=== PATIENT | male | born 1935 | race Caucasian/White ===

== ENCOUNTER 2016-11-05 13:50 | Day surgery (SDC) | payer MEDICARE, BC ==
[2016-11-01 18:23] VITALS: BMI 36.1
[~2016-11-05 13:50] MED LIST: ceFAZolin 1,000 MG in SODIUM CHLORIDE 0.9% IRRIGATIO 250 ML IRRIGATION ONE; ceFAZolin 2 GM in SODIUM CHLORIDE 0.9% 100 ML IVPB ONE
[2016-11-05 15:00] LABS: Glucose,Whole Blood 143 mg/dL (75-99)
[2016-11-05 15:12] LABS: Basophils % (A) 0 %; CH 28.6; CHCM 31.8; Eosinophils # (A) 0.1 k/uL (0-0.7); Eosinophils % (A) 2 %; HCT 38.2 % (39.0-53.0); HDW 2.37; HGB 12.2 gm/dL (13.0-17.5); Luc # (Auto) 0.12; Luc % (Auto) 2; Lymphocytes # (A) 1.4 k/uL (1.0-4.8); Lymphocytes % (A) 24 %; MCH 28.7 pg (25.0-35.0); MCHC 31.9 g/dL (31.0-37.0); MCV 90.2 fL (80.0-100.0); Mean Platelet Volume 6.5; Monocytes # (A) 0.4 k/uL (0-1.0); Monocytes % (A) 6 %; Neutrophils # (A) 3.7 k/uL (1.3-7.7); Neutrophils % (A) 66 %; RBC 4.23 m/uL (4.30-5.90); RDW 13.1 % (11.5-15.5); WBC 5.6 k/uL (3.8-10.6); WBC (Perox) 5.71
[2016-11-05 15:19] LABS: Anion Gap 12 mmol/L; Blood Urea Nitrogen 24 mg/dL (9-20); Calcium 9.8 mg/dL (8.4-10.2); Carbon Dioxide 25 mmol/L (22-30); Chloride 107 mmol/L (98-107); Glucose 141 mg/dL (74-99); Non-African American GFR(MDRD) >60 (>60 ml/min/1.73 sqM); Potassium 4.5 mmol/L (3.5-5.1); Sodium 144 mmol/L (137-145)
[2016-11-05 15:29] LABS: INR 1.4 (<1.1); Prothrombin Time 13.3 sec (9.0-12.0)
[2016-11-05] MEDS ORDERED: MIDAZOLAM 2 MG/2 ML VIAL ONE (16:14)
[2016-11-05] MEDS ORDERED: fentaNYL (PF) 50 MCG/ML 2 ML AMP ONE (16:14)
[2016-11-05] MEDS: fentaNYL (PF) 50 MCG/ML 2 ML AMP IV ONE ×2 (16:30→18:11)
[2016-11-05] MEDS ORDERED: IV FLUID CONTINUATION 1,000 ML IV ONE (16:39)
[2016-11-05] MEDS ORDERED: IODIXANOL 320 MG/ML 100 ML IV ONE (16:45)
[2016-11-05] MEDS: LIDOCAINE 1% INJ 10MG/ML (20 ML MDV) SQ ONE ×2 (16:47→16:57)
[2016-11-05] MEDS ORDERED: MIDAZOLAM 2 MG/2 ML VIAL IVP ONE (17:02)
[2016-11-05] MEDS ORDERED: ACETAMINOPHEN IV (For NPO) 1,000 MG in EMPTY BAG 1 BAG IVPB ONE (18:13)
[2016-11-05] MEDS ORDERED: ACETAMINOPHEN TAB 325 MG TAB PO PRN (18:13)
[2016-11-05] MEDS: SODIUM CHLORIDE 0.9% 1,000 ML IV SCH (18:43)
--- NOTE | 2016-11-05 18:57 | PCN ---
DATE OF PROCEDURE: Mr. Elizabeth is a patient of Dr. Luther Aldana and Dr. Ibrahim who has severe bradycardia, has symptomatic bradycardia with underlying AV node disease as well as a history of tachy-laura recovery syndrome and atrial fibrillation. He has pauses up to 3 to 5 seconds secondary to AV node disease He has diabetes and hypertension and dyslipidemia, coronary artery disease, status post stenting in the past as well as coronary artery bypass grafting. He was brought in for dual-chamber pacemaker implantation. The patient was brought to the EP lab in a fasting state. Written informed consent was obtained prior to the procedure. The left shoulder area was prepped and draped as per protocol. 1% lidocaine was used for local anesthesia. A 4 cm incision was made parallel to the deltopectoral groove, about 1.5 cm medial to it. The incision was carried down to the level of pectoralis muscle. A subfascial pocket was made. Hemostasis was assured. The left axillary vein was accessed at 2 separate points under fluoroscopy and via appropriate-sized introducer sheaths, 2 leads were positioned in the right heart. The atrial lead was NJVCevity MRI lead 45 cm in length and model #7740, serial #[id number]. This was screwed in the right atrial appendage. P waves were 1.9 V, pacing threshold 0.7 V at 0.4 ms, pacing impedance of 550 ohms, 1.3 mA. Table test was negative. The RV lead positioned high RV septum, model #7742, serial #[id number], 9 cm in length. Table test was negative. R waves 7.9 mV, pacing threshold 0.4 ms, pacing impedance of 877 ohms, current of 1.5 mA. Both leads were secured to the underlying pectoralis fascia using 2 nonabsorbable sutures. The pocket was irrigated with antibiotic solution. The leads were connected to the generator ([email or web address] Accolade MRI, model #L311, serial #[id number]). The leads and the generator were then placed in the subfascial pocket and the wound was closed in 3 layers and dressed per protocol. The device was secured to the underlying pectoralis muscle. RESULT: Successful dual-chamber pacemaker implantation for tachy-laura syndrome with severe AV node disease with pauses up to 3 to 5 seconds, history of paroxysmal atrial fibrillation and diabetes, hypertension, hyperlipidemia, coronary artery disease, coronary artery bypass grafting. PLAN: IV antibiotics and increased atenolol to 50 mg p.o. daily.
[2016-11-05] MEDS ORDERED: NITROGLYCERIN SL TABS 0.4 MG TAB SUBLINGUAL PRN (18:58)
--- NOTE | 2016-11-05 19:01 | LTR ---
November 05, 2016 RE: Jay Elizabeth Dear Gerald: I had the pleasure of seeing Mr. Jay Elizabeth in electrophysiology followup. Jay underwent a dual-chamber pacemaker implantation successfully for tachy-laura syndrome with significant AV node disease and pause of 3 to 5 seconds. The pacemaker procedure went well without any complications. However, during the procedure we noted that he also has runs of nonsustained ventricular tachycardia originating from the left ventricle. Therefore, his device has been programmed to detect tachy arrhythmias above 140 beats a minute. I will also increase the dose of atenolol to 50 mg p.o. daily because he has known atrial fibrillation. The rest of his medications remain unchanged. If you have any questions, please do not hesitate to give me a call. Sincerely, CATHY CUMMINS MD
--- NOTE | 2016-11-05 19:06 | DS ---
DATE OF ADMISSION: 11/05/2016 DATE OF DISCHARGE: Jay Elizabeth underwent dual-chamber pacemaker implantation for tachy-laura syndrome with severe AV node disease and pauses up to 3 to 5 seconds. He received IV antibiotics ( ). He may be discharged home office completion of IV antibiotics, chest x-ray and pacemaker interrogation. His other medical problems include paroxysmal atrial fibrillation nonsustained ventricular tachycardia, coronary artery disease, status post coronary artery bypass grafting, diabetes, hypertension, dyslipidemia.
[2016-11-05] MEDS: HYDROcodone/APAP 5-325MG 1 EACH TAB PO PRN (20:31)
[2016-11-05] MEDS: ATENOLOL 50 MG TAB PO SCH (20:32)
[2016-11-05] MEDS: ISOSORBIDE MONONITRATE ER 60 MG TAB.ER.24H PO SCH (20:32)
[2016-11-05] MEDS: metFORMIN 500 MG TAB PO SCH (20:32)
[2016-11-05] MEDS: glipiZIDE 5 MG TAB PO SCH (20:32)
[2016-11-05] MEDS ORDERED: ATORVASTATIN 40 MG TAB PO SCH (21:00)
[2016-11-05] MEDS ORDERED: INSULIN DETEMIR 100 UNIT/ML 10 ML VIAL SQ SCH (21:00)
[2016-11-05] MEDS ORDERED: WARFARIN 5 MG TAB PO SCH (21:00)
[2016-11-05] MEDS ORDERED: FAMOTIDINE 20 MG TAB PO SCH (21:00)
[2016-11-05 21:14] LABS: Glucose,Whole Blood 198 mg/dL (75-99)
[2016-11-05] MEDS: ceFAZolin 2 GM in SODIUM CHLORIDE 0.9% 100 ML IVPB SCH (21:37)
[2016-11-06] MEDS: ceFAZolin 2 GM in SODIUM CHLORIDE 0.9% 100 ML IVPB SCH ×3 (03:25→14:31)
[2016-11-06] MEDS: HYDROcodone/APAP 5-325MG 1 EACH TAB PO PRN ×2 (03:38→08:23)
[2016-11-06] MEDS ORDERED: LEVOTHYROXINE 88 MCG TAB PO SCH (06:30)
[2016-11-06 07:00] LABS: Glucose,Whole Blood 90 mg/dL (75-99)
[2016-11-06] MEDS ORDERED: CAPTOPRIL 25 MG TAB PO SCH (07:30)
[2016-11-06] MEDS ORDERED: ONDANSETRON 4 MG/2 ML VIAL IVP PRN (07:45)
[2016-11-06 07:48] VITALS: PULSE 60; RESP 18
[2016-11-06] MEDS: metFORMIN 500 MG TAB PO SCH (08:00)
[2016-11-06] MEDS: glipiZIDE 5 MG TAB PO SCH (08:00)
[2016-11-06] MEDS: ATENOLOL 50 MG TAB PO SCH (08:01)
[2016-11-06] MEDS: ISOSORBIDE MONONITRATE ER 60 MG TAB.ER.24H PO SCH (08:02)
[2016-11-06] MEDS ORDERED: ASPIRIN 81 MG CHEW PO SCH (09:00)
[2016-11-06] MEDS ORDERED: FINASTERIDE 5 MG TAB PO SCH (09:00)
[2016-11-06] MEDS ORDERED: DOXAZOSIN 2 MG TAB PO SCH (09:00)
[2016-11-06] MEDS ORDERED: ATENOLOL 25 MG TAB PO SCH (09:00)
[2016-11-06] MEDS ORDERED: amLODIPine 10 MG TAB PO SCH (09:00)
[2016-11-06] MEDS ORDERED: CLOPIDOGREL 75 MG TAB PO SCH (09:00)
--- NOTE | 2016-11-06 09:43 | XR ---
EXAMINATION TYPE: XR chest 2V DATE OF EXAM: 11/06/2016 6:48 AM COMPARISON: 06/10/2012 HISTORY: Lead placement check FINDINGS: The lungs are clear and there is no pneumothorax, pleural effusion, or focal pneumonia. There is a d ouble lead pacemaker with no evidence of pneumothorax. Postsurgical changes are seen. Proximal lead o verlies the right atrium and the distal lead overlies the region of the right ventricle. Degenerative change of the spine noted. IMPRESSION: 1. No postprocedural complication.
--- NOTE | 2016-11-06 10:35 | CONS ---
DATE OF CONSULTATION: 11/05/2016 CONSULTATION REGARDING: Medical evaluation and management of diabetes mellitus. HISTORY OF PRESENT ILLNESS: 81-year-old gentleman, who was admitted to the hospital and underwent a pacemaker placement. The patient was noted to have bradycardia and high grade blockage. In the outpatient period the patient had intermittent atrial fibrillation as well. The patient has an underlying history of coronary artery disease. PAST MEDICAL HISTORY: Significant for coronary artery disease with previous CABG. The patient has subsequently had other interventional procedures. The patient still has occasional angina, for example today with the exposure of cold weather he says he did have an episode of angina. The patient has a history of paroxysmal atrial fibrillation and also suggestion of sick sinus syndrome for which he has had a pacemaker placed today. The patient has a history of diabetes mellitus with fair control, obesity, hypertension, degenerative arthritis. PAST SURGICAL HISTORY: Significant for CABG. PERSONAL HISTORY: Nonsmoker. Alcohol none. ALLERGIES: None. MEDICATIONS: 1. Coumadin 5 mg daily. 2. Zantac 150 mg daily. 3. Capoten 25 mg b.i.d. 4. Plavix 75 mg daily. 5. Levemir 20 units subcu at bedtime. 6. Metformin 1000 mg b.i.d. 7. Glipizide 5 mg b.i.d. 8. Norvasc 10 mg daily. 9. Levothyroxine 88 mcg daily. 10. Imdur 60 mg b.i.d. 11. Fenestrate 5 mg daily. 12. Cardura 2 mg daily. 13. Vitamin D3. 14. Lipitor 40 mg daily. 15. Atenolol 50 mg daily. 16. Aspirin 81 mg daily. SOCIAL HISTORY: Patient is and lives with her spouse. FAMILY MEDICAL HISTORY: Father of coronary artery disease, mother of dementia. The patient has a sister with history of bronchial asthma. A brother with history of diabetes mellitus type 1 and coronary artery disease. Brother with history of coronary artery disease. The patient has a daughter who had cervical cancer recently and treated. REVIEW OF SYSTEMS: NEURO: Denies any headaches, dizziness. No double vision or blurred vision. PSYCH: No anxiety or depression. CARDIAC: No chest pain, palpitations. Does have an episode of angina. No shortness of breath. RESPIRATORY: No shortness of breath. Has chronic cough. No hemoptysis. GI: No nausea, vomiting, abdominal pain, diarrhea. : No symptoms of dysuria, hematuria. Does have some frequency and hesitancy. EXTREMITIES: No pain. Does have musculoskeletal pain in the knee joints. CONSTITUTIONAL: No fever or chills. PHYSICAL EXAMINATION: Pleasant gentleman in no distress. Vital signs reveal patient is afebrile, pulse 74, blood pressure 140/61, pulse ox 91% on room air. HEENT: Normocephalic. NECK: No JVD. CHEST: Clear to auscultation. CARDIAC: Normal S1, S2 with no gallops. HEENT: Normocephalic. NECK: Supple. No JVD. CHEST: Clear to auscultation and percussion. CARDIAC: Normal S1, S2, no gallops. Systolic murmur 2/6 left sternal border. ABDOMEN: Soft. Bowel sounds present. EXTREMITIES: Trace edema. Decreased pedal pulses. NEUROLOGIC: Awake, alert, oriented, well-coordinated movements right upper extremity and both lower extremities. Left upper extremities in a sling. LABORATORY ASSESSMENT: Hemoglobin of 12.2, white count 5.6, INR 1.4. Normal electrolytes, BUN 24, creatinine 1.11, glucose was 141. ASSESSMENT: 1. Diabetes mellitus, on medical therapy at present, adequately controlled. 2. Coronary artery disease, stable. 3. Status post pacemaker. 4. Obesity. PLAN: The patient is stable. Continue present medical regimen. The patient's medications are as ordered. Condition discussed with the patient. Prognosis guarded.
[2016-11-06 11:41] VITALS: BP 138/63; TEMP 97.4
--- NOTE | 2016-11-06 11:41 | DS ---
DATE OF ADMISSION: 11/05/2016 DATE OF DISCHARGE: Mr. Elizabeth is doing well. His pacemaker site has healed well. There is minimal oozing of the dressing. No hematoma. Heart sounds are normal. Breath sounds are normal. Lungs are clear on auscultation. Vitals are stable. He is afebrile. His blood pressure is 122/61 mmHg. Chest x-ray is within normal limits. Pacemaker interrogation within normal limits. He will be discharged home after completion of IV antibiotics. IMPRESSION: 1. Severe bradycardia associated with severe has severe atrioventricular node disease, pauses of 3 to 5 seconds, symptomatic. 2. Coronary artery disease, status post coronary artery bypass grafting. 3. Nonsustained ventricular tachycardia from the left ventricle. Based on the telemetry, pacemaker programmed accordingly to heart rates above 146 beats a minute. PLAN: Discharge home today and follow up with Dr. Luther Aldana. The dose of atenolol has been increased to 50 mg p.o. daily.
[2016-11-06] MEDS: SODIUM CHLORIDE 0.9% 1,000 ML IV SCH (11:52)
[2016-11-06 12:04] LABS: Glucose,Whole Blood 169 mg/dL (75-99)
--- NOTE | 2016-11-06 23:00 | PN ---
CHIEF COMPLAINT: Re-evaluation. HISTORY OF PRESENT ILLNESS: This is a 81-year-old who was admitted to the hospital and has undergone a pacemaker placement. The patient had sick sinus syndrome along with paroxysmal atrial fibrillation. He has underlying history of coronary artery disease. The patient also has a history of diabetes mellitus. He is actually feeling fairly well. REVIEW OF SYSTEMS: NEURO: Denies any headaches, dizziness. PSYCH: No anxiety. CARDIAC: No chest pain, angina, palpitation. RESPIRATORY: No shortness of breath, cough. GI: No nausea, vomiting, abdominal pain. : No symptoms of dysuria, hematuria. EXTREMITIES: No pain. CONSTITUTIONAL: No fever or chills. PHYSICAL EXAMINATION: Pleasant gentleman in no distress. VITAL SIGNS: Temperature 98.5, pulse 60, respirations 18, blood pressure 128/61, pulse ox 93% on room air. HEENT: Normocephalic. NECK: No JVD. CHEST: Clear to auscultation ( ) percussion noted bilaterally. CARDIAC: Normal S1, S2 with no gallops. Systolic murmur 2/6, left sternal border. ABDOMEN: Soft. EXTREMITIES: No edema. Neurologically awake, alert, oriented. Moves right upper extremity and lower extremities fairly well. LABORATORY ASSESSMENT: CBC which revealed a hemoglobin of 12.2 yesterday. No labs from today. Accu-Cheks in adequate range. ASSESSMENT: 1. Diabetes mellitus, adequately controlled. 2. Coronary artery disease, stable. 3. Status post pacemaker placement. PLAN: The patient is stable. Continue present medical regimen. Patient's condition discussed with the patient. Prognosis guarded. Patient after completion of his IV antibiotics will be discharged home today.
== END 2016-11-06 16:25 | disposition home or self-care (01) ==
LOC: CATHEP 13:50 → 3OBS 18:00 → CATHEP 11-06 16:25
PROVIDERS: ATTEND Internal Medicine Clinical Cardiac Electrophysiology
DX: I49.5 Sick sinus syndrome (principal); I44.1 Atrioventricular block, second degree; I47.2 Ventricular tachycardia; I48.0 Paroxysmal atrial fibrillation; I25.119 Atherosclerotic heart disease of native coronary artery with unspecified angina pectoris; Z95.1 Presence of aortocoronary bypass graft; E78.2 Mixed hyperlipidemia; I10 Essential (primary) hypertension; E11.9 Type 2 diabetes mellitus without complications; E66.9 Obesity, unspecified; Z82.49 Family history of ischemic heart disease and other diseases of the circulatory system; I25.2 Old myocardial infarction; Z79.01 Long term (current) use of anticoagulants; Z79.84 Long term (current) use of oral hypoglycemic drugs; Z79.02 Long term (current) use of antithrombotics/antiplatelets; Z79.82 Long term (current) use of aspirin; Z79.4 Long term (current) use of insulin; Z79.899 Other long term (current) drug therapy; Z87.891 Personal history of nicotine dependence
CPT/HCPCS: 33208; 80048; 85025; 85610; 71020; C1892; C1769 ×2; C1898; C1785; S0138; J2250; Q9967; J0690 ×3; J2001; J3010

== ENCOUNTER → 2016-12-12 | Outpatient (CLI) | payer MEDICARE, BC ==
[2016-12-12 15:51] LABS: Anion Gap 11 mmol/L; Blood Urea Nitrogen 26 mg/dL (9-20); Carbon Dioxide 26 mmol/L (22-30); Chloride 104 mmol/L (98-107); Non-African American GFR(MDRD) >60 (>60 ml/min/1.73 sqM); Sodium 141 mmol/L (137-145)
[2016-12-12 15:54] LABS: CH 28.4; CHCM 30.8; HCT 38.9 % (39.0-53.0); HDW 2.32; Hypochromasia Slight; MCH 28.5 pg (25.0-35.0); MCHC 30.8 g/dL (31.0-37.0); MCV 92.6 fL (80.0-100.0); Mean Platelet Volume 6.9; RDW 13.1 % (11.5-15.5); WBC 6.1 k/uL (3.8-10.6)
== END | disposition home or self-care (01) ==
LOC: LABPAT 15:06
PROVIDERS: ATTEND Internal Medicine Cardiovascular Disease
DX: Z01.812 Encounter for preprocedural laboratory examination (principal); I25.10 Atherosclerotic heart disease of native coronary artery without angina pectoris
CPT/HCPCS: 80051; 82565; 84520; 85027

== ENCOUNTER 2016-12-17 10:48 | Day surgery (SDC) | payer MEDICARE, BC ==
[2016-12-16 08:26] VITALS: BMI 35.9
[~2016-12-17 10:48] MED LIST changes: +ALPRAZolam 0.25 MG TAB PO PRN; +ALPRAZolam 0.5 MG TAB PO PRN; +ASPIRIN 325 MG TAB PO STA; +ATORVASTATIN 80 MG TAB PO STA; +NITROGLYCERIN SL TABS 0.4 MG TAB SUBLINGUAL PRN; +SODIUM CHLORIDE 0.9% 1,000 ML in EMPTY BAG 1 BAG IV ONE; -ceFAZolin 1,000 MG in SODIUM CHLORIDE 0.9% IRRIGATIO 250 ML IRRIGATION ONE; -ceFAZolin 2 GM in SODIUM CHLORIDE 0.9% 100 ML IVPB ONE
[2016-12-17] MEDS ORDERED: ASPIRIN 81 MG CHEW ONE (11:03)
[2016-12-17] MEDS ORDERED: SODIUM CHLORIDE 0.9% 1,000 ML IV ONE (11:17)
[2016-12-17 11:27] LABS: Glucose,Whole Blood 183 mg/dL (75-99)
[2016-12-17 12:06] LABS: INR 1.1 (<1.1); Prothrombin Time 10.9 sec (9.0-12.0)
[2016-12-17] MEDS ORDERED: MIDAZOLAM 2 MG/2 ML VIAL IV ONE (12:59)
[2016-12-17] MEDS: fentaNYL (PF) 50 MCG/ML 2 ML AMP IV ONE ×2 (12:59→13:33)
[2016-12-17] MEDS ORDERED: LIDOCAINE 2% INJ 20 MG/ML SQ ONE (13:05)
[2016-12-17] MEDS ORDERED: BIVALIRUDIN 250 MG in SODIUM CHLORIDE 0.9% 50 ML IV ONE (13:38)
[2016-12-17] MEDS ORDERED: BIVALIRUDIN BOLUS 250 MG/50 ML IV ONE (13:38)
[2016-12-17] MEDS ORDERED: IOHEXOL 350 MG/ML 100 ML BOTTLE INTRATHECA ONE (14:05)
[2016-12-17] MEDS ORDERED: RX INFO: IV CONTRAST WAS GIVEN 1 EACH MISC MISCELLANE PRN (14:17)
[2016-12-17] MEDS ORDERED: NITROGLYCERIN SL TABS 0.4 MG TAB SUBLINGUAL PRN ×2 (14:17→14:18)
[2016-12-17] MEDS ORDERED: ATROPINE SULFATE 0.1 MG/ML 10ML SYRINGE IV PRN (14:17)
[2016-12-17] MEDS ORDERED: MAG HYDROX/AL HYDROX/SIMETH 30 ML CUP PO PRN (14:17)
[2016-12-17] MEDS ORDERED: ZOLPIDEM 5 MG TAB PO PRN (14:17)
[2016-12-17] MEDS ORDERED: SODIUM CHLORIDE 0.9% 1,000 ML IV SCH (14:30)
[2016-12-17 17:03] LABS: Glucose,Whole Blood 224 mg/dL (75-99)
[2016-12-17] MEDS: CAPTOPRIL 25 MG TAB PO SCH (17:31)
[2016-12-17 18:22] VITALS: RESP 18
[2016-12-17] MEDS: ISOSORBIDE MONONITRATE ER 60 MG TAB.ER.24H PO SCH (20:13)
[2016-12-17 20:49] LABS: Glucose,Whole Blood 229 mg/dL (75-99)
[2016-12-17] MEDS ORDERED: ATORVASTATIN 40 MG TAB PO SCH (21:00)
[2016-12-17] MEDS ORDERED: INSULIN DETEMIR 100 UNIT/ML 10 ML VIAL SQ SCH (21:00)
[2016-12-17] MEDS ORDERED: FAMOTIDINE 20 MG TAB PO SCH (21:00)
[2016-12-17] MEDS ORDERED: CHOLECALCIFEROL 1,000 UNIT TAB PO SCH (21:00)
[2016-12-18 00:08] LABS: Glucose,Whole Blood 205 mg/dL (75-99)
[2016-12-18] MEDS: INSULIN LISPRO (humaLOG) 300 UNIT/3 ML VIAL SQ SCH ×3 (00:08→12:16)
--- NOTE | 2016-12-18 05:07 | CC ---
DATE OF SERVICE: Mr. Elizabeth is a 81-year-old gentleman with a history of previous bypass surgery. Patient recently underwent stent to the left main and the first obtuse marginal branch. The patient was having a significant increase in the frequent angina with mild activities. In view of that, the patient was recommended to have a cardiac catheterization to rule out any significant stenosis at the prior history of stent placement. PROCEDURE: The right groin was prepped and draped in the usual manner and the skin was infiltrated with 2% Xylocaine. The right femoral artery was entered using Seldinger technique. A #6 Irish sheath was placed in. Selective coronary angiography was then performed. Left main coronary artery has an ostial stenosis in its midportion. The circumflex coronary artery itself is patent and good caliber blood vessel. The first obtuse marginal branch, which was stented, looks normal. There is mild ostial stenosis. LAD is totally occluded. The FALLON graft to the LAD was patent by the cardiac catheterization done about 3 months ago and the right coronary artery is small and dominant. RECOMMENDATIONS: The films were reviewed with Dr. Gilman. In view of the patient's significant angina in spite of the medical treatment, we will attempt the re-stenting of the left main coronary artery.
--- NOTE | 2016-12-18 05:20 | PTCA ---
DATE OF SERVICE: Mr. Elizabeth is a 81-year-old male with known history of coronary artery disease, status post stenting of the left main in August who presented with symptoms of chest discomfort, underwent cardiac catheterization by Dr. Luther Aldana, was found to have severely calcified left main with restenosis in the stent up to 60% to 70%. In view of that, recommendation was made regarding angioplasty and stenting. The procedure as well as the risks and complications were discussed with the patient who is in full understanding and agreement. PROCEDURE: A 6-Tamazight FR4 guiding catheter was introduced into the system. After cannulating the left main, a 0.014 balanced medium weight J wire advanced across the lesion, positioned distally. Subsequently attempts to advance at 3.0 x 12 mm Trek balloon were unsuccessful, that balloon was removed and another 0.014 balanced medium weight J wire was advanced next to this first wire in a owen fashion. Attempts to advance the balloon were unsuccessful. The balloon was removed and a 2.0 x 8 mm Trek balloon was advanced and one inflation at 14 atmospheres was done. Subsequently, the balloon was removed and a 3.0 x 12 mm Trek balloon was advanced and one inflation at 12 atmospheres was done. Following that, the balloon was removed and 3.5 x 8 mm Xience Alpine stent was dispensed, deployed and post dilated at 16 atmospheres. After the last inflation, after appropriate wait, the balloon and the guidewire were withdrawn back in the guiding catheter. Images were obtained and repeated. Those images reveal stable successful stenting. At that point, the guiding catheter, the balloon and the guidewire were removed. The sheath was removed. Hemostasis was obtained with deployment of an Angio-Seal. There was no immediate complication. The patient was returned to his room in stable condition. Of note, the patient received Angiomax per protocol and he was continued on Plavix. RESULT: Successful stenting of the left main with the reduction of stenosis from 70% to 0%. RECOMMENDATION: Patient will be continued aspirin, Plavix, beta mago and statin. The importance of dual antiplatelet treatment were discussed with the patient and his family and they are in full understanding and agreement.
--- NOTE | 2016-12-18 05:23 | LTR ---
December 17, 2016 PAM NEAL MD RE: Glenn Jay Dear Dr. Neal: I had the opportunity to perform coronary angioplasty and stenting on Mr. Elizabeth at [facility] on the 17 of December and a full copy of the procedure note will be forwarded to you. In brief, he underwent successful stenting of his left main using a drug-eluting stent. I am hopeful that this procedure will stabilize his status. I thank you again for allowing me the opportunity to participate in his care. Please feel free to call for any questions. Sincerely yours, QUINTIN HOWELL MD
[2016-12-18 05:43] LABS: Glucose,Whole Blood 131 mg/dL (75-99)
[2016-12-18 06:07] LABS: Anion Gap 7 mmol/L; Blood Urea Nitrogen 19 mg/dL (9-20); Calcium 9.2 mg/dL (8.4-10.2); Carbon Dioxide 27 mmol/L (22-30); Chloride 110 mmol/L (98-107); Glucose 130 mg/dL (74-99); Non-African American GFR(MDRD) >60 (>60 ml/min/1.73 sqM); Potassium 4.4 mmol/L (3.5-5.1); Sodium 144 mmol/L (137-145)
[2016-12-18] MEDS ORDERED: LEVOTHYROXINE 88 MCG TAB PO SCH (06:30)
[2016-12-18] MEDS: CAPTOPRIL 25 MG TAB PO SCH (06:48)
[2016-12-18] MEDS ORDERED: INSULIN LISPRO (humaLOG) 300 UNIT/3 ML VIAL SQ SCH (07:30)
[2016-12-18] MEDS: ISOSORBIDE MONONITRATE ER 60 MG TAB.ER.24H PO SCH (08:07)
[2016-12-18] MEDS ORDERED: ATENOLOL 50 MG TAB PO SCH (09:00)
[2016-12-18] MEDS ORDERED: MULTIVITAMINS, THERA 1 EACH TAB PO SCH (09:00)
[2016-12-18] MEDS ORDERED: amLODIPine 10 MG TAB PO SCH (09:00)
[2016-12-18] MEDS ORDERED: CLOPIDOGREL 75 MG TAB PO SCH (09:00)
[2016-12-18] MEDS ORDERED: ASPIRIN 81 MG CHEW PO SCH (09:00)
[2016-12-18] MEDS ORDERED: FINASTERIDE 5 MG TAB PO SCH (09:00)
[2016-12-18] MEDS: DOXAZOSIN 2 MG TAB PO SCH ×2 (09:43→09:44)
[2016-12-18 11:06] LABS: Hemoglobin A1C 7.1 % (4.2-6.1)
[2016-12-18 11:32] LABS: Glucose,Whole Blood 215 mg/dL (75-99)
[2016-12-18 12:47] VITALS: BP 133/56; PULSE 59; TEMP 96.9
--- NOTE | 2016-12-18 15:04 | P.PN ---
Subjective Principal diagnosis: Status post left main stenting Discharge note This is a 81-year-old gentleman with history of prior bypass surgery who recently underwent stent to the left main and first obtuse marginal branch. Patient was having increase the symptoms of angina and for this reason was brought to the cardiac catheterization lab yesterday by Dr. VC Aldana will patient was found to have an ostial stenosis in the left main. This was stented yesterday by Dr. Gilman. EKG performed this morning showed normal sinus rhythm with no changes from post-PCI. Hemodynamically stable. He's been up ambulating without any difficulty. Objective - Vital Signs Vital signs: Vital Signs Temp 96.9 F L 12/18/16 11:15 Pulse 59 L 12/18/16 11:15 Resp 18 12/18/16 11:15 BP 133/56 12/18/16 11:15 Pulse Ox 96 12/18/16 11:15 Intake & Output 12/17/16 12/18/16 12/18/16 18:59 06:59 18:59 Intake Total 1184.7 1000 536 Output Total 1060 300 Balance 124.7 700 536 Weight 113.398 kg 112 kg Intake: IV 984.7 1000 Sodium Chloride 0.9% 1, 700 1000 000 ml @ 100 mls/hr IV . Q10H ROBERT Rx#:[id number] Oral 200 536 Output: Urine 1060 300 Other: Voiding Method Toilet Urinal # Voids 1 - Exam PHYSICAL EXAMINATION: HEENT: Head is atraumatic, normocephalic. Pupils equal, round. Neck is supple. There is no elevated jugular venous pressure. HEART EXAMINATION: Heart S1, S2 normal. No murmur or gallop heard. CHEST EXAMINATION: Lungs are clear to auscultation and precussion. No chest wall tenderness is noted on palpation or with deep breathing. ABDOMEN: Soft, nontender. Bowel sounds are heard. No organomegaly noted. Right groin soft, no evidence of any hematoma. EXTREMITIES: 2+ peripheral pulses with no evidence of peripheral edema and no calf tenderness noted. NEUROLOGIC patient is awake, alert and oriented -3. . - Labs CBC & Chem 7: 12/18/16 05:37 Labs: Abnormal Lab Results - Last 24 Hours (Table) 12/17/16 12/17/16 12/18/16 Range/Units 16:55 20:47 00:04 Chloride (98-107) mmol/L Glucose (74-99) mg/dL POC Glucose (mg/dL) 224 H 229 H 205 H (75-99) mg/dL Hemoglobin A1c (4.2-6.1) % 12/18/16 12/18/16 12/18/16 Range/Units 05:37 05:37 05:42 Chloride 110 H (98-107) mmol/L Glucose 130 H (74-99) mg/dL POC Glucose (mg/dL) 131 H (75-99) mg/dL Hemoglobin A1c 7.1 H (4.2-6.1) % 12/18/16 Range/Units 11:27 Chloride (98-107) mmol/L Glucose (74-99) mg/dL POC Glucose (mg/dL) 215 H (75-99) mg/dL Hemoglobin A1c (4.2-6.1) % Assessment and Plan Plan: Assessment and plan #1 status post left main stenting #2 known history of coronary artery disease with prior bypass surgery #3 diabetes #4 hypertension Number 5 hyperlipidemia Plan Patient may be able to be discharged home today. We will make him a follow-up appointment to see Dr. VC Aldana in the office post discharge. He will be discharged home on aspirin 81 mg daily, atenolol 50 mg daily, Lipitor 80 mg daily, Capoten 25 mg one tablet by mouth twice a day, Plavix 75 mg daily, Cardura 2 mg daily, pro-scar 5 mg daily, insulin as at home, Imdur 60 mg twice a day, Synthroid as at home, Norvasc 10 mg daily, sublingual nitroglycerin as needed for chest pain. Patient will also be resumed on Coumadin 5 mg daily. We will check PT/INR on Friday. DNP note has been reviewed, I agree with a documented findings and plan of care. Patient was seen and examined.
[2016-12-18 15:44] LABS: Glucose,Whole Blood 186 mg/dL (75-99)
== END 2016-12-18 16:33 | disposition home or self-care (01) ==
LOC: CATHCVL 10:48 → 6SEL 14:09 → CATHCVL 12-18 16:33
PROVIDERS: ATTEND Internal Medicine Cardiovascular Disease
DX: T82.855A Stenosis of coronary artery stent, initial encounter (principal); I25.119 Atherosclerotic heart disease of native coronary artery with unspecified angina pectoris; I48.91 Unspecified atrial fibrillation; I10 Essential (primary) hypertension; Z95.1 Presence of aortocoronary bypass graft; Z95.0 Presence of cardiac pacemaker; E78.2 Mixed hyperlipidemia; E11.9 Type 2 diabetes mellitus without complications; I25.2 Old myocardial infarction; Z79.01 Long term (current) use of anticoagulants; Z79.84 Long term (current) use of oral hypoglycemic drugs; Z79.02 Long term (current) use of antithrombotics/antiplatelets; Z79.82 Long term (current) use of aspirin; Z79.4 Long term (current) use of insulin; Z79.899 Other long term (current) drug therapy; Z82.49 Family history of ischemic heart disease and other diseases of the circulatory system; Z87.891 Personal history of nicotine dependence
CPT/HCPCS: 93454; 85347; 80048; 83036; 85610; C9600; C1769 ×2; C1760; C1887; C1725 ×2; C1894; C1874; J2001; S0138; J2250; Q9967; J3010; J0583

== ENCOUNTER 2016-12-24 04:28 | Inpatient (IN) | payer MEDICARE, BC ==
[2016-12-24] MEDS ORDERED: ASPIRIN 81 MG CHEW PO STA (04:46)
[2016-12-24] MEDS ORDERED: NITROGLYCERIN OINT 1 INCH/GM PACKET TOPICAL STA (04:46)
--- NOTE | 2016-12-24 04:49 | ED ---
General Adult HPI - General Chief complaint: Chest Pain Stated complaint: Chest Pain Time Seen by Provider: 12/24/16 04:30 Source: patient, family, EMS, RN notes reviewed Mode of arrival: EMS Limitations: no limitations - History of Present Illness Initial comments: Patient is a pleasant 81-year-old male presenting to the emergency department complaining of chest discomfort. Onset of symptoms was around 2 or 3 in the morning. Symptoms have been steady. Patient took some nitroglycerin without improvement of symptoms. Discomfort is now improved following morphine by EMS. Discomfort is only mild at this time, not completely resolved. No associated nausea or diaphoresis. Patient had mild dyspnea. Patient does have a history of similar symptoms previously associated with cardiac disease. No leg pain or swelling. No cough or fever. - Related Data Home Medications Medication Instructions Recorded Confirmed Captopril [Capoten] 25 mg PO AC-BID 07/10/16 12/17/16 Cholecalciferol [Vitamin D3] 1,000 unit PO HS 07/10/16 12/17/16 Doxazosin [Cardura] 2 mg PO QAM 07/10/16 12/17/16 Finasteride 5 mg PO QAM 07/10/16 12/17/16 Insulin Detemir [Levemir] 20 unit SQ HS 07/10/16 12/17/16 Levothyroxine Sodium [Synthroid] 88 mcg PO QAM 07/10/16 12/17/16 Multivitamins, Thera [Multivitamin] 1 tab PO DAILY 07/10/16 12/17/16 Ranitidine HCl [Zantac] 150 mg PO HS 07/10/16 12/17/16 amLODIPine [Norvasc] 10 mg PO QAM 07/10/16 12/17/16 glipiZIDE [Glipizide] 5 mg PO BID 07/10/16 12/17/16 Isosorbide Mononitrate ER [Imdur] 60 mg PO BID 07/11/16 12/17/16 Warfarin [Coumadin] 5 mg PO HS 11/01/16 12/17/16 Previous Rx's Medication Instructions Recorded Clopidogrel [Plavix] 75 mg PO DAILY #90 tab 07/25/16 Atenolol [Tenormin] 50 mg PO DAILY #0 11/05/16 Aspirin 81 mg PO DAILY #30 chew 12/18/16 Atorvastatin [Lipitor] 40 mg PO HS #30 tab 12/18/16 Nitroglycerin Sl Tabs [Nitrostat] 0.4 mg SUBLINGUAL Q5M PRN #25 tab 12/18/16 metFORMIN HCL [metFORMIN HCL ER] 1,000 mg PO BID #0 12/18/16 Allergies Allergy/AdvReac Type Severity Reaction Status Date / Time No Known Allergies Allergy Verified 11/01/16 17:55 Review of Systems ROS Statement: Those systems with pertinent positive or pertinent negative responses have been documented in the HPI. ROS Other: All systems not noted in ROS Statement are negative. Constitutional: Denies: fever Eyes: Denies: eye pain ENT: Denies: ear pain Respiratory: Reports: dyspnea. Denies: cough Cardiovascular: Reports: chest pain Endocrine: Denies: fatigue Gastrointestinal: Denies: abdominal pain Genitourinary: Denies: dysuria Musculoskeletal: Denies: back pain Skin: Denies: rash Neurological: Denies: weakness Past Medical History Past Medical History: Eye Disorder, Hypertension, Myocardial Infarction (PR) Additional Past Medical History / Comment(s): HX Irregular b/p; PR X2. Uses CPAP. LT Eye RETINA PROB, poor vision. SL RASH ON ANKLES. BRADYCARDIA. SEE H &P. Last Myocardial Infarction Date:: 2005 History of Any Multi-Drug Resistant Organisms: None Reported Past Surgical History: Coronary Bypass/CABG, Heart Catheterization With Stent Additional Past Surgical History / Comment(s): cabg-1 vessel. OLD HX Heart Stents x3 or 4. Sinus surgery r/t growth sinus cavity. PT STATED HAD A PNE VACINE LESS THAN 5 YEARS AGO BUT NOT SURE OF DATE. 07/24/16 PTCA W/ STENTS(1 TO LT MAIN AND 2 TO THE OM). Past Anesthesia/Blood Transfusion Reactions: No Reported Reaction Date of Last Stent Placement:: 07/24/16 Past Psychological History: No Psychological Hx Reported Smoking Status: Former smoker Past Alcohol Use History: Rare Additional Past Alcohol Use History / Comment(s): Quit Smoking 1974, 21 yrs-2 ppd. Past Drug Use History: None Reported - Past Family History Mother Family Medical History: Asthma Father Family Medical History: Myocardial Infarction (PR) Additional Family Medical History / Comment(s): with PR at age 62 Brother(s) Family Medical History: Deep Vein Thrombosis (DVT), Myocardial Infarction (PR) Additional Family Medical History / Comment(s): at age 42 w/ [place] General Exam Limitations: no limitations General appearance: alert, in no apparent distress Head exam: Present: atraumatic Eye exam: Present: normal appearance, PERRL ENT exam: Present: normal oropharynx Neck exam: Present: normal inspection Respiratory exam: Present: normal lung sounds bilaterally. Absent: chest wall tenderness Cardiovascular Exam: Present: regular rate, normal rhythm Expanded Peripheral pulses: 2+: Radial (R), Radial (L), Dorsalis Pedis (R), Dorsalis Pedis (L) GI/Abdominal exam: Present: soft. Absent: tenderness Extremities exam: Present: normal inspection. Absent: pedal edema, calf tenderness Neurological exam: Present: alert Psychiatric exam: Present: normal affect, normal mood Skin exam: Absent: rash Course Vital Signs 12/24/16 12/24/16 04:34 05:55 Temperature 97.0 F L Pulse Rate 70 82 Respiratory 16 18 Rate Blood Pressure 139/65 117/56 O2 Sat by Pulse 94 L 95 Oximetry EKG Findings - EKG Comments: EKG Findings:: Ventricular paced rhythm at 71. QRS 162. QT 468. QTC 508. Normal axis. Wide QRS complex. Nonspecific ST-T. Medical Decision Making - Medical Decision Making Patient reexamined and further improved. Patient and family updated on results and plan. Case was discussed in detail with Dr. Ibrahim, who will admit his patient with cardiology consult. - Lab Data Result diagrams: 12/24/16 04:57 12/24/16 04:57 Lab Results 12/24/16 12/24/16 12/24/16 Range/Units 04:57 04:57 04:57 WBC 6.6 (3.8-10.6) k/uL RBC 4.26 L (4.30-5.90) m/uL Hgb 12.2 L (13.0-17.5) gm/dL Hct 38.9 L (39.0-53.0) % MCV 91.3 (80.0-100.0) fL MCH 28.6 (25.0-35.0) pg MCHC 31.3 (31.0-37.0) g/dL RDW 13.4 (11.5-15.5) % Plt Count 177 (150-450) k/uL Neutrophils % 69 % Lymphocytes % 20 % Monocytes % 5 % Eosinophils % 3 % Basophils % 1 % Neutrophils # 4.5 (1.3-7.7) k/uL Lymphocytes # 1.3 (1.0-4.8) k/uL Monocytes # 0.3 (0-1.0) k/uL Eosinophils # 0.2 (0-0.7) k/uL Basophils # 0.1 (0-0.2) k/uL PT (9.0-12.0) sec INR (<1.1) APTT (22.0-30.0) sec Sodium 143 (137-145) mmol/L Potassium 4.8 (3.5-5.1) mmol/L Chloride 107 (98-107) mmol/L Carbon Dioxide 23 (22-30) mmol/L Anion Gap 13 mmol/L BUN 23 H (9-20) mg/dL Creatinine 1.00 (0.66-1.25) mg/dL Est GFR (MDRD) Af Amer >60 (>60 ml/min/1.73 sqM) Est GFR (MDRD) Non-Af >60 (>60 ml/min/1.73 sqM) Glucose 135 H (74-99) mg/dL Calcium 9.4 (8.4-10.2) mg/dL Magnesium 1.3 L (1.6-2.3) mg/dL Total Bilirubin 0.5 (0.2-1.3) mg/dL AST 30 (17-59) U/L ALT 39 (21-72) U/L Alkaline Phosphatase 64 (38-126) U/L Total Creatine Kinase 136 (55-170) U/L CK-MB (CK-2) 2.2 (0.0-2.4) ng/mL CK-MB (CK-2) Rel Index 1.6 Troponin I 0.026 (0.000-0.034) ng/mL Total Protein 6.6 (6.3-8.2) g/dL Albumin 3.8 (3.5-5.0) g/dL 12/24/16 Range/Units 04:57 WBC (3.8-10.6) k/uL RBC (4.30-5.90) m/uL Hgb (13.0-17.5) gm/dL Hct (39.0-53.0) % MCV (80.0-100.0) fL MCH (25.0-35.0) pg MCHC (31.0-37.0) g/dL RDW (11.5-15.5) % Plt Count (150-450) k/uL Neutrophils % % Lymphocytes % % Monocytes % % Eosinophils % % Basophils % % Neutrophils # (1.3-7.7) k/uL Lymphocytes # (1.0-4.8) k/uL Monocytes # (0-1.0) k/uL Eosinophils # (0-0.7) k/uL Basophils # (0-0.2) k/uL PT 15.4 H (9.0-12.0) sec INR 1.6 (<1.1) APTT 24.6 (22.0-30.0) sec Sodium (137-145) mmol/L Potassium (3.5-5.1) mmol/L Chloride (98-107) mmol/L Carbon Dioxide (22-30) mmol/L Anion Gap mmol/L BUN (9-20) mg/dL Creatinine (0.66-1.25) mg/dL Est GFR (MDRD) Af Amer (>60 ml/min/1.73 sqM) Est GFR (MDRD) Non-Af (>60 ml/min/1.73 sqM) Glucose (74-99) mg/dL Calcium (8.4-10.2) mg/dL Magnesium (1.6-2.3) mg/dL Total Bilirubin (0.2-1.3) mg/dL AST (17-59) U/L ALT (21-72) U/L Alkaline Phosphatase (38-126) U/L Total Creatine Kinase (55-170) U/L CK-MB (CK-2) (0.0-2.4) ng/mL CK-MB (CK-2) Rel Index Troponin I (0.000-0.034) ng/mL Total Protein (6.3-8.2) g/dL Albumin (3.5-5.0) g/dL - Radiology Data Radiology results: image reviewed (Chest x-ray shows no acute process) Disposition Clinical Impression: Chest pain Disposition: ADMITTED IP TO THIS HOSP
[2016-12-24 05:14] LABS: Basophils # (A) 0.1 k/uL (0-0.2); Basophils % (A) 1 %; CH 29.1; Eosinophils # (A) 0.2 k/uL (0-0.7); Eosinophils % (A) 3 %; HCT 38.9 % (39.0-53.0); HDW 2.45; HGB 12.2 gm/dL (13.0-17.5); Luc # (Auto) 0.19; Luc % (Auto) 3; Lymphocytes # (A) 1.3 k/uL (1.0-4.8); Lymphocytes % (A) 20 %; MCH 28.6 pg (25.0-35.0); MCHC 31.3 g/dL (31.0-37.0); MCV 91.3 fL (80.0-100.0); Mean Platelet Volume 7.5; Monocytes # (A) 0.3 k/uL (0-1.0); Monocytes % (A) 5 %; Neutrophils # (A) 4.5 k/uL (1.3-7.7); Neutrophils % (A) 69 %; RBC 4.26 m/uL (4.30-5.90); RDW 13.4 % (11.5-15.5); WBC 6.6 k/uL (3.8-10.6); WBC (Perox) 6.81
[2016-12-24 05:23] LABS: ALT 39 U/L (21-72); AST 30 U/L (17-59); Alkaline Phosphatase 64 U/L (38-126); Anion Gap 13 mmol/L; Blood Urea Nitrogen 23 mg/dL (9-20); Calcium 9.4 mg/dL (8.4-10.2); Carbon Dioxide 23 mmol/L (22-30); Chloride 107 mmol/L (98-107); Glucose 135 mg/dL (74-99); Magnesium 1.3 mg/dL (1.6-2.3); Non-African American GFR(MDRD) >60 (>60 ml/min/1.73 sqM); Potassium 4.8 mmol/L (3.5-5.1); Sodium 143 mmol/L (137-145); Total Bilirubin 0.5 mg/dL (0.2-1.3); Total Protein 6.6 g/dL (6.3-8.2)
[2016-12-24 05:34] LABS: INR 1.6 (<1.1); Partial Thromboplastin Time 24.6 sec (22.0-30.0); Prothrombin Time 15.4 sec (9.0-12.0)
[2016-12-24] MEDS ORDERED: MAGNESIUM SULFATE-D5W PMX 1 GM in DEXTROSE/WATER 1 100ML.BAG IVPB ONE (05:40)
--- NOTE | 2016-12-24 05:50 | XR ---
EXAM: XR Chest, 1 View. CLINICAL HISTORY: Reason: chest pain TECHNIQUE: Frontal view of the chest. COMPARISON: Chest radiographs 11/06/2016 FINDINGS: Lungs: Lungs are clear without focal infiltrates or consolidations. Pleural space: No evidence of pleural effusion. No pneumothorax. Heart: Heart size and mediastinal structures are within normal limits. Mediastinum: Unremarkable. Bones/joints: Previous median sternotomy. Dual lead cardiac pacer is present. IMPRESSION: No evidence of acute cardiopulmonary disease.
[2016-12-24 05:53] LABS: Creatine Kinase MB 2.2 ng/mL (0.0-2.4); Troponin I 0.026 ng/mL (0.000-0.034)
[2016-12-24 07:04] LABS: Glucose,Whole Blood 145 mg/dL (75-99)
[2016-12-24] MEDS ORDERED: NITROGLYCERIN SL TABS 0.4 MG TAB SUBLINGUAL PRN ×2 (07:31→09:36)
[2016-12-24] MEDS ORDERED: ISOSORBIDE MONONITRATE ER 60 MG TAB.ER.24H PO SCH (09:00)
[2016-12-24] MEDS ORDERED: ATENOLOL 50 MG TAB PO SCH (09:00)
[2016-12-24] MEDS ORDERED: HEPARIN SODIUM,PORCINE 5,000 UNIT/ML 1 ML VIAL IV ONE (09:24)
--- NOTE | 2016-12-24 09:31 | P.CRDCN ---
History of Present Illness Consult date: 12/24/16 Requesting physician: Gerald Ibrahim Consult reason: chest pain (Chest pain) Chief complaint: Chest pain History of present illness: This is a pleasant 81-year-old gentleman with known history of coronary artery disease, patient had coronary artery bypass grafting surgery in 2013 subsequent to that patient has had stent placements. Most recently, on the seventh of this month, because of frequent anginal symptoms with minimal exertion he was brought to the hospital by Dr. VC Aldana he underwent cardiac catheterization, with stent placement of the left main. He was just discharged from the hospital on the eighth of this month. Patient also has history of chronic persistent atrial fibrillation, hypertension, hyperlipidemia, diabetes, family history of premature coronary artery disease, prior pacemaker implantation. He takes Coumadin for anticoagulation. Patient presents to the hospital with symptoms of chest pressure and heaviness, he states that he took 3 sublingual nitro at home without relief of symptoms. According to the patient , he had just walked from the bathroom back to his bed which is a very short distance when symptoms started. He also states that since his discharge home he has been requiring at least one sublingual nitro and day because of exertional angina. EKG on arrival here showed a ventricular paced rhythm with underlying atrial fibrillation. Chest x-ray does not reveal evidence of acute cardiopulmonary disease. INR 1.6, Hemoglobin 12.2, white blood cell count 6.6, potassium 4.8, BUN 23, creatinine 1.0. Initial troponin 0.026. Magnesium level I.3. The patient was not initiated on IV heparin in the emergency room. At the time of my examination this morning he is currently chest pain-free. Blood pressure 152/68 with a heart rate in the 60s. Past Medical History Past Medical History: Atrial Fibrillation, Coronary Artery Disease (CAD), Chest Pain / Angina, Eye Disorder, Hyperlipidemia, Hypertension, Myocardial Infarction ([place]), Osteoarthritis (OA), Sleep Apnea/CPAP/BIPAP Additional Past Medical History / Comment(s): MIs, CPAP use, IDDM type II, bradycardia with pacer, tinnitis bilaterally, slight rash bilateral ankles. Last Myocardial Infarction Date:: 07/02/16 History of Any Multi-Drug Resistant Organisms: None Reported Past Surgical History: Coronary Bypass/CABG, Heart Catheterization With Stent, Orthopedic Surgery, Pacemaker Additional Past Surgical History / Comment(s): 1990 cabg-1 vessel, PTCA, PCI with stents (4 total), sinus surgery r/t growth sinus cavity, colonoscopy, L knee arthroscopy, bilateral cataract removals. Past Anesthesia/Blood Transfusion Reactions: No Reported Reaction Date of Last Stent Placement:: 12/17/16 Type of Cardiac Device: Permanent Pacemaker Device Placement Date:: 11/05/16 Past Psychological History: No Psychological Hx Reported Additional Psychological History / Comment(s): Pt resides with his spouse. He is independent. Smoking Status: Former smoker Past Alcohol Use History: Rare Additional Past Alcohol Use History / Comment(s): Quit Smoking 1972, 21 yrs-2 ppd. Past Drug Use History: None Reported - Past Family History Mother Family Medical History: Asthma Father Family Medical History: Myocardial Infarction ([place]) Additional Family Medical History / Comment(s): with [place] at age 62 Brother(s) Family Medical History: Deep Vein Thrombosis (DVT), Myocardial Infarction ([place]) Additional Family Medical History / Comment(s): at age 42 w/ [place] Medications and Allergies Home Medications Medication Instructions Recorded Confirmed Type Captopril [Capoten] 25 mg PO AC-BID 07/10/16 12/17/16 History Cholecalciferol [Vitamin D3] 1,000 unit PO HS 07/10/16 12/17/16 History Doxazosin [Cardura] 2 mg PO QAM 07/10/16 12/17/16 History Finasteride 5 mg PO QAM 07/10/16 12/17/16 History Insulin Detemir [Levemir] 20 unit SQ HS 07/10/16 12/17/16 History Levothyroxine Sodium [Synthroid] 88 mcg PO QAM 07/10/16 12/17/16 History Multivitamins, Thera [Multivitamin] 1 tab PO DAILY 07/10/16 12/17/16 History Ranitidine HCl [Zantac] 150 mg PO HS 07/10/16 12/17/16 History amLODIPine [Norvasc] 10 mg PO QAM 07/10/16 12/17/16 History glipiZIDE [Glipizide] 5 mg PO BID 07/10/16 12/17/16 History Isosorbide Mononitrate ER [Imdur] 60 mg PO BID 07/11/16 12/17/16 History Warfarin [Coumadin] 5 mg PO HS 11/01/16 12/17/16 History Allergies Allergy/AdvReac Type Severity Reaction Status Date / Time No Known Allergies Allergy Verified 11/01/16 17:55 Physical Exam Vitals: Vital Signs Temp Pulse Pulse Resp BP BP Pulse Ox 12/24/16 06:50 97.6 F 60 18 153/69 97 12/24/16 06:28 65 16 133/68 96 Intake and Output 12/23/16 12/24/16 12/24/16 22:59 06:59 14:59 Other: Weight 111.9 kg PHYSICAL EXAMINATION: HEENT: Head is atraumatic, normocephalic. Pupils equal, round. Neck is supple. There is no elevated jugular venous pressure. HEART EXAMINATION: Heart S1, S2 normal. No murmur or gallop heard. CHEST EXAMINATION: Lungs are clear to auscultation and precussion. No chest wall tenderness is noted on palpation or with deep breathing. ABDOMEN: Soft, nontender. Bowel sounds are heard. No organomegaly noted. EXTREMITIES: 2+ peripheral pulses with no evidence of peripheral edema and no calf tenderness noted. NEUROLOGIC patient is awake, alert and oriented -3. . Results 12/24/16 04:57 12/24/16 04:57 Current Medications Generic Name Dose Route Start Last Admin Trade Name Freq PRN Reason Stop Dose Admin Amlodipine Besylate 10 mg 12/24/16 09:00 Norvasc PO QAM [facility] Aspirin 81 mg 12/24/16 09:00 Aspirin PO DAILY [facility] Atenolol 50 mg 12/24/16 09:00 Tenormin PO DAILY [facility] Atorvastatin Calcium 40 mg 12/24/16 21:00 Lipitor PO HS [facility] Captopril 25 mg 12/24/16 07:30 Capoten PO AC-BID [facility] Cholecalciferol 1,000 unit 12/24/16 21:00 Vitamin D3 PO HS [facility] Clopidogrel Bisulfate 75 mg 12/24/16 09:00 Plavix PO DAILY [facility] Doxazosin Mesylate 2 mg 12/24/16 09:00 Cardura PO QAM [facility] Famotidine 20 mg 12/24/16 21:00 Pepcid PO HS [facility] Finasteride 5 mg 12/24/16 09:00 Proscar PO QAM [facility] Glipizide 5 mg 12/24/16 09:00 Glucotrol PO BID [facility] Insulin Detemir 20 unit 12/24/16 21:00 Levemir SQ HS [facility] Isosorbide Mononitrate 60 mg 12/24/16 09:00 Imdur PO BID [facility] Levothyroxine Sodium 88 mcg 12/24/16 09:00 Synthroid PO QAM [facility] Metformin HCl 1,000 mg 12/24/16 09:00 Glucophage PO BID [facility] Multivitamins 1 each 12/24/16 12:00 Theragran PO DAILY@1200 [facility] Nitroglycerin 1 inch 12/24/16 12:00 Nitro-Bid Oint TOPICAL Q6HR [facility] Nitroglycerin 0.4 mg 12/24/16 07:31 Nitrostat SUBLINGUAL Q5M PRN Chest Pain Warfarin Sodium 5 mg 12/24/16 21:00 Coumadin PO HS [facility] Intake and Output 12/23/16 12/24/16 12/24/16 22:59 06:59 14:59 Other: Weight 111.9 kg EKG Interpretations (text) EKG shows a ventricular paced rhythm with underlying atrial fibrillation. Assessment and Plan Plan: Assessment and plan #1 chest discomfort, suggestive of unstable angina. Initial troponin 0.026, EKG shows ventricular paced rhythm with underlying atrial fibrillation #2 known history of coronary artery disease with prior bypass surgery and stent placements, most recently patient underwent a left main stenting one week ago #2 chronic persistent atrial fibrillation #3 hypertension #4 diabetes #5 hyperlipidemia #6 prior pacemaker implantation #7 hypomagnesemia Plan We will hold patient's Coumadin, give the patient 4000 units of IV heparin now. Replace magnesium. Patient has been advised that he may need to undergo repeat cardiac catheterization to assess the patency of the left main. Further recommendations to follow. DNP note has been reviewed, I agree with a documented findings and plan of care. Patient was seen and examined.
[2016-12-24] MEDS ORDERED: ALPRAZolam 0.25 MG TAB PO PRN (09:36)
[2016-12-24] MEDS ORDERED: ASPIRIN 325 MG TAB PO STA (09:36)
[2016-12-24] MEDS ORDERED: SODIUM CHLORIDE 0.9% 1,000 ML in EMPTY BAG 1 BAG IV ONE (09:36)
[2016-12-24] MEDS ORDERED: ATORVASTATIN 80 MG TAB PO STA (09:36)
[2016-12-24] MEDS ORDERED: ALPRAZolam 0.5 MG TAB PO PRN (09:36)
[2016-12-24] MEDS: LEVOTHYROXINE 88 MCG TAB PO SCH (10:22)
[2016-12-24] MEDS: CAPTOPRIL 25 MG TAB PO SCH ×2 (10:23→17:49)
[2016-12-24 10:24] LABS: Basophils % (A) 1 %; CH 29.3; CHCM 31.7; Eosinophils # (A) 0.2 k/uL (0-0.7); Eosinophils % (A) 3 %; HCT 36.6 % (39.0-53.0); HDW 2.44; HGB 11.2 gm/dL (13.0-17.5); Luc # (Auto) 0.18; Luc % (Auto) 3; Lymphocytes # (A) 1.2 k/uL (1.0-4.8); Lymphocytes % (A) 20 %; MCH 28.4 pg (25.0-35.0); MCHC 30.6 g/dL (31.0-37.0); MCV 92.7 fL (80.0-100.0); Mean Platelet Volume 8.3; Monocytes # (A) 0.4 k/uL (0-1.0); Monocytes % (A) 6 %; Neutrophils % (A) 68 %; RBC 3.95 m/uL (4.30-5.90); RDW 13.3 % (11.5-15.5); WBC 5.9 k/uL (3.8-10.6); WBC (Perox) 5.99
[2016-12-24] MEDS: amLODIPine 10 MG TAB PO SCH (10:24)
[2016-12-24] MEDS: FINASTERIDE 5 MG TAB PO SCH (10:24)
[2016-12-24] MEDS: DOXAZOSIN 2 MG TAB PO SCH (10:25)
[2016-12-24] MEDS: ASPIRIN 81 MG CHEW PO SCH (10:25)
[2016-12-24 10:29] LABS: INR 1.6 (<1.1); Partial Thromboplastin Time 27.2 sec (22.0-30.0); Prothrombin Time 15.7 sec (9.0-12.0)
[2016-12-24 11:14] LABS: Creatine Kinase MB 16.5 ng/mL (0.0-2.4); Troponin I 1.14 ng/mL (0.000-0.034)
[2016-12-24] MEDS ORDERED: NITROGLYCERIN OINT 1 INCH/GM PACKET TOPICAL SCH (12:00)
[2016-12-24 12:08] LABS: Glucose,Whole Blood 162 mg/dL (75-99)
[2016-12-24] MEDS ORDERED: LIDOCAINE 2% INJ 20 MG/ML (20 ML MDV) ONE (13:42)
[2016-12-24] MEDS ORDERED: MIDAZOLAM 2 MG/2 ML VIAL ONE (13:49)
[2016-12-24] MEDS ORDERED: SODIUM CHLORIDE 0.9% 1,000 ML IV ONE (13:55)
[2016-12-24] MEDS ORDERED: MIDAZOLAM 2 MG/2 ML VIAL IVP ONE (14:05)
[2016-12-24] MEDS ORDERED: LIDOCAINE 2% (PF) 20 MG/ML 10ML SQ ONE (14:10)
[2016-12-24] MEDS ORDERED: IOHEXOL 350 MG/ML 100 ML BOTTLE INJ ONE (14:28)
[2016-12-24] MEDS ORDERED: RX INFO: IV CONTRAST WAS GIVEN 1 EACH MISC MISCELLANE PRN (14:39)
[2016-12-24] MEDS: CLOPIDOGREL 75 MG TAB PO SCH (15:14)
[2016-12-24] MEDS: RANOLAZINE 500 MG TAB.ER.12H PO SCH ×2 (15:15→22:32)
[2016-12-24] MEDS: metFORMIN 500 MG TAB PO SCH ×2 (15:15→21:03)
[2016-12-24] MEDS: SODIUM CHLORIDE 0.9% 1,000 ML IV SCH (15:15)
[2016-12-24] MEDS: MULTIVITAMINS, THERA 1 EACH TAB PO SCH (15:15)
[2016-12-24] MEDS: glipiZIDE 5 MG TAB PO SCH ×2 (15:15→21:02)
[2016-12-24 16:31] LABS: Glucose,Whole Blood 177 mg/dL (75-99)
[2016-12-24 18:42] LABS: Creatine Kinase MB 13.7 ng/mL (0.0-2.4); Troponin I 4.35 ng/mL (0.000-0.034)
[2016-12-24] MEDS ORDERED: WARFARIN 5 MG TAB PO SCH (21:00)
[2016-12-24] MEDS ORDERED: ATORVASTATIN 40 MG TAB PO SCH (21:00)
[2016-12-24] MEDS: CHOLECALCIFEROL 1,000 UNIT TAB PO SCH (21:02)
[2016-12-24] MEDS: FAMOTIDINE 20 MG TAB PO SCH (21:02)
[2016-12-24] MEDS: ISOSORBIDE MONONITRATE ER 60 MG TAB.ER.24H PO SCH (21:03)
[2016-12-24 21:14] LABS: Glucose,Whole Blood 223 mg/dL (75-99)
--- NOTE | 2016-12-24 21:57 | HP ---
DATE OF ADMISSION: 12/24/2016 CHIEF COMPLAINT: Chest pain. HISTORY OF PRESENT ILLNESS: This 81-year-old gentleman presents to the emergency room with complaints of chest pain. The patient's pain is across the right upper chest predominantly. The discomfort reminds him of his anginal symptoms. The patient has had a history of coronary artery disease with a previous CABG . The patient, however, last week did undergo a cardiac catheterization for abnormal stress test and symptoms of angina. The patient had a left main stenting done. The patient following that had no major symptoms. He presents with these symptoms again. He has elevated troponin. Previous pacemaker and the EKG pattern cannot be interpreted. He does have a history of paroxysmal atrial fibrillation. Patient is on anticoagulation. He had low magnesium and treated. Troponin levels normal at 0.026. The patient at the time of evaluation is pain free. He was seen in the emergency room by me. The patient had received some pain medication. The patient's symptoms have occurred at rest. He took nitroglycerines without much help. He had taken, the patient was also given nitro paste and nitroglycerin in the emergency room. He denies any other associated symptoms of shortness of breath, cough, nausea, vomiting, diaphoresis, or dizziness. Past medical history is significant for coronary artery disease for which the patient has had CABG in the past. The patient also has had a stenting done last week as mentioned above. On ( ) patient drug eluting stent placed ( ) the patient had successful stenting of the left main with the reduction of stenosis from 70% to 0%. The patient's was on antiplatelets agents at home as well as an anticoagulant. No further paroxysmal atrial fibrillation. Past medical history also significant for hypertension for a long standing. History of diabetes mellitus, obesity, obstructive sleep apnea. Patient ( ) CABG ( ) successfully ( ). He did have myocardial infarction in 1990 following which he had a CABG in 1990. He also had a previous PTCA back in 2001; with history of diabetes mellitus for the past 27 years, hypertension 27 years. PAST SURGICAL HISTORY: Significant for tonsillectomy, left knee arthroscopy and sinus surgery, bilateral cataract surgery and CABG. PERSONAL HISTORY: Never a smoker. Alcohol none. VACCINATIONS: Up to date on tetanus; Pneumovax and Zostavax and flu injections. ALLERGIES: None known. Medications at present include: 1. Plavix 75 mg daily. 2. Aspirin 325 mg daily. 3. Xanax p.r.n. 4. Amlodipine 10 mg daily. 5. Multivitamin daily. 6. Levemir 20 units at bedtime. 7. Cardura 2 mg daily in the morning. 8. Vitamin D3. 9. Capoten 25 mg b.i.d. 10. Metformin 1000 mg b.i.d. 11. Imdur 60 mg b.i.d. 12. Atorvastatin 40 mg at bedtime. 13. Atenolol 25 mg b.i.d. 14. Coumadin 5 mg Friday, Friday, , Friday. 15. Zantac 150 mg at bedtime. 16. Synthroid 88 mcg daily. 17. Finasteride 5 mg daily. 18. Plavix 75 mg daily. 19. Coumadin 7.5 mg on Friday and Friday. 20. Glipizide 5 mg b.i.d. 21. Sublingual nitroglycerin p.r.n. SOCIAL HISTORY: Patient is and lives with her spouse. FAMILY MEDICAL HISTORY: Father at the age of 62, coronary artery disease. Mother at the age of 90 with dementia. The patient had a brother age 42 of coronary artery disease, brother, 67 with a history of diabetes mellitus, coronary artery disease, a brother 75 with history of coronary artery disease. The patient has a sister 75 with history of bronchial asthma. The patient has one son in good health and a daughter who has had a history of CA of the uterus. They both are adopted children. REVIEW OF SYSTEMS: NEURO: Denies any headaches, dizziness. No double vision, blurred vision. No symptoms of TIA, syncope, seizures. PSYCH: Some anxiety. No depression. CARDIAC: Denies chest pain, angina, palpitations at present, presenting symptoms and symptoms suggestive of possible angina. RESPIRATORY: No shortness of breath, cough, hemoptysis. GI: No nausea, vomiting, abdominal pain, diarrhea, constipation, hematochezia, melena. : No symptoms of dysuria, hematuria, urgency, frequency. EXTREMITIES: Denies pain or edema. CONSTITUTIONAL: No fever or chills. HEMATOLOGICAL: No anemia or bleeding disorder. ENDOCRINE: History of diabetes mellitus, adequately controlled, history of hypothyroidism on replacement therapy. History of hyperlipidemia on medical therapy. SKIN: No rashes. MUSCULOSKELETAL: Chronic arthritic symptoms. Tolerable. PHYSICAL EXAMINATION: Pleasant gentleman, at present in no distress. Vital signs revealed at the time of my evaluation: temperature 97.6, pulse 62, respirations 19, blood pressure 153/69, pulse ox 97% on 2 liters. HEENT: Normocephalic. NECK: Supple. Pupils reactive. Nostrils clear. Oral cavity is moist. Neck reveals no JVD, carotid bruits, or thyromegaly. Chest is clear to auscultation and percussion. CARDIAC: Normal S1, S2 with no gallops. Systolic murmur 2 out of 6 left sternal border. Regular rhythm, the patient has a pacemaker. Rhythm is irregular with occasional irregular beats. The patient has a pacemaker. ABDOMEN: Soft, no palpable masses. Bowel sounds normal. No organomegaly. No abdominal bruits. Extremities revealed no edema. Good pulses, both upper and lower extremities. Mildly diminished pedal pulses and femoral. No femoral bruits appreciated. NEUROLOGICALLY: Awake, alert, oriented with well-coordinated movements. Laboratory assessment: Was essentially normal white count. Hemoglobin mildly low at 12.2, platelets are normal. INR was 1.6. Electrolytes normal. BUN 23. Creatinine 1.0, glucose 135, magnesium low at 1.3. CPK is normal. Troponins are negative. EKG reveals a pacemaker rhythm regular. ASSESSMENT: 1. Chest pain with known history of coronary artery disease. 2. Recent stent placement. 3. Diabetes mellitus. 4. Hypertension. 5. Hyperlipidemia. 6. Obesity. 7. Hypothyroidism on replacement therapy. PLAN: The patient was admitted to the hospital, his pain is suspicious of coronary insufficiency. The patient will be re-evaluated by cardiology. Meanwhile, continue present medical regimen. Patient is on adequate anticoagulation at present. Serial cardiac enzymes will be monitored. Patient's condition discussed with the patient. Prognosis guarded.
[2016-12-24] MEDS: ATENOLOL 25 MG TAB PO SCH (22:32)
[2016-12-24] MEDS: INSULIN DETEMIR 100 UNIT/ML 10 ML VIAL SQ SCH (22:32)
[2016-12-25] MEDS: CAPTOPRIL 25 MG TAB PO SCH ×2 (06:07→18:16)
[2016-12-25] MEDS: SODIUM CHLORIDE 0.9% 1,000 ML IV SCH (06:09)
--- NOTE | 2016-12-25 06:12 | CC ---
DATE OF SERVICE: This patient is status post recent stent to the restenosis of the left main stent. Patient came back with a prolonged episode of angina. Patient had a mild elevation in the troponin suggestive of non-Q-wave myocardial infarction. In view of that, the patient was recommended to have a cardiac catheterization for definitive diagnosis. PROCEDURE: The right groin was prepped and draped in the usual manner and the skin was infiltrated with 2% Xylocaine. The right femoral artery was entered using Seldinger technique. A #6 Malagasy sheath was placed in. Selective coronary angiography of the left main coronary artery was performed. This patient had a recent catheterization, which showed the FALLON graft to the LAD was patent and right coronary artery was small and nondominant. Left Main Coronary Artery: The stent is patent without any evidence of restenosis. There is a good-sized obtuse marginal branch, which has ostial stenosis of 90%. Distal to that, the circumflex coronary artery is codominant in distribution and gives rise to good-sized PLV branch and it is normal. IMPRESSION AND RECOMMENDATIONS: Films were reviewed with Dr. Gilman. The stent to the first obtuse marginal branch is considered quite technically difficult and complicated. In view of that at present, we will try to maximize the medical therapy. The left main stent is patent.
[2016-12-25 06:13] LABS: Basophils % (A) 0 %; CH 28.7; CHCM 31.1; Eosinophils # (A) 0.2 k/uL (0-0.7); Eosinophils % (A) 3 %; HCT 37.4 % (39.0-53.0); HDW 2.35; HGB 11.5 gm/dL (13.0-17.5); Hypochromasia Slight; Luc # (Auto) 0.14; Luc % (Auto) 2; Lymphocytes # (A) 1.3 k/uL (1.0-4.8); Lymphocytes % (A) 21 %; MCH 28.7 pg (25.0-35.0); MCHC 30.9 g/dL (31.0-37.0); MCV 92.7 fL (80.0-100.0); Mean Platelet Volume 7.1; Monocytes # (A) 0.4 k/uL (0-1.0); Monocytes % (A) 6 %; Neutrophils # (A) 4.1 k/uL (1.3-7.7); Neutrophils % (A) 67 %; RBC 4.03 m/uL (4.30-5.90); RDW 13.2 % (11.5-15.5); WBC 6.1 k/uL (3.8-10.6); WBC (Perox) 6.39
[2016-12-25 06:34] LABS: Anion Gap 10 mmol/L; Blood Urea Nitrogen 21 mg/dL (9-20); Calcium 9.5 mg/dL (8.4-10.2); Carbon Dioxide 25 mmol/L (22-30); Chloride 110 mmol/L (98-107); Cholesterol 100 mg/dL (<200); Glucose 72 mg/dL (74-99); HDL Cholesterol 33 mg/dL (40-60); Non-African American GFR(MDRD) >60 (>60 ml/min/1.73 sqM); Sodium 145 mmol/L (137-145); Triglycerides 160 mg/dL (<150)
[2016-12-25 06:44] LABS: Glucose,Whole Blood 72 mg/dL (75-99)
[2016-12-25] MEDS ORDERED: ASPIRIN 325 MG TAB PO SCH (09:00)
[2016-12-25] MEDS: amLODIPine 10 MG TAB PO SCH (09:13)
[2016-12-25] MEDS: ASPIRIN 81 MG CHEW PO SCH (09:13)
[2016-12-25] MEDS: DOXAZOSIN 2 MG TAB PO SCH (09:14)
[2016-12-25] MEDS: ATENOLOL 25 MG TAB PO SCH (09:14)
[2016-12-25] MEDS: glipiZIDE 5 MG TAB PO SCH ×2 (09:14→21:46)
[2016-12-25] MEDS: CLOPIDOGREL 75 MG TAB PO SCH (09:14)
[2016-12-25] MEDS: FINASTERIDE 5 MG TAB PO SCH (09:14)
[2016-12-25] MEDS: LEVOTHYROXINE 88 MCG TAB PO SCH (09:15)
[2016-12-25] MEDS: ISOSORBIDE MONONITRATE ER 60 MG TAB.ER.24H PO SCH ×2 (09:15→21:45)
[2016-12-25] MEDS: metFORMIN 500 MG TAB PO SCH ×2 (09:15→21:46)
[2016-12-25] MEDS: RANOLAZINE 500 MG TAB.ER.12H PO SCH ×2 (09:16→21:46)
[2016-12-25] MEDS: MULTIVITAMINS, THERA 1 EACH TAB PO SCH (12:55)
--- NOTE | 2016-12-25 18:34 | PN ---
This patient was admitted with chest pain. Patient had a non-Q-wave myocardial infarction. Patient's troponin went up to 4.0, the patient is feeling well. He denies any chest pain. Denies any shortness of breath. The cardiac cath findings were reviewed with the patient. At present patient would like to try medical treatment and if he continues to have significant angina, we will obtain a second opinion regarding stent to the OM branch.
[2016-12-25 21:44] LABS: Glucose,Whole Blood 171 mg/dL (75-99)
[2016-12-25] MEDS: CHOLECALCIFEROL 1,000 UNIT TAB PO SCH (21:46)
[2016-12-25] MEDS: FAMOTIDINE 20 MG TAB PO SCH (21:46)
[2016-12-25] MEDS: INSULIN DETEMIR 100 UNIT/ML 10 ML VIAL SQ SCH (21:48)
--- NOTE | 2016-12-25 22:39 | PN ---
DATE OF SERVICE: 12/25/2016 CHIEF COMPLAINT: Re-evaluation. HISTORY OF PRESENT ILLNESS: This is a 81-year-old gentleman was admitted to the hospital with subendocardial myocardial infarction non-ST elevated. The patient has a moderate size ostial lesion of an OM branch. The patient also recently had left main stent placed. The patient's left main stem area is patent. The patient is feeling fairly well this morning. No further chest pain since admission. The patient has a history of diabetes. The patient has had no further chest pain. History of diabetes mellitus. REVIEW OF SYSTEMS: NEURO: Denies any headaches, dizziness. PSYCH: No anxiety. CARDIAC: No chest pain, angina, palpitation. RESPIRATORY: Denies shortness of breath, cough. GI: Denies any nausea, vomiting, abdominal pain, diarrhea. : No symptoms of dysuria, hematuria. EXTREMITIES: Denies pain or edema. CONSTITUTIONAL: Fevers, chills. PHYSICAL EXAMINATION: Pleasant gentleman, 81 -year-old age, in no distress. Vital signs reveal temperature earlier was 98.1, pulse 61, respirations 16, blood pressure 111/47, pulse ox 94% on room air. HEENT: Normocephalic. NECK: No JVD. Chest is clear to auscultation. CARDIAC: Normal S1, S2 with no gallops. Systolic murmur at the bases, left sternal border. Irregular rhythm. Patient does have a pacemaker. ABDOMEN: Soft, no palpable masses. Bowel sounds normal. No organomegaly. No abdominal bruits. The patient has protuberant, obese abdomen. Extremities reveal no edema. Good pulses upper extremities. Mild decreased pedal pulses. Neurologically awake, alert, oriented with well-coordinated movements. Laboratory assessment: CBC showed a hemoglobin of 11.5, platelets 190. Electrolytes are normal. BUN 21, creatinine 1.07, glucose 72. ASSESSMENT: 1. Non-ST elevated myocardial infarction. 2. Coronary artery disease. 3. Recent left main stent placement. 4. Diabetes mellitus. 5. Obesity. 6. Hypertension. PLAN: The patient is stable. Continue present medical regimen. The patient discussed and on discussion with the patient and the goal and the plan is to treat the patient with medical therapy. If patient's symptoms are not controlled with medical therapy, only then an intervention might be indicated. Patient's condition discussed with the patient. Prognosis guarded.
[2016-12-26 01:36] VITALS: RESP 16
[2016-12-26 04:35] VITALS: TEMP 97.3
[2016-12-26 05:34] LABS: Glucose,Whole Blood 62 mg/dL (75-99)
[2016-12-26 06:00] LABS: Glucose,Whole Blood 60 mg/dL (75-99)
[2016-12-26 06:27] LABS: Basophils % (A) 0 %; CH 28.7; CHCM 31.2; Eosinophils # (A) 0.1 k/uL (0-0.7); Eosinophils % (A) 3 %; HCT 35.8 % (39.0-53.0); HDW 2.38; HGB 11.2 gm/dL (13.0-17.5); Hypochromasia Slight; Luc # (Auto) 0.16; Luc % (Auto) 3; Lymphocytes # (A) 1.4 k/uL (1.0-4.8); Lymphocytes % (A) 28 %; MCH 28.9 pg (25.0-35.0); MCHC 31.2 g/dL (31.0-37.0); MCV 92.4 fL (80.0-100.0); Mean Platelet Volume 6.9; Monocytes # (A) 0.3 k/uL (0-1.0); Monocytes % (A) 6 %; Neutrophils % (A) 60 %; RBC 3.88 m/uL (4.30-5.90); RDW 13.1 % (11.5-15.5); WBC (Perox) 5.17
[2016-12-26 06:29] LABS: Glucose,Whole Blood 79 mg/dL (75-99)
[2016-12-26] MEDS: CAPTOPRIL 25 MG TAB PO SCH (06:57)
[2016-12-26] MEDS: ISOSORBIDE MONONITRATE ER 60 MG TAB.ER.24H PO SCH (08:43)
[2016-12-26] MEDS: FINASTERIDE 5 MG TAB PO SCH (08:44)
[2016-12-26] MEDS: RANOLAZINE 500 MG TAB.ER.12H PO SCH (08:44)
[2016-12-26] MEDS: glipiZIDE 5 MG TAB PO SCH (08:44)
[2016-12-26] MEDS: metFORMIN 500 MG TAB PO SCH (08:45)
[2016-12-26] MEDS: amLODIPine 10 MG TAB PO SCH (08:45)
[2016-12-26] MEDS: CLOPIDOGREL 75 MG TAB PO SCH (08:45)
[2016-12-26] MEDS: LEVOTHYROXINE 88 MCG TAB PO SCH (08:45)
[2016-12-26] MEDS: DOXAZOSIN 2 MG TAB PO SCH (08:45)
[2016-12-26] MEDS: MULTIVITAMINS, THERA 1 EACH TAB PO SCH (08:45)
[2016-12-26] MEDS: ASPIRIN 81 MG CHEW PO SCH (08:45)
[2016-12-26 08:47] VITALS: BP 142/64; PULSE 62
[2016-12-27] MEDS ORDERED: WARFARIN 5 MG TAB PO SCH (18:00)
--- NOTE | 2017-01-05 15:14 | P.DS ---
Providers Date of admission: 12/24/16 14:39 Attending physician: Gerald Ibrahim Primary care physician: Gerald Ibrahim Hospital Course: Hospital course: This 81-year-old gentleman was admitted to the hospital with symptoms of angina. Patient has a long-standing history of coronary artery disease. He recently had undergone stent placement on the left main. Following that patient had no symptoms. He presents with symptoms of angina at rest today. He has had some angina on effort previously. Patient took nitroglycerin without much help. In the ER EKG did not reveal any EKG changes the patient's troponin however mildly elevated and progressively Increased suggestive of subendocardial MS. the patient was taken in for a cardiac And noted to have recently placed stent to be patent and in good shape. The patient does have a moderate ostial lesion of an OM branch. It was felt that this was the culprit. However it is angled it is difficult to manipulate and open up. The patient was recommended medical therapy. He has been given option to seek second opinion at the [facility]. Patient following admission for catheterization had no further symptoms of angina despite significant ambulation on the floor. At the time of discharge his status is stable. Patient's been educated to try and lose some weight. Final diagnoses 1. Non-ST elevated myocardial infarction 2. Coronary atherosclerosis 3. Hypertension 4. Obesity 5 diabetes mellitus 6. Obstructive sleep apnea Plan - Discharge Summary New Discharge Prescriptions: Ranolazine [Ranexa] 500 mg PO Q12HR #60 tab.er.12h Discharge Medication List Captopril [Capoten] 25 mg PO AC-BID 07/10/16 [History] Cholecalciferol [Vitamin D3] 1,000 unit PO HS 07/10/16 [History] Doxazosin [Cardura] 2 mg PO QAM 07/10/16 [History] Finasteride 5 mg PO QAM 07/10/16 [History] Insulin Detemir [Levemir] 20 unit SQ HS 07/10/16 [History] Levothyroxine Sodium [Synthroid] 88 mcg PO QAM 07/10/16 [History] Multivitamins, Thera [Multivitamin (formulary)] 1 tab PO DAILY 07/10/16 [History ] Ranitidine HCl [Zantac] 150 mg PO HS 07/10/16 [History] amLODIPine [Norvasc] 10 mg PO QAM 07/10/16 [History] glipiZIDE [Glipizide] 5 mg PO BID 07/10/16 [History] Isosorbide Mononitrate ER [Imdur] 60 mg PO BID 07/11/16 [History] Clopidogrel [Plavix] 75 mg PO DAILY #90 tab 07/25/16 [Rx] Warfarin [Coumadin] 5 mg PO SUTUWETHSA 11/01/16 [History] Atorvastatin [Lipitor] 40 mg PO HS #30 tab 12/18/16 [Rx] Nitroglycerin Sl Tabs [Nitrostat] 0.4 mg SUBLINGUAL Q5M PRN #25 tab 12/18/16 [Rx ] metFORMIN HCL [metFORMIN HCL ER] 1,000 mg PO BID #0 12/18/16 [Rx] Atenolol [Tenormin] 25 mg PO BID 12/24/16 [History] Warfarin [Coumadin] 7.5 mg PO MOFR 12/24/16 [History] Aspirin 81 mg PO DAILY chew 12/26/16 [Rx] Isosorbide Mononitrate ER [Imdur] 120 mg PO BID tab.er.24h 12/26/16 [Rx] Nitroglycerin Sl Tabs [Nitrostat] 0.4 mg SUBLINGUAL Q5M PRN #0 tab 12/26/16 [Rx] Ranolazine [Ranexa] 500 mg PO Q12HR #60 tab.er.12h 12/26/16 [Rx] Follow up Appointment(s)/Referral(s): Gerald Ibrahim MD [Primary Care Provider] - 1-2 days (OFFICES ARE CLOSED AT THIS TIME. PLEASE CALL TO MAKE AN APPOINTMENT) Audrey Aldana MD [STAFF PHYSICIAN] - 01/02/17 3:15 pm Patient Instructions/Handouts: After Heart Catheterization - [employer] Discharge Disposition: HOME SELF-CARE
== END 2016-12-26 11:43 | disposition home or self-care (01) | DRG 281 ==
LOC: EC 04:28 → 3OBS 06:10 → OBSVTOIN 14:39 → 6SEL 15:10
PROVIDERS: ADMIT Internal Medicine; ATTEND Internal Medicine
PROC: B2111ZZ Fluoroscopy of Multiple Coronary Arteries using Low Osmolar Contrast (ICD-10-PCS; principal; 2016-12-24 13:41)
DX: I21.4 Non-ST elevation (NSTEMI) myocardial infarction (principal); I48.1 Persistent atrial fibrillation; E11.9 Type 2 diabetes mellitus without complications; I25.2 Old myocardial infarction; I25.119 Atherosclerotic heart disease of native coronary artery with unspecified angina pectoris; I10 Essential (primary) hypertension; E03.9 Hypothyroidism, unspecified; E78.5 Hyperlipidemia, unspecified; E83.42 Hypomagnesemia; M19.91 Primary osteoarthritis, unspecified site; G47.33 Obstructive sleep apnea (adult) (pediatric); E66.9 Obesity, unspecified; Z68.35 Body mass index [BMI] 35.0-35.9, adult; Z95.5 Presence of coronary angioplasty implant and graft; Z95.1 Presence of aortocoronary bypass graft; Z95.0 Presence of cardiac pacemaker; Z87.891 Personal history of nicotine dependence; Z79.02 Long term (current) use of antithrombotics/antiplatelets; Z79.84 Long term (current) use of oral hypoglycemic drugs; Z79.4 Long term (current) use of insulin; Z79.01 Long term (current) use of anticoagulants; Z79.899 Other long term (current) drug therapy; Z79.82 Long term (current) use of aspirin; Z82.49 Family history of ischemic heart disease and other diseases of the circulatory system
CPT/HCPCS: 36415; 71010; 80048; 80053; 80061; 82550; 82553; 83735; 84484; 85025; 85610; 85730; 93005; 93455; 94760; 96365; 99285

== ENCOUNTER → 2020-10-18 | Outpatient (CLI) | payer MEDICARE, BC ==
[2020-10-18 20:19] LABS: African American GFR (CKD) 45.5 (60.0-200.0); Anion Gap 8.9 mmol/L (4.00-12.00); BUN/Creat Ratio 18.13 Ratio (12.00-20.00); Calcium 9.2 mg/dL (8.7-10.3); Carbon Dioxide 26.1 mmol/L (21.6-31.8); Non-African American GFR(CKD) 39.3 (60.0-200.0); Potassium 5.2 mmol/L (3.5-5.5)
== END | disposition home or self-care (01) ==
LOC: LABWHC1 11:08
PROVIDERS: ATTEND Nurse Practitioner Adult Health
DX: E87.5 Hyperkalemia (principal)
CPT/HCPCS: 36415; 80048

== ENCOUNTER → 2021-12-17 | Outpatient (CLI) | payer MEDICARE, BC ==
--- NOTE | 2021-12-17 14:59 | CT ---
EXAMINATION TYPE: CT sinus wo con DATE OF EXAM: 12/17/2021 COMPARISON: CT brain 07/05/2011 HISTORY: Chronic Sinusitis CT DLP: 630.30 mGycm. Automated Exposure Control for Dose Reduction was Utilized. TECHNIQUE: CT scan of the sinuses is performed without contrast, axial images are obtained, coronal r eformatted images are also reviewed. FINDINGS: There is deformity of the right frontal bone compatible with previous trauma or prior surgi yesenia intervention abnormal soft tissue attenuation in this region. Finding is similar to prior CT scan of the brain. Orbits are symmetric. Nasal septal deviation noted. Hyperostosis of axilla noted. Correlate for previ ous sinus remains a mild to moderate mucosal thickening of the ethmoid air cells and bilateral maxill amina sinuses. Sphenoid sinus has a normal appearance. No air-fluid levels. Ostium of the maxillary sin uses appear patent. Extreme dental artifact limits portions of the [id number]. Parotid glands are grossly symmetric an d nasopharynx has a normal appearance. Intracranial degenerative changes are seen. IMPRESSION: 1. Mild to moderate to chronic sinusitis with the ostium of the maxillary sinuses patent bilaterally 2. Chronic appearing deformity (trauma) or postsurgical change frontal bone similar appearance to brit or CT scan
== END | disposition home or self-care (01) ==
LOC: RADCTMAIN 13:50
PROVIDERS: ATTEND Otolaryngology
DX: J32.0 Chronic maxillary sinusitis (principal); J34.2 Deviated nasal septum
CPT/HCPCS: 70486

== ENCOUNTER → 2021-12-24 | Outpatient (CLI) | payer MEDICARE, BC ==
[2021-12-24 22:17] LABS: African American GFR (CKD) 58.1 (60.0-200.0); Anion Gap 16.6 mmol/L (10.00-18.00); BUN/Creat Ratio 20.38 Ratio (12.00-20.00); Blood Urea Nitrogen 26.5 mg/dL (9.0-27.0); Calcium 9.3 mg/dL (8.7-10.3); Carbon Dioxide 18.4 mmol/L (20.0-27.5); Non-African American GFR(CKD) 50.1 (60.0-200.0); Potassium 5.1 mmol/L (3.5-5.5)
== END | disposition home or self-care (01) ==
LOC: LABWHC1 12:44
PROVIDERS: ATTEND Internal Medicine
DX: I10 Essential (primary) hypertension (principal)
CPT/HCPCS: 36415; 80048

== ENCOUNTER → 2022-05-28 | Outpatient (CLI) | payer MEDICARE, BC ==
--- NOTE | 2022-05-28 13:39 | XR ---
EXAMINATION TYPE: XR foot limited RT DATE OF EXAM: 05/28/2022 COMPARISON: NONE HISTORY: Pain TECHNIQUE: Two views are submitted. FINDINGS: The osseous structures are intact. There is no acute fracture or dislocation. Severe diffuse osteo penia with narrowing of the first MTP. Vascular calcifications are seen with tiny calcaneal spur. Sug gestion of soft tissue ulceration or luminal patient to the fifth metatarsal.. IMPRESSION: 1. No acute fracture or dislocation. If symptoms persist, follow-up exam in 7 to 10 days could be ob tained. 2. Severe osteopenia with soft tissue wound adjacent to the fifth metatarsal but no diagnostic eviden ce of osteomyelitis.
== END | disposition home or self-care (01) ==
LOC: RADXRMAIN 13:05
PROVIDERS: ATTEND Internal Medicine
DX: M85.871 Other specified disorders of bone density and structure, right ankle and foot (principal)

== ENCOUNTER → 2022-06-19 | Outpatient (CLI) | payer MEDICARE, BC ==
--- NOTE | 2022-06-25 13:01 | US ---
EXAMINATION TYPE: US arterial LE single level DATE OF EXAM: 06/19/2022 2:32 PM CLINICAL HISTORY: E08.621 DIABETES MELLITUS DUE TO UNDERLYING CONDIT. Nonhealing wound on right big t oe. History of hypertension. Doppler Waveforms: Right: Monophasic Left: Monophasic Pulse Volume Recording: Pressure Gradients: Ankle-Brachial Indices: Right: Unable to obtain due to nonoccluding artery Left: Unable to obtain due to nonoccluding artery Toe Brachial Indices: Right: 0.15 Left: 0.34 IMPRESSION: Abnormal study with loss of phasicity, marked diminished TBI values consistent with at l east moderate peripheral arterial disease. Further workup and follow-up advised.
== END | disposition home or self-care (01) ==
LOC: RADUSWWP 13:49
PROVIDERS: ATTEND Thoracic Surgery (Cardiothoracic Vascular Surgery)
DX: I73.9 Peripheral vascular disease, unspecified (principal); E08.621 Diabetes mellitus due to underlying condition with foot ulcer
CPT/HCPCS: 93922

== ENCOUNTER → 2022-07-10 | Outpatient (CLI) | payer MEDICARE, BC ==
--- NOTE | 2022-07-10 12:25 | XR ---
EXAMINATION TYPE: XR foot complete RT DATE OF EXAM: 07/10/2022 COMPARISON: 05/28/2022 HISTORY: Pain TECHNIQUE: Three views are submitted. FINDINGS: The osseous structures are intact. There is no acute fracture or dislocation. Diffuse osteopenia w ith narrowing of the first MTP. A plantar calcaneal spur noted. No destructive changes. Soft tissue c alcifications noted. Soft tissue edema noted with question of a soft tissue defect adjacent to the he ad of the fifth metatarsal. Correlate for soft tissue ulceration. IMPRESSION: 1. No acute fracture or dislocation. 2. Diffuse osteopenia with soft tissue edema. No destructive changes that are diagnostic of osteomyel itis. There is dubious small focal soft tissue defect and possible ulcer adjacent to the fifth digit.
== END | disposition home or self-care (01) ==
LOC: RADXRMAIN 12:06
PROVIDERS: ATTEND Nurse Practitioner Family
DX: L97.512 Non-pressure chronic ulcer of other part of right foot with fat layer exposed (principal); M85.871 Other specified disorders of bone density and structure, right ankle and foot

== ENCOUNTER 2022-08-07 18:32 | Inpatient (IN) | payer MEDICARE, BC ==
[2022-08-07] MEDS ORDERED: SODIUM CHLORIDE 0.9% 500 ML 500 ML IV STA (19:10)
--- NOTE | 2022-08-07 19:29 | ED ---
General Adult HPI - General Chief complaint: Extremity Injury, Lower Stated complaint: SHIRLEY, foot problem, abnormal labs Time Seen by Provider: 08/07/22 19:02 Source: patient, EMS Mode of arrival: EMS Limitations: no limitations - History of Present Illness Initial comments: Patient is an 86-year-old male presenting for evaluation of wet gangrene. Patient was sent in by Dr. Castillo. Patient's wound was evaluated today area of gangrene on the right fifth toe which has previously appeared dry is now appearing wet. Patient also appeared to have some difficulty breathing. Patient comes from intermediate, his at bedside states that he has not been able to sit up in his wheelchair for the last 2 days. states that he has a "rattle in his chest", which he seems to normally have. Patient is requiring oxygen via nasal cannula, currently on 4 L. Patient is complaining of pain due to many decubitus ulcers. He denies chest pain, nausea, vomiting, abdominal pain. History is supplemented by the patient's present at bedside - Related Data Home Medications Medication Instructions Recorded Confirmed Doxazosin [Cardura] 2 mg PO DAILY 07/10/16 08/07/22 Multivitamins, Thera [Multivitamin 1 tab PO DAILY 07/10/16 08/07/22 (formulary)] glipiZIDE [Glipizide] 5 mg PO DAILY@0600 07/10/16 08/07/22 Azelastine/Fluticasone 2 spray EA NOSTRIL BID 07/12/22 08/07/22 [Azelastin-Flutic 137-50Mcg Spr] Ferrous Sulfate [Feosol] 325 mg PO Q48H 07/12/22 08/07/22 Finasteride [Proscar] 5 mg PO DAILY 07/12/22 08/07/22 Levothyroxine Sodium [Synthroid] 112 mcg PO MOTH@2100 07/12/22 08/07/22 Ranolazine [Ranexa] 500 mg PO BID 07/12/22 08/07/22 Aspirin EC [Ecotrin Low Dose] 81 mg PO HS 07/14/22 08/07/22 Cholecalciferol [Vitamin D3 (25 50 mcg PO HS 07/14/22 08/07/22 Mcg = 1000 Iu)] amLODIPine [Norvasc] 5 mg PO HS 07/14/22 08/07/22 Cephalexin [Keflex] 500 mg PO TID@0900,1300,2100 08/07/22 08/07/22 Gabapentin 300 mg PO TID@0600,1300,2100 08/07/22 08/07/22 Glucerna Shake 1 can PO BID@0900,1700 08/07/22 08/07/22 Insulin Glargine-Yfgn [Semglee 20 units SQ HS 08/07/22 08/07/22 (Yfgn) Pen] Insulin Lispro [humaLOG Kwikpen] See Protocol SQ AC-TID 08/07/22 08/07/22 Isosorbide Mononitrate [Imdur] 120 mg PO BID 08/07/22 08/07/22 Levothyroxine Sodium [Synthroid] 125 mcg PO SUTUWEFRSA@2100 08/07/22 08/07/22 Warfarin [Coumadin] 3 mg PO DIRECTED 08/07/22 08/07/22 Previous Rx's Medication Instructions Recorded Atorvastatin [Lipitor] 40 mg PO HS #30 tab 12/18/16 Nitroglycerin Sl Tabs [Nitrostat] 0.4 mg SUBLINGUAL Q5M PRN #0 tab 12/26/16 atenoloL [Tenormin] 50 mg PO BID tab 07/17/22 captopriL [Capoten] 12.5 mg PO BID tab 07/17/22 Allergies Allergy/AdvReac Type Severity Reaction Status Date / Time No Known Allergies Allergy Verified 08/07/22 20:55 Review of Systems ROS Statement: Those systems with pertinent positive or pertinent negative responses have been documented in the HPI. ROS Other: All systems not noted in ROS Statement are negative. Past Medical History Past Medical History: Atrial Fibrillation, Coronary Artery Disease (CAD), Chest Pain / Angina, Diabetes Mellitus, Eye Disorder, Hyperlipidemia, Hypertension, Myocardial Infarction (UT), Osteoarthritis (OA), Sleep Apnea/CPAP/BIPAP Additional Past Medical History / Comment(s): MIs, CPAP use, IDDM type II, bradycardia with pacer, tinnitis bilaterally, non healing wound on rt foot side of little toe and in between the 2 toes. arthritis lower back. left eye blind Last Myocardial Infarction Date:: 07/02/16 History of Any Multi-Drug Resistant Organisms: None Reported Past Surgical History: Coronary Bypass/CABG, Heart Catheterization With Stent, Orthopedic Surgery, Pacemaker Additional Past Surgical History / Comment(s): 1990 cabg-1 vessel, PTCA, PCI with stents (4 total), sinus surgery r/t growth sinus cavity, colonoscopy, L knee arthroscopy, bilateral cataract removals. [employer] pacemaker Past Anesthesia/Blood Transfusion Reactions: No Reported Reaction Date of Last Stent Placement:: 12/17/16 Type of Cardiac Device: Permanent Pacemaker Device Placement Date:: 11/05/16 Past Psychological History: No Psychological Hx Reported Smoking Status: Former smoker Past Alcohol Use History: None Reported - Past Family History Mother Family Medical History: Asthma Father Family Medical History: Myocardial Infarction (UT) Additional Family Medical History / Comment(s): with UT at age 62 Brother(s) Family Medical History: Deep Vein Thrombosis (DVT), Myocardial Infarction (UT) Additional Family Medical History / Comment(s): at age 42 w/ UT General Exam Limitations: altered mental status General appearance: lethargic Head exam: Present: atraumatic, normocephalic, normal inspection Neck exam: Present: normal inspection Respiratory exam: Present: rales. Absent: respiratory distress, wheezes, rhonchi, stridor Cardiovascular Exam: Present: normal rhythm, normal heart sounds. Absent: bradycardia, systolic murmur, diastolic murmur, rubs, gallop, clicks Neurological exam: Absent: altered Course Vital Signs 08/07/22 08/07/22 08/07/22 18:55 19:00 22:05 Temperature 97.7 F Pulse Rate 58 L 62 Respiratory 16 24 Rate Blood Pressure 118/58 116/51 O2 Sat by Pulse 94 L 98 Oximetry 08/07/22 08/07/22 08/08/22 22:07 22:23 02:51 Temperature Pulse Rate 76 76 65 Respiratory 20 Rate Blood Pressure 102/57 O2 Sat by Pulse 95 Oximetry Medical Decision Making - Medical Decision Making Patient is an 86-year-old male sent here by his PCP for evaluation of wet gangrene. On examination patient has gangrenous wound to the right foot fifth toe. WBC 13.7 hemoglobin 9.6. Patient is receiving vancomycin and Zosyn. INR 4.8, patient is currently on warfarin, will withhold. Potassium 5.8, patient is given albuterol and insulin with glucose. A K I, creatinine 3.20 BUN 79. Troponin is 0.017, patient has history of elevated troponin. Chest x-ray shows mild atelectasis at the lung bases which is slightly worse on last exam no heart failure seen. Foot x-ray shows soft tissue swelling. Patient will be admitted in vascular surgery will be consulted for gangrene. I spoke with Chuyita Hector from [facility] who accepted admission of the patient. Patient and are agreeable with this plan. I discussed this case with my attending Dr. Noble. - Lab Data Result diagrams: 08/07/22 19:25 08/08/22 01:02 Lab Results 08/07/22 08/07/22 08/07/22 Range/Units 19:25 19:25 19:25 WBC 13.7 H (3.8-10.6) k/uL RBC 3.23 L (4.30-5.90) m/uL Hgb 9.6 L (13.0-17.5) gm/dL Hct 30.7 L (39.0-53.0) % MCV 94.8 (80.0-100.0) fL MCH 29.7 (25.0-35.0) pg MCHC 31.3 (31.0-37.0) g/dL RDW 13.4 (11.5-15.5) % Plt Count 265 (150-450) k/uL MPV 7.9 Neutrophils % 81 % Lymphocytes % 12 % Monocytes % 5 % Eosinophils % 1 % Basophils % 0 % Neutrophils # 11.0 H (1.3-7.7) k/uL Lymphocytes # 1.6 (1.0-4.8) k/uL Monocytes # 0.7 (0-1.0) k/uL Eosinophils # 0.2 (0-0.7) k/uL Basophils # 0.0 (0-0.2) k/uL Hypochromasia Moderate PT 47.5 H (9.0-12.0) sec INR 4.8 H (<1.2) APTT 51.4 H (22.0-30.0) sec Sodium 134 L (137-145) mmol/L Potassium 5.8 H (3.5-5.1) mmol/L Chloride 98 (98-107) mmol/L Carbon Dioxide 21 L (22-30) mmol/L Anion Gap 15 mmol/L BUN 79 H (9-20) mg/dL Creatinine 3.20 H (0.66-1.25) mg/dL Est GFR (CKD-EPI)AfAm 20 (>60 ml/min/1.73 sqM) Est GFR (CKD-EPI)NonAf 17 (>60 ml/min/1.73 sqM) Glucose 79 (74-99) mg/dL Plasma Lactic Acid Winston (0.7-2.0) mmol/L Calcium 8.8 (8.4-10.2) mg/dL Magnesium 2.3 (1.6-2.3) mg/dL Total Bilirubin 0.6 (0.2-1.3) mg/dL AST 30 (17-59) U/L ALT 29 (4-49) U/L Alkaline Phosphatase 96 (38-126) U/L Troponin I (0.000-0.034) ng/mL NT-Pro-B Natriuret Pep pg/mL Total Protein 6.5 (6.3-8.2) g/dL Albumin 3.3 L (3.5-5.0) g/dL 08/07/22 08/07/22 08/07/22 Range/Units 19:25 19:25 19:25 WBC (3.8-10.6) k/uL RBC (4.30-5.90) m/uL Hgb (13.0-17.5) gm/dL Hct (39.0-53.0) % MCV (80.0-100.0) fL MCH (25.0-35.0) pg MCHC (31.0-37.0) g/dL RDW (11.5-15.5) % Plt Count (150-450) k/uL MPV Neutrophils % % Lymphocytes % % Monocytes % % Eosinophils % % Basophils % % Neutrophils # (1.3-7.7) k/uL Lymphocytes # (1.0-4.8) k/uL Monocytes # (0-1.0) k/uL Eosinophils # (0-0.7) k/uL Basophils # (0-0.2) k/uL Hypochromasia PT (9.0-12.0) sec INR (<1.2) APTT (22.0-30.0) sec Sodium (137-145) mmol/L Potassium (3.5-5.1) mmol/L Chloride (98-107) mmol/L Carbon Dioxide (22-30) mmol/L Anion Gap mmol/L BUN (9-20) mg/dL Creatinine (0.66-1.25) mg/dL Est GFR (CKD-EPI)AfAm (>60 ml/min/1.73 sqM) Est GFR (CKD-EPI)NonAf (>60 ml/min/1.73 sqM) Glucose (74-99) mg/dL Plasma Lactic Acid Winston 0.9 (0.7-2.0) mmol/L Calcium (8.4-10.2) mg/dL Magnesium (1.6-2.3) mg/dL Total Bilirubin (0.2-1.3) mg/dL AST (17-59) U/L ALT (4-49) U/L Alkaline Phosphatase (38-126) U/L Troponin I 0.017 (0.000-0.034) ng/mL NT-Pro-B Natriuret Pep 3570 pg/mL Total Protein (6.3-8.2) g/dL Albumin (3.5-5.0) g/dL Disposition Clinical Impression: Wet gangrene, Hyperkalemia, SNEHA (acute kidney injury), Elevated INR Disposition: ADMITTED IP TO THIS [facility] Condition: Serious Time of Disposition: 22:07 Decision to Admit Reason: Admit from EC Decision Date: 08/07/22 Decision Time: 22:07
[2022-08-07 19:58] LABS: Basophils % (A) 0 %; Eosinophils # (A) 0.2 k/uL (0-0.7); Eosinophils % (A) 1 %; HCT 30.7 % (39.0-53.0); HGB 9.6 gm/dL (13.0-17.5); Hypochromasia Moderate; Lymphocytes # (A) 1.6 k/uL (1.0-4.8); Lymphocytes % (A) 12 %; MCH 29.7 pg (25.0-35.0); MCHC 31.3 g/dL (31.0-37.0); MCV 94.8 fL (80.0-100.0); Mean Platelet Volume 7.9; Monocytes # (A) 0.7 k/uL (0-1.0); Monocytes % (A) 5 %; Neutrophils % (A) 81 %; Platelet Count 265 k/uL (150-450); RBC 3.23 m/uL (4.30-5.90); RDW 13.4 % (11.5-15.5); WBC 13.7 k/uL (3.8-10.6)
[2022-08-07 20:06] LABS: INR 4.8 (<1.2); Partial Thromboplastin Time 51.4 sec (22.0-30.0); Prothrombin Time 47.5 sec (9.0-12.0)
[2022-08-07 20:11] LABS: Albumin 3.3 g/dL (3.5-5.0); Calcium 8.8 mg/dL (8.4-10.2); Magnesium 2.3 mg/dL (1.6-2.3); Potassium 5.8 mmol/L (3.5-5.1); Total Bilirubin 0.6 mg/dL (0.2-1.3); Total Protein 6.5 g/dL (6.3-8.2)
[2022-08-07] MEDS ORDERED: VANCOMYCIN IV PER PHARMACY 1 EACH MISC MISCELLANE PRN (20:43)
[2022-08-07] MEDS ORDERED: PIPERACILLIN-TAZOBACTAM 3.375 GM in SODIUM CHLORIDE 0.9% 100 ML IVPB STA (20:43)
[2022-08-07] MEDS ORDERED: VANCOMYCIN 1,750 MG in SODIUM CHLORIDE 0.9% 500 ML 500 ML IVPB STA (20:52)
[2022-08-07] MEDS ORDERED: DEXTROSE 50% SYRINGE 50 ML IVP ONE (20:52)
[2022-08-07] MEDS ORDERED: INSULIN REGULAR 100 UNIT/ML VIAL (IV) IV ONE (20:52)
[2022-08-07] MEDS ORDERED: ALBUTEROL NEB (CONC) 2.5 MG/0.5 ML INHALATION ONE (20:52)
--- NOTE | 2022-08-07 20:52 | XR ---
EXAMINATION TYPE: XR chest 2V DATE OF EXAM: 08/07/2022 COMPARISON: 07/14/2022 HISTORY: Chest pain TECHNIQUE: FINDINGS: There is some patchy atelectasis at the lung bases. There is left axillary pacemaker. There are chest leads. There are sternal wires. No pleural effusion. IMPRESSION: There is some mild atelectasis at the lung bases which is slightly worse than last exam. No heart failure seen.
--- NOTE | 2022-08-07 20:53 | XR ---
EXAMINATION TYPE: XR foot complete RT DATE OF EXAM: 08/07/2022 COMPARISON: NONE HISTORY: Foot pain TECHNIQUE: 3 view FINDINGS: There is vascular calcification. There is mild plantar calcaneal spurring. Metatarsals are intact. There is soft tissue swelling of the forefoot. No fracture seen. No focal bone destruction. IMPRESSION: Soft tissue swelling. Extensive vascular calcification.
[2022-08-07] MEDS ORDERED: NALOXONE 0.4 MG/ML 1 ML VIAL IV PRN (22:04)
[2022-08-08] MEDS: SODIUM CHLORIDE 0.9% 1,000 ML IV SCH ×3 (03:42→12:43)
[2022-08-08 06:54] LABS: Appearance,Urine Cloudy (Clear); Bacteria,Urine Rare /hpf; Bilirubin,Urine Negative (Negative); Blood,Urine Large (Negative); Color,Urine Light Red; Glucose,Urine (UA) Negative (Negative); Ketones,Urine Negative (Negative); Leukocyte Esterase,Urine Trace (Negative); Nitrite,Urine Negative (Negative); PH, Urine 5.5 (5.0-8.0); Protein,Urine 1+ (Negative); RBC,Urine >182 /hpf (0-5); Specific Gravity,Urine 1.022 (1.001-1.035); Squamous Epithelial Cell,Urine <1 /hpf (0-4); Urobilinogen,Urine <2.0 mg/dL (<2.0); WBC,Urine 15 /hpf (0-5)
[2022-08-08 07:14] LABS: Basophils % (A) 0 %; Eosinophils # (A) 0.1 k/uL (0-0.7); Eosinophils % (A) 1 %; HGB 10.1 gm/dL (13.0-17.5); Hypochromasia Marked; Lymphocytes % (A) 9 %; MCH 29.6 pg (25.0-35.0); MCHC 30.5 g/dL (31.0-37.0); MCV 97.1 fL (80.0-100.0); Monocytes # (A) 0.6 k/uL (0-1.0); Monocytes % (A) 6 %; Neutrophils # (A) 9.2 k/uL (1.3-7.7); Neutrophils % (A) 84 %; Platelet Count 254 k/uL (150-450); RDW 13.4 % (11.5-15.5); WBC 10.9 k/uL (3.8-10.6)
[2022-08-08 07:38] LABS: Albumin 2.8 g/dL (3.5-5.0); Calcium 8.1 mg/dL (8.4-10.2); Potassium 5.6 mmol/L (3.5-5.1); Total Bilirubin 0.5 mg/dL (0.2-1.3); Total Protein 5.6 g/dL (6.3-8.2)
[2022-08-08] MEDS ORDERED: NITROGLYCERIN SL TABS 0.4 MG TAB SUBLINGUAL PRN (11:31)
--- NOTE | 2022-08-08 11:42 | P.HPIM ---
History of Present Illness 86-year-old male came to hospital with complaints of unable tablet because of multiple bilateral foot wounds patient has a ganglion the right fifth toe which was a dry gangrene still appears to be dry gangrene but there may be an area of infection in between the fourth and fifth toes and patient has a mostly stage II ulcers in both the heels. Patient does take Keflex at home patient is found to be in acute renal failure with creatinine going up to 3.17, baseline is around 1. Patient doesn't have any fever. Patient does have elevated white blood cell count. Patient is bit hyponatremic with potassium of 1 prior 34 and the p otassium was 5.8 on admission presently 5.6 be enough around 79. REVIEW OF SYSTEMS: CONSTITUTIONAL: Does have fatigue and generalized tiredness HEENT: No recent visual problems or hearing problems. Denied any sore throat. CARDIOVASCULAR: No chest pain, orthopnea, PND, no palpitations, no syncope. PULMONARY: No shortness of breath, no cough, no hemoptysis. GASTROINTESTINAL: No diarrhea, no nausea, no vomiting, no abdominal pain. NEUROLOGICAL: No headaches, no weakness, no numbness. HEMATOLOGICAL: Denies any bleeding or petechiae. GENITOURINARY: Denies any burning micturition, frequency, or urgency. MUSCULOSKELETAL/RHEUMATOLOGICAL: Denies any joint pain, swelling, or any muscle pain. ENDOCRINE: Denies any polyuria or polydipsia. The rest of the 14-point review of systems is negative. PHYSICAL EXAMINATION: GENERAL: The patient is alert and oriented x3, not in any acute distress. Well developed, well nourished. HEENT: Pupils are round and equally reacting to light. EOMI. No scleral icterus. No conjunctival pallor. Normocephalic, atraumatic. No pharyngeal erythema. No thyromegaly. CARDIOVASCULAR: S1 and S2 present. No murmurs, rubs, or gallops. PULMONARY: Chest is clear to auscultation, no wheezing or crackles. ABDOMEN: Soft, nontender, nondistended, normoactive bowel sounds. No palpable organomegaly. MUSCULOSKELETAL: No joint swelling or deformity. EXTREMITIES: No cyanosis, clubbing, or pedal edema. NEUROLOGICAL: Gross neurological examination did not reveal any focal deficits. Does have generalized weakness SKIN: Dry gangrene of the fifth toe and possible infection within the fourth and fifth toes stage II ulcers in both heels appears to be dry Assessment and plan -Gangrene and right foot infection multiple ulcerations: Cultures will be obtain ed patient received vancomycin and Zosyn, infectious disease will evaluate the patient probably may need to discuss any Vanco mycin because of highly elevated creatinine of 3.18. -Acute renal failure probably secondary to acute blood necrosis from sepsis that may be a competent to prerenal continue with IV fluids nephrology will be consulted -Hyponatremia secondary to acute renal failure, RADHA inhibitor will be held will order Lokelma ow potassium diet -Hypotension: Secondary to infection, hold off antiemesis medications next and- hypervolemic hyponatremia: IV fluids -History of atrial fibrillation patient is presently rate controlled atenolol is being held temporally because of low blood pressure patient will be started started on beta mago as well as possible patient doesn't heart rate is in 60s Coumadin is being held because of super therapy cannot of around 4.5 we'll repeat INR tomorrow -Coronary artery disease next and-type 2 diabetes mellitus: Hold off on on home oral regimen as well as long-acting insulins continue with sliding scale patient blood sugars in the low normal side -Diabetic peripheral neuropathy cut down the dose of gabapentin because of acute renal failure -Hyperlipidemia next and-hypertension -Sleep apnea for which patient uses CPAP machine at home DVT prophylaxis: Supratherapeutic on Coumadin Past Medical History Past Medical History: Atrial Fibrillation, Coronary Artery Disease (CAD), Chest Pain / Angina, Diabetes Mellitus, Eye Disorder, Hyperlipidemia, Hypertension, Myocardial Infarction ([place]), Osteoarthritis (OA), Sleep Apnea/CPAP/BIPAP Additional Past Medical History / Comment(s): MIs, CPAP use, IDDM type II, bradycardia with pacer, tinnitis bilaterally, non healing wound on rt foot side of little toe and in between the 2 toes. arthritis lower back. left eye blind Last Myocardial Infarction Date:: 07/02/16 History of Any Multi-Drug Resistant Organisms: None Reported Past Surgical History: Coronary Bypass/CABG, Heart Catheterization With Stent, Orthopedic Surgery, Pacemaker Additional Past Surgical History / Comment(s): 1990 cabg-1 vessel, PTCA, PCI with stents (4 total), sinus surgery r/t growth sinus cavity, colonoscopy, L knee arthroscopy, bilateral cataract removals. [employer] pacemaker Past Anesthesia/Blood Transfusion Reactions: No Reported Reaction Date of Last Stent Placement:: 12/17/16 Type of Cardiac Device: Permanent Pacemaker Device Placement Date:: 11/05/16 Past Psychological History: No Psychological Hx Reported Smoking Status: Former smoker Past Alcohol Use History: None Reported - Past Family History Mother Family Medical History: Asthma Father Family Medical History: Myocardial Infarction ([place]) Additional Family Medical History / Comment(s): with [place] at age 62 Brother(s) Family Medical History: Deep Vein Thrombosis (DVT), Myocardial Infarction ([place]) Additional Family Medical History / Comment(s): at age 42 w/ [place] Medications and Allergies Home Medications Medication Instructions Recorded Confirmed Type Doxazosin [Cardura] 2 mg PO DAILY 07/10/16 08/07/22 History Multivitamins, Thera [Multivitamin 1 tab PO DAILY 07/10/16 08/07/22 History (formulary)] glipiZIDE [Glipizide] 5 mg PO DAILY@0600 07/10/16 08/07/22 History Atorvastatin [Lipitor] 40 mg PO HS #30 tab 12/18/16 08/07/22 Rx Nitroglycerin Sl Tabs [Nitrostat] 0.4 mg SUBLINGUAL Q5M PRN #0 tab 12/26/16 08/07/22 Rx Azelastine/Fluticasone 2 spray EA NOSTRIL BID 07/12/22 08/07/22 History [Azelastin-Flutic 137-50Mcg Spr] Ferrous Sulfate [Feosol] 325 mg PO Q48H 07/12/22 08/07/22 History Finasteride [Proscar] 5 mg PO DAILY 07/12/22 08/07/22 History Levothyroxine Sodium [Synthroid] 112 mcg PO MOTH@2100 07/12/22 08/07/22 History Ranolazine [Ranexa] 500 mg PO BID 07/12/22 08/07/22 History Aspirin EC [Ecotrin Low Dose] 81 mg PO HS 07/14/22 08/07/22 History Cholecalciferol [Vitamin D3 (25 50 mcg PO HS 07/14/22 08/07/22 History Mcg = 1000 Iu)] amLODIPine [Norvasc] 5 mg PO HS 07/14/22 08/07/22 History atenoloL [Tenormin] 50 mg PO BID tab 07/17/22 08/07/22 Rx captopriL [Capoten] 12.5 mg PO BID tab 07/17/22 08/07/22 Rx Cephalexin [Keflex] 500 mg PO TID@0900,1300,2100 08/07/22 08/07/22 History Gabapentin 300 mg PO TID@0600,1300,2100 08/07/22 08/07/22 History Glucerna Shake 1 can PO BID@0900,1700 08/07/22 08/07/22 History Insulin Glargine-Yfgn [Semglee 20 units SQ HS 08/07/22 08/07/22 History (Yfgn) Pen] Insulin Lispro [humaLOG Kwikpen] See Protocol SQ AC-TID 08/07/22 08/07/22 History Isosorbide Mononitrate [Imdur] 120 mg PO BID 08/07/22 08/07/22 History Levothyroxine Sodium [Synthroid] 125 mcg PO SUTUWEFRSA@2100 08/07/22 08/07/22 History Warfarin [Coumadin] 3 mg PO DIRECTED 08/07/22 08/07/22 History Allergies Allergy/AdvReac Type Severity Reaction Status Date / Time No Known Allergies Allergy Verified 08/07/22 20:55 Physical Exam Vitals: Vital Signs Temp Pulse Resp BP Pulse Ox 08/08/22 09:00 72 18 114/74 96 08/08/22 07:23 60 16 122/58 96 08/08/22 05:58 60 20 115/91 99 08/08/22 02:51 65 20 102/57 95 08/07/22 22:23 76 08/07/22 22:07 76 08/07/22 22:05 62 24 116/51 98 08/07/22 19:00 97.7 F 08/07/22 18:55 58 L 16 118/58 94 L Intake and Output 08/07/22 08/08/22 08/08/22 22:59 06:59 14:59 Other: Weight 109.316 kg Results CBC & Chem 7: 08/08/22 05:19 08/08/22 05:19 Labs: Abnormal Lab Results - Last 24 Hours (Table) 08/07/22 08/07/22 08/07/22 Range/Units 06:07 19:25 19:25 WBC 13.7 H (3.8-10.6) k/uL RBC 3.23 L (4.30-5.90) m/uL Hgb 9.6 L (13.0-17.5) gm/dL Hct 30.7 L (39.0-53.0) % MCHC (31.0-37.0) g/dL Neutrophils # 11.0 H (1.3-7.7) k/uL PT 47.5 H (9.0-12.0) sec INR 4.8 H (<1.2) APTT 51.4 H (22.0-30.0) sec Sodium (137-145) mmol/L Potassium (3.5-5.1) mmol/L Carbon Dioxide (22-30) mmol/L BUN (9-20) mg/dL Creatinine (0.66-1.25) mg/dL Glucose (74-99) mg/dL Calcium (8.4-10.2) mg/dL Total Protein (6.3-8.2) g/dL Albumin (3.5-5.0) g/dL Urine Protein 1+ H (Negative) Urine Blood Large H (Negative) Ur Leukocyte Esterase Trace H (Negative) Urine RBC >182 H (0-5) /hpf Urine WBC 15 H (0-5) /hpf Urine Bacteria Rare H (None) /hpf 08/07/22 08/08/22 08/08/22 Range/Units 19:25 01:02 05:19 WBC (3.8-10.6) k/uL RBC (4.30-5.90) m/uL Hgb (13.0-17.5) gm/dL Hct (39.0-53.0) % MCHC (31.0-37.0) g/dL Neutrophils # (1.3-7.7) k/uL PT (9.0-12.0) sec INR (<1.2) APTT (22.0-30.0) sec Sodium 134 L 134 L (137-145) mmol/L Potassium 5.8 H 5.2 H 5.6 H (3.5-5.1) mmol/L Carbon Dioxide 21 L (22-30) mmol/L BUN 79 H 79 H (9-20) mg/dL Creatinine 3.20 H 3.18 H (0.66-1.25) mg/dL Glucose 187 H (74-99) mg/dL Calcium 8.1 L (8.4-10.2) mg/dL Total Protein 5.6 L (6.3-8.2) g/dL Albumin 3.3 L 2.8 L (3.5-5.0) g/dL Urine Protein (Negative) Urine Blood (Negative) Ur Leukocyte Esterase (Negative) Urine RBC (0-5) /hpf Urine WBC (0-5) /hpf Urine Bacteria (None) /hpf 08/08/22 Range/Units 05:19 WBC 10.9 H (3.8-10.6) k/uL RBC 3.40 L (4.30-5.90) m/uL Hgb 10.1 L (13.0-17.5) gm/dL Hct 33.0 L (39.0-53.0) % MCHC 30.5 L (31.0-37.0) g/dL Neutrophils # 9.2 H (1.3-7.7) k/uL PT (9.0-12.0) sec INR (<1.2) APTT (22.0-30.0) sec Sodium (137-145) mmol/L Potassium (3.5-5.1) mmol/L Carbon Dioxide (22-30) mmol/L BUN (9-20) mg/dL Creatinine (0.66-1.25) mg/dL Glucose (74-99) mg/dL Calcium (8.4-10.2) mg/dL Total Protein (6.3-8.2) g/dL Albumin (3.5-5.0) g/dL Urine Protein (Negative) Urine Blood (Negative) Ur Leukocyte Esterase (Negative) Urine RBC (0-5) /hpf Urine WBC (0-5) /hpf Urine Bacteria (None) /hpf
[2022-08-08] MEDS ORDERED: DEXTROSE 50% SYRINGE 50 ML IVP STA (12:19)
[2022-08-08] MEDS ORDERED: SODIUM ZIRCONIUM CYCLOSILICATE 10 GM PACKET PO ONE (12:19)
[2022-08-08] MEDS ORDERED: INSULIN REGULAR 100 UNIT/ML VIAL (IV) IV ONE (12:19)
--- NOTE | 2022-08-08 12:19 | P.NPCON ---
History of Present Illness - Reason for Consult acute renal failure - History of Present Illness Reason for consultation: Acute kidney injury History of present illness: Patient is a 86-year-old male seen in consultation for acute kidney injury. Patient was seen and examined in the emergency room. Patient presented from [facility] due to lethargy. Patient also has a wound on his right foot which is being monitored by vascular surgery outpatient. According to the , he was scheduled to have an angiogram done tomorrow. However the wound was noted to be wet and he was sent to the hospital. Patient's creatinine is 07/16/2022 was 1 and was elevated at 3.2 yesterday and is stable at 3.18 today. Patient has an external catheter and is making urine but it is noted to be dark. Patient does have history of diabetes. I don't see any nonsteroidals and his home medication list. He was taking RDAHA inhibitor which is currently held. Patient's potassium level was noted to be high at 5.8 on admission which was medically treated with IV insulin, albuterol, sodium bicarbonate. He also received 1 L normal saline bolus and is currently maintained on normal saline at 130 mL an hour. Potassium level this morning was 5.6. Blood pressure has been fairly stable. Lowest documented blood pressure is 102/57 this admission. Patient is quite lethargic and is not answering any questions. History is provided by the was present at bedside. Vital signs are stable. General: Resting in bed. HEENT: Head exam is unremarkable. LUNGS: Breath sounds decreased. HEART: Rate and Rhythm are regular. ABDOMEN: Soft, no distention. EXTREMITITES: Trace edema. No drainage noted. Past Medical History Past Medical History: Atrial Fibrillation, Coronary Artery Disease (CAD), Chest Pain / Angina, Diabetes Mellitus, Eye Disorder, Hyperlipidemia, Hypertension, Myocardial Infarction ([place]), Osteoarthritis (OA), Sleep Apnea/CPAP/BIPAP Additional Past Medical History / Comment(s): MIs, CPAP use, IDDM type II, bradycardia with pacer, tinnitis bilaterally, non healing wound on rt foot side of little toe and in between the 2 toes. arthritis lower back. left eye blind Last Myocardial Infarction Date:: 07/02/16 History of Any Multi-Drug Resistant Organisms: None Reported Past Surgical History: Coronary Bypass/CABG, Heart Catheterization With Stent, Orthopedic Surgery, Pacemaker Additional Past Surgical History / Comment(s): 1990 cabg-1 vessel, PTCA, PCI with stents (4 total), sinus surgery r/t growth sinus cavity, colonoscopy, L knee arthroscopy, bilateral cataract removals. [employer] pacemaker Past Anesthesia/Blood Transfusion Reactions: No Reported Reaction Date of Last Stent Placement:: 12/17/16 Type of Cardiac Device: Permanent Pacemaker Device Placement Date:: 11/05/16 Past Psychological History: No Psychological Hx Reported Smoking Status: Former smoker Past Alcohol Use History: None Reported - Past Family History Mother Family Medical History: Asthma Father Family Medical History: Myocardial Infarction ([place]) Additional Family Medical History / Comment(s): with [place] at age 62 Brother(s) Family Medical History: Deep Vein Thrombosis (DVT), Myocardial Infarction ([place]) Additional Family Medical History / Comment(s): at age 42 w/ [place] Medications and Allergies Home Medications Medication Instructions Recorded Confirmed Type Doxazosin [Cardura] 2 mg PO DAILY 07/10/16 08/07/22 History Multivitamins, Thera [Multivitamin 1 tab PO DAILY 07/10/16 08/07/22 History (formulary)] glipiZIDE [Glipizide] 5 mg PO DAILY@0600 07/10/16 08/07/22 History Atorvastatin [Lipitor] 40 mg PO HS #30 tab 12/18/16 08/07/22 Rx Nitroglycerin Sl Tabs [Nitrostat] 0.4 mg SUBLINGUAL Q5M PRN #0 tab 12/26/16 08/07/22 Rx Azelastine/Fluticasone 2 spray EA NOSTRIL BID 07/12/22 08/07/22 History [Azelastin-Flutic 137-50Mcg Spr] Ferrous Sulfate [Feosol] 325 mg PO Q48H 07/12/22 08/07/22 History Finasteride [Proscar] 5 mg PO DAILY 07/12/22 08/07/22 History Levothyroxine Sodium [Synthroid] 112 mcg PO MOTH@2100 07/12/22 08/07/22 History Ranolazine [Ranexa] 500 mg PO BID 07/12/22 08/07/22 History Aspirin EC [Ecotrin Low Dose] 81 mg PO HS 07/14/22 08/07/22 History Cholecalciferol [Vitamin D3 (25 50 mcg PO HS 07/14/22 08/07/22 History Mcg = 1000 Iu)] amLODIPine [Norvasc] 5 mg PO HS 07/14/22 08/07/22 History atenoloL [Tenormin] 50 mg PO BID tab 07/17/22 08/07/22 Rx captopriL [Capoten] 12.5 mg PO BID tab 07/17/22 08/07/22 Rx Cephalexin [Keflex] 500 mg PO TID@0900,1300,2100 08/07/22 08/07/22 History Gabapentin 300 mg PO TID@0600,1300,2100 08/07/22 08/07/22 History Glucerna Shake 1 can PO BID@0900,1700 08/07/22 08/07/22 History Insulin Glargine-Yfgn [Semglee 20 units SQ HS 08/07/22 08/07/22 History (Yfgn) Pen] Insulin Lispro [humaLOG Kwikpen] See Protocol SQ AC-TID 08/07/22 08/07/22 History Isosorbide Mononitrate [Imdur] 120 mg PO BID 08/07/22 08/07/22 History Levothyroxine Sodium [Synthroid] 125 mcg PO SUTUWEFRSA@2100 08/07/22 08/07/22 History Warfarin [Coumadin] 3 mg PO DIRECTED 08/07/22 08/07/22 History Allergies Allergy/AdvReac Type Severity Reaction Status Date / Time No Known Allergies Allergy Verified 08/07/22 20:55 Physical Exam Vitals: Vital Signs Temp Pulse Resp BP Pulse Ox 08/08/22 09:00 72 18 114/74 96 08/08/22 07:23 60 16 122/58 96 08/08/22 05:58 60 20 115/91 99 08/08/22 02:51 65 20 102/57 95 08/07/22 22:23 76 08/07/22 22:07 76 08/07/22 22:05 62 24 116/51 98 08/07/22 19:00 97.7 F 08/07/22 18:55 58 L 16 118/58 94 L Intake and Output 08/07/22 08/08/22 08/08/22 22:59 06:59 14:59 Other: Weight 109.316 kg Results - Lab Results Most recent lab results Calcium 8.1 mg/dL (8.4-10.2) L 08/08/22 05:19 Magnesium 2.3 mg/dL (1.6-2.3) 08/07/22 19:25 08/08/22 05:19 08/08/22 05:19 Assessment and Plan Plan: Assessment: 1. Acute kidney injury secondary to ATN secondary to infection and hypotension. Creatinine stable at 3.18 today. Rule out urinary retention. Baseline creatinine near 1 from 07/16/2022. 2. Hyperkalemia secondary to acute kidney injury and RADHA inhibitor. 3. Right toe gangrene. 4. Diabetes mellitus. 5. Metabolic acidosis secondary to acute kidney injury. 6. Benign hypertension. Blood pressure currently on the lower side. Plan: Decreased rate of normal saline to 75 mL an hour. 10 units IV insulin with amp of D50 and 10 g lokelma once now. Repeat potassium level this evening. Check renal ultrasound. Check bladder scan to make sure no urinary retention. Avoid nephrotoxins. Continue to hold RADHA inhibitor. Thank you for the consultation. I will continue to follow patient with you during his hospital stay.
[2022-08-08] MEDS: SODIUM ZIRCONIUM CYCLOSILICATE 10 GM PACKET PO ONE ×2 (12:48→12:49)
[2022-08-08 13:10] LABS: Glucose,Whole Blood 303 mg/dL (70-110)
[2022-08-08] MEDS ORDERED: PHYTONADIONE ORAL 5 MG/5 ML ORAL.SYRG PO STA (14:31)
--- NOTE | 2022-08-08 14:52 | P.GSCN ---
History of Present Illness Consult date: 08/08/22 History of present illness: The patient is an 86-year-old male with known peripheral arterial disease who is at a [facility] facility. He has been evaluated by vascular surgery as an outpatient and workup has been performed for possible revascularization opportunities. He was supposed to undergo a computed tomography scan of his abdomen and pelvis with runoffs however in the meantime he has been sent to the hospital for wound evaluation as well as acute renal failure and worsening of his renal function as well as elevated white blood cell count. Past Medical History Past Medical History: Atrial Fibrillation, Coronary Artery Disease (CAD), Chest Pain / Angina, Diabetes Mellitus, Eye Disorder, Hyperlipidemia, Hypertension, Myocardial Infarction (GA), Osteoarthritis (OA), Sleep Apnea/CPAP/BIPAP Additional Past Medical History / Comment(s): MIs, CPAP use, IDDM type II, bradycardia with pacer, tinnitis bilaterally, non healing wound on rt foot side of little toe and in between the 2 toes. arthritis lower back. left eye blind Last Myocardial Infarction Date:: 07/02/16 History of Any Multi-Drug Resistant Organisms: None Reported Past Surgical History: Coronary Bypass/CABG, Heart Catheterization With Stent, Orthopedic Surgery, Pacemaker Additional Past Surgical History / Comment(s): 1990 cabg-1 vessel, PTCA, PCI with stents (4 total), sinus surgery r/t growth sinus cavity, colonoscopy, L knee arthroscopy, bilateral cataract removals. [employer] pacemaker Past Anesthesia/Blood Transfusion Reactions: No Reported Reaction Date of Last Stent Placement:: 12/17/16 Type of Cardiac Device: Permanent Pacemaker Device Placement Date:: 11/05/16 Past Psychological History: No Psychological Hx Reported Smoking Status: Former smoker Past Alcohol Use History: None Reported - Past Family History Mother Family Medical History: Asthma Father Family Medical History: Myocardial Infarction ([place]) Additional Family Medical History / Comment(s): with GA at age 62 Brother(s) Family Medical History: Deep Vein Thrombosis (DVT), Myocardial Infarction (GA) Additional Family Medical History / Comment(s): at age 42 w/ GA Medications and Allergies Home Medications Medication Instructions Recorded Confirmed Type Doxazosin [Cardura] 2 mg PO DAILY 07/10/16 08/07/22 History Multivitamins, Thera [Multivitamin 1 tab PO DAILY 07/10/16 08/07/22 History (formulary)] glipiZIDE [Glipizide] 5 mg PO DAILY@0600 07/10/16 08/07/22 History Atorvastatin [Lipitor] 40 mg PO HS #30 tab 12/18/16 08/07/22 Rx Nitroglycerin Sl Tabs [Nitrostat] 0.4 mg SUBLINGUAL Q5M PRN #0 tab 12/26/16 08/07/22 Rx Azelastine/Fluticasone 2 spray EA NOSTRIL BID 07/12/22 08/07/22 History [Azelastin-Flutic 137-50Mcg Spr] Ferrous Sulfate [Feosol] 325 mg PO Q48H 07/12/22 08/07/22 History Finasteride [Proscar] 5 mg PO DAILY 07/12/22 08/07/22 History Levothyroxine Sodium [Synthroid] 112 mcg PO MOTH@2100 07/12/22 08/07/22 History Ranolazine [Ranexa] 500 mg PO BID 07/12/22 08/07/22 History Aspirin EC [Ecotrin Low Dose] 81 mg PO HS 07/14/22 08/07/22 History Cholecalciferol [Vitamin D3 (25 50 mcg PO HS 07/14/22 08/07/22 History Mcg = 1000 Iu)] amLODIPine [Norvasc] 5 mg PO HS 07/14/22 08/07/22 History atenoloL [Tenormin] 50 mg PO BID tab 07/17/22 08/07/22 Rx captopriL [Capoten] 12.5 mg PO BID tab 07/17/22 08/07/22 Rx Cephalexin [Keflex] 500 mg PO TID@0900,1300,2100 08/07/22 08/07/22 History Gabapentin 300 mg PO TID@0600,1300,2100 08/07/22 08/07/22 History Glucerna Shake 1 can PO BID@0900,1700 08/07/22 08/07/22 History Insulin Glargine-Yfgn [Semglee 20 units SQ HS 08/07/22 08/07/22 History (Yfgn) Pen] Insulin Lispro [humaLOG Kwikpen] See Protocol SQ AC-TID 08/07/22 08/07/22 History Isosorbide Mononitrate [Imdur] 120 mg PO BID 08/07/22 08/07/22 History Levothyroxine Sodium [Synthroid] 125 mcg PO COLIN@2100 08/07/22 08/07/22 History Warfarin [Coumadin] 3 mg PO DIRECTED 08/07/22 08/07/22 History Allergies Allergy/AdvReac Type Severity Reaction Status Date / Time No Known Allergies Allergy Verified 08/07/22 20:55 Surgical - Exam Vital Signs Pulse Resp BP Pulse Ox 58 L 16 118/58 94 L 08/07/22 18:55 08/07/22 18:55 08/07/22 18:55 08/07/22 18:55 Gen. is a pleasant male in no acute distress, resting, not very conversant. HEENT is normocephalic. Heart appears regular. Lungs are diminished but clear. Abdomen is soft. Extremity show no clubbing or cyanosis. He has palpable radial pulses. Nonpalpable pedal pulses. He has heel ulcerations bilaterally, stage II/III, does appear there is some fluid underneath the left side. Mild bogginess. On the right the fifth toe has dry gangrene to the base of some mild surrounding erythema. Results - Labs 08/08/22 05:19 08/08/22 05:19 Abnormal Lab Results - Last 24 Hours (Table) 08/07/22 08/07/22 08/07/22 Range/Units 06:07 19:25 19:25 WBC 13.7 H (3.8-10.6) k/uL RBC 3.23 L (4.30-5.90) m/uL Hgb 9.6 L (13.0-17.5) gm/dL Hct 30.7 L (39.0-53.0) % MCHC (31.0-37.0) g/dL Neutrophils # 11.0 H (1.3-7.7) k/uL PT 47.5 H (9.0-12.0) sec INR 4.8 H (<1.2) APTT 51.4 H (22.0-30.0) sec Sodium (137-145) mmol/L Potassium (3.5-5.1) mmol/L Carbon Dioxide (22-30) mmol/L BUN (9-20) mg/dL Creatinine (0.66-1.25) mg/dL Glucose (74-99) mg/dL POC Glucose (mg/dL) (70-110) mg/dL Calcium (8.4-10.2) mg/dL Total Protein (6.3-8.2) g/dL Albumin (3.5-5.0) g/dL Urine Protein 1+ H (Negative) Urine Blood Large H (Negative) Ur Leukocyte Esterase Trace H (Negative) Urine RBC >182 H (0-5) /hpf Urine WBC 15 H (0-5) /hpf Urine Bacteria Rare H (None) /hpf 08/07/22 08/08/22 08/08/22 Range/Units 19:25 01:02 05:19 WBC (3.8-10.6) k/uL RBC (4.30-5.90) m/uL Hgb (13.0-17.5) gm/dL Hct (39.0-53.0) % MCHC (31.0-37.0) g/dL Neutrophils # (1.3-7.7) k/uL PT (9.0-12.0) sec INR (<1.2) APTT (22.0-30.0) sec Sodium 134 L 134 L (137-145) mmol/L Potassium 5.8 H 5.2 H 5.6 H (3.5-5.1) mmol/L Carbon Dioxide 21 L (22-30) mmol/L BUN 79 H 79 H (9-20) mg/dL Creatinine 3.20 H 3.18 H (0.66-1.25) mg/dL Glucose 187 H (74-99) mg/dL POC Glucose (mg/dL) (70-110) mg/dL Calcium 8.1 L (8.4-10.2) mg/dL Total Protein 5.6 L (6.3-8.2) g/dL Albumin 3.3 L 2.8 L (3.5-5.0) g/dL Urine Protein (Negative) Urine Blood (Negative) Ur Leukocyte Esterase (Negative) Urine RBC (0-5) /hpf Urine WBC (0-5) /hpf Urine Bacteria (None) /hpf 08/08/22 08/08/22 Range/Units 05:19 13:08 WBC 10.9 H (3.8-10.6) k/uL RBC 3.40 L (4.30-5.90) m/uL Hgb 10.1 L (13.0-17.5) gm/dL Hct 33.0 L (39.0-53.0) % MCHC 30.5 L (31.0-37.0) g/dL Neutrophils # 9.2 H (1.3-7.7) k/uL PT (9.0-12.0) sec INR (<1.2) APTT (22.0-30.0) sec Sodium (137-145) mmol/L Potassium (3.5-5.1) mmol/L Carbon Dioxide (22-30) mmol/L BUN (9-20) mg/dL Creatinine (0.66-1.25) mg/dL Glucose (74-99) mg/dL POC Glucose (mg/dL) 303 H (70-110) mg/dL Calcium (8.4-10.2) mg/dL Total Protein (6.3-8.2) g/dL Albumin (3.5-5.0) g/dL Urine Protein (Negative) Urine Blood (Negative) Ur Leukocyte Esterase (Negative) Urine RBC (0-5) /hpf Urine WBC (0-5) /hpf Urine Bacteria (None) /hpf Microbiology - Last 24 Hours (Table) 08/07/22 06:07 Urine Culture - Preliminary Urine,Voided Diabetes panel 08/07/22 08/08/22 08/08/22 Range/Units 19:25 01:02 05:19 Sodium 134 L 134 L (137-145) mmol/L Potassium 5.8 H 5.2 H 5.6 H (3.5-5.1) mmol/L Chloride 98 100 (98-107) mmol/L Carbon Dioxide 21 L 23 (22-30) mmol/L BUN 79 H 79 H (9-20) mg/dL Creatinine 3.20 H 3.18 H (0.66-1.25) mg/dL Glucose 79 187 H (74-99) mg/dL Calcium 8.8 8.1 L (8.4-10.2) mg/dL AST 30 28 (17-59) U/L ALT 29 26 (4-49) U/L Alkaline Phosphatase 96 87 (38-126) U/L Total Protein 6.5 5.6 L (6.3-8.2) g/dL Albumin 3.3 L 2.8 L (3.5-5.0) g/dL Calcium panel 08/07/22 08/08/22 Range/Units 19:25 05:19 Calcium 8.8 8.1 L (8.4-10.2) mg/dL Albumin 3.3 L 2.8 L (3.5-5.0) g/dL Pituitary panel 08/07/22 08/08/22 08/08/22 Range/Units 19:25 01:02 05:19 Sodium 134 L 134 L (137-145) mmol/L Potassium 5.8 H 5.2 H 5.6 H (3.5-5.1) mmol/L Chloride 98 100 (98-107) mmol/L Carbon Dioxide 21 L 23 (22-30) mmol/L BUN 79 H 79 H (9-20) mg/dL Creatinine 3.20 H 3.18 H (0.66-1.25) mg/dL Glucose 79 187 H (74-99) mg/dL Calcium 8.8 8.1 L (8.4-10.2) mg/dL Adrenal panel 08/07/22 08/08/22 08/08/22 Range/Units 19:25 01:02 05:19 Sodium 134 L 134 L (137-145) mmol/L Potassium 5.8 H 5.2 H 5.6 H (3.5-5.1) mmol/L Chloride 98 100 (98-107) mmol/L Carbon Dioxide 21 L 23 (22-30) mmol/L BUN 79 H 79 H (9-20) mg/dL Creatinine 3.20 H 3.18 H (0.66-1.25) mg/dL Glucose 79 187 H (74-99) mg/dL Calcium 8.8 8.1 L (8.4-10.2) mg/dL Total Bilirubin 0.6 0.5 (0.2-1.3) mg/dL AST 30 28 (17-59) U/L ALT 29 26 (4-49) U/L Alkaline Phosphatase 96 87 (38-126) U/L Total Protein 6.5 5.6 L (6.3-8.2) g/dL Albumin 3.3 L 2.8 L (3.5-5.0) g/dL Assessment and Plan Assessment: Dry gangrene right fifth toe Bilateral heel wounds Acute renal failure Hyperkalemia Supratherapeutic INR Peripheral arterial disease Leukocytosis Plan: Plan at this point would be to go forward with debridement of the bilateral lower extremities and amputation right fifth toe as long as it is okay with medicine team. We will reverse his Coumadin for this. Continue to monitor his electrolytes. Long discussion was had with his at the bedside. Hopefully we will be able to obtain a CT angiogram with runoffs at some point this hospitalization however given his renal dysfunction he may not be able to tolerate this much contrast. We discussed the possibility of going forward with a catheter directed angiogram and will see how he does overall as far as his renal dysfunction. She seemingly understands and is willing to proceed.
--- NOTE | 2022-08-08 15:12 | US ---
EXAMINATION TYPE: US kidneys/renal and bladder DATE OF EXAM: 08/08/2022 COMPARISON: NONE CLINICAL HISTORY: lucero. EXAM MEASUREMENTS: Left Kidney: 11.9 x 6.4 x 5.7 cm Difficult and limited study due to obese patient Patient laying on right side - unable to roll Right Kidney: not visualized due to above limitations Left Kidney: 4.3 x 3.6 x 4.3cm hypoechoic area shows increased through transmission, thought to have an imperceptible wall Bladder: wnl Bilateral Jets seen: no There is no evidence for hydronephrosis at this point in time. Cortical medullary differentiation is maintained within the left kidney. No nephrolithiasis is seen. No masses are identified. The urinar y bladder is anechoic. IMPRESSION: There are some technical limitations the exam. Findings within the left kidney upper pole likely repr esent simple cyst
[2022-08-08] MEDS ORDERED: VANCOMYCIN 1,750 MG in SODIUM CHLORIDE 0.9% 500 ML 500 ML IVPB ONE (16:00)
[2022-08-08] MEDS ORDERED: DEXTROSE 50% SYRINGE 50 ML IVP PRN ×2 (17:54)
[2022-08-08 18:07] LABS: Glucose,Whole Blood 199 mg/dL (70-110)
[2022-08-08] MEDS: INSULIN ASPART (NovoLOG) 100 UNIT/ML VIAL SQ SCH ×2 (18:26→21:27)
[2022-08-08 20:34] LABS: Glucose,Whole Blood 189 mg/dL (70-110)
[2022-08-08] MEDS ORDERED: NON FORMULARY DRUG (Azelastine/Fluticasone [Azelastin-Flutic 137-50mcg Spr] 23 GM Each) EA NOSTRIL SCH (21:00)
[2022-08-08] MEDS: FLUTICASONE 50MCG/SPRAY NASAL 16GM EA NOSTRIL SCH (21:27)
[2022-08-08] MEDS: ATORVASTATIN 40 MG TAB PO SCH (21:28)
[2022-08-08] MEDS: GABAPENTIN 100 MG CAP PO SCH (21:28)
[2022-08-08] MEDS: ASPIRIN 81 MG PO SCH (21:28)
[2022-08-08] MEDS: RANOLAZINE 500 MG TAB.ER.12H PO SCH (21:28)
[2022-08-08] MEDS: LEVOTHYROXINE 112 MCG TAB PO SCH (21:28)
[2022-08-09] MEDS: SODIUM CHLORIDE 0.9% 1,000 ML IV SCH ×2 (02:42→20:41)
[2022-08-09] MEDS ORDERED: LIDOCAINE 2% URO-JET JELLY 5 ML KIT URETHRAL STA (06:20)
[2022-08-09] MEDS: INSULIN ASPART (NovoLOG) 100 UNIT/ML VIAL SQ SCH ×4 (07:33→20:39)
[2022-08-09 07:34] LABS: Glucose,Whole Blood 145 mg/dL (70-110)
[2022-08-09] MEDS: FINASTERIDE 5 MG TAB PO SCH (08:32)
[2022-08-09] MEDS: RANOLAZINE 500 MG TAB.ER.12H PO SCH ×2 (08:32→20:14)
[2022-08-09] MEDS: AMPICILLIN-SULBACTAM 3 GM in SODIUM CHLORIDE 0.9% 100 ML IVPB SCH ×2 (08:33→20:13)
[2022-08-09] MEDS: DOXAZOSIN 2 MG TAB PO SCH (08:33)
[2022-08-09] MEDS: GABAPENTIN 100 MG CAP PO SCH ×2 (08:33→20:13)
[2022-08-09] MEDS: FLUTICASONE 50MCG/SPRAY NASAL 16GM EA NOSTRIL SCH ×2 (08:35→20:14)
[2022-08-09 08:51] LABS: ALT 44 U/L (4-49); AST 81 U/L (17-59); African American GFR (CKD) 26 (>60 ml/min/1.73 sqM); Albumin 2.7 g/dL (3.5-5.0); Albumin/Globulin Ratio 0.9; Alkaline Phosphatase 94 U/L (38-126); Anion Gap 13 mmol/L; Blood Urea Nitrogen 83 mg/dL (9-20); Calcium 8.3 mg/dL (8.4-10.2); Carbon Dioxide 21 mmol/L (22-30); Chloride 103 mmol/L (98-107); Globulin 2.9 g/dL; Glucose 143 mg/dL (74-99); Non-African American GFR(CKD) 22 (>60 ml/min/1.73 sqM); Potassium 5.3 mmol/L (3.5-5.1); Sodium 137 mmol/L (137-145); Total Bilirubin 0.7 mg/dL (0.2-1.3); Total Protein 5.6 g/dL (6.3-8.2)
--- NOTE | 2022-08-09 08:51 | P.GSCN ---
History of Present Illness Consult date: 08/09/22 Reason for Consult: Urinary retention Requesting physician: Mango Guido History of present illness: Patient is an 86-year-old white male admitted with bilateral foot wounds. He developed urinary retention overnight. This morning he has been able to void, we'll postvoid residuals of approximately 350 mL. I have been consulted to place a Cross catheter, as attempts by the nursing staff to do so were unsuccessful. However, the patient states that he is not experiencing voiding difficulty. Review of Systems - Genitourinary Reports as per HPI Past Medical History Past Medical History: Atrial Fibrillation, Coronary Artery Disease (CAD), Chest Pain / Angina, Diabetes Mellitus, Eye Disorder, Hyperlipidemia, Hypertension, Myocardial Infarction ([place]), Osteoarthritis (OA), Sleep Apnea/CPAP/BIPAP Additional Past Medical History / Comment(s): MIs, CPAP use, IDDM type II, bradycardia with pacer, tinnitis bilaterally, non healing wound on rt foot side of little toe and in between the 2 toes. arthritis lower back. left eye blind Last Myocardial Infarction Date:: 07/02/16 History of Any Multi-Drug Resistant Organisms: None Reported Past Surgical History: Coronary Bypass/CABG, Heart Catheterization With Stent, Orthopedic Surgery, Pacemaker Additional Past Surgical History / Comment(s): 1990 cabg-1 vessel, PTCA, PCI with stents (4 total), sinus surgery r/t growth sinus cavity, colonoscopy, L knee arthroscopy, bilateral cataract removals. [employer] pacemaker Past Anesthesia/Blood Transfusion Reactions: No Reported Reaction Date of Last Stent Placement:: 12/17/16 Type of Cardiac Device: Permanent Pacemaker Device Placement Date:: 11/05/16 Past Psychological History: No Psychological Hx Reported Additional Psychological History / Comment(s): Pt resides with his spouse. He is independent. Pt frustrated, not able to do as much as he used to. Smoking Status: Former smoker Past Alcohol Use History: None Reported Additional Past Alcohol Use History / Comment(s): Quit Smoking 1972, 21 yrs-2 ppd. Past Drug Use History: None Reported Additional Drug Use History / Comment(s): cbd cream and THC cream hasn't used in 3 weeks. aware not to use 24 hrs before procedure. - Past Family History Mother Family Medical History: Asthma Father Family Medical History: Myocardial Infarction ([place]) Additional Family Medical History / Comment(s): with [place] at age 62 Brother(s) Family Medical History: Deep Vein Thrombosis (DVT), Myocardial Infarction (IA) Additional Family Medical History / Comment(s): at age 42 w/ [place] Medications and Allergies Home Medications Medication Instructions Recorded Confirmed Type Doxazosin [Cardura] 2 mg PO DAILY 07/10/16 08/07/22 History Multivitamins, Thera [Multivitamin 1 tab PO DAILY 07/10/16 08/07/22 History (formulary)] glipiZIDE [Glipizide] 5 mg PO DAILY@0600 07/10/16 08/07/22 History Atorvastatin [Lipitor] 40 mg PO HS #30 tab 12/18/16 08/07/22 Rx Nitroglycerin Sl Tabs [Nitrostat] 0.4 mg SUBLINGUAL Q5M PRN #0 tab 12/26/16 08/07/22 Rx Azelastine/Fluticasone 2 spray EA NOSTRIL BID 07/12/22 08/07/22 History [Azelastin-Flutic 137-50Mcg Spr] Ferrous Sulfate [Feosol] 325 mg PO Q48H 07/12/22 08/07/22 History Finasteride [Proscar] 5 mg PO DAILY 07/12/22 08/07/22 History Levothyroxine Sodium [Synthroid] 112 mcg PO MOTH@2100 07/12/22 08/07/22 History Ranolazine [Ranexa] 500 mg PO BID 07/12/22 08/07/22 History Aspirin EC [Ecotrin Low Dose] 81 mg PO HS 07/14/22 08/07/22 History Cholecalciferol [Vitamin D3 (25 50 mcg PO HS 07/14/22 08/07/22 History Mcg = 1000 Iu)] amLODIPine [Norvasc] 5 mg PO HS 07/14/22 08/07/22 History atenoloL [Tenormin] 50 mg PO BID tab 07/17/22 08/07/22 Rx captopriL [Capoten] 12.5 mg PO BID tab 07/17/22 08/07/22 Rx Cephalexin [Keflex] 500 mg PO TID@0900,1300,2100 08/07/22 08/07/22 History Gabapentin 300 mg PO TID@0600,1300,2100 08/07/22 08/07/22 History Glucerna Shake 1 can PO BID@0900,1700 08/07/22 08/07/22 History Insulin Glargine-Yfgn [Semglee 20 units SQ HS 08/07/22 08/07/22 History (Yfgn) Pen] Insulin Lispro [humaLOG Kwikpen] See Protocol SQ AC-TID 08/07/22 08/07/22 History Isosorbide Mononitrate [Imdur] 120 mg PO BID 08/07/22 08/07/22 History Levothyroxine Sodium [Synthroid] 125 mcg PO SUTUWEFRSA@2100 08/07/22 08/07/22 History Warfarin [Coumadin] 3 mg PO DIRECTED 08/07/22 08/07/22 History Allergies Allergy/AdvReac Type Severity Reaction Status Date / Time No Known Allergies Allergy Verified 08/07/22 20:55 Surgical - Exam Vital Signs Pulse Resp BP Pulse Ox 58 L 16 118/58 94 L 08/07/22 18:55 08/07/22 18:55 08/07/22 18:55 08/07/22 18:55 - General well developed, well nourished, no distress - Respiratory normal respiratory effort - Abdomen Abdomen: soft, non tender, no guarding, no rigid, no rebound - Genitourinary Uncircumcised phallus with tight phimosis. There are no cutaneous lesions. Scrotum and testes are normal. - Psychiatric oriented to time, oriented to person, oriented to place, speech is normal, memory intact Results - Labs 08/08/22 05:19 08/08/22 16:42 Abnormal Lab Results - Last 24 Hours (Table) 08/08/22 08/08/22 08/08/22 Range/Units 05:19 13:08 18:06 POC Glucose (mg/dL) 303 H 199 H (70-110) mg/dL Hemoglobin A1c 7.9 H (0.0-6.0) % 08/08/22 08/09/22 Range/Units 20:33 07:32 POC Glucose (mg/dL) 189 H 145 H (70-110) mg/dL Hemoglobin A1c (0.0-6.0) % Microbiology - Last 24 Hours (Table) 08/08/22 11:35 Gram Stain - Preliminary Foot - Left Wound Culture - Preliminary 08/08/22 11:35 Gram Stain - Preliminary Buttock Wound Culture - Preliminary 08/08/22 11:35 Gram Stain - Preliminary Foot - Right Wound Culture - Preliminary 08/07/22 19:40 Blood Culture - Preliminary Blood No Growth after 24 hours 08/07/22 19:25 Blood Culture - Preliminary Blood No Growth after 24 hours 08/08/22 11:35 Anaerobic Culture - Preliminary Foot - Left 08/08/22 11:35 Anaerobic Culture - Preliminary Coccyx 08/08/22 11:35 Anaerobic Culture - Preliminary Foot - Right 08/07/22 06:07 Urine Culture - Preliminary Urine,Voided Diabetes panel 08/08/22 08/08/22 Range/Units 05:19 16:42 Potassium 5.0 (3.5-5.1) mmol/L Hemoglobin A1c 7.9 H (0.0-6.0) % Pituitary panel 08/08/22 Range/Units 16:42 Potassium 5.0 (3.5-5.1) mmol/L Adrenal panel 08/08/22 Range/Units 16:42 Potassium 5.0 (3.5-5.1) mmol/L - Imaging US - kidney/bladder: report reviewed Assessment and Plan (1) Incomplete bladder emptying Current Visit: Yes Status: Acute Code(s): R33.9 - RETENTION OF URINE, UNSPECIFIED SNOMED Code(s): 376988941 (2) Phimosis Current Visit: Yes Status: Acute Code(s): N47.1 - PHIMOSIS SNOMED Code(s): 459903308 Plan: As stated, attempts by the nursing staff to insert even a pediatric Cross catheter were unsuccessful. I explained to the patient the placement of a Cross catheter would require dilation of his phimosis, or perhaps a dorsal slit. He states that he is not having difficulty voiding and thus wishes not to undergo these procedures. I explained to him that incomplete bladder emptying can cause compromised renal function. It is worth noting that the kidneys were suboptimally visualized on ultrasound but showed no evidence of hydronephrosis. Please notify me if I can be of further assistance.
--- NOTE | 2022-08-09 09:08 | P.CONS ---
History of Present Illness - Reason for Consult Consult date: 08/08/22 - History of Present Illness Patient is a 86-year-old male was brought into the ER for evaluation of necrotic changes to the right fifth toe in this patient who is a half-way resident apparently the patient has been dealing with right fifth toe for the last few weeks not sure how it started and no history of any trauma patient also have a necrotic wound to bilateral heel area and to the sacral area however the patient not clear to see for how long he has these wounds and what kind of treatment he has been getting for them at the half-way patient also complaining of some shortness of breath and the was complaining of some rattling the chest however he denies any significant cough or sputum production on presentation to the hospital the patient was afebrile and no fever have been recorded subsequently patient did have white count of 13.7 with a left shift patient did have elevated BUN/creatinine liver exam has been normal urine has been mildly positive mostly hematuria patient did have blood culture as well as local cultures obtained he was started on vancomycin infectious disease was c onsulted for further management of antibiotic therapy, patient did have a chest x-ray mild atelectasis lung base slightly worse than the last exam x-ray of the foot soft tissue swelling extensive vascular calcification patient also have a abdominal pelvic ultrasound left upper pole cyst, most information has been stated from review the chart as the patient himself is not good historian at this point Past Medical History Past Medical History: Atrial Fibrillation, Coronary Artery Disease (CAD), Chest Pain / Angina, Diabetes Mellitus, Eye Disorder, Hyperlipidemia, Hypertension, Myocardial Infarction (SC), Osteoarthritis (OA), Sleep Apnea/CPAP/BIPAP Additional Past Medical History / Comment(s): MIs, CPAP use, IDDM type II, laura cardia with pacer, tinnitis bilaterally, non healing wound on rt foot side of little toe and in between the 2 toes. arthritis lower back. left eye blind Last Myocardial Infarction Date:: 07/02/16 History of Any Multi-Drug Resistant Organisms: None Reported Past Surgical History: Coronary Bypass/CABG, Heart Catheterization With Stent, Orthopedic Surgery, Pacemaker Additional Past Surgical History / Comment(s): 1990 cabg-1 vessel, PTCA, PCI with stents (4 total), sinus surgery r/t growth sinus cavity, colonoscopy, L knee arthroscopy, bilateral cataract removals. [employer] pacemaker Past Anesthesia/Blood Transfusion Reactions: No Reported Reaction Date of Last Stent Placement:: 12/17/16 Type of Cardiac Device: Permanent Pacemaker Device Placement Date:: 11/05/16 Past Psychological History: No Psychological Hx Reported Smoking Status: Former smoker Past Alcohol Use History: None Reported - Past Family History Mother Family Medical History: Asthma Father Family Medical History: Myocardial Infarction (SC) Additional Family Medical History / Comment(s): with SC at age 62 Brother(s) Family Medical History: Deep Vein Thrombosis (DVT), Myocardial Infarction (SC) Additional Family Medical History / Comment(s): at age 42 w/ SC Medications and Allergies Home Medications Medication Instructions Recorded Confirmed Type Doxazosin [Cardura] 2 mg PO DAILY 07/10/16 08/07/22 History Multivitamins, Thera [Multivitamin 1 tab PO DAILY 07/10/16 08/07/22 History (formulary)] glipiZIDE [Glipizide] 5 mg PO DAILY@0600 07/10/16 08/07/22 History Atorvastatin [Lipitor] 40 mg PO HS #30 tab 12/18/16 08/07/22 Rx Nitroglycerin Sl Tabs [Nitrostat] 0.4 mg SUBLINGUAL Q5M PRN #0 tab 12/26/16 08/07/22 Rx Azelastine/Fluticasone 2 spray EA NOSTRIL BID 07/12/22 08/07/22 History [Azelastin-Flutic 137-50Mcg Spr] Ferrous Sulfate [Feosol] 325 mg PO Q48H 07/12/22 08/07/22 History Finasteride [Proscar] 5 mg PO DAILY 07/12/22 08/07/22 History Levothyroxine Sodium [Synthroid] 112 mcg PO MOTH@2100 07/12/22 08/07/22 History Ranolazine [Ranexa] 500 mg PO BID 07/12/22 08/07/22 History Aspirin EC [Ecotrin Low Dose] 81 mg PO HS 07/14/22 08/07/22 History Cholecalciferol [Vitamin D3 (25 50 mcg PO HS 07/14/22 08/07/22 History Mcg = 1000 Iu)] amLODIPine [Norvasc] 5 mg PO HS 07/14/22 08/07/22 History atenoloL [Tenormin] 50 mg PO BID tab 07/17/22 08/07/22 Rx captopriL [Capoten] 12.5 mg PO BID tab 07/17/22 08/07/22 Rx Cephalexin [Keflex] 500 mg PO TID@0900,1300,2100 08/07/22 08/07/22 History Gabapentin 300 mg PO TID@0600,1300,2100 08/07/22 08/07/22 History Glucerna Shake 1 can PO BID@0900,1700 08/07/22 08/07/22 History Insulin Glargine-Yfgn [Semglee 20 units SQ HS 08/07/22 08/07/22 History (Yfgn) Pen] Insulin Lispro [humaLOG Kwikpen] See Protocol SQ AC-TID 08/07/22 08/07/22 History Isosorbide Mononitrate [Imdur] 120 mg PO BID 08/07/22 08/07/22 History Levothyroxine Sodium [Synthroid] 125 mcg PO SUTUWEFRSA@2100 08/07/22 08/07/22 History Warfarin [Coumadin] 3 mg PO DIRECTED 08/07/22 08/07/22 History Allergies Allergy/AdvReac Type Severity Reaction Status Date / Time No Known Allergies Allergy Verified 08/07/22 20:55 Physical Exam Vitals: Vital Signs Temp Pulse Resp BP Pulse Ox 08/08/22 12:52 60 22 100 08/08/22 09:00 72 18 114/74 96 08/08/22 07:23 60 16 122/58 96 08/08/22 05:58 60 20 115/91 99 08/08/22 02:51 65 20 102/57 95 08/07/22 22:23 76 08/07/22 22:07 76 08/07/22 22:05 62 24 116/51 98 08/07/22 19:00 97.7 F 08/07/22 18:55 58 L 16 118/58 94 L Results CBC & Chem 7: 08/08/22 05:19 08/09/22 07:37 Labs: Abnormal Lab Results - Last 24 Hours (Table) 08/07/22 08/07/22 08/07/22 Range/Units 06:07 19:25 19:25 WBC 13.7 H (3.8-10.6) k/uL RBC 3.23 L (4.30-5.90) m/uL Hgb 9.6 L (13.0-17.5) gm/dL Hct 30.7 L (39.0-53.0) % MCHC (31.0-37.0) g/dL Neutrophils # 11.0 H (1.3-7.7) k/uL PT 47.5 H (9.0-12.0) sec INR 4.8 H (<1.2) APTT 51.4 H (22.0-30.0) sec Sodium (137-145) mmol/L Potassium (3.5-5.1) mmol/L Carbon Dioxide (22-30) mmol/L BUN (9-20) mg/dL Creatinine (0.66-1.25) mg/dL Glucose (74-99) mg/dL POC Glucose (mg/dL) (70-110) mg/dL Calcium (8.4-10.2) mg/dL Total Protein (6.3-8.2) g/dL Albumin (3.5-5.0) g/dL Urine Protein 1+ H (Negative) Urine Blood Large H (Negative) Ur Leukocyte Esterase Trace H (Negative) Urine RBC >182 H (0-5) /hpf Urine WBC 15 H (0-5) /hpf Urine Bacteria Rare H (None) /hpf 08/07/22 08/08/22 08/08/22 Range/Units 19:25 01:02 05:19 WBC (3.8-10.6) k/uL RBC (4.30-5.90) m/uL Hgb (13.0-17.5) gm/dL Hct (39.0-53.0) % MCHC (31.0-37.0) g/dL Neutrophils # (1.3-7.7) k/uL PT (9.0-12.0) sec INR (<1.2) APTT (22.0-30.0) sec Sodium 134 L 134 L (137-145) mmol/L Potassium 5.8 H 5.2 H 5.6 H (3.5-5.1) mmol/L Carbon Dioxide 21 L (22-30) mmol/L BUN 79 H 79 H (9-20) mg/dL Creatinine 3.20 H 3.18 H (0.66-1.25) mg/dL Glucose 187 H (74-99) mg/dL POC Glucose (mg/dL) (70-110) mg/dL Calcium 8.1 L (8.4-10.2) mg/dL Total Protein 5.6 L (6.3-8.2) g/dL Albumin 3.3 L 2.8 L (3.5-5.0) g/dL Urine Protein (Negative) Urine Blood (Negative) Ur Leukocyte Esterase (Negative) Urine RBC (0-5) /hpf Urine WBC (0-5) /hpf Urine Bacteria (None) /hpf 08/08/22 08/08/22 Range/Units 05:19 13:08 WBC 10.9 H (3.8-10.6) k/uL RBC 3.40 L (4.30-5.90) m/uL Hgb 10.1 L (13.0-17.5) gm/dL Hct 33.0 L (39.0-53.0) % MCHC 30.5 L (31.0-37.0) g/dL Neutrophils # 9.2 H (1.3-7.7) k/uL PT (9.0-12.0) sec INR (<1.2) APTT (22.0-30.0) sec Sodium (137-145) mmol/L Potassium (3.5-5.1) mmol/L Carbon Dioxide (22-30) mmol/L BUN (9-20) mg/dL Creatinine (0.66-1.25) mg/dL Glucose (74-99) mg/dL POC Glucose (mg/dL) 303 H (70-110) mg/dL Calcium (8.4-10.2) mg/dL Total Protein (6.3-8.2) g/dL Albumin (3.5-5.0) g/dL Urine Protein (Negative) Urine Blood (Negative) Ur Leukocyte Esterase (Negative) Urine RBC (0-5) /hpf Urine WBC (0-5) /hpf Urine Bacteria (None) /hpf Microbiology - Last 24 Hours (Table) 08/07/22 06:07 Urine Culture - Preliminary Urine,Voided Assessment and Plan Plan: 1patient with right fifth toe gangrene in this patient with multiple comorbidities wound looks mostly dry with minimal surrounding inflammatory changes and need to cover for the polymicrobial ivy usually associated with infection. 2patient also have bilateral heel pressure ulcer unstageable as there is a necrotic eschar and will benefit from surgical department. 3patient also have a stage III sacral pressure ulcer with slough tissue no significant surrounding redness or foul-smelling drainage. 4patient also complaining of increasing shortness of breath. Pulmonary infiltrate slightly worse question of possible pneumonitis. 5patient with renal insufficiency and high risk of nephrotoxicity from vancomy shaq. 6we will discontinue vancomycin and start patient on Unasyn while waiting for the culture to finalize. 7local wound care to the sacral wound with the Medihoney followed by moist dressing keep the area of the pressure. 8we will obtain inflammatory markers. We will follow on clinical condition and cultures to further adjust medication if needed Thank you for this consultation will follow this patient along with you Time with Patient: Greater than 30
[2022-08-09] MEDS ORDERED: SODIUM ZIRCONIUM CYCLOSILICATE 10 GM PACKET PO ONE ×2 (10:00→11:32)
[2022-08-09 10:45] LABS: HCT 31.2 % (39.6-50.0); HGB 9.5 g/dL (13.0-17.0); MCH 29.1 pg (27.0-32.0); MCHC 30.4 g/dL (32.0-37.0); MCV 95.4 fL (80.0-97.0); Mean Platelet Volume 10.1 fL (9.5-12.2); NRBC Per 100 WBC 0 /100 WBCS (0.0-0.0); Platelet Count 291 X 10*3/uL (140-440); RBC 3.27 X 10*6/uL (4.40-5.60); RDW 14.2 % (11.5-14.5); WBC 11.62 X 10*3/uL (4.50-10.00)
[2022-08-09 11:28] LABS: Glucose,Whole Blood 216 mg/dL (70-110)
--- NOTE | 2022-08-09 11:36 | P.PN ---
Subjective Patient is seen in follow-up for acute kidney injury. Creatinine was 3.1 admission and is 2.5 today. Admitted with bilateral foot wounds. On anti biotics. Noted to have urinary retention. Seen by urology. Patient refused dilation of phimosis as Cross could not be placed. He has been voiding. Blood pressure stable. On 2 L nasal cannula. Vital signs are stable. General: Awake. No acute distress. HEENT: Head exam is unremarkable. On nasal cannula. LUNGS: Breath sounds decreased. HEART: Rate and Rhythm are regular. ABDOMEN: Soft, no distention. EXTREMITITES: Trace edema. Objective - Vital Signs Vital signs: Vital Signs Temp 98.5 F 08/09/22 08:00 Pulse 62 08/09/22 08:00 Resp 16 08/09/22 08:00 BP 111/63 08/09/22 08:00 Pulse Ox 96 08/09/22 08:00 FiO2 Intake & Output 08/08/22 08/09/22 08/09/22 18:59 06:59 18:59 Output Total 50 Balance -50 Weight 109.316 kg Output: Urine 50 Other: Voiding Method Diaper # Voids 1 - Labs CBC & Chem 7: 08/09/22 07:37 08/09/22 07:37 Labs: Abnormal Lab Results - Last 24 Hours (Table) 08/08/22 08/08/22 08/08/22 Range/Units 05:19 13:08 18:06 WBC (4.50-10.00) X 10*3/uL RBC (4.40-5.60) X 10*6/uL Hgb (13.0-17.0) g/dL Hct (39.6-50.0) % MCHC (32.0-37.0) g/dL Potassium (3.5-5.1) mmol/L Carbon Dioxide (22-30) mmol/L BUN (9-20) mg/dL Creatinine (0.66-1.25) mg/dL Glucose (74-99) mg/dL POC Glucose (mg/dL) 303 H 199 H (70-110) mg/dL Hemoglobin A1c 7.9 H (0.0-6.0) % Calcium (8.4-10.2) mg/dL AST (17-59) U/L Total Protein (6.3-8.2) g/dL Albumin (3.5-5.0) g/dL 08/08/22 08/09/22 08/09/22 Range/Units 20:33 07:32 07:37 WBC (4.50-10.00) X 10*3/uL RBC (4.40-5.60) X 10*6/uL Hgb (13.0-17.0) g/dL Hct (39.6-50.0) % MCHC (32.0-37.0) g/dL Potassium 5.3 H (3.5-5.1) mmol/L Carbon Dioxide 21 L (22-30) mmol/L BUN 83 H (9-20) mg/dL Creatinine 2.54 H (0.66-1.25) mg/dL Glucose 143 H (74-99) mg/dL POC Glucose (mg/dL) 189 H 145 H (70-110) mg/dL Hemoglobin A1c (0.0-6.0) % Calcium 8.3 L (8.4-10.2) mg/dL AST 81 H (17-59) U/L Total Protein 5.6 L (6.3-8.2) g/dL Albumin 2.7 L (3.5-5.0) g/dL 08/09/22 Range/Units 07:37 WBC 11.62 H (4.50-10.00) X 10*3/uL RBC 3.27 L (4.40-5.60) X 10*6/uL Hgb 9.5 L (13.0-17.0) g/dL Hct 31.2 L (39.6-50.0) % MCHC 30.4 L (32.0-37.0) g/dL Potassium (3.5-5.1) mmol/L Carbon Dioxide (22-30) mmol/L BUN (9-20) mg/dL Creatinine (0.66-1.25) mg/dL Glucose (74-99) mg/dL POC Glucose (mg/dL) (70-110) mg/dL Hemoglobin A1c (0.0-6.0) % Calcium (8.4-10.2) mg/dL AST (17-59) U/L Total Protein (6.3-8.2) g/dL Albumin (3.5-5.0) g/dL Microbiology - Last 24 Hours (Table) 08/08/22 11:35 Gram Stain - Preliminary Foot - Left Wound Culture - Preliminary 08/08/22 11:35 Gram Stain - Preliminary Buttock Wound Culture - Preliminary 08/08/22 11:35 Gram Stain - Preliminary Foot - Right Wound Culture - Preliminary 08/07/22 19:40 Blood Culture - Preliminary Blood No Growth after 24 hours 08/07/22 19:25 Blood Culture - Preliminary Blood No Growth after 24 hours 08/08/22 11:35 Anaerobic Culture - Preliminary Foot - Left 08/08/22 11:35 Anaerobic Culture - Preliminary Coccyx 08/08/22 11:35 Anaerobic Culture - Preliminary Foot - Right 08/07/22 06:07 Urine Culture - Preliminary Urine,Voided Assessment and Plan Plan: Assessment: 1. Acute kidney injury secondary to ATN secondary to infection and hypotension. Creatinine was 3.2 on admission and is 2.54 today. Baseline creatinine near 1 from 07/16/2022. 2. Hyperkalemia secondary to acute kidney injury and RADHA inhibitor. Potassium 5.3 this morning. 3. 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 ID and vascular surgery following. Debridement pending. 4. Diabetes mellitus. 5. Metabolic acidosis secondary to acute kidney injury. 6. Benign hypertension. Controlled. 7. Urinary retention. Seen by urology. No hydronephrosis noted on kidney ultrasound. Right kidney not properly visualized. Cross catheter could not be placed as patient refused dilation of phimosis. On doxazosin. Plan: Maintain IV fluids. Decrease rate to 50 mL an hour. Lokelma 10 g once today. Avoid nephrotoxins. Continue to hold RADHA inhibitor. Add oral bicarb Encouraged oral intake.
[2022-08-09] MEDS: SODIUM BICARBONATE TAB 650 MG TAB PO SCH ×2 (11:56→20:13)
--- NOTE | 2022-08-09 13:01 | P.PN ---
Subjective Progress Note Date: 08/09/22 Pt s/e. Overnight events noted. No complaints this morning Objective - Vital Signs Vital signs: Vital Signs Temp 98.5 F 08/09/22 08:00 Pulse 62 08/09/22 08:00 Resp 16 08/09/22 08:00 BP 111/63 08/09/22 08:00 Pulse Ox 96 08/09/22 08:00 FiO2 Intake & Output 08/08/22 08/09/22 08/09/22 18:59 06:59 18:59 Output Total 50 Balance -50 Weight 109.316 kg Output: Urine 50 Other: Voiding Method Diaper # Voids 1 - Exam NAD, eating lunch at the bedside. Resting comfortably. Heart appears regular. Lungs are clear. Abdomen is soft. Extremity show no clubbing or cyanosis. Similar appearance of the dry gangrene of the right fifth toe and wound as well as the bilateral heel wounds. - Labs CBC & Chem 7: 08/09/22 07:37 08/09/22 07:37 Labs: Abnormal Lab Results - Last 24 Hours (Table) 08/08/22 08/08/22 08/08/22 Range/Units 05:19 13:08 18:06 WBC (4.50-10.00) X 10*3/uL RBC (4.40-5.60) X 10*6/uL Hgb (13.0-17.0) g/dL Hct (39.6-50.0) % MCHC (32.0-37.0) g/dL Potassium (3.5-5.1) mmol/L Carbon Dioxide (22-30) mmol/L BUN (9-20) mg/dL Creatinine (0.66-1.25) mg/dL Glucose (74-99) mg/dL POC Glucose (mg/dL) 303 H 199 H (70-110) mg/dL Hemoglobin A1c 7.9 H (0.0-6.0) % Calcium (8.4-10.2) mg/dL AST (17-59) U/L Total Protein (6.3-8.2) g/dL Albumin (3.5-5.0) g/dL 08/08/22 08/09/22 08/09/22 Range/Units 20:33 07:32 07:37 WBC (4.50-10.00) X 10*3/uL RBC (4.40-5.60) X 10*6/uL Hgb (13.0-17.0) g/dL Hct (39.6-50.0) % MCHC (32.0-37.0) g/dL Potassium 5.3 H (3.5-5.1) mmol/L Carbon Dioxide 21 L (22-30) mmol/L BUN 83 H (9-20) mg/dL Creatinine 2.54 H (0.66-1.25) mg/dL Glucose 143 H (74-99) mg/dL POC Glucose (mg/dL) 189 H 145 H (70-110) mg/dL Hemoglobin A1c (0.0-6.0) % Calcium 8.3 L (8.4-10.2) mg/dL AST 81 H (17-59) U/L Total Protein 5.6 L (6.3-8.2) g/dL Albumin 2.7 L (3.5-5.0) g/dL 08/09/22 08/09/22 Range/Units 07:37 11:27 WBC 11.62 H (4.50-10.00) X 10*3/uL RBC 3.27 L (4.40-5.60) X 10*6/uL Hgb 9.5 L (13.0-17.0) g/dL Hct 31.2 L (39.6-50.0) % MCHC 30.4 L (32.0-37.0) g/dL Potassium (3.5-5.1) mmol/L Carbon Dioxide (22-30) mmol/L BUN (9-20) mg/dL Creatinine (0.66-1.25) mg/dL Glucose (74-99) mg/dL POC Glucose (mg/dL) 216 H (70-110) mg/dL Hemoglobin A1c (0.0-6.0) % Calcium (8.4-10.2) mg/dL AST (17-59) U/L Total Protein (6.3-8.2) g/dL Albumin (3.5-5.0) g/dL Microbiology - Last 24 Hours (Table) 08/08/22 11:35 Gram Stain - Preliminary Foot - Left Wound Culture - Preliminary 08/07/22 06:07 Urine Culture - Final Urine,Voided 08/08/22 11:35 Gram Stain - Preliminary Buttock Wound Culture - Preliminary 08/08/22 11:35 Gram Stain - Preliminary Foot - Right Wound Culture - Preliminary 08/07/22 19:40 Blood Culture - Preliminary Blood No Growth after 24 hours 08/07/22 19:25 Blood Culture - Preliminary Blood No Growth after 24 hours 08/08/22 11:35 Anaerobic Culture - Preliminary Foot - Left 08/08/22 11:35 Anaerobic Culture - Preliminary Coccyx 08/08/22 11:35 Anaerobic Culture - Preliminary Foot - Right Assessment and Plan Assessment: Dry gangrene right fifth toe Bilateral heel wounds Acute renal failure slightly improving Hyperkalemia Supratherapeutic INR Peripheral arterial disease Leukocytosis Plan: Discussion had throat, the patient is currently sitting at the bedside eating therefore surgery will be canceled for today. I believe that this is sufficient given his current medical derangements. Await further hydration and medical optimization, this time there is no evidence of wet gangrene therefore no emergent need for toe amputation. Will tentatively plan this for Friday
[2022-08-09 13:19] LABS: INR 1.33 (0.90-1.11); Prothrombin Time 14.8 sec (9.9-11.9)
--- NOTE | 2022-08-09 16:27 | P.PN ---
Subjective Progress Note Date: 08/09/22 86-year-old male came to hospital with complaints of unable tablet because of multiple bilateral foot wounds patient has a ganglion the right fifth toe which was a dry gangrene still appears to be dry gangrene but there may be an area of infection in between the fourth and fifth toes and patient has a mostly stage II ulcers in both the heels. Patient does take Keflex at home patient is found to be in acute renal failure with creatinine going up to 3.17, baseline is around 1. Patient doesn't have any fever. Patient does have elevated white blood cell count. Patient is bit hyponatremic with potassium of 1 prior 34 and the potassium was 5.8 on admission presently 5.6 be enough around 79. 08/09/2022 Patient resting in bed today. Pending vascular intervention regarding right fifth toe. Creatinine has improved today down to 2.54, potassium 5.3. Lokelma was given. INR 1.33. Patient refused urology procedure that would allow for insertion of plaza catheter secondary to retention. IV fluids are continued and continue monitoring for urinary retention. Cultures are all pending at this time. Continues on IV unasyn. Surgery planned tentatively for friday. Review of Systems Constitutional: Denied any fatigue denied any fever. Cardio vascular: denied any chest pain, palpitations Gastrointestinal: denied any nausea, vomiting, diarrhea Pulmonary: Denied any shortness of breath cough Neurologic denied any new focal deficits All inpatient medications were reviewed and appropriate changes in these medications as dictated in the interval history and assessment and plan. PHYSICAL EXAMINATION: GENERAL: The patient is alert and oriented x3, not in any acute distress. Well developed, well nourished. HEENT: Pupils are round and equally reacting to light. EOMI. No scleral icterus. No conjunctival pallor. Normocephalic, atraumatic. No pharyngeal erythema. No thyromegaly. CARDIOVASCULAR: S1 and S2 present. No murmurs, rubs, or gallops. PULMONARY: Chest is clear to auscultation, no wheezing or crackles. ABDOMEN: Soft, nontender, nondistended, normoactive bowel sounds. No palpable organomegaly. MUSCULOSKELETAL: No joint swelling or deformity. EXTREMITIES: No cyanosis, clubbing, or pedal edema. NEUROLOGICAL: Gross neurological examination did not reveal any focal deficits. Does have generalized weakness SKIN: Dry gangrene of the fifth toe and possible infection within the fourth and fifth toes stage II ulcers in both heels appears to be dry Assessment and plan -Gangrene and right foot infection multiple ulcerations: Cultures will be obtained antiobiotics were changed to IV ampicillin and infectious disease is following the patient. Vascular services has been consulted for further evaluation and recommendations for surgical removal of right fifth toe has been postponed possibly for friday now. -Acute renal failure probably secondary to acute blood necrosis from sepsis that may be a competent to prerenal continue with IV fluids nephrology following, IV fluids have been cut back, patient does have some urinary retention. Creatinine is improving. -Hypokalemia secondary to acute renal failure, RADHA inhibitor will be held will order Lokelma low potassium diet. Lokelma dose repeated today. Follow up labs in AM. -Hypotension: Secondary to infection, hold off antihypertensive medications, blood pressure improving. -hypervolemic hyponatremia: IV fluids -History of atrial fibrillation patient is presently rate controlled atenolol is being held temporally because of low blood pressure patient will be started started on beta mago as aoon as possible currently rate controlled heart rate is in 60s -Supratherapeutic INR which has improved with vitamin K currently 1.33. -Coronary artery disease -type 2 diabetes mellitus: Hold off on on home oral regimen as well as long- acting insulins continue with sliding scale patient blood sugars in the low normal side -Diabetic peripheral neuropathy cut down the dose of gabapentin because of acute renal failure -Hyperlipidemia -hypertension -Sleep apnea for which patient uses CPAP machine at home DVT prophylaxis: Coumadin on hold INR 1.33 today Subcu heparin GI Prophylaxis: Pepcid No Code The impression and plan of care has been dictated by Chrissie Costa, Nurse Practitioner as directed. Dr. Katina MD I have performed a history and physical examination and medical decision making of this patient, discussed the same with the dictator, and agree with the dictators assessment and plan as written, documented as a scribe. Based on total visit time, I have performed more than 50% of this visit. Objective - Vital Signs Vital signs: Vital Signs Temp 98.3 F 08/09/22 14:00 Pulse 64 08/09/22 14:00 Resp 17 08/09/22 14:00 BP 128/55 08/09/22 14:00 Pulse Ox 99 08/09/22 14:00 FiO2 Intake & Output 10/27/22 10/28/22 10/28/22 18:59 06:59 18:59 Output Total 50 Balance -50 Weight 109.316 kg Output: Urine 50 Other: Voiding Method Diaper # Voids 1 - Labs CBC & Chem 7: 08/09/22 07:37 08/09/22 07:37 Labs: Abnormal Lab Results - Last 24 Hours (Table) 08/08/22 08/08/22 08/08/22 Range/Units 05:19 18:06 20:33 WBC (4.50-10.00) X 10*3/uL RBC (4.40-5.60) X 10*6/uL Hgb (13.0-17.0) g/dL Hct (39.6-50.0) % MCHC (32.0-37.0) g/dL PT (9.9-11.9) sec INR (0.90-1.11) Potassium (3.5-5.1) mmol/L Carbon Dioxide (22-30) mmol/L BUN (9-20) mg/dL Creatinine (0.66-1.25) mg/dL Glucose (74-99) mg/dL POC Glucose (mg/dL) 199 H 189 H (70-110) mg/dL Hemoglobin A1c 7.9 H (0.0-6.0) % Calcium (8.4-10.2) mg/dL AST (17-59) U/L Total Protein (6.3-8.2) g/dL Albumin (3.5-5.0) g/dL 08/09/22 08/09/22 08/09/22 Range/Units 07:32 07:37 07:37 WBC (4.50-10.00) X 10*3/uL RBC (4.40-5.60) X 10*6/uL Hgb (13.0-17.0) g/dL Hct (39.6-50.0) % MCHC (32.0-37.0) g/dL PT 14.8 H (9.9-11.9) sec INR 1.33 H (0.90-1.11) Potassium 5.3 H (3.5-5.1) mmol/L Carbon Dioxide 21 L (22-30) mmol/L BUN 83 H (9-20) mg/dL Creatinine 2.54 H (0.66-1.25) mg/dL Glucose 143 H (74-99) mg/dL POC Glucose (mg/dL) 145 H (70-110) mg/dL Hemoglobin A1c (0.0-6.0) % Calcium 8.3 L (8.4-10.2) mg/dL AST 81 H (17-59) U/L Total Protein 5.6 L (6.3-8.2) g/dL Albumin 2.7 L (3.5-5.0) g/dL 08/09/22 08/09/22 Range/Units 07:37 11:27 WBC 11.62 H (4.50-10.00) X 10*3/uL RBC 3.27 L (4.40-5.60) X 10*6/uL Hgb 9.5 L (13.0-17.0) g/dL Hct 31.2 L (39.6-50.0) % MCHC 30.4 L (32.0-37.0) g/dL PT (9.9-11.9) sec INR (0.90-1.11) Potassium (3.5-5.1) mmol/L Carbon Dioxide (22-30) mmol/L BUN (9-20) mg/dL Creatinine (0.66-1.25) mg/dL Glucose (74-99) mg/dL POC Glucose (mg/dL) 216 H (70-110) mg/dL Hemoglobin A1c (0.0-6.0) % Calcium (8.4-10.2) mg/dL AST (17-59) U/L Total Protein (6.3-8.2) g/dL Albumin (3.5-5.0) g/dL Microbiology - Last 24 Hours (Table) 08/08/22 11:35 Gram Stain - Final Buttock Wound Culture - Final 08/08/22 11:35 Gram Stain - Preliminary Foot - Left Wound Culture - Preliminary 08/07/22 06:07 Urine Culture - Final Urine,Voided 08/08/22 11:35 Gram Stain - Preliminary Foot - Right Wound Culture - Preliminary 08/07/22 19:40 Blood Culture - Preliminary Blood No Growth after 24 hours 08/07/22 19:25 Blood Culture - Preliminary Blood No Growth after 24 hours 08/08/22 11:35 Anaerobic Culture - Preliminary Foot - Left 08/08/22 11:35 Anaerobic Culture - Preliminary Coccyx 08/08/22 11:35 Anaerobic Culture - Preliminary Foot - Right Assessment and Plan Time with Patient: Less than 30
[2022-08-09 16:57] LABS: Glucose,Whole Blood 252 mg/dL (70-110)
[2022-08-09] MEDS ORDERED: TAMSULOSIN 0.4 MG CAP.ER.24H PO SCH (18:30)
[2022-08-09] MEDS: LEVOTHYROXINE 125 MCG TAB PO SCH (20:13)
[2022-08-09] MEDS: FAMOTIDINE 20 MG TAB PO SCH (20:13)
[2022-08-09] MEDS: ASPIRIN 81 MG PO SCH (20:13)
[2022-08-09] MEDS: ATORVASTATIN 40 MG TAB PO SCH (20:14)
[2022-08-09 20:18] LABS: Glucose,Whole Blood 276 mg/dL (70-110)
[2022-08-10] MEDS ORDERED: LIDOCAINE 1% INJ 10MG/ML (30 ML VIAL-PF) SQ ONE (05:00)
[2022-08-10 06:56] LABS: Glucose,Whole Blood 183 mg/dL (70-110)
[2022-08-10] MEDS: SODIUM BICARBONATE TAB 650 MG TAB PO SCH ×2 (07:10→20:56)
[2022-08-10] MEDS: FINASTERIDE 5 MG TAB PO SCH (07:10)
[2022-08-10] MEDS: GABAPENTIN 100 MG CAP PO SCH ×2 (07:10→20:56)
[2022-08-10] MEDS: HEPARIN SODIUM,PORCINE/PF 5,000 UNIT/0.5 ML SYRINGE SQ SCH ×3 (07:10→15:45)
[2022-08-10] MEDS: AMPICILLIN-SULBACTAM 3 GM in SODIUM CHLORIDE 0.9% 100 ML IVPB SCH ×2 (07:10→20:55)
[2022-08-10] MEDS: INSULIN ASPART (NovoLOG) 100 UNIT/ML VIAL SQ SCH ×4 (07:11→20:56)
[2022-08-10] MEDS: FLUTICASONE 50MCG/SPRAY NASAL 16GM EA NOSTRIL SCH ×2 (07:12→20:56)
[2022-08-10] MEDS: RANOLAZINE 500 MG TAB.ER.12H PO SCH ×2 (07:12→20:57)
[2022-08-10] MEDS: DOXAZOSIN 2 MG TAB PO SCH (07:12)
[2022-08-10 08:20] LABS: INR 1.1 (<1.2)
[2022-08-10 08:33] LABS: African American GFR (CKD) 23 (>60 ml/min/1.73 sqM); Anion Gap 13 mmol/L; Blood Urea Nitrogen 90 mg/dL (9-20); Calcium 8.5 mg/dL (8.4-10.2); Carbon Dioxide 23 mmol/L (22-30); Chloride 102 mmol/L (98-107); Glucose 179 mg/dL (74-99); Magnesium 2.4 mg/dL (1.6-2.3); Non-African American GFR(CKD) 20 (>60 ml/min/1.73 sqM); Potassium 4.7 mmol/L (3.5-5.1); Sodium 138 mmol/L (137-145)
[2022-08-10 08:54] LABS: C Reactive Protein 18.2 mg/dL (<1.0)
--- NOTE | 2022-08-10 11:05 | P.PN ---
Subjective Patient is seen in follow-up for acute kidney injury. Creatinine was 3.1 admission and is 2.5-2.8 today. Admitted with bilateral foot wounds. On antibiotics. Noted to have urinary retention. Seen by urology. Patient refused dilation of phimosis as Cross could not be placed. He has been voiding. Blood pressure stable. On 2 L nasal cannula. Objective - Vital Signs Vital signs: Vital Signs Temp 98.7 F 08/10/22 07:59 Pulse 68 08/10/22 07:59 Resp 20 08/10/22 07:59 BP 130/72 08/10/22 07:59 Pulse Ox 95 08/10/22 07:59 FiO2 Intake & Output 08/09/22 08/10/22 08/10/22 18:59 06:59 18:59 Other: Voiding Method Diaper Diaper Diaper Incontinent # Voids 0 2 1 # Bowel Movements 1 - Exam Vital signs are stable. General: Awake. No acute distress. HEENT: Head exam is unremarkable. On nasal cannula. LUNGS: Breath sounds decreased. HEART: Rate and Rhythm are regular. ABDOMEN: Soft, no distention. EXTREMITITES: Trace edema. - Labs CBC & Chem 7: 08/09/22 07:37 08/10/22 07:46 Labs: Abnormal Lab Results - Last 24 Hours (Table) 08/09/22 08/09/22 08/09/22 Range/Units 07:37 11:27 16:55 ESR (0-15) mm/hr PT 14.8 H (9.9-11.9) sec INR 1.33 H (0.90-1.11) BUN (9-20) mg/dL Creatinine (0.66-1.25) mg/dL Glucose (74-99) mg/dL POC Glucose (mg/dL) 216 H 252 H (70-110) mg/dL Magnesium (1.6-2.3) mg/dL C-Reactive Protein (<1.0) mg/dL 08/09/22 08/10/22 08/10/22 Range/Units 20:16 06:54 07:46 ESR (0-15) mm/hr PT (9.9-11.9) sec INR (0.90-1.11) BUN 90 H (9-20) mg/dL Creatinine 2.81 H (0.66-1.25) mg/dL Glucose 179 H (74-99) mg/dL POC Glucose (mg/dL) 276 H 183 H (70-110) mg/dL Magnesium 2.4 H (1.6-2.3) mg/dL C-Reactive Protein 18.2 H (<1.0) mg/dL 08/10/22 Range/Units 07:46 ESR 119 H (0-15) mm/hr PT (9.9-11.9) sec INR (0.90-1.11) BUN (9-20) mg/dL Creatinine (0.66-1.25) mg/dL Glucose (74-99) mg/dL POC Glucose (mg/dL) (70-110) mg/dL Magnesium (1.6-2.3) mg/dL C-Reactive Protein (<1.0) mg/dL Microbiology - Last 24 Hours (Table) 08/07/22 19:40 Blood Culture - Preliminary Blood No Growth after 48 hours 08/07/22 19:25 Blood Culture - Preliminary Blood No Growth after 48 hours 08/08/22 11:35 Gram Stain - Final Buttock Wound Culture - Final 08/08/22 11:35 Gram Stain - Preliminary Foot - Left Wound Culture - Preliminary 08/07/22 06:07 Urine Culture - Final Urine,Voided Assessment and Plan Assessment: 1. Acute kidney injury secondary to ATN secondary to infection and hypotension. Creatinine was 3.2 on admission and is 2.5-2.8 today. Baseline creatinine near 1 from 07/16/2022. 2. Hyperkalemia secondary to acute kidney injury and RADHA inhibitor. Potassium 5.3 this morning. 3. 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 ID and vascular surgery following. Debridement pending. 4. Diabetes mellitus. 5. Metabolic acidosis secondary to acute kidney injury. 6. Benign hypertension. Controlled. 7. Urinary retention. Seen by urology. No hydronephrosis noted on kidney ultrasound. Right kidney not properly visualized. Cross catheter could not be placed as patient refused dilation of phimosis. On doxazosin. Plan: Maintain IV fluids. Decrease rate to 50 mL an hour. Avoid nephrotoxins. Continue to hold RADHA inhibitor. Continue oral bicarb Encouraged oral intake. repeat labs in a.m.
[2022-08-10 14:14] VITALS: BMI 34.5
--- NOTE | 2022-08-10 14:21 | P.PN ---
Subjective Progress Note Date: 08/10/22 86-year-old male came to hospital with complaints of unable tablet because of multiple bilateral foot wounds patient has a ganglion the right fifth toe which was a dry gangrene still appears to be dry gangrene but there may be an area of infection in between the fourth and fifth toes and patient has a mostly stage II ulcers in both the heels. Patient does take Keflex at home patient is found to be in acute renal failure with creatinine going up to 3.17, baseline is around 1. Patient doesn't have any fever. Patient does have elevated white blood cell count. Patient is bit hyponatremic with potassium of 1 prior 34 and the potassium was 5.8 on admission presently 5.6 be enough around 79. 08/09/2022 Patient resting in bed today. Pending vascular intervention regarding right fifth toe. Creatinine has improved today down to 2.54, potassium 5.3. Lokelma was given. INR 1.33. Patient refused urology procedure that would allow for insertion of plaza catheter secondary to retention. IV fluids are continued and continue monitoring for urinary retention. Cultures are all pending at this time. Continues on IV unasyn. Surgery planned tentatively for friday. 08/10/2022 Patient had issues with urinary retention yesterday and had opted to not undergo urinary catheter placement with urology. Today he is retaining over 1 liter of urine in his bladder. He is slightly confused today and also his creatinine has increased up to 2.81. Potassium has improved to 4.7. Patient continues on IV antibiotics int he form of IV ampicillin. Wound culture of buttock showing many gram negative bacilli as well as many gram positive cocci. Unable to finalize culture. Plan is for surgical removal of right 5th toe on friday with vascular services. Coumadin remains on hold for this and patient is on subcu heparin. Inflammatory markers are elevated, ESR 119, C-RP 18.2. Plan is to receive an indwelling catheter today placed by urology. Will repeat labs tomorrow and monitor for improvement in kidney function. Review of Systems Constitutional: Reports some fatigue denied any fever. Cardio vascular: denied any chest pain, palpitations Gastrointestinal: denied any nausea, vomiting, diarrhea Pulmonary: Denied any shortness of breath cough Neurologic denied any new focal deficits All inpatient medications were reviewed and appropriate changes in these medications as dictated in the interval history and assessment and plan. PHYSICAL EXAMINATION: GENERAL: The patient is alert and oriented x2-3, not in any acute distress. Fatigued today. Slightly confused reports some hallucinations. Well developed, well nourished. HEENT: Pupils are round and equally reacting to light. EOMI. No scleral icterus. No conjunctival pallor. Normocephalic, atraumatic. No pharyngeal erythema. No thyromegaly. CARDIOVASCULAR: S1 and S2 present. No murmurs, rubs, or gallops. PULMONARY: Chest is clear to auscultation, no wheezing or crackles. ABDOMEN: Soft, nontender, nondistended, normoactive bowel sounds. No palpable organomegaly. MUSCULOSKELETAL: No joint swelling or deformity. EXTREMITIES: No cyanosis, clubbing, or pedal edema. NEUROLOGICAL: Gross neurological examination did not reveal any focal deficits. Does have generalized weakness SKIN: Dry gangrene of the fifth toe and possible infection within the fourth and fifth toes stage II ulcers in both heels appears to be dry Assessment and plan -Gangrene and right foot infection multiple ulcerations: Cultures will be obtained antiobiotics were changed to IV ampicillin and infectious disease is following the patient. Vascular services has been consulted for further evaluation and recommendations for surgical removal of right fifth toe has been postponed possibly for friday now. -Acute renal failure probably secondary to acute tubular necrosis from sepsis that may be a competent to prerenal continue with IV fluids nephrology following, IV fluids have been cut back, patient does have some urinary retention. Creatinine is worse today. -Altered mental status secondary to acute metabolic encephalopathy secondary to acute renal failure patient has urinary retention and indwelling catheter will be placed by urology today. Repeat labs in the morning. -Hypokalemia secondary to acute renal failure, RADHA inhibitor will be held will order Lokelma low potassium diet. Lokelma dose repeated today. Potassium improved. -Hypotension: Secondary to infection, hold off antihypertensive medications, blood pressure improving. -hypervolemic hyponatremia: IV fluids -History of atrial fibrillation patient is presently rate controlled atenolol is being held temporally because of low blood pressure patient will be started started on beta mago as aoon as possible currently rate controlled heart rate is in 60s -Supratherapeutic INR which has improved with vitamin K currently 1.33. -Coronary artery disease -type 2 diabetes mellitus: Hold off on on home oral regimen as well as long- acting insulins continue with sliding scale patient blood sugars in the low normal side -Diabetic peripheral neuropathy cut down the dose of gabapentin because of acute renal failure -Hyperlipidemia -hypertension -Sleep apnea for which patient uses CPAP machine at home DVT prophylaxis: Contine on subcu heparin INR 1.1 today coumadin on hold for planned surgery on friday. GI Prophylaxis: Pepcid No Code The impression and plan of care has been dictated by Chrissie Costa, Nurse Practitioner as directed. Dr. Katina MD I have performed a history and physical examination and medical decision making of this patient, discussed the same with the dictator, and agree with the dictators assessment and plan as written, documented as a scribe. Based on total visit time, I have performed more than 50% of this visit. Objective - Vital Signs Vital signs: Vital Signs Temp 98.7 F 08/10/22 07:59 Pulse 68 08/10/22 07:59 Resp 20 08/10/22 07:59 BP 130/72 08/10/22 07:59 Pulse Ox 95 08/10/22 07:59 FiO2 Intake & Output 08/09/22 08/10/22 08/10/22 18:59 06:59 18:59 Other: Voiding Method Diaper Diaper Diaper Incontinent # Voids 0 2 1 # Bowel Movements 1 - Labs CBC & Chem 7: 08/09/22 07:37 08/10/22 07:46 Labs: Abnormal Lab Results - Last 24 Hours (Table) 08/09/22 08/09/22 08/10/22 Range/Units 16:55 20:16 06:54 ESR (0-15) mm/hr BUN (9-20) mg/dL Creatinine (0.66-1.25) mg/dL Glucose (74-99) mg/dL POC Glucose (mg/dL) 252 H 276 H 183 H (70-110) mg/dL Magnesium (1.6-2.3) mg/dL C-Reactive Protein (<1.0) mg/dL 08/10/22 08/10/22 Range/Units 07:46 07:46 ESR 119 H (0-15) mm/hr BUN 90 H (9-20) mg/dL Creatinine 2.81 H (0.66-1.25) mg/dL Glucose 179 H (74-99) mg/dL POC Glucose (mg/dL) (70-110) mg/dL Magnesium 2.4 H (1.6-2.3) mg/dL C-Reactive Protein 18.2 H (<1.0) mg/dL Microbiology - Last 24 Hours (Table) 08/07/22 19:40 Blood Culture - Preliminary Blood No Growth after 48 hours 08/07/22 19:25 Blood Culture - Preliminary Blood No Growth after 48 hours 08/08/22 11:35 Gram Stain - Final Buttock Wound Culture - Final 08/08/22 11:35 Gram Stain - Preliminary Foot - Left Wound Culture - Preliminary 08/07/22 06:07 Urine Culture - Final Urine,Voided Assessment and Plan Time with Patient: Less than 30
--- NOTE | 2022-08-10 14:33 | P.PCN ---
Date of Procedure: 08/10/22 Preoperative Diagnosis: Phimosis, urinary retention Postoperative Diagnosis: Same Procedure(s) Performed: Dorsal slit, Cross catheter insertion Anesthesia: local Surgeon: Cal Reyes Estimated Blood Loss (ml): 3 Pathology: none sent Condition: stable Disposition: no change Indications for Procedure: Patient is an 86-year-old white male hospitalized with bilateral foot wounds. He has been found to be in urinary retention. A Cross catheter cannot be placed due to phimosis. He was not agreeable to manipulation yesterday but is now agreeable to a dorsal slit. Stretching of the prepucial ring was also mentioned as an option, but a dorsal slit is felt to be a better procedure for him. Operative Findings: Tight phimosis. Urinary retention. Description of Procedure: The external genitalia was prepped and draped sterilely. One percent lidocaine without epinephrine was injected subcutaneously, circumferentially within the distal penile shaft. A hemostat was used to clamp the phimotic ring dorsally. After waiting several minutes, this was incised using scissors. This incision was continued in this manner until the phimotic ring was open enough to accommodate a Cross catheter. 3-0 chromic sutures were used to close the incision transversely, in simple interrupted fashion. A 16-Icelandic Cross catheter was then placed, with return of 2300 mL of ana-colored urine.
[2022-08-10] MEDS: SODIUM CHLORIDE 0.9% 1,000 ML IV SCH ×2 (14:56→18:15)
[2022-08-10 16:43] LABS: Glucose,Whole Blood 266 mg/dL (70-110)
--- NOTE | 2022-08-10 17:52 | XR ---
EXAMINATION TYPE: XR chest 2V DATE OF EXAM: 08/10/2022 COMPARISON: 08/07/2022 HISTORY: Cough. TECHNIQUE: 2 views FINDINGS: There is some linear density left lung base. No obvious heart failure. Heart is probably en larged. Left axillary pacemaker is present. There are chest leads. IMPRESSION: There is atelectasis left lung base similar to old exam. No obvious heart failure.
[2022-08-10 20:29] LABS: Glucose,Whole Blood 237 mg/dL (70-110)
[2022-08-10] MEDS: ATORVASTATIN 40 MG TAB PO SCH (20:55)
[2022-08-10] MEDS: ASPIRIN 81 MG PO SCH (20:55)
[2022-08-10] MEDS: FAMOTIDINE 20 MG TAB PO SCH (20:56)
[2022-08-10] MEDS: LEVOTHYROXINE 125 MCG TAB PO SCH (20:57)
[2022-08-11] MEDS: HEPARIN SODIUM,PORCINE/PF 5,000 UNIT/0.5 ML SYRINGE SQ SCH ×4 (00:09→23:39)
[2022-08-11 06:15] LABS: Glucose,Whole Blood 227 mg/dL (70-110)
[2022-08-11] MEDS: INSULIN ASPART (NovoLOG) 100 UNIT/ML VIAL SQ SCH ×4 (07:12→20:51)
[2022-08-11] MEDS: GABAPENTIN 100 MG CAP PO SCH ×2 (08:58→20:43)
[2022-08-11] MEDS: SODIUM BICARBONATE TAB 650 MG TAB PO SCH ×2 (08:58→20:43)
[2022-08-11] MEDS: FINASTERIDE 5 MG TAB PO SCH (08:58)
[2022-08-11] MEDS: DOXAZOSIN 2 MG TAB PO SCH (08:58)
[2022-08-11] MEDS: RANOLAZINE 500 MG TAB.ER.12H PO SCH ×2 (08:58→20:43)
[2022-08-11] MEDS: AMPICILLIN-SULBACTAM 3 GM in SODIUM CHLORIDE 0.9% 100 ML IVPB SCH ×2 (08:58→21:30)
[2022-08-11] MEDS: FLUTICASONE 50MCG/SPRAY NASAL 16GM EA NOSTRIL SCH ×2 (08:59→20:50)
[2022-08-11 09:22] LABS: Basophils # (A) 0.03 X 10*3/uL (0.00-0.10); Basophils % (A) 0.3 %; Eosinophils # (A) 0.14 X 10*3/uL (0.04-0.35); Eosinophils % (A) 1.5 %; HCT 27.2 % (39.6-50.0); HGB 8.1 g/dL (13.0-17.0); Immature Grans, Automated 1.1 %; Lymphocytes # (A) 0.88 X 10*3/uL (0.90-5.00); Lymphocytes % (A) 9.4 %; MCH 28.2 pg (27.0-32.0); MCHC 29.8 g/dL (32.0-37.0); MCV 94.8 fL (80.0-97.0); Monocytes # (A) 0.79 X 10*3/uL (0.20-1.00); Monocytes % (A) 8.4 %; NRBC Per 100 WBC 0 /100 WBCS (0.0-0.0); Neutrophils # (A) 7.43 X 10*3/uL (1.80-7.70); Neutrophils % (A) 79.3 %; Platelet Count 240 X 10*3/uL (140-440); RBC 2.87 X 10*6/uL (4.40-5.60); RDW 14.5 % (11.5-14.5); WBC 9.37 X 10*3/uL (4.50-10.00)
[2022-08-11 09:24] LABS: INR 1.09 (0.90-1.11); Prothrombin Time 12.3 sec (9.9-11.9)
--- NOTE | 2022-08-11 09:59 | P.PN ---
Progress Note - Text Progress Note Date: 08/11/22 Mr. Elizabeth underwent Cross catheter placement yesterday, with return of 2300 mL of urine. A dorsal slit was required in order to place the catheter. The urine today is bloody without clots. Hematuria is common following decompression of a significantly distended bladder. He denies pain. The incision is clean and dry. The Cross catheter will remain in place.
[2022-08-11 11:12] LABS: African American GFR (CKD) 32.5 (60.0-200.0); Anion Gap 10.5 mmol/L (10.00-18.00); BUN/Creat Ratio 35.67 Ratio (12.00-20.00); Blood Urea Nitrogen 74.9 mg/dL (9.0-27.0); Calcium 8.3 mg/dL (8.7-10.3); Carbon Dioxide 21.5 mmol/L (20.0-27.5); Non-African American GFR(CKD) 28.1 (60.0-200.0); Potassium 4.4 mmol/L (3.5-5.5)
--- NOTE | 2022-08-11 11:16 | P.PN ---
Subjective Patient is seen in follow-up for acute kidney injury. Creatinine was 3.1 admission and is 2.5-2.8 today. Admitted with bilateral foot wounds. On antibiotics. Noted to have urinary retention. Seen by urology. Patient increased for urology Intervention and had Cross catheter with dorsal slit by urology. Urine appears to be bloody in the Cross bag. Objective - Vital Signs Vital signs: Vital Signs Temp 99.4 F 08/11/22 07:46 Pulse 61 08/11/22 07:46 Resp 18 08/11/22 07:46 BP 142/76 08/11/22 07:46 Pulse Ox 100 08/11/22 07:46 FiO2 Intake & Output 08/10/22 08/11/22 08/11/22 18:59 06:59 18:59 Intake Total 1250 150 Output Total 2800 1750 200 Balance -1550 -1600 -200 Weight 109.316 kg Intake: Intake, IV Titration 650 Amount Sodium Chloride 0.9% 1, 650 000 ml @ 50 mls/hr IV . Q20H [facility] Rx#:[id number] Oral 600 150 Output: Urine 2800 1750 200 Uretheral (Cross) 2300 550 200 Other: Voiding Method Diaper Indwelling Catheter Indwelling Catheter Incontinent # Voids 1 # Bowel Movements 1 - Exam Vital signs are stable. General: Awake. No acute distress. HEENT: Head exam is unremarkable. On nasal cannula. LUNGS: Breath sounds decreased. HEART: Rate and Rhythm are regular. ABDOMEN: Soft, no distention. EXTREMITITES: Trace edema. - Labs CBC & Chem 7: 08/11/22 05:06 08/11/22 05:06 Labs: Abnormal Lab Results - Last 24 Hours (Table) 08/10/22 08/10/22 08/10/22 Range/Units 07:46 16:42 20:27 RBC (4.40-5.60) X 10*6/uL Hgb (13.0-17.0) g/dL Hct (39.6-50.0) % MCHC (32.0-37.0) g/dL Immature Gran # (0.00-0.04) X 10*3/uL Lymphocytes # (0.90-5.00) X 10*3/uL PT (9.9-11.9) sec BUN (9.0-27.0) mg/dL Creatinine (0.6-1.5) mg/dL Est GFR (CKD-EPI)AfAm (60.0-200.0) Est GFR (CKD-EPI)NonAf (60.0-200.0) BUN/Creatinine Ratio (12.00-20.00) Ratio Glucose (70-110) mg/dL POC Glucose (mg/dL) 266 H 237 H (70-110) mg/dL Calcium (8.7-10.3) mg/dL Procalcitonin 0.30 H (0.02-0.09) ng/mL 08/11/22 08/11/22 08/11/22 Range/Units 05:06 05:06 05:06 RBC 2.87 L (4.40-5.60) X 10*6/uL Hgb 8.1 L (13.0-17.0) g/dL Hct 27.2 L (39.6-50.0) % MCHC 29.8 L (32.0-37.0) g/dL Immature Gran # 0.10 H (0.00-0.04) X 10*3/uL Lymphocytes # 0.88 L (0.90-5.00) X 10*3/uL PT 12.3 H (9.9-11.9) sec BUN 74.9 H (9.0-27.0) mg/dL Creatinine 2.1 H (0.6-1.5) mg/dL Est GFR (CKD-EPI)AfAm 32.5 L (60.0-200.0) Est GFR (CKD-EPI)NonAf 28.1 L (60.0-200.0) BUN/Creatinine Ratio 35.67 H (12.00-20.00) Ratio Glucose 197 H (70-110) mg/dL POC Glucose (mg/dL) (70-110) mg/dL Calcium 8.3 L (8.7-10.3) mg/dL Procalcitonin (0.02-0.09) ng/mL 08/11/22 Range/Units 06:14 RBC (4.40-5.60) X 10*6/uL Hgb (13.0-17.0) g/dL Hct (39.6-50.0) % MCHC (32.0-37.0) g/dL Immature Gran # (0.00-0.04) X 10*3/uL Lymphocytes # (0.90-5.00) X 10*3/uL PT (9.9-11.9) sec BUN (9.0-27.0) mg/dL Creatinine (0.6-1.5) mg/dL Est GFR (CKD-EPI)AfAm (60.0-200.0) Est GFR (CKD-EPI)NonAf (60.0-200.0) BUN/Creatinine Ratio (12.00-20.00) Ratio Glucose (70-110) mg/dL POC Glucose (mg/dL) 227 H (70-110) mg/dL Calcium (8.7-10.3) mg/dL Procalcitonin (0.02-0.09) ng/mL Microbiology - Last 24 Hours (Table) 08/07/22 19:40 Blood Culture - Preliminary Blood No Growth after 72 hours 08/07/22 19:25 Blood Culture - Preliminary Blood No Growth after 72 hours 08/08/22 11:35 Anaerobic Culture - Preliminary Foot - Left 08/08/22 11:35 Gram Stain - Final Foot - Right Wound Culture - Final Strep agalactiae - (group b) 08/08/22 11:35 Gram Stain - Final Foot - Left Wound Culture - Final Assessment and Plan Assessment: 1. Acute kidney injury secondary to ATN secondary to infection and hypotension. Creatinine was 3.2 on admission and is 2.1 today. Baseline creatinine near 1 from 07/16/2022. 2. Hyperkalemia secondary to acute kidney injury and RADHA inhibitor. Potassium 5.3 this morning. 3. 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 ID and vascular surgery following. Debridement pending. 4. Diabetes mellitus. 5. Metabolic acidosis secondary to acute kidney injury. 6. Benign hypertension. Controlled. 7. Urinary retention. Seen by urology. No hydronephrosis noted on kidney ultrasound. Right kidney not properly visualized. Cross catheter placed on 08/10/2022 by urology with a dorsal slit. On doxazosin. Plan: Maintain IV fluids. Decreased rate to 50 mL an hour. Avoid nephrotoxins. Continue to hold RADHA inhibitor. Continue oral bicarb Encouraged oral intake. repeat labs in a.m. Continue with Cross catheter
[2022-08-11 11:27] LABS: Glucose,Whole Blood 198 mg/dL (70-110)
--- NOTE | 2022-08-11 12:36 | P.PN ---
Subjective Progress Note Date: 08/11/22 86-year-old male came to hospital with complaints of unable tablet because of multiple bilateral foot wounds patient has a ganglion the right fifth toe which was a dry gangrene still appears to be dry gangrene but there may be an area of infection in between the fourth and fifth toes and patient has a mostly stage II ulcers in both the heels. Patient does take Keflex at home patient is found to be in acute renal failure with creatinine going up to 3.17, baseline is around 1. Patient doesn't have any fever. Patient does have elevated white blood cell count. Patient is bit hyponatremic with potassium of 1 prior 34 and the potassium was 5.8 on admission presently 5.6 be enough around 79. 08/09/2022 Patient resting in bed today. Pending vascular intervention regarding right fifth toe. Creatinine has improved today down to 2.54, potassium 5.3. Lokelma was given. INR 1.33. Patient refused urology procedure that would allow for insertion of plaza catheter secondary to retention. IV fluids are continued and continue monitoring for urinary retention. Cultures are all pending at this time. Continues on IV unasyn. Surgery planned tentatively for friday. 08/10/2022 Patient had issues with urinary retention yesterday and had opted to not undergo urinary catheter placement with urology. Today he is retaining over 1 liter of urine in his bladder. He is slightly confused today and also his creatinine has increased up to 2.81. Potassium has improved to 4.7. Patient continues on IV antibiotics int he form of IV ampicillin. Wound culture of buttock showing many gram negative bacilli as well as many gram positive cocci. Unable to finalize culture. Plan is for surgical removal of right 5th toe on friday with vascular services. Coumadin remains on hold for this and patient is on subcu heparin. Inflammatory markers are elevated, ESR 119, C-RP 18.2. Plan is to receive an indwelling catheter today placed by urology. Will repeat labs tomorrow and monitor for improvement in kidney function. 08/11/2022 Patient monitored resting in bed today. He is alert x 2 and has some confusion and also has some visual hallucinations. He did have indwelling catheter placed yesterday secondary to urinary retention and required dorsal slit which there are some sutures in place. There is some hematuria which is expected and will be monitored. He continues off coumadin at this time for possible vascular surgery tomorrow. Otherwise his creatinine has improved today down to 2.1 which he did have about 2.3 Liters of urinary retention. Sodium 139, potassium 4.4. Blood glucose in the 190s, calcium 8.3. Right foot culture showing group B strep algalactiae. Antibiotics in the form of IV ampicillin-sulbactam and infectious disease is following. Nursing reports some difficulty breathing throughout the n ight and chest xray performed showing atelectasis left lung base. No obvious heart failure noted. Lungs are clear on exam and IV fluids to be continued. Review of Systems Constitutional: Reports some fatigue denied any fever. Cardio vascular: denied any chest pain, palpitations Gastrointestinal: denied any nausea, vomiting, diarrhea Pulmonary: Denied any shortness of breath cough Neurologic denied any new focal deficits All inpatient medications were reviewed and appropriate changes in these medications as dictated in the interval history and assessment and plan. PHYSICAL EXAMINATION: GENERAL: The patient is alert and oriented x2 today, not in any acute distress. Fatigued today. Slightly confused reports some hallucinations. Well developed, well nourished. HEENT: Pupils are round and equally reacting to light. EOMI. No scleral icterus. No conjunctival pallor. Normocephalic, atraumatic. No pharyngeal erythema. No thyromegaly. CARDIOVASCULAR: S1 and S2 present. No murmurs, rubs, or gallops. PULMONARY: Chest is clear to auscultation, no wheezing or crackles. ABDOMEN: Soft, nontender, nondistended, normoactive bowel sounds. No palpable organomegaly. MUSCULOSKELETAL: No joint swelling or deformity. EXTREMITIES: No cyanosis, clubbing, or pedal edema. NEUROLOGICAL: Gross neurological examination did not reveal any focal deficits. Does have generalized weakness SKIN: Dry gangrene of the fifth toe and possible infection within the fourth and fifth toes stage II ulcers in both heels appears to be dry Assessment and plan -Gangrene and right foot infection multiple ulcerations: Cultures will be obtained antiobiotics were changed to IV ampicillin and infectious disease is following the patient. Vascular services has been consulted for further evaluation and recommendations for surgical removal of right fifth toe has been postponed possibly for friday now. -Acute renal failure probably secondary to acute tubular necrosis from sepsis that may be a competent to prerenal continue with IV fluids nephrology following, IV fluids have been cut back, patient does have some urinary retention which urology has placed an indwelling catheter and he continues with hematuria which is expected to improve. Creatinine today is 2.1. -Altered mental status secondary to acute metabolic and toxic encephalopathy secondary to acute renal failure, and possible sepsis from wounds. Brain CT ordered. -Hypokalemia secondary to acute renal failure, RADHA inhibitor will be held -Hypotension: Secondary to infection, hold off antihypertensive medications, blood pressure improving. -hypervolemic hyponatremia: improved with IV fluids -History of atrial fibrillation patient is presently rate controlled atenolol is being held temporally because of low blood pressure patient will be started started on beta mago as aoon as possible currently rate controlled heart rate is in 60s -Supratherapeutic INR which has improved with vitamin K currently 1.33. -Coronary artery disease -type 2 diabetes mellitus: Hold off on on home oral regimen as well as long- acting insulins continue with sliding scale patient blood sugars in the low normal side -Diabetic peripheral neuropathy cut down the dose of gabapentin because of acute renal failure -Hyperlipidemia -hypertension -Sleep apnea for which patient uses CPAP machine at home DVT prophylaxis: Contine on subcu heparin INR 1.1 today coumadin on hold for planned surgery on friday. GI Prophylaxis: Pepcid No Code The impression and plan of care has been dictated by Chrissie Costa, Nurse Practitioner as directed. Dr. Katina MD I have performed a history and physical examination and medical decision making of this patient, discussed the same with the dictator, and agree with the dictators assessment and plan as written, documented as a scribe. Based on total visit time, I have performed more than 50% of this visit. Objective - Vital Signs Vital signs: Vital Signs Temp 99.4 F 08/11/22 07:46 Pulse 61 08/11/22 07:46 Resp 18 08/11/22 07:46 BP 142/76 08/11/22 07:46 Pulse Ox 100 08/11/22 07:46 FiO2 Intake & Output 08/10/22 08/11/22 08/11/22 18:59 06:59 18:59 Intake Total 1250 150 Output Total 2800 1750 200 Balance -1550 -1600 -200 Weight 109.316 kg Intake: Intake, IV Titration 650 Amount Sodium Chloride 0.9% 1, 650 000 ml @ 50 mls/hr IV . Q20H [facility] Rx#:[id number] Oral 600 150 Output: Urine 2800 1750 200 Uretheral (Plaza) 2300 550 200 Other: Voiding Method Diaper Indwelling Catheter Indwelling Catheter Incontinent # Voids 1 # Bowel Movements 1 - Labs CBC & Chem 7: 08/11/22 05:06 08/11/22 05:06 Labs: Abnormal Lab Results - Last 24 Hours (Table) 08/10/22 08/10/22 08/10/22 Range/Units 07:46 16:42 20:27 RBC (4.40-5.60) X 10*6/uL Hgb (13.0-17.0) g/dL Hct (39.6-50.0) % MCHC (32.0-37.0) g/dL Immature Gran # (0.00-0.04) X 10*3/uL Lymphocytes # (0.90-5.00) X 10*3/uL PT (9.9-11.9) sec BUN (9.0-27.0) mg/dL Creatinine (0.6-1.5) mg/dL Est GFR (CKD-EPI)AfAm (60.0-200.0) Est GFR (CKD-EPI)NonAf (60.0-200.0) BUN/Creatinine Ratio (12.00-20.00) Ratio Glucose (70-110) mg/dL POC Glucose (mg/dL) 266 H 237 H (70-110) mg/dL Calcium (8.7-10.3) mg/dL Procalcitonin 0.30 H (0.02-0.09) ng/mL 08/11/22 08/11/22 08/11/22 Range/Units 05:06 05:06 05:06 RBC 2.87 L (4.40-5.60) X 10*6/uL Hgb 8.1 L (13.0-17.0) g/dL Hct 27.2 L (39.6-50.0) % MCHC 29.8 L (32.0-37.0) g/dL Immature Gran # 0.10 H (0.00-0.04) X 10*3/uL Lymphocytes # 0.88 L (0.90-5.00) X 10*3/uL PT 12.3 H (9.9-11.9) sec BUN 74.9 H (9.0-27.0) mg/dL Creatinine 2.1 H (0.6-1.5) mg/dL Est GFR (CKD-EPI)AfAm 32.5 L (60.0-200.0) Est GFR (CKD-EPI)NonAf 28.1 L (60.0-200.0) BUN/Creatinine Ratio 35.67 H (12.00-20.00) Ratio Glucose 197 H (70-110) mg/dL POC Glucose (mg/dL) (70-110) mg/dL Calcium 8.3 L (8.7-10.3) mg/dL Procalcitonin (0.02-0.09) ng/mL 08/11/22 08/11/22 Range/Units 06:14 11:25 RBC (4.40-5.60) X 10*6/uL Hgb (13.0-17.0) g/dL Hct (39.6-50.0) % MCHC (32.0-37.0) g/dL Immature Gran # (0.00-0.04) X 10*3/uL Lymphocytes # (0.90-5.00) X 10*3/uL PT (9.9-11.9) sec BUN (9.0-27.0) mg/dL Creatinine (0.6-1.5) mg/dL Est GFR (CKD-EPI)AfAm (60.0-200.0) Est GFR (CKD-EPI)NonAf (60.0-200.0) BUN/Creatinine Ratio (12.00-20.00) Ratio Glucose (70-110) mg/dL POC Glucose (mg/dL) 227 H 198 H (70-110) mg/dL Calcium (8.7-10.3) mg/dL Procalcitonin (0.02-0.09) ng/mL Microbiology - Last 24 Hours (Table) 08/07/22 19:40 Blood Culture - Preliminary Blood No Growth after 72 hours 08/07/22 19:25 Blood Culture - Preliminary Blood No Growth after 72 hours 08/08/22 11:35 Anaerobic Culture - Preliminary Foot - Left 08/08/22 11:35 Gram Stain - Final Foot - Right Wound Culture - Final Strep agalactiae - (group b) 08/08/22 11:35 Gram Stain - Final Foot - Left Wound Culture - Final Assessment and Plan Time with Patient: Less than 30
[2022-08-11] MEDS: SODIUM CHLORIDE 0.9% 1,000 ML IV SCH (12:40)
--- NOTE | 2022-08-11 14:21 | CT ---
EXAMINATION TYPE: CT brain wo con DATE OF EXAM: 08/11/2022 COMPARISON: 07/05/2011 HISTORY: Altered mental status CT DLP: mGycm Automated exposure control for dose reduction was used. There is cerebral cortical atrophy. There is no mass effect or midline shift. No evidence of intracra nial hemorrhage. There is deformity of the frontal bone with sclerosis and opacification of the front al sinus. There is bone loss involving the left frontal bone. The skull base is intact. There is normal aeration of the mastoid sinuses. IMPRESSION: Moderate cerebral atrophy. No acute intracranial abnormality. Opacification of the frontal sinus with frontal bone deformities that could be postsurgical changes a nd appear stable compared to old exam.
[2022-08-11 16:47] LABS: Glucose,Whole Blood 260 mg/dL (70-110)
[2022-08-11 20:38] LABS: Glucose,Whole Blood 287 mg/dL (70-110)
[2022-08-11] MEDS: FAMOTIDINE 20 MG TAB PO SCH (20:43)
[2022-08-11] MEDS: ASPIRIN 81 MG PO SCH (20:43)
[2022-08-11] MEDS: ATORVASTATIN 40 MG TAB PO SCH (20:43)
[2022-08-11] MEDS: LEVOTHYROXINE 125 MCG TAB PO SCH (20:43)
[2022-08-12 05:59] LABS: Glucose,Whole Blood 258 mg/dL (70-110)
[2022-08-12] MEDS: INSULIN ASPART (NovoLOG) 100 UNIT/ML VIAL SQ SCH ×6 (06:48→21:38)
[2022-08-12] MEDS ORDERED: FUROSEMIDE 10 MG/ML 4 ML VIAL IV STA (07:48)
[2022-08-12] MEDS: HEPARIN SODIUM,PORCINE/PF 5,000 UNIT/0.5 ML SYRINGE SQ SCH ×2 (07:49→17:37)
[2022-08-12] MEDS: FINASTERIDE 5 MG TAB PO SCH (07:49)
[2022-08-12] MEDS: RANOLAZINE 500 MG TAB.ER.12H PO SCH ×2 (07:49→20:43)
[2022-08-12] MEDS: GABAPENTIN 100 MG CAP PO SCH ×2 (07:49→20:43)
[2022-08-12] MEDS: SODIUM BICARBONATE TAB 650 MG TAB PO SCH (07:50)
[2022-08-12] MEDS: AMPICILLIN-SULBACTAM 3 GM in SODIUM CHLORIDE 0.9% 100 ML IVPB SCH ×2 (07:53→17:37)
[2022-08-12] MEDS: FLUTICASONE 50MCG/SPRAY NASAL 16GM EA NOSTRIL SCH ×2 (07:53→20:44)
[2022-08-12 08:58] LABS: Glucose,Whole Blood 174 mg/dL (70-110)
--- NOTE | 2022-08-12 09:09 | P.PN ---
Subjective Progress Note Date: 08/09/22 Principal diagnosis: Right fifth toe gangrene and bilateral heel wounds Patient is a 86 year year-old male who was brought into the ER with an upright just right fifth toe; comparing of weakness did have bilateral heel necrotic wound as well,. On today's evaluation that is 08/09/2022, the patient is afebrile, the patient is breathing comfortably and isn't on oxygen denies any chest pain, no abdominal pain or any worsening pain to the heel or the right fifth toe and no diarrhea Objective - Vital Signs Vital signs: Vital Signs Temp 98.5 F 08/09/22 08:00 Pulse 62 08/09/22 08:00 Resp 16 08/09/22 08:00 BP 111/63 08/09/22 08:00 Pulse Ox 96 08/09/22 08:00 FiO2 Intake & Output 08/08/22 08/09/22 08/09/22 18:59 06:59 18:59 Output Total 50 Balance -50 Weight 109.316 kg Output: Urine 50 Other: Voiding Method Diaper # Voids 1 - Exam GENERAL DESCRIPTION: An elderly male lying in bed in no distress RESPIRATORY SYSTEM: Unlabored breathing , decreased breath sounds at bases HEART: S1 S2 regular rate and rhythm , ABDOMEN: Soft , no tenderness EXTREMITIES: Right fifth toe with dry gangrene bilateral heel wounds are currently dressed, - Labs CBC & Chem 7: 08/11/22 05:06 08/11/22 05:06 Labs: Abnormal Lab Results - Last 24 Hours (Table) 08/08/22 08/08/22 08/08/22 Range/Units 05:19 18:06 20:33 WBC (4.50-10.00) X 10*3/uL RBC (4.40-5.60) X 10*6/uL Hgb (13.0-17.0) g/dL Hct (39.6-50.0) % MCHC (32.0-37.0) g/dL PT (9.9-11.9) sec INR (0.90-1.11) Potassium (3.5-5.1) mmol/L Carbon Dioxide (22-30) mmol/L BUN (9-20) mg/dL Creatinine (0.66-1.25) mg/dL Glucose (74-99) mg/dL POC Glucose (mg/dL) 199 H 189 H (70-110) mg/dL Hemoglobin A1c 7.9 H (0.0-6.0) % Calcium (8.4-10.2) mg/dL AST (17-59) U/L Total Protein (6.3-8.2) g/dL Albumin (3.5-5.0) g/dL 08/09/22 08/09/22 08/09/22 Range/Units 07:32 07:37 07:37 WBC (4.50-10.00) X 10*3/uL RBC (4.40-5.60) X 10*6/uL Hgb (13.0-17.0) g/dL Hct (39.6-50.0) % MCHC (32.0-37.0) g/dL PT 14.8 H (9.9-11.9) sec INR 1.33 H (0.90-1.11) Potassium 5.3 H (3.5-5.1) mmol/L Carbon Dioxide 21 L (22-30) mmol/L BUN 83 H (9-20) mg/dL Creatinine 2.54 H (0.66-1.25) mg/dL Glucose 143 H (74-99) mg/dL POC Glucose (mg/dL) 145 H (70-110) mg/dL Hemoglobin A1c (0.0-6.0) % Calcium 8.3 L (8.4-10.2) mg/dL AST 81 H (17-59) U/L Total Protein 5.6 L (6.3-8.2) g/dL Albumin 2.7 L (3.5-5.0) g/dL 08/09/22 08/09/22 Range/Units 07:37 11:27 WBC 11.62 H (4.50-10.00) X 10*3/uL RBC 3.27 L (4.40-5.60) X 10*6/uL Hgb 9.5 L (13.0-17.0) g/dL Hct 31.2 L (39.6-50.0) % MCHC 30.4 L (32.0-37.0) g/dL PT (9.9-11.9) sec INR (0.90-1.11) Potassium (3.5-5.1) mmol/L Carbon Dioxide (22-30) mmol/L BUN (9-20) mg/dL Creatinine (0.66-1.25) mg/dL Glucose (74-99) mg/dL POC Glucose (mg/dL) 216 H (70-110) mg/dL Hemoglobin A1c (0.0-6.0) % Calcium (8.4-10.2) mg/dL AST (17-59) U/L Total Protein (6.3-8.2) g/dL Albumin (3.5-5.0) g/dL Microbiology - Last 24 Hours (Table) 08/08/22 11:35 Gram Stain - Preliminary Foot - Left Wound Culture - Preliminary 08/07/22 06:07 Urine Culture - Final Urine,Voided 08/08/22 11:35 Gram Stain - Preliminary Buttock Wound Culture - Preliminary 08/08/22 11:35 Gram Stain - Preliminary Foot - Right Wound Culture - Preliminary 08/07/22 19:40 Blood Culture - Preliminary Blood No Growth after 24 hours 08/07/22 19:25 Blood Culture - Preliminary Blood No Growth after 24 hours 08/08/22 11:35 Anaerobic Culture - Preliminary Foot - Left 08/08/22 11:35 Anaerobic Culture - Preliminary Coccyx 08/08/22 11:35 Anaerobic Culture - Preliminary Foot - Right Assessment and Plan (1) Type 2 diabetes mellitus with foot ulcer Current Visit: No Status: Acute Code(s): E11.621 - TYPE 2 DIABETES MELLITUS WITH FOOT ULCER; L97.509 - NON-PRESSURE CHRONIC ULCER OTH PRT UNSP FOOT W UNSP SEVERITY SNOMED Code(s): 682961620 Plan: 1patient with right fifth toe gangrene in this patient with multiple comorbidities wound looks mostly dry with minimal surrounding inflammatory changes and need to cover for the polymicrobial ivy usually associated with infection. 2patient also have bilateral heel pressure ulcer unstageable as there is a necrotic eschar and will benefit from surgical department. 3patient also have a stage III sacral pressure ulcer with slough tissue no significant surrounding redness or foul-smelling drainage. 4patient also complaining of increasing shortness of breath. Pulmonary infiltrate slightly worse question of possible pneumonitis. 5patient with renal insufficiency and high risk of nephrotoxicity from vancomycin. 6patient to continue with Unasyn while waiting for the culture to finalize. 7local wound care to the sacral wound with the Medihoney followed by moist dressing keep the area of the pressure. Time with Patient: Less than 30
[2022-08-12 09:11] LABS: African American GFR (CKD) 59 (>60 ml/min/1.73 sqM); Anion Gap 8 mmol/L; Basophils % (A) 0 %; Blood Urea Nitrogen 53 mg/dL (9-20); Calcium 8.3 mg/dL (8.4-10.2); Carbon Dioxide 25 mmol/L (22-30); Chloride 113 mmol/L (98-107); Eosinophils # (A) 0.1 k/uL (0-0.7); Eosinophils % (A) 2 %; Glucose 235 mg/dL (74-99); HCT 30.1 % (39.0-53.0); HGB 9.1 gm/dL (13.0-17.5); Hypochromasia Marked; Lymphocytes # (A) 0.7 k/uL (1.0-4.8); Lymphocytes % (A) 8 %; MCH 29.4 pg (25.0-35.0); MCHC 30.3 g/dL (31.0-37.0); MCV 97.2 fL (80.0-100.0); Mean Platelet Volume 8.3; Monocytes # (A) 0.5 k/uL (0-1.0); Monocytes % (A) 5 %; Neutrophils # (A) 7.5 k/uL (1.3-7.7); Neutrophils % (A) 83 %; Non-African American GFR(CKD) 51 (>60 ml/min/1.73 sqM); Platelet Count 265 k/uL (150-450); Potassium 4.2 mmol/L (3.5-5.1); RDW 14.1 % (11.5-15.5); Sodium 146 mmol/L (137-145)
--- NOTE | 2022-08-12 09:11 | P.PN ---
Subjective Progress Note Date: 08/10/22 Principal diagnosis: Right fifth toe gangrene and bilateral heel wounds Patient is a 86 year year-old male who was brought into the ER with an upright just right fifth toe; comparing of weakness did have bilateral heel necrotic wound as well,. On today's evaluation that is 08/10/2022, the patient remains to be afebrile, the patient is breathing comfortably on nasal cannula oxygen, the patient is slightly lethargic and did not answer any question no vomiting or diarrhea has been reported by the nursing staff Objective - Vital Signs Vital signs: Vital Signs Temp 98.7 F 08/10/22 07:59 Pulse 68 08/10/22 07:59 Resp 20 08/10/22 07:59 BP 130/72 08/10/22 07:59 Pulse Ox 95 08/10/22 07:59 FiO2 Intake & Output 08/09/22 08/10/22 08/10/22 18:59 06:59 18:59 Weight 109.316 kg Other: Voiding Method Diaper Diaper Diaper Incontinent # Voids 0 2 1 # Bowel Movements 1 - Exam GENERAL DESCRIPTION: An elderly male lying in bed in no distress RESPIRATORY SYSTEM: Unlabored breathing , decreased breath sounds at bases HEART: S1 S2 regular rate and rhythm , ABDOMEN: Soft , no tenderness EXTREMITIES: Right fifth toe with dry gangrene bilateral heel wounds are currently dressed, - Labs CBC & Chem 7: 08/11/22 05:06 08/11/22 05:06 Labs: Abnormal Lab Results - Last 24 Hours (Table) 08/09/22 08/09/22 08/10/22 Range/Units 16:55 20:16 06:54 ESR (0-15) mm/hr BUN (9-20) mg/dL Creatinine (0.66-1.25) mg/dL Glucose (74-99) mg/dL POC Glucose (mg/dL) 252 H 276 H 183 H (70-110) mg/dL Magnesium (1.6-2.3) mg/dL C-Reactive Protein (<1.0) mg/dL 08/10/22 08/10/22 Range/Units 07:46 07:46 ESR 119 H (0-15) mm/hr BUN 90 H (9-20) mg/dL Creatinine 2.81 H (0.66-1.25) mg/dL Glucose 179 H (74-99) mg/dL POC Glucose (mg/dL) (70-110) mg/dL Magnesium 2.4 H (1.6-2.3) mg/dL C-Reactive Protein 18.2 H (<1.0) mg/dL Microbiology - Last 24 Hours (Table) 08/07/22 19:40 Blood Culture - Preliminary Blood No Growth after 48 hours 08/07/22 19:25 Blood Culture - Preliminary Blood No Growth after 48 hours 08/08/22 11:35 Gram Stain - Final Buttock Wound Culture - Final 08/08/22 11:35 Gram Stain - Preliminary Foot - Left Wound Culture - Preliminary 08/07/22 06:07 Urine Culture - Final Urine,Voided Assessment and Plan (1) Toe gangrene Current Visit: Yes Status: Acute Code(s): I96 - GANGRENE, NOT ELSEWHERE CLASSIFIED SNOMED Code(s): 674812312 (2) Pressure ulcer of both heels Current Visit: Yes Status: Acute Code(s): L89.619 - PRESSURE ULCER OF RIGHT HEEL, UNSPECIFIED STAGE; L89.629 - PRESSURE ULCER OF LEFT HEEL, UNSPECIFIED STAGE SNOMED Code(s): 350252605 Plan: 1patient with right fifth toe gangrene in this patient with multiple comorbidities wound looks mostly dry with minimal surrounding inflammatory changes and need to cover for the polymicrobial ivy usually associated with infection. 2patient also have bilateral heel pressure ulcer unstageable as there is a necrotic eschar and will benefit from surgical department. 3patient also have a stage III sacral pressure ulcer with slough tissue no significant surrounding redness or foul-smelling drainage. 4patient also complaining of increasing shortness of breath. Pulmonary infiltrate slightly worse question of possible pneumonitis. 5 local wound care to the sacral wound with the Medihoney followed by moist dressing keep the area of the pressure. 6patient to continue with Unasyn while waiting for the culture to finalize.
--- NOTE | 2022-08-12 09:12 | P.PN ---
Subjective Progress Note Date: 08/11/22 Principal diagnosis: Right fifth toe gangrene and bilateral heel wounds Patient is a 86 year year-old male who was brought into the ER with an upright just right fifth toe; comparing of weakness did have bilateral heel necrotic wound as well, patient did went for indigestion requiring Cross catheter placement by urology On today's evaluation that is 08/11/2022, the patient continuous to be afebrile, the patient is breathing comfortably on nasal cannula oxygen, the patient remains to be lethargic and did not answer any question no vomiting or diarrhea or any other has been reported by the nursing staff Objective - Vital Signs Vital signs: Vital Signs Temp 98.4 F 08/11/22 19:01 Pulse 85 08/11/22 19:01 Resp 19 08/11/22 19:01 BP 97/42 08/11/22 19:01 Pulse Ox 94 L 08/11/22 19:01 FiO2 Intake & Output 08/11/22 08/11/22 08/12/22 06:59 18:59 06:59 Intake Total 150 Output Total 1750 1764 Balance -1600 -1764 Intake: Oral 150 Output: Urine 1750 1500 Uretheral (Cross) 550 200 Post Void Residual 264 Other: Voiding Method Indwelling Catheter Indwelling Catheter Indwelling Catheter - Exam GENERAL DESCRIPTION: An elderly male lying in bed in no distress RESPIRATORY SYSTEM: Unlabored breathing , decreased breath sounds at bases HEART: S1 S2 regular rate and rhythm , ABDOMEN: Soft , no tenderness EXTREMITIES: Right fifth toe with dry gangrene bilateral heel wounds are c urrently dressed, - Labs CBC & Chem 7: 08/11/22 05:06 08/11/22 05:06 Labs: Abnormal Lab Results - Last 24 Hours (Table) 08/11/22 08/11/22 08/11/22 Range/Units 05:06 05:06 05:06 RBC 2.87 L (4.40-5.60) X 10*6/uL Hgb 8.1 L (13.0-17.0) g/dL Hct 27.2 L (39.6-50.0) % MCHC 29.8 L (32.0-37.0) g/dL Immature Gran # 0.10 H (0.00-0.04) X 10*3/uL Lymphocytes # 0.88 L (0.90-5.00) X 10*3/uL PT 12.3 H (9.9-11.9) sec BUN 74.9 H (9.0-27.0) mg/dL Creatinine 2.1 H (0.6-1.5) mg/dL Est GFR (CKD-EPI)AfAm 32.5 L (60.0-200.0) Est GFR (CKD-EPI)NonAf 28.1 L (60.0-200.0) BUN/Creatinine Ratio 35.67 H (12.00-20.00) Ratio Glucose 197 H (70-110) mg/dL POC Glucose (mg/dL) (70-110) mg/dL Calcium 8.3 L (8.7-10.3) mg/dL 08/11/22 08/11/22 08/11/22 Range/Units 06:14 11:25 16:45 RBC (4.40-5.60) X 10*6/uL Hgb (13.0-17.0) g/dL Hct (39.6-50.0) % MCHC (32.0-37.0) g/dL Immature Gran # (0.00-0.04) X 10*3/uL Lymphocytes # (0.90-5.00) X 10*3/uL PT (9.9-11.9) sec BUN (9.0-27.0) mg/dL Creatinine (0.6-1.5) mg/dL Est GFR (CKD-EPI)AfAm (60.0-200.0) Est GFR (CKD-EPI)NonAf (60.0-200.0) BUN/Creatinine Ratio (12.00-20.00) Ratio Glucose (70-110) mg/dL POC Glucose (mg/dL) 227 H 198 H 260 H (70-110) mg/dL Calcium (8.7-10.3) mg/dL 08/11/22 Range/Units 20:36 RBC (4.40-5.60) X 10*6/uL Hgb (13.0-17.0) g/dL Hct (39.6-50.0) % MCHC (32.0-37.0) g/dL Immature Gran # (0.00-0.04) X 10*3/uL Lymphocytes # (0.90-5.00) X 10*3/uL PT (9.9-11.9) sec BUN (9.0-27.0) mg/dL Creatinine (0.6-1.5) mg/dL Est GFR (CKD-EPI)AfAm (60.0-200.0) Est GFR (CKD-EPI)NonAf (60.0-200.0) BUN/Creatinine Ratio (12.00-20.00) Ratio Glucose (70-110) mg/dL POC Glucose (mg/dL) 287 H (70-110) mg/dL Calcium (8.7-10.3) mg/dL Microbiology - Last 24 Hours (Table) 08/07/22 19:40 Blood Culture - Preliminary Blood No Growth after 96 hours 08/07/22 19:25 Blood Culture - Preliminary Blood No Growth after 96 hours 08/08/22 11:35 Anaerobic Culture - Final Coccyx Anaerobic Gm Negative Bacilli Anaerobic Gm Negative Bacilli#2 Anaerobic Gm Negative Bacilli#3 Assessment and Plan (1) Pressure ulcer of both heels Current Visit: Yes Status: Acute Code(s): L89.619 - PRESSURE ULCER OF RIGHT HEEL, UNSPECIFIED STAGE; L89.629 - PRESSURE ULCER OF LEFT HEEL, UNSPECIFIED STAGE SNOMED Code(s): 187507186 (2) Toe gangrene Current Visit: Yes Status: Acute Code(s): I96 - GANGRENE, NOT ELSEWHERE CLASSIFIED SNOMED Code(s): 655251032 Plan: 1patient with right fifth toe gangrene in this patient with multiple comorbidities wound looks mostly dry with minimal surrounding inflammatory changes and need to cover for the polymicrobial ivy usually associated with infection. 2patient also have bilateral heel pressure ulcer unstageable as there is a necrotic eschar and will benefit from surgical department. 3patient also have a stage III sacral pressure ulcer with slough tissue no significant surrounding redness or foul-smelling drainage. 4patient also complaining of increasing shortness of breath. Pulmonary infiltrate slightly worse question of possible pneumonitis. 5 local wound care to the sacral wound with the Medihoney followed by moist dressing keep the area of the pressure. 6 patient local cultures have been finalized with strep and anaerobes for which the patient's currently covered with Unasyn and the patient white count has normalized
--- NOTE | 2022-08-12 10:05 | P.PN ---
Subjective Patient is seen in follow-up for acute kidney injury. Creatinine was 3.1 admission and is 2.5-2.8 today. Admitted with bilateral foot wounds. On antibiotics. Noted to have urinary retention. Seen by urology. Patient increased for urology Intervention and had Cross catheter with dorsal slit by urology. Urine appears to be bloody in the Cross bag. Complaining of shortness of breath today Objective - Vital Signs Vital signs: Vital Signs Temp 97.8 F 08/12/22 08:00 Pulse 79 08/12/22 08:00 Resp 20 08/12/22 08:00 BP 146/74 08/12/22 08:00 Pulse Ox 92 L 08/12/22 08:00 FiO2 Intake & Output 08/11/22 08/12/22 08/12/22 18:59 06:59 18:59 Output Total 1764 2400 Balance -1764 -2400 Output: Urine 1500 2400 Uretheral (Cross) 200 Post Void Residual 264 Other: Voiding Method Indwelling Catheter Indwelling Catheter - Exam Vital signs are stable. General: Awake. No acute distress. HEENT: Head exam is unremarkable. On nasal cannula. LUNGS: Breath sounds decreased. Basal crackles HEART: Rate and Rhythm are regular. ABDOMEN: Soft, no distention. EXTREMITITES: 2+ edema. - Labs CBC & Chem 7: 08/12/22 08:09 08/12/22 08:09 Labs: Abnormal Lab Results - Last 24 Hours (Table) 08/10/22 08/11/22 08/11/22 Range/Units 11:21 05:06 11:25 RBC (4.30-5.90) m/uL Hgb (13.0-17.5) gm/dL Hct (39.0-53.0) % MCHC (31.0-37.0) g/dL Lymphocytes # (1.0-4.8) k/uL Sodium (137-145) mmol/L Chloride (98-107) mmol/L BUN 74.9 H (9.0-27.0) mg/dL Creatinine 2.1 H (0.6-1.5) mg/dL Est GFR (CKD-EPI)AfAm 32.5 L (60.0-200.0) Est GFR (CKD-EPI)NonAf 28.1 L (60.0-200.0) BUN/Creatinine Ratio 35.67 H (12.00-20.00) Ratio Glucose 197 H (70-110) mg/dL POC Glucose (mg/dL) 174 H 198 H (70-110) mg/dL Calcium 8.3 L (8.7-10.3) mg/dL 08/11/22 08/11/22 08/12/22 Range/Units 16:45 20:36 05:57 RBC (4.30-5.90) m/uL Hgb (13.0-17.5) gm/dL Hct (39.0-53.0) % MCHC (31.0-37.0) g/dL Lymphocytes # (1.0-4.8) k/uL Sodium (137-145) mmol/L Chloride (98-107) mmol/L BUN (9.0-27.0) mg/dL Creatinine (0.6-1.5) mg/dL Est GFR (CKD-EPI)AfAm (60.0-200.0) Est GFR (CKD-EPI)NonAf (60.0-200.0) BUN/Creatinine Ratio (12.00-20.00) Ratio Glucose (70-110) mg/dL POC Glucose (mg/dL) 260 H 287 H 258 H (70-110) mg/dL Calcium (8.7-10.3) mg/dL 08/12/22 08/12/22 Range/Units 08:09 08:09 RBC 3.10 L (4.30-5.90) m/uL Hgb 9.1 L (13.0-17.5) gm/dL Hct 30.1 L (39.0-53.0) % MCHC 30.3 L (31.0-37.0) g/dL Lymphocytes # 0.7 L (1.0-4.8) k/uL Sodium 146 H (137-145) mmol/L Chloride 113 H (98-107) mmol/L BUN 53 H (9.0-27.0) mg/dL Creatinine 1.29 H (0.6-1.5) mg/dL Est GFR (CKD-EPI)AfAm (60.0-200.0) Est GFR (CKD-EPI)NonAf (60.0-200.0) BUN/Creatinine Ratio (12.00-20.00) Ratio Glucose 235 H (70-110) mg/dL POC Glucose (mg/dL) (70-110) mg/dL Calcium 8.3 L (8.7-10.3) mg/dL Microbiology - Last 24 Hours (Table) 08/08/22 11:35 Anaerobic Culture - Final Foot - Left 08/07/22 19:40 Blood Culture - Preliminary Blood No Growth after 96 hours 08/07/22 19:25 Blood Culture - Preliminary Blood No Growth after 96 hours 08/08/22 11:35 Anaerobic Culture - Final Coccyx Anaerobic Gm Negative Bacilli Anaerobic Gm Negative Bacilli#2 Anaerobic Gm Negative Bacilli#3 Assessment and Plan Assessment: 1. Acute kidney injury secondary to ATN secondary to infection and hypotension. Creatinine was 3.2 on admission and is down to 1.2 today. Baseline creatinine near 1 from 07/16/2022. 2. Hyperkalemia secondary to acute kidney injury and RADHA inhibitor. Potassium 5.3 this morning. 3. 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 ID and vascular surgery following. Debridement pending. 4. Diabetes mellitus. 5. Metabolic acidosis secondary to acute kidney injury. 6. Benign hypertension. Controlled. 7. Urinary retention. Seen by urology. No hydronephrosis noted on kidney ultrasound. Right kidney not properly visualized. Cross catheter placed on 08/10/2022 by urology with a dorsal slit. On doxazosin. 8. Mild hypernatremia Plan: Change IV fluids to D5W DC sodium bicarb Flush Cross catheter IV Lasix 1
--- NOTE | 2022-08-12 10:44 | P.PN ---
Subjective Progress Note Date: 08/12/22 Principal diagnosis: Gangrene, SNEHA Patient was admitted with bilateral foot wounds on 08/07/22. He was also found to be in SNEHA with a baseline creatinine around 1. He is being followed by Nephrology. Creatinine was 3.1 admission and is 2.5-2.8 today. On antibiotics. Patient is seen in follow-up for urinary retention. A Cross catheter could be placed due to phimosis. Initially he was not agreeable to manipulation, but on 08/10/22 was agreeable to a dorsal slit. Stretching of the prepucial ring was also mentioned as an option, but a dorsal slit is felt to be a better procedure for him. A 16-[place] Cross catheter was then placed, with return of 2300 mL of ana-colored urine. The patient was examined by me and I concur with the above document, Krunal Kasper Objective - Vital Signs Vital signs: Vital Signs Temp 97.8 F 08/12/22 08:00 Pulse 79 08/12/22 08:00 Resp 20 08/12/22 08:00 BP 146/74 08/12/22 08:00 Pulse Ox 92 L 08/12/22 08:00 FiO2 Intake & Output 08/11/22 08/12/22 08/12/22 18:59 06:59 18:59 Output Total 1764 2400 Balance -1764 -2400 Output: Urine 1500 2400 Uretheral (Cross) 200 Post Void Residual 264 Other: Voiding Method Indwelling Catheter Indwelling Catheter - Exam General: Well developed, well nourished. No acute distress. Chronically ill appearing HEENT: Head is atraumatic, normocephalic. Mucus membranes moist. Lungs: Respirations even and nonlabored. On 2L NC Abdomen/GI: Soft. Bowel sounds present in all 4 quadrants.No guarding, rigidity, or abdominal tenderness. : Cross catheter present Musculoskeletal/ Extremities: No joint deformity or swelling. + generalized weakness Neurologic: Awake, alert and oriented times 2. CN II-XII grossly intact. No focal deficits. Psychiatric: Appropriate mood and affect. - Labs CBC & Chem 7: 08/13/22 11:20 08/16/22 06:38 Labs: Abnormal Lab Results - Last 24 Hours (Table) 08/10/22 08/11/22 08/11/22 Range/Units 11:21 05:06 11:25 RBC (4.30-5.90) m/uL Hgb (13.0-17.5) gm/dL Hct (39.0-53.0) % MCHC (31.0-37.0) g/dL Lymphocytes # (1.0-4.8) k/uL Sodium (137-145) mmol/L Chloride (98-107) mmol/L BUN 74.9 H (9.0-27.0) mg/dL Creatinine 2.1 H (0.6-1.5) mg/dL Est GFR (CKD-EPI)AfAm 32.5 L (60.0-200.0) Est GFR (CKD-EPI)NonAf 28.1 L (60.0-200.0) BUN/Creatinine Ratio 35.67 H (12.00-20.00) Ratio Glucose 197 H (70-110) mg/dL POC Glucose (mg/dL) 174 H 198 H (70-110) mg/dL Calcium 8.3 L (8.7-10.3) mg/dL 08/11/22 08/11/22 08/12/22 Range/Units 16:45 20:36 05:57 RBC (4.30-5.90) m/uL Hgb (13.0-17.5) gm/dL Hct (39.0-53.0) % MCHC (31.0-37.0) g/dL Lymphocytes # (1.0-4.8) k/uL Sodium (137-145) mmol/L Chloride (98-107) mmol/L BUN (9.0-27.0) mg/dL Creatinine (0.6-1.5) mg/dL Est GFR (CKD-EPI)AfAm (60.0-200.0) Est GFR (CKD-EPI)NonAf (60.0-200.0) BUN/Creatinine Ratio (12.00-20.00) Ratio Glucose (70-110) mg/dL POC Glucose (mg/dL) 260 H 287 H 258 H (70-110) mg/dL Calcium (8.7-10.3) mg/dL 08/12/22 08/12/22 Range/Units 08:09 08:09 RBC 3.10 L (4.30-5.90) m/uL Hgb 9.1 L (13.0-17.5) gm/dL Hct 30.1 L (39.0-53.0) % MCHC 30.3 L (31.0-37.0) g/dL Lymphocytes # 0.7 L (1.0-4.8) k/uL Sodium 146 H (137-145) mmol/L Chloride 113 H (98-107) mmol/L BUN 53 H (9.0-27.0) mg/dL Creatinine 1.29 H (0.6-1.5) mg/dL Est GFR (CKD-EPI)AfAm (60.0-200.0) Est GFR (CKD-EPI)NonAf (60.0-200.0) BUN/Creatinine Ratio (12.00-20.00) Ratio Glucose 235 H (70-110) mg/dL POC Glucose (mg/dL) (70-110) mg/dL Calcium 8.3 L (8.7-10.3) mg/dL Microbiology - Last 24 Hours (Table) 08/08/22 11:35 Anaerobic Culture - Final Foot - Left 08/07/22 19:40 Blood Culture - Preliminary Blood No Growth after 96 hours 08/07/22 19:25 Blood Culture - Preliminary Blood No Growth after 96 hours 08/08/22 11:35 Anaerobic Culture - Final Coccyx Anaerobic Gm Negative Bacilli Anaerobic Gm Negative Bacilli#2 Anaerobic Gm Negative Bacilli#3 Assessment and Plan (1) Incomplete bladder emptying Status: Acute Code(s): R33.9 - RETENTION OF URINE, UNSPECIFIED SNOMED Code(s): 267235477 Plan: The urine today is bloody without clots. Hematuria is common following decompression of a significantly distended bladder. He denies pain. The incision is clean and dry. The Cross catheter will remain in place. Impression and plan of care have been directed as dictated by the signing physician. Cecelia Evans nurse practitioner acting as scribe for signing physician. Cecelia Evans [facility] Palliative Care/Urology [place]ink [phone] Email: [email or web address] Time with Patient: Less than 30
[2022-08-12 11:36] LABS: Glucose,Whole Blood 234 mg/dL (70-110)
[2022-08-12] MEDS: DOXAZOSIN 2 MG TAB PO SCH (11:45)
[2022-08-12] MEDS: DEXTROSE 5% IN WATER 1,000 ML IV SCH (11:45)
[2022-08-12] MEDS ORDERED: LACTATED RINGERS 1,000 ML IV ONE (13:30)
[2022-08-12] MEDS ORDERED: ESMOLOL 100 MG/10 ML VIAL ONE (13:41)
[2022-08-12] MEDS ORDERED: PROPOFOL 10 MG/ML 20 ML VIAL IV ONE (13:41)
[2022-08-12] MEDS ORDERED: LIDOCAINE 2% INJ 20 MG/ML (2 ML VIAL) ONE (13:41)
[2022-08-12] MEDS ORDERED: KETOROLAC 15 MG/ML 1 ML VIAL ONE (13:41)
[2022-08-12] MEDS ORDERED: BUPIVACAINE (PF) 0.5% 30 ML VIAL SQ ONE ×2 (14:12→14:40)
--- NOTE | 2022-08-12 14:53 | P.OP ---
Date of Procedure: 08/12/22 Preoperative Diagnosis: Bilateral heel pressure ulcers. Right fifth toe wet gangrene Postoperative Diagnosis: #1 right fifth toe wet gangrene #2 right heel pressure ulcer stage III #3 left heel pressure ulcer stage I Procedure(s) Performed: #1 right fifth toe amputation with deep wound, tissue culture #2 excisional debridement of right heel wound measuring 4 x 3 cm x 0.5 cm in depth Anesthesia: MAC, local Surgeon: Eben Cole Estimated Blood Loss (ml): 2 Pathology: other (Right fifth toe, tissue culture) Condition: stable Disposition: PACU Indications for Procedure: 86-year-old gentleman currently being treated for lower extremity wounds, gangrene of the fifth toe on antibiotics. Patient has not been able to ambulate and has been lying flat which developed a heel ulcer on the right as well as bruising on the left. He does have a fifth toe with was started to be dry gangrene and has now progressed to wet gangrene. He presents to the OR for amputation and debridement of his heel wounds. Operative Findings: Right fifth toe wet gangrene with small deep abscess. Right heel wound with ischemic tissue extending to the fat. No abscess noted. Left heel does not have any fluctuance. There is ecchymotic tissue noted consistent with bruising. Description of Procedure: After written and informed consent was obtained from the patient's in all risks, benefits and complications were described the patient was brought to the operative suite and laid in the supine position. The area of the feet bilaterally was prepped and draped in usual sterile fashion. Timeout was performed in normal fashion and patient was currently receiving antibiotics daily. Local anesthetic was then infused at the fifth toe on the right foot. A racquet incision was then created around the fifth toe and all , ischemic tissue was removed down to the fifth metatarsal joint area. The toe was then removed at the joint and sent off for pathology. Incision was extended to the metatarsal bone and all ischemic, infected tissue was attempted to be removed with sharp debridement with a scalpel as well as a curette. The bone was then cut with a bone cutter and rongeurs to remove any sharp areas. There is a small area of pus encountered which was removed and suctioned dry. The area was copiously irrigated and hemostasis was assured. Attention was then placed to the heel. The ischemic tissue on the edges were then excised with a 15 blade scalpel down to the subcutaneous and fat tissue. Minimal bleeding was noted at this area. No abscess or fluctuance encountered. Attention was then placed to the left heel and no evidence of any fluctuance or tissue was noted there was some ecchymosis consistent with bruising and therefore no incision was created. The areas were then cleansed and the amputation site was closed with 2-0 nylon suture but unable to close the plantar surface and therefore this was packed with Dakin soaked gauze. The heel wound was also dressed with Dakin's 4 x 4's and Kerlix for the rest the foot. The patient tolerated the procedure well and then was sent to PACU for recovery. He will need continued offloading of his heels as well as dressing changes daily with Dakin's and then eventually a skin substitute.
--- NOTE | 2022-08-12 17:10 | XR ---
EXAMINATION TYPE: XR chest 1V portable DATE OF EXAM: 08/12/2022 COMPARISON: 08/07/2022 HISTORY: Short of breath TECHNIQUE: FINDINGS: There is poor inspiration. Heart size is normal. No heart failure. There is left axillary p acemaker. There are sternal wires. Bony thorax is intact. IMPRESSION: No active cardiopulmonary disease. There is poor inspiration similar to the old exam. The re is clearing of atelectasis left lung base compared to the old exam.
[2022-08-12 17:15] LABS: Glucose,Whole Blood 196 mg/dL (70-110)
[2022-08-12] MEDS: ATORVASTATIN 40 MG TAB PO SCH (20:43)
[2022-08-12] MEDS: FAMOTIDINE 20 MG TAB PO SCH (20:43)
[2022-08-12] MEDS: ASPIRIN 81 MG PO SCH (20:43)
[2022-08-12] MEDS: LEVOTHYROXINE 112 MCG TAB PO SCH (20:43)
[2022-08-12] MEDS ORDERED: INSULIN DETEMIR (LEVEMIR) 100 UNIT/ML SYR SQ SCH (21:00)
[2022-08-12 21:36] LABS: Glucose,Whole Blood 174 mg/dL (70-110)
[2022-08-13] MEDS: HEPARIN SODIUM,PORCINE/PF 5,000 UNIT/0.5 ML SYRINGE SQ SCH ×4 (00:19→23:48)
[2022-08-13] MEDS: AMPICILLIN-SULBACTAM 3 GM in SODIUM CHLORIDE 0.9% 100 ML IVPB SCH ×4 (00:19→23:49)
[2022-08-13] MEDS: DEXTROSE 5% IN WATER 1,000 ML IV SCH (06:09)
[2022-08-13 07:31] LABS: Glucose,Whole Blood 212 mg/dL (70-110)
--- NOTE | 2022-08-13 09:24 | P.PN ---
Subjective Progress Note Date: 08/12/22 86-year-old male came to hospital with complaints of unable tablet because of multiple bilateral foot wounds patient has a ganglion the right fifth toe which was a dry gangrene still appears to be dry gangrene but there may be an area of infection in between the fourth and fifth toes and patient has a mostly stage II ulcers in both the heels. Patient does take Keflex at home patient is found to be in acute renal failure with creatinine going up to 3.17, baseline is around 1. Patient doesn't have any fever. Patient does have elevated white blood cell count. Patient is bit hyponatremic with potassium of 1 prior 34 and the potassium was 5.8 on admission presently 5.6 be enough around 79. 08/09/2022 Patient resting in bed today. Pending vascular intervention regarding right fifth toe. Creatinine has improved today down to 2.54, potassium 5.3. Lokelma was given. INR 1.33. Patient refused urology procedure that would allow for insertion of plaza catheter secondary to retention. IV fluids are continued and continue monitoring for urinary retention. Cultures are all pending at this time. Continues on IV unasyn. Surgery planned tentatively for friday. 08/10/2022 Patient had issues with urinary retention yesterday and had opted to not undergo urinary catheter placement with urology. Today he is retaining over 1 liter of urine in his bladder. He is slightly confused today and also his creatinine has increased up to 2.81. Potassium has improved to 4.7. Patient continues on IV antibiotics int he form of IV ampicillin. Wound culture of buttock showing many gram negative bacilli as well as many gram positive cocci. Unable to finalize culture. Plan is for surgical removal of right 5th toe on friday with vascular services. Coumadin remains on hold for this and patient is on subcu heparin. Inflammatory markers are elevated, ESR 119, C-RP 18.2. Plan is to receive an indwelling catheter today placed by urology. Will repeat labs tomorrow and monitor for improvement in kidney function. 08/11/2022 Patient monitored resting in bed today. He is alert x 2 and has some confusion and also has some visual hallucinations. He did have indwelling catheter placed yesterday secondary to urinary retention and required dorsal slit which there are some sutures in place. There is some hematuria which is expected and will be monitored. He continues off coumadin at this time for possible vascular surgery tomorrow. Otherwise his creatinine has improved today down to 2.1 which he did have about 2.3 Liters of urinary retention. Sodium 139, potassium 4.4. Blood glucose in the 190s, calcium 8.3. Right foot culture showing group B strep algalactiae. Antibiotics in the form of IV ampicillin-sulbactam and infectious disease is following. Nursing reports some difficulty breathing throughout the n ight and chest xray performed showing atelectasis left lung base. No obvious heart failure noted. Lungs are clear on exam and IV fluids to be continued. 08/12/2022 Patient is resting in bed today. Alert x 2 continues with confusion and he does state he feels confused. He had brain CT done showing moderate cerebral atrophy without acute stroke or hemorrhage. This is most likely an acute delirium. Kidney function has improved today with BUN of 53 and creatinine of 1.29. Sodium 146, Blood glucose 230s which insulin was increased. Continues off coumadin and on subcu heparin. White count 9.0 and hemoglobin of 9.1 today which is stable. Nephrology adjusted IV fluids. He continues with hematuria. Patient is scheduled for bilateral foot debridement right 5th toe amputation today. Would like to c heck a chest xray as patient dose have low oxygen sats. Review of Systems Constitutional: Reports some fatigue denied any fever. Cardio vascular: denied any chest pain, palpitations Gastrointestinal: denied any nausea, vomiting, diarrhea Pulmonary: Reports some shortness of breath, no cough Neurologic denied any new focal deficits reports confusion All inpatient medications were reviewed and appropriate changes in these medications as dictated in the interval history and assessment and plan. PHYSICAL EXAMINATION: GENERAL: The patient is alert and oriented x2 today, not in any acute distress. Fatigued today. Slightly confused reports some hallucinations. Well developed, well nourished. HEENT: Pupils are round and equally reacting to light. EOMI. No scleral icterus. No conjunctival pallor. Normocephalic, atraumatic. No pharyngeal erythema. No thyromegaly. CARDIOVASCULAR: S1 and S2 present. No murmurs, rubs, or gallops. PULMONARY: Chest is clear to auscultation, no wheezing or crackles. ABDOMEN: Soft, nontender, nondistended, normoactive bowel sounds. No palpable organomegaly. MUSCULOSKELETAL: No joint swelling or deformity. EXTREMITIES: No cyanosis, clubbing, or pedal edema. NEUROLOGICAL: Gross neurological examination did not reveal any focal deficits. Does have generalized weakness SKIN: Dry gangrene of the fifth toe and possible infection within the fourth and fifth toes stage II ulcers in both heels appears to be dry Assessment and plan -Gangrene and right foot infection multiple ulcerations: Cultures will be obtained antiobiotics were changed to IV ampicillin and infectious disease is following the patient. Vascular services has been consulted for further evaluation and recommendations for surgical removal of right fifth toe and surgical debridement tentative for today. -Acute renal failure probably secondary to acute tubular necrosis from sepsis that may be a competent to prerenal continue with IV fluids nephrology following, IV fluids have been cut back, patient does have some urinary retention which urology has placed an indwelling catheter and he continues with hematuria which is expected to improve. Creatinine today is 1.29 -Altered mental status secondary to acute metabolic and toxic encephalopathy secondary to acute renal failure, and possible sepsis from wounds. Brain CT negative for acute. -Hypokalemia secondary to acute renal failure, RADHA inhibitor will be held -Hypotension: Secondary to infection, hold off antihypertensive medications, blood pressure improving. -hypervolemic hyponatremia: improved with IV fluids -History of atrial fibrillation patient is presently rate controlled atenolol is being held temporally because of low blood pressure patient will be started started on beta mago as aoon as possible currently rate controlled heart rate is in 60s -Supratherapeutic INR which has improved with vitamin K currently 1.33. -Coronary artery disease -type 2 diabetes mellitus: Hold off on on home oral regimen as well as long- acting insulins continue with sliding scale patient blood sugars in the low normal side -Diabetic peripheral neuropathy cut down the dose of gabapentin because of acute renal failure -Hyperlipidemia -hypertension -Sleep apnea for which patient uses CPAP machine at home DVT prophylaxis: Contine on subcu heparin and will check pt/inr and resume anticoags when cleared by surgery postoperatively GI Prophylaxis: Pepcid No Code The impression and plan of care has been dictated by Chrissie Costa Nurse Practitioner as directed. Dr. Katina MD I have performed a history and physical examination and medical decision making of this patient, discussed the same with the dictator, and agree with the dictators assessment and plan as written, documented as a scribe. Based on total visit time, I have performed more than 50% of this visit. Objective - Vital Signs Vital signs: Vital Signs Temp 97.8 F 08/12/22 08:00 Pulse 79 08/12/22 08:00 Resp 20 08/12/22 08:00 BP 146/74 08/12/22 08:00 Pulse Ox 92 L 08/12/22 08:00 FiO2 Intake & Output 08/11/22 08/12/22 08/12/22 18:59 06:59 18:59 Output Total 1764 2400 1100 Balance -1764 -2400 -1100 Output: Urine 1500 2400 1100 Uretheral (Plaza) 200 Post Void Residual 264 Other: Voiding Method Indwelling Catheter Indwelling Catheter Indwelling Catheter - Labs CBC & Chem 7: 08/12/22 08:09 08/12/22 08:09 Labs: Abnormal Lab Results - Last 24 Hours (Table) 08/10/22 08/11/22 08/11/22 Range/Units 11:21 16:45 20:36 RBC (4.30-5.90) m/uL Hgb (13.0-17.5) gm/dL Hct (39.0-53.0) % MCHC (31.0-37.0) g/dL Lymphocytes # (1.0-4.8) k/uL Sodium (137-145) mmol/L Chloride (98-107) mmol/L BUN (9-20) mg/dL Creatinine (0.66-1.25) mg/dL Glucose (74-99) mg/dL POC Glucose (mg/dL) 174 H 260 H 287 H (70-110) mg/dL Calcium (8.4-10.2) mg/dL 08/12/22 08/12/22 08/12/22 Range/Units 05:57 08:09 08:09 RBC 3.10 L (4.30-5.90) m/uL Hgb 9.1 L (13.0-17.5) gm/dL Hct 30.1 L (39.0-53.0) % MCHC 30.3 L (31.0-37.0) g/dL Lymphocytes # 0.7 L (1.0-4.8) k/uL Sodium 146 H (137-145) mmol/L Chloride 113 H (98-107) mmol/L BUN 53 H (9-20) mg/dL Creatinine 1.29 H (0.66-1.25) mg/dL Glucose 235 H (74-99) mg/dL POC Glucose (mg/dL) 258 H (70-110) mg/dL Calcium 8.3 L (8.4-10.2) mg/dL 08/12/22 Range/Units 11:34 RBC (4.30-5.90) m/uL Hgb (13.0-17.5) gm/dL Hct (39.0-53.0) % MCHC (31.0-37.0) g/dL Lymphocytes # (1.0-4.8) k/uL Sodium (137-145) mmol/L Chloride (98-107) mmol/L BUN (9-20) mg/dL Creatinine (0.66-1.25) mg/dL Glucose (74-99) mg/dL POC Glucose (mg/dL) 234 H (70-110) mg/dL Calcium (8.4-10.2) mg/dL Microbiology - Last 24 Hours (Table) 08/08/22 11:35 Anaerobic Culture - Final Foot - Left 08/07/22 19:40 Blood Culture - Preliminary Blood No Growth after 96 hours 08/07/22 19:25 Blood Culture - Preliminary Blood No Growth after 96 hours 08/08/22 11:35 Anaerobic Culture - Final Coccyx Anaerobic Gm Negative Bacilli Anaerobic Gm Negative Bacilli#2 Anaerobic Gm Negative Bacilli#3 Assessment and Plan Time with Patient: Less than 30
[2022-08-13] MEDS: DOXAZOSIN 2 MG TAB PO SCH (09:38)
[2022-08-13] MEDS: FINASTERIDE 5 MG TAB PO SCH (09:50)
[2022-08-13] MEDS: GABAPENTIN 100 MG CAP PO SCH ×2 (09:50→20:43)
[2022-08-13] MEDS: RANOLAZINE 500 MG TAB.ER.12H PO SCH ×2 (09:50→20:43)
[2022-08-13] MEDS: INSULIN ASPART (NovoLOG) 100 UNIT/ML VIAL SQ SCH ×7 (09:51→20:55)
--- NOTE | 2022-08-13 10:44 | P.PN ---
Subjective Progress Note Date: 08/13/22 Patient is seen and examined today as a follow-up. He is postop day #1 for right fifth toe amputation and heel debridement. Overall his pain is well managed. No acute changes through the night. This morning he is having some changes on his telemetry, EKG has been ordered. Cardiology is following. Objective - Vital Signs Vital signs: Vital Signs Temp 98.4 F 08/13/22 02:00 Pulse 85 08/13/22 08:00 Resp 17 08/13/22 08:00 BP 111/60 08/13/22 08:00 Pulse Ox 92 L 08/13/22 08:00 FiO2 Intake & Output 08/12/22 08/13/22 08/13/22 18:59 06:59 18:59 Intake Total 500 740 Output Total 2223 1050 Balance -1723 -310 Intake: IV 500 Intake, IV Titration 500 Amount Dextrose 5% in Water 1, 500 000 ml @ 50 mls/hr IV . Q20H [facility] Rx#:[id number] Oral 240 Output: Urine 1950 1050 Uretheral (Cross) 1050 Post Void Residual 271 Estimated Blood Loss 2 Other: Voiding Method Indwelling Catheter Indwelling Catheter - Exam General appearance: The patient is alert, appears in no acute distress. HET: Head is normocephalic and atraumatic. Neck: Supple without lymphadenopathy. Trachea midline. Heart: S1 S2. Regular rate and rhythm. Lungs: Clear to auscultation bilaterally. Abdomen: Soft, nontender, nondistended. Extremities: Bilateral lower extremities with dressing clean dry and intact. Bilateral soft Medi boots in place. Neurological: Alert, somewhat confused. - Labs CBC & Chem 7: 08/12/22 08:09 08/12/22 08:09 Labs: Abnormal Lab Results - Last 24 Hours (Table) 08/10/22 08/12/22 08/12/22 Range/Units 11:21 08:09 08:09 RBC 3.10 L (4.30-5.90) m/uL Hgb 9.1 L (13.0-17.5) gm/dL Hct 30.1 L (39.0-53.0) % MCHC 30.3 L (31.0-37.0) g/dL Lymphocytes # 0.7 L (1.0-4.8) k/uL Sodium 146 H (137-145) mmol/L Chloride 113 H (98-107) mmol/L BUN 53 H (9-20) mg/dL Creatinine 1.29 H (0.66-1.25) mg/dL Glucose 235 H (74-99) mg/dL POC Glucose (mg/dL) 174 H (70-110) mg/dL Calcium 8.3 L (8.4-10.2) mg/dL 08/12/22 08/12/22 08/12/22 Range/Units 11:34 17:12 21:35 RBC (4.30-5.90) m/uL Hgb (13.0-17.5) gm/dL Hct (39.0-53.0) % MCHC (31.0-37.0) g/dL Lymphocytes # (1.0-4.8) k/uL Sodium (137-145) mmol/L Chloride (98-107) mmol/L BUN (9-20) mg/dL Creatinine (0.66-1.25) mg/dL Glucose (74-99) mg/dL POC Glucose (mg/dL) 234 H 196 H 174 H (70-110) mg/dL Calcium (8.4-10.2) mg/dL 08/13/22 Range/Units 07:29 RBC (4.30-5.90) m/uL Hgb (13.0-17.5) gm/dL Hct (39.0-53.0) % MCHC (31.0-37.0) g/dL Lymphocytes # (1.0-4.8) k/uL Sodium (137-145) mmol/L Chloride (98-107) mmol/L BUN (9-20) mg/dL Creatinine (0.66-1.25) mg/dL Glucose (74-99) mg/dL POC Glucose (mg/dL) 212 H (70-110) mg/dL Calcium (8.4-10.2) mg/dL Microbiology - Last 24 Hours (Table) 08/12/22 14:18 Anaerobic Culture - Preliminary Toe - Right Fifth 08/12/22 14:18 Wound Culture - Preliminary Toe - Right Fifth 08/07/22 19:40 Blood Culture - Preliminary Blood No Growth after 120 hours 08/07/22 19:25 Blood Culture - Preliminary Blood No Growth after 120 hours 08/08/22 11:35 Anaerobic Culture - Final Foot - Left Assessment and Plan Assessment: 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 Continue local wound care per orders from infectious disease 2. Continue IV antibiotics per recommendations from infectious disease 3. Physical therapy 4. Patient to follow-up with Dr. Petty Thank you for this consultation. The impression and plan of care has been dictated as directed. Dr. Cole I performed a history and examination of this patient, discussed the same with the dictator. I agree with the dictator's note ,documented as a scribe. Any additional findings or plans will be noted.
[2022-08-13 11:08] LABS: Glucose,Whole Blood 245 mg/dL (70-110)
[2022-08-13 11:48] LABS: HCT 30.8 % (39.0-53.0); HGB 9.4 gm/dL (13.0-17.5); Hypochromasia Marked; MCH 29.4 pg (25.0-35.0); MCHC 30.6 g/dL (31.0-37.0); MCV 96.1 fL (80.0-100.0); Mean Platelet Volume 7.9; Platelet Count 316 k/uL (150-450); RBC 3.21 m/uL (4.30-5.90); RDW 14.1 % (11.5-15.5)
[2022-08-13 12:03] LABS: INR 1.1 (<1.2); Prothrombin Time 12.2 sec (9.0-12.0)
[2022-08-13 12:05] LABS: African American GFR (CKD) 78 (>60 ml/min/1.73 sqM); Anion Gap 10 mmol/L; Blood Urea Nitrogen 33 mg/dL (9-20); Calcium 8.5 mg/dL (8.4-10.2); Carbon Dioxide 29 mmol/L (22-30); Chloride 106 mmol/L (98-107); Glucose 225 mg/dL (74-99); Non-African American GFR(CKD) 67 (>60 ml/min/1.73 sqM); Potassium 3.9 mmol/L (3.5-5.1); Sodium 145 mmol/L (137-145)
[2022-08-13] MEDS: FLUTICASONE 50MCG/SPRAY NASAL 16GM EA NOSTRIL SCH ×2 (12:21→20:44)
--- NOTE | 2022-08-13 12:41 | P.PN ---
Subjective Patient is seen in follow-up for acute kidney injury. Creatinine was 3.1 admission and is 2.5-2.8 today. Admitted with bilateral foot wounds. On antibiotics. Noted to have urinary retention. Seen by urology. Patient agreed for urology Intervention and had Cross catheter with dorsal slit by urology. Urine appears to be bloody in the Cross bag. Comfortable. No complaints. Serum creatinine down to 1.0 Objective - Vital Signs Vital signs: Vital Signs Temp 98.4 F 08/13/22 02:00 Pulse 85 08/13/22 08:46 Resp 15 08/13/22 08:46 BP 111/60 08/13/22 08:00 Pulse Ox 92 L 08/13/22 08:00 FiO2 Intake & Output 08/12/22 08/13/22 08/13/22 18:59 06:59 18:59 Intake Total 500 740 Output Total 2223 1050 Balance -1723 -310 Intake: IV 500 Intake, IV Titration 500 Amount Dextrose 5% in Water 1, 500 000 ml @ 50 mls/hr IV . Q20H [facility] Rx#:[id number] Oral 240 Output: Urine 1950 1050 Uretheral (Cross) 1050 Post Void Residual 271 Estimated Blood Loss 2 Other: Voiding Method Indwelling Catheter Indwelling Catheter Indwelling Catheter - Exam Vital signs are stable. General: Awake. No acute distress. HEENT: Head exam is unremarkable. On nasal cannula. LUNGS: Breath sounds decreased. Basal crackles HEART: Rate and Rhythm are regular. ABDOMEN: Soft, no distention. EXTREMITITES: 2+ edema. - Labs CBC & Chem 7: 08/13/22 11:20 08/13/22 11:20 Labs: Abnormal Lab Results - Last 24 Hours (Table) 08/12/22 08/12/22 08/13/22 Range/Units 17:12 21:35 07:29 RBC (4.30-5.90) m/uL Hgb (13.0-17.5) gm/dL Hct (39.0-53.0) % MCHC (31.0-37.0) g/dL PT (9.0-12.0) sec BUN (9-20) mg/dL Glucose (74-99) mg/dL POC Glucose (mg/dL) 196 H 174 H 212 H (70-110) mg/dL 08/13/22 08/13/22 08/13/22 Range/Units 11:07 11:20 11:20 RBC 3.21 L (4.30-5.90) m/uL Hgb 9.4 L (13.0-17.5) gm/dL Hct 30.8 L (39.0-53.0) % MCHC 30.6 L (31.0-37.0) g/dL PT 12.2 H (9.0-12.0) sec BUN (9-20) mg/dL Glucose (74-99) mg/dL POC Glucose (mg/dL) 245 H (70-110) mg/dL 08/13/22 Range/Units 11:20 RBC (4.30-5.90) m/uL Hgb (13.0-17.5) gm/dL Hct (39.0-53.0) % MCHC (31.0-37.0) g/dL PT (9.0-12.0) sec BUN 33 H (9-20) mg/dL Glucose 225 H (74-99) mg/dL POC Glucose (mg/dL) (70-110) mg/dL Microbiology - Last 24 Hours (Table) 08/08/22 11:35 Gram Stain - Final Buttock Wound Culture - Final 08/12/22 14:18 Gram Stain - Preliminary Toe - Right Fifth Wound Culture - Preliminary 08/12/22 14:18 Anaerobic Culture - Preliminary Toe - Right Fifth 08/07/22 19:40 Blood Culture - Preliminary Blood No Growth after 120 hours 08/07/22 19:25 Blood Culture - Preliminary Blood No Growth after 120 hours 08/08/22 11:35 Anaerobic Culture - Final Foot - Left Assessment and Plan Assessment: 1. Acute kidney injury secondary to ATN secondary to infection and hypotension and urine retention. Creatinine was 3.2 on admission and is down to 1.0 today. Baseline creatinine near 1 from 07/16/2022. 2. Hyperkalemia secondary to acute kidney injury and RADHA inhibitor. Potassium 5.3 this morning. 3. 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 ID and vascular surgery following. Debridement pending. 4. Diabetes mellitus. 5. Metabolic acidosis secondary to acute kidney injury. 6. Benign hypertension. Controlled. 7. Urinary retention. Seen by urology. No hydronephrosis noted on kidney ultrasound. Right kidney not properly visualized. Cross catheter placed on 08/10/2022 by urology with a dorsal slit. On doxazosin. 8. Mild hypernatremia Plan: Continue with D5W Continue with Cross catheter Repeat labs in a.m.
--- NOTE | 2022-08-13 15:04 | P.PN ---
Subjective Progress Note Date: 08/13/22 86-year-old male came to hospital with complaints of unable tablet because of multiple bilateral foot wounds patient has a ganglion the right fifth toe which was a dry gangrene still appears to be dry gangrene but there may be an area of infection in between the fourth and fifth toes and patient has a mostly stage II ulcers in both the heels. Patient does take Keflex at home patient is found to be in acute renal failure with creatinine going up to 3.17, baseline is around 1. Patient doesn't have any fever. Patient does have elevated white blood cell count. Patient is bit hyponatremic with potassium of 1 prior 34 and the potassium was 5.8 on admission presently 5.6 be enough around 79. 08/09/2022 Patient resting in bed today. Pending vascular intervention regarding right fifth toe. Creatinine has improved today down to 2.54, potassium 5.3. Lokelma was given. INR 1.33. Patient refused urology procedure that would allow for insertion of plaza catheter secondary to retention. IV fluids are continued and continue monitoring for urinary retention. Cultures are all pending at this time. Continues on IV unasyn. Surgery planned tentatively for friday. 08/10/2022 Patient had issues with urinary retention yesterday and had opted to not undergo urinary catheter placement with urology. Today he is retaining over 1 liter of urine in his bladder. He is slightly confused today and also his creatinine has increased up to 2.81. Potassium has improved to 4.7. Patient continues on IV antibiotics int he form of IV ampicillin. Wound culture of buttock showing many gram negative bacilli as well as many gram positive cocci. Unable to finalize culture. Plan is for surgical removal of right 5th toe on friday with vascular services. Coumadin remains on hold for this and patient is on subcu heparin. Inflammatory markers are elevated, ESR 119, C-RP 18.2. Plan is to receive an indwelling catheter today placed by urology. Will repeat labs tomorrow and monitor for improvement in kidney function. 08/11/2022 Patient monitored resting in bed today. He is alert x 2 and has some confusion and also has some visual hallucinations. He did have indwelling catheter placed yesterday secondary to urinary retention and required dorsal slit which there are some sutures in place. There is some hematuria which is expected and will be monitored. He continues off coumadin at this time for possible vascular surgery tomorrow. Otherwise his creatinine has improved today down to 2.1 which he did have about 2.3 Liters of urinary retention. Sodium 139, potassium 4.4. Blood glucose in the 190s, calcium 8.3. Right foot culture showing group B strep algalactiae. Antibiotics in the form of IV ampicillin-sulbactam and infectious disease is following. Nursing reports some difficulty breathing throughout the n ight and chest xray performed showing atelectasis left lung base. No obvious heart failure noted. Lungs are clear on exam and IV fluids to be continued. 08/12/2022 Patient is resting in bed today. Alert x 2 continues with confusion and he does state he feels confused. He had brain CT done showing moderate cerebral atrophy without acute stroke or hemorrhage. This is most likely an acute delirium. Kidney function has improved today with BUN of 53 and creatinine of 1.29. Sodium 146, Blood glucose 230s which insulin was increased. Continues off coumadin and on subcu heparin. White count 9.0 and hemoglobin of 9.1 today which is stable. Nephrology adjusted IV fluids. He continues with hematuria. Patient is scheduled for bilateral foot debridement right 5th toe amputation today. Would like to c heck a chest xray as patient dose have low oxygen sats. 08/13/2022 Patient is evaluated today postoperative day #1 for surgical debridement and right 5th toe amputation. he has complaints of tenderness to the right foot. He did have some complaints of chest pain earlier this morning which EKG was obtained and after review EKG is unchanged from admission EKG showing atrial paced rhythm. Troponin will be checked. INR 1.1 today and vascular surgery has cleared patient to be resumed on coumadin. Infectious disease following cultures currently on IV ampicillin/sulbactam every 8 hours. Mentation has improved slightly from yesterday he is alert x 1-2. Chest xray showing cleared of atelectasis left lung base. Today his sodium is 145, BUN 33, creatinine 1.02. Review of Systems Constitutional: Reports some fatigue denied any fever. Cardio vascular: denied any chest pain, palpitations Gastrointestinal: denied any nausea, vomiting, diarrhea Pulmonary: Reports some shortness of breath, no cough Neurologic denied any new focal deficits reports confusion All inpatient medications were reviewed and appropriate changes in these medications as dictated in the interval history and assessment and plan. PHYSICAL EXAMINATION: GENERAL: The patient is alert and oriented x1-2 today, not in any acute distress. Fatigued today. Slightly confused. Well developed, well nourished. Obese. HEENT: Pupils are round and equally reacting to light. EOMI. No scleral icterus. No conjunctival pallor. Normocephalic, atraumatic. No pharyngeal erythema. No thyromegaly. CARDIOVASCULAR: S1 and S2 present. No murmurs, rubs, or gallops. PULMONARY: Chest is clear to auscultation, no wheezing or crackles. ABDOMEN: Soft, nontender, nondistended, normoactive bowel sounds. No palpable organomegaly. MUSCULOSKELETAL: No joint swelling or deformity. EXTREMITIES: No cyanosis, clubbing, or pedal edema. NEUROLOGICAL: Gross neurological examination did not reveal any focal deficits. Does have generalized weakness SKIN: stage II ulcers in both heels. Refugio bandages were intact. Assessment and plan -Gangrene and right foot infection multiple ulcerations: Cultures will be obtained antiobiotics were changed to IV ampicillin/sulbactam and infectious disease is following the patient. Patient is postoperative surgical debridement of right heel wound and also right fifth toe amputation and deep wound and tis torri cultures. -Acute renal failure probably secondary to acute tubular necrosis from sepsis that may be a competent to prerenal continue with IV fluids nephrology following, IV fluids have been cut back, patient does have some urinary retention which urology has placed an indwelling catheter and he continues with hematuria which is expected to improve. Creatinine today is 1.29 -Altered mental status secondary to acute metabolic and toxic encephalopathy secondary to acute renal failure, and possible sepsis from wounds. Brain CT negative for acute. -Hypokalemia secondary to acute renal failure, REFUGIO inhibitor will be held -Hypotension: Secondary to infection, hold off antihypertensive medications, blood pressure improving. -hypervolemic hyponatremia: improved with IV fluids -History of atrial fibrillation patient is presently rate controlled, resumed on low dose metoprolol -Supratherapeutic INR which has improved with vitamin K, current INR 1.1 and patient has been resumed on coumadin postoperatively -Coronary artery disease -type 2 diabetes mellitus: Hold off on on home oral regimen as well as long- acting insulins continue with sliding scale patient blood sugars in the low normal side -Diabetic peripheral neuropathy cut down the dose of gabapentin because of acute renal failure -Hyperlipidemia -hypertension -Sleep apnea for which patient uses CPAP machine at home DVT prophylaxis: Contine on subcu heparin, coumadin resumed today INR 1.1 GI Prophylaxis: Pepcid No Code The impression and plan of care has been dictated by Chrissie Costa, Nurse Practitioner as directed. Dr. Katina MD I have performed a history and physical examination and medical decision making of this patient, discussed the same with the dictator, and agree with the dictators assessment and plan as written, documented as a scribe. Based on total visit time, I have performed more than 50% of this visit. Objective - Vital Signs Vital signs: Vital Signs Temp 98.4 F 08/13/22 02:00 Pulse 85 08/13/22 08:46 Resp 15 08/13/22 08:46 BP 111/60 08/13/22 08:00 Pulse Ox 92 L 08/13/22 08:00 FiO2 Intake & Output 08/12/22 08/13/22 08/13/22 18:59 06:59 18:59 Intake Total 500 740 Output Total 2223 1050 Balance -1723 -310 Intake: IV 500 Intake, IV Titration 500 Amount Dextrose 5% in Water 1, 500 000 ml @ 50 mls/hr IV . Q20H [facility] Rx#:[id number] Oral 240 Output: Urine 1950 1050 Uretheral (Plaza) 1050 Post Void Residual 271 Estimated Blood Loss 2 Other: Voiding Method Indwelling Catheter Indwelling Catheter Indwelling Catheter - Labs CBC & Chem 7: 08/13/22 11:20 08/13/22 11:20 Labs: Abnormal Lab Results - Last 24 Hours (Table) 08/12/22 08/12/22 08/12/22 Range/Units 11:34 17:12 21:35 POC Glucose (mg/dL) 234 H 196 H 174 H (70-110) mg/dL 08/13/22 Range/Units 07:29 POC Glucose (mg/dL) 212 H (70-110) mg/dL Microbiology - Last 24 Hours (Table) 08/12/22 14:18 Gram Stain - Preliminary Toe - Right Fifth Wound Culture - Preliminary 08/12/22 14:18 Anaerobic Culture - Preliminary Toe - Right Fifth 08/07/22 19:40 Blood Culture - Preliminary Blood No Growth after 120 hours 08/07/22 19:25 Blood Culture - Preliminary Blood No Growth after 120 hours 08/08/22 11:35 Anaerobic Culture - Final Foot - Left Assessment and Plan Time with Patient: Less than 30
[2022-08-13 16:46] LABS: Glucose,Whole Blood 163 mg/dL (70-110)
[2022-08-13] MEDS ORDERED: WARFARIN 3 MG TAB PO ONE (18:00)
[2022-08-13] MEDS: METOPROLOL TARTRATE 12.5 MG TAB PO SCH (20:42)
[2022-08-13] MEDS: FAMOTIDINE 20 MG TAB PO SCH (20:43)
[2022-08-13] MEDS: LEVOTHYROXINE 125 MCG TAB PO SCH (20:43)
[2022-08-13] MEDS: ASPIRIN 81 MG PO SCH (20:43)
[2022-08-13] MEDS: ATORVASTATIN 40 MG TAB PO SCH (20:43)
[2022-08-13 20:48] LABS: Glucose,Whole Blood 165 mg/dL (70-110)
[2022-08-13] MEDS: INSULIN DETEMIR (LEVEMIR) 100 UNIT/ML SYR SQ SCH (20:55)
[2022-08-14] MEDS: DEXTROSE 5% IN WATER 1,000 ML IV SCH ×2 (03:35→23:30)
[2022-08-14 06:39] LABS: Glucose,Whole Blood 124 mg/dL (70-110)
[2022-08-14] MEDS: INSULIN ASPART (NovoLOG) 100 UNIT/ML VIAL SQ SCH ×7 (07:25→21:01)
[2022-08-14] MEDS: METOPROLOL TARTRATE 12.5 MG TAB PO SCH ×2 (07:30→20:15)
[2022-08-14] MEDS: FINASTERIDE 5 MG TAB PO SCH (07:30)
[2022-08-14] MEDS: GABAPENTIN 100 MG CAP PO SCH ×2 (07:30→20:15)
[2022-08-14] MEDS: RANOLAZINE 500 MG TAB.ER.12H PO SCH ×2 (07:31→20:15)
[2022-08-14] MEDS: AMPICILLIN-SULBACTAM 3 GM in SODIUM CHLORIDE 0.9% 100 ML IVPB SCH ×3 (07:31→23:30)
[2022-08-14] MEDS: HEPARIN SODIUM,PORCINE/PF 5,000 UNIT/0.5 ML SYRINGE SQ SCH ×3 (07:31→23:31)
[2022-08-14] MEDS: DOXAZOSIN 2 MG TAB PO SCH (07:31)
[2022-08-14] MEDS: FLUTICASONE 50MCG/SPRAY NASAL 16GM EA NOSTRIL SCH ×2 (07:32→20:16)
--- NOTE | 2022-08-14 08:37 | P.CRDCN ---
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 He follows in the office with Dr. Gilman. We have been asked to see in consultation for elevated troponin. Patient presents emergency department on 08/07/2022 with acute renal failure, hyperkalemia, supratherapeutic INR and gangrene on the right fifth toe. He underwent right fifth toe amputation and excisional debridement of right heel wound with Dr. Cole on 08/12/2022. Nephrology has following as well and his renal function has improved. There was some concern for possible changes telemetry. However, patient has a pacemaker, unclear of the changes. Troponins were drawn and minimally elevated at 0.39 x 2. Patient seen and examined at bedside, no acute distress. He denies any chest pain, shortness of breath, palpitations, lightheadedness or dizziness. Sitting up in breakfast feeling well, no complaints. Vital signs are stable, renal function improving, remains afebrile. DIAGNOSTICS * EKG reveals atrial ventricular paced. * Telemetry tracings indicate Atrial and Ventricular paced rhythm * Recent echocardiogram 07/15/2022 revealed an EF of 4550 percent, moderate concentric LVH, mild mitral regurgitation, mild tricuspid regurgitation, and inferior apical hypokinesis. * Laboratory reviewed, troponin 0.392, WBC 8.0, hemoglobin 9.4, platelets 316, sodium 145, potassium 3.9, BUN 33, serum creatinine 1.02 * Current home cardiac medications include Coumadin, aspirin 81 mg daily, atorvastatin 40 mg daily, amlodipine 5 mg daily, atenolol 50 mg twice a day, Imdur 120 mg twice a day, Ranexa 500 mg twice a day, PRN nitro * Most recent cardiac catheterization 12/2016 which revealed left main patent stent without any evidence of restenosis, ostial stenosis of 90%, circumflex coronary artery is codominant and distribution gives rise to a good size PLV branch is normal. Maximal medical therapy was recommended REVIEW OF SYSTEMS At the time of my exam: CONSTITUTIONAL: Denies fever or chills. CARDIOVASCULAR: Denies chest pain, shortness of breath, orthopnea, PND or palpitations. RESPIRATORY: Denies cough. GASTROINTESTINAL: Denies abdominal pain, diarrhea, constipation, nausea or vomiting. MUSCULOSKELETAL: Denies myalgias. NEUROLOGIC: Denies numbness, tingling, headacbe or weakness. ENDOCRINE: Denies fatigue, weight change, polydipsia or polyurina. GENITOURINARY: Denies burning, hematuria or urgency with micturation. HEMATOLOGIC: Denies history of anemia or bleeding. PHYSICAL EXAMINATION Blood pressure 115/77, heart rate 72, afebrile, oxygen saturation is 97% on 3 L nasal cannula CONSTITUTIONAL: No apparent distress. HEENT: Head is normocephalic. Pupils are equal, round. Sclerae anicteric. Mucous membranes of the mouth are moist. No JVD. No carotid bruit. CHEST EXAMINATION: Lungs are clear to auscultation. No chest wall tenderness is noted on palpation or with deep breathing. HEART EXAMINATION: Regular rate and rhythm. S1, S2 heard. No murmurs, gallops or rub. ABDOMEN: Soft, nontender. Positive bowel sounds. EXTREMITIES: 2+ peripheral pulses, no lower extremity edema, lower extremity dressings intact, Mediboots present. No calf tenderness. NEUROLOGIC EXAMINATION: Patient is awake, alert and oriented x3. 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 If no acute findings on echocardiogram, no further workup from a cardiology perspective Continue home cardiac medications Monitor INR On discharge, patient to follow up with Dr. Gilman outpatient Nurse practitioner note has been reviewed by physician. Signing provider agrees with the documented findings, assessment, and plan of care. Past Medical History Past Medical History: Atrial Fibrillation, Coronary Artery Disease (CAD), Chest Pain / Angina, Diabetes Mellitus, Eye Disorder, Hyperlipidemia, Hypertension, Myocardial Infarction (NE), Osteoarthritis (OA), Sleep Apnea/CPAP/BIPAP Additional Past Medical History / Comment(s): MIs, CPAP use, IDDM type II, bradycardia with pacer, tinnitis bilaterally, non healing wound on rt foot side of little toe and in between the 2 toes. arthritis lower back. left eye blind Last Myocardial Infarction Date:: 07/02/16 History of Any Multi-Drug Resistant Organisms: None Reported Past Surgical History: Coronary Bypass/CABG, Heart Catheterization With Stent, Orthopedic Surgery, Pacemaker Additional Past Surgical History / Comment(s): 1990 cabg-1 vessel, PTCA, PCI with stents (4 total), sinus surgery r/t growth sinus cavity, colonoscopy, L knee arthroscopy, bilateral cataract removals. [employer] pacemaker Past Anesthesia/Blood Transfusion Reactions: No Reported Reaction Date of Last Stent Placement:: 12/17/16 Type of Cardiac Device: Permanent Pacemaker Device Placement Date:: 11/05/16 Past Psychological History: No Psychological Hx Reported Smoking Status: Former smoker Past Alcohol Use History: None Reported - Past Family History Mother Family Medical History: Asthma Father Family Medical History: Myocardial Infarction (NE) Additional Family Medical History / Comment(s): with NE at age 62 Brother(s) Family Medical History: Deep Vein Thrombosis (DVT), Myocardial Infarction (NE) Additional Family Medical History / Comment(s): at age 42 w/ NE Medications and Allergies Home Medications Medication Instructions Recorded Confirmed Type Doxazosin [Cardura] 2 mg PO DAILY 07/10/16 08/07/22 History Multivitamins, Thera [Multivitamin 1 tab PO DAILY 07/10/16 08/07/22 History (formulary)] glipiZIDE [Glipizide] 5 mg PO DAILY@0600 07/10/16 08/07/22 History Atorvastatin [Lipitor] 40 mg PO HS #30 tab 12/18/16 08/07/22 Rx Nitroglycerin Sl Tabs [Nitrostat] 0.4 mg SUBLINGUAL Q5M PRN #0 tab 12/26/16 08/07/22 Rx Azelastine/Fluticasone 2 spray EA NOSTRIL BID 07/12/22 08/07/22 History [Azelastin-Flutic 137-50Mcg Spr] Ferrous Sulfate [Feosol] 325 mg PO Q48H 07/12/22 08/07/22 History Finasteride [Proscar] 5 mg PO DAILY 07/12/22 08/07/22 History Levothyroxine Sodium [Synthroid] 112 mcg PO MOTH@2100 07/12/22 08/07/22 History Ranolazine [Ranexa] 500 mg PO BID 07/12/22 08/07/22 History Aspirin EC [Ecotrin Low Dose] 81 mg PO HS 07/14/22 08/07/22 History Cholecalciferol [Vitamin D3 (25 50 mcg PO HS 07/14/22 08/07/22 History Mcg = 1000 Iu)] amLODIPine [Norvasc] 5 mg PO HS 07/14/22 08/07/22 History atenoloL [Tenormin] 50 mg PO BID tab 07/17/22 08/07/22 Rx captopriL [Capoten] 12.5 mg PO BID tab 07/17/22 08/07/22 Rx Cephalexin [Keflex] 500 mg PO TID@0900,1300,2100 08/07/22 08/07/22 History Gabapentin 300 mg PO TID@0600,1300,2100 08/07/22 08/07/22 History Glucerna Shake 1 can PO BID@0900,1700 08/07/22 08/07/22 History Insulin Glargine-Yfgn [Semglee 20 units SQ HS 08/07/22 08/07/22 History (Yfgn) Pen] Insulin Lispro [humaLOG Kwikpen] See Protocol SQ AC-TID 08/07/22 08/07/22 History Isosorbide Mononitrate [Imdur] 120 mg PO BID 08/07/22 08/07/22 History Levothyroxine Sodium [Synthroid] 125 mcg PO SUTUWEFRSA@2100 08/07/22 08/07/22 History Warfarin [Coumadin] 3 mg PO DIRECTED 08/07/22 08/07/22 History Allergies Allergy/AdvReac Type Severity Reaction Status Date / Time No Known Allergies Allergy Verified 08/12/22 13:22 Physical Exam Vitals: Vital Signs Temp Pulse Pulse Resp BP Pulse Ox 08/14/22 01:51 98.6 F 72 17 158/77 97 08/13/22 19:24 99.4 F 87 17 123/68 100 08/13/22 14:00 98.4 F 78 16 150/69 97 08/13/22 08:46 85 15 Intake and Output 08/13/22 08/14/22 08/14/22 22:59 06:59 14:59 Intake Total 1080 Output Total 1400 766 Balance -1400 314 Intake: Intake, IV Titration 600 Amount Dextrose 5% in Water 1, 600 000 ml @ 50 mls/hr IV . Q20H [facility] Rx#:[id number] Oral 480 Output: Urine 1400 550 Uretheral (Cross) 550 Post Void Residual 216 Other: Voiding Method Indwelling Catheter Results 08/13/22 11:20 08/13/22 11:20 Cardiac Enzymes 08/13/22 08/13/22 Range/Units 14:05 15:58 Troponin I 0.397 H* 0.391 H* (0.000-0.034) ng/mL Coagulation 08/13/22 Range/Units 11:20 PT 12.2 H (9.0-12.0) sec CBC 08/13/22 Range/Units 11:20 WBC 8.0 (3.8-10.6) k/uL RBC 3.21 L (4.30-5.90) m/uL Hgb 9.4 L (13.0-17.5) gm/dL Hct 30.8 L (39.0-53.0) % Plt Count 316 (150-450) k/uL Comprehensive Metabolic Panel 08/13/22 Range/Units 11:20 Sodium 145 (137-145) mmol/L Potassium 3.9 (3.5-5.1) mmol/L Chloride 106 (98-107) mmol/L Carbon Dioxide 29 (22-30) mmol/L BUN 33 H (9-20) mg/dL Creatinine 1.02 (0.66-1.25) mg/dL Glucose 225 H (74-99) mg/dL Calcium 8.5 (8.4-10.2) mg/dL Current Medications Generic Name Dose Route Start Last Admin Trade Name Freq PRN Reason Stop Dose Admin Aspirin 81 mg 08/08/22 21:00 08/13/22 20:43 Aspirin 81 Mg PO 81 mg HS ROBERT Administration Atorvastatin Calcium 40 mg 08/08/22 21:00 08/13/22 20:43 Atorvastatin 40 Mg Tab PO 40 mg HS ROBERT Administration Dextrose/Water 25 ml 08/08/22 17:54 Dextrose 50% Syringe 50 Ml IVP PER PROTOCOL PRN Hypoglycemia Protocol Dextrose/Water 50 ml 08/08/22 17:54 Dextrose 50% Syringe 50 Ml IVP PER PROTOCOL PRN Hypoglycemia Protocol Doxazosin Mesylate 2 mg 08/09/22 09:00 08/14/22 07:31 Doxazosin 2 Mg Tab PO 2 mg DAILY ROBERT Administration Famotidine 20 mg 08/09/22 21:00 08/13/22 20:43 Famotidine 20 Mg Tab PO 20 mg HS ROBERT Administration Finasteride 5 mg 08/09/22 09:00 08/14/22 07:30 Finasteride 5 Mg Tab PO 5 mg DAILY ROBERT Administration Fluticasone Propionate 2 spray 08/08/22 21:00 08/14/22 07:32 Fluticasone 50mcg/[place] Nasal 16gm EA NOSTRIL 2 spray BID ROBERT Administration Gabapentin 100 mg 08/08/22 21:00 08/14/22 07:30 Gabapentin 100 Mg Cap PO 100 mg BID ROBERT Administration Heparin Sodium (Porcine) 5,000 unit 08/10/22 08:00 08/14/22 07:31 Heparin Sodium,Porcine/Pf 5,000 Unit/0.5 Ml Syringe SQ 5,000 unit Q8HR ROBERT Administration Dextrose/Water 1,000 mls @ 50 mls/hr 08/12/22 10:15 08/14/22 03:35 Dextrose 5%-Water Iv Soln IV Not Given .Q20H ROBERT Ampicillin Sodium/Sulbactam 100 mls @ 200 mls/hr 08/12/22 16:00 08/14/22 07:31 Sodium 3 gm/ Sodium Chloride IVPB 200 mls/hr Q8HR ROBERT Administration Protocol Insulin Aspart 0 unit 08/08/22 17:55 08/14/22 07:25 Insulin Aspart (Novolog) 100 Unit/Ml Vial SQ Not Given ACHS [facility] Protocol Insulin Aspart 5 unit 08/13/22 17:30 08/14/22 07:31 Insulin Aspart (Novolog) 100 Unit/Ml Vial SQ 5 unit AC-TID ROBERT Administration Insulin Detemir 25 unit 08/13/22 21:00 08/13/22 20:55 Insulin Detemir (Levemir) 100 Unit/Ml Syr SQ 25 unit HS ROBERT Administration Levothyroxine Sodium 112 mcg 08/08/22 21:00 08/12/22 20:43 Levothyroxine 112 Mcg Tab PO 112 mcg MOTH@2100 ROBERT Administration Levothyroxine Sodium 125 mcg 08/09/22 21:00 08/13/22 20:43 Levothyroxine 125 Mcg Tab PO 125 mcg SUTUWEFRSA@2100 ROBERT Administration Metoprolol Tartrate 12.5 mg 08/13/22 21:00 08/14/22 07:30 Metoprolol Tartrate 12.5 Mg Tab PO 12.5 mg BID ROBERT Administration Miscellaneous Information 1 each 08/13/22 12:44 Warfarin Per Pharmacy MISCELLANE DIRECTED PRN Per Protocol Protocol Naloxone HCl 0.2 mg 08/07/22 22:04 Naloxone 0.4 Mg/Ml 1 Ml Vial IV Q2M PRN Opioid Reversal Nitroglycerin 0.4 mg 08/08/22 11:31 Nitroglycerin Sl Tabs 0.4 Mg Tab SUBLINGUAL Q5M PRN Chest Pain Ranolazine 500 mg 08/08/22 21:00 08/14/22 07:31 Ranolazine 500 Mg Tab.Er.12h PO 500 mg BID ROBERT Administration Intake and Output 08/13/22 08/14/22 08/14/22 22:59 06:59 14:59 Intake Total 1080 Output Total 1400 766 Balance -1400 314 Intake: Intake, IV Titration 600 Amount Dextrose 5% in Water 1, 600 000 ml @ 50 mls/hr IV . Q20H [facility] Rx#:[id number] Oral 480 Output: Urine 1400 550 Uretheral (Cross) 550 Post Void Residual 216 Other: Voiding Method Indwelling Catheter 08/13/22 11:20 08/13/22 11:20
[2022-08-14 10:58] LABS: INR 1.31 (0.90-1.11); Prothrombin Time 14.2 sec (9.9-11.9)
--- NOTE | 2022-08-14 11:27 | P.PN ---
Subjective Patient is seen in follow-up for acute kidney injury. Creatinine was 3.1 admission and is 2.5-2.8 today. Admitted with bilateral foot wounds. On antibiotics. Noted to have urinary retention. Seen by urology. Patient agreed for urology Intervention and had Cross catheter with dorsal slit by urology. Urine appears to be bloody in the Cross bag. Comfortable. No complaints. Serum creatinine down to 1.0 Objective - Vital Signs Vital signs: Vital Signs Temp 98.9 F 08/14/22 08:56 Pulse 73 08/14/22 08:56 Resp 16 08/14/22 08:56 BP 135/74 08/14/22 08:56 Pulse Ox 96 08/14/22 08:56 FiO2 Intake & Output 08/13/22 08/14/22 08/14/22 18:59 06:59 18:59 Intake Total 1080 Output Total 1400 766 Balance -1400 314 Weight 109.316 kg Intake: Intake, IV Titration 600 Amount Dextrose 5% in Water 1, 600 000 ml @ 50 mls/hr IV . Q20H [facility] Rx#:[id number] Oral 480 Output: Urine 1400 550 Uretheral (Cross) 550 Post Void Residual 216 Other: Voiding Method Indwelling Catheter Indwelling Catheter - Exam Vital signs are stable. General: Awake. No acute distress. HEENT: Head exam is unremarkable. On nasal cannula. LUNGS: Breath sounds decreased. Basal crackles HEART: Rate and Rhythm are regular. ABDOMEN: Soft, no distention. EXTREMITITES: 2+ edema. - Labs CBC & Chem 7: 08/13/22 11:20 08/13/22 11:20 Labs: Abnormal Lab Results - Last 24 Hours (Table) 08/13/22 08/13/22 08/13/22 Range/Units 11:20 11:20 11:20 RBC 3.21 L (4.30-5.90) m/uL Hgb 9.4 L (13.0-17.5) gm/dL Hct 30.8 L (39.0-53.0) % MCHC 30.6 L (31.0-37.0) g/dL PT 12.2 H (9.0-12.0) sec INR (0.90-1.11) BUN 33 H (9-20) mg/dL Glucose 225 H (74-99) mg/dL POC Glucose (mg/dL) (70-110) mg/dL Troponin I (0.000-0.034) ng/mL 08/13/22 08/13/22 08/13/22 Range/Units 14:05 15:58 16:45 RBC (4.30-5.90) m/uL Hgb (13.0-17.5) gm/dL Hct (39.0-53.0) % MCHC (31.0-37.0) g/dL PT (9.0-12.0) sec INR (0.90-1.11) BUN (9-20) mg/dL Glucose (74-99) mg/dL POC Glucose (mg/dL) 163 H (70-110) mg/dL Troponin I 0.397 H* 0.391 H* (0.000-0.034) ng/mL 08/13/22 08/14/22 08/14/22 Range/Units 20:46 06:38 07:12 RBC (4.30-5.90) m/uL Hgb (13.0-17.5) gm/dL Hct (39.0-53.0) % MCHC (31.0-37.0) g/dL PT 14.2 H (9.0-12.0) sec INR 1.31 H (0.90-1.11) BUN (9-20) mg/dL Glucose (74-99) mg/dL POC Glucose (mg/dL) 165 H 124 H (70-110) mg/dL Troponin I (0.000-0.034) ng/mL Microbiology - Last 24 Hours (Table) 08/07/22 19:40 Blood Culture - Final Blood No Growth after 144 hours 08/07/22 19:25 Blood Culture - Final Blood No Growth after 144 hours 08/08/22 11:35 Anaerobic Culture - Final Foot - Right Anaerobic Gm Negative Bacilli Anaerobic Gram Positive Cocci 08/08/22 11:35 Gram Stain - Final Buttock Wound Culture - Final 08/12/22 14:18 Gram Stain - Preliminary Toe - Right Fifth Wound Culture - Preliminary Assessment and Plan Assessment: 1. Acute kidney injury secondary to ATN secondary to infection and hypotension and urine retention. Creatinine was 3.2 on admission and is down to 1.0 today. Baseline creatinine near 1 from 07/16/2022. 2. Hyperkalemia secondary to acute kidney injury and RADHA inhibitor. 3. 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 ID and vascular surgery following. 4. Diabetes mellitus. 5. Metabolic acidosis secondary to acute kidney injury. 6. Benign hypertension. Controlled. 7. Urinary retention. Seen by urology. No hydronephrosis noted on kidney ultrasound. Right kidney not properly visualized. Cross catheter placed on 08/10/2022 by urology with a dorsal slit. On doxazosin. 8. Mild hypernatremia Plan: Encourage increased free water intake Continue with Cross catheter Repeat labs
[2022-08-14 11:54] LABS: Glucose,Whole Blood 179 mg/dL (70-110)
--- NOTE | 2022-08-14 12:00 | CA ---
Transthoracic Echo Report Name: Jay Elizabeth Age: 86 Gender: M : 1935 Exam Date: 08/14/2022 09:29 Exam Location: [place] [facility] Ht (in): 60 Wt (lb): 241 Ordering Physician: Nimco Suarez Attending/Referring Phys: Keith Gilman MD ([id number]) [place] Johana Cooper RDCS Procedure CPT: Indications: Repeat for LV function and wall motion abnormaliti Cardiac Hx: Technical Quality: Very technically difficult study Contrast 1: Lumason Total Dose (mL): 4 Contrast 2: Total Dose (mL): MEASUREMENTS (Male / Female) Normal Values FINDINGS Left Ventricle Left ventricular ejection fraction is estimated at 30-35 %. Right Ventricle Normal right ventricular size and function. Right Atrium Right atrium not well visualized. Left Atrium Normal left atrial size. Mitral Valve Structurally normal mitral valve. Aortic Valve Aortic valve not well visualized. Tricuspid Valve Tricuspid valve not well visualized. Pulmonic Valve Pulmonic valve not well visualized. Pericardium Normal pericardium. Aorta CONCLUSIONS Moderate to severe LV dysfunction with an ejection fraction of 30-35% Previewed by: Dr. Marvel Stuart MD (Electronically Signed) Final Date: 14 August 2022 11:59
--- NOTE | 2022-08-14 12:35 | P.PN ---
Subjective Progress Note Date: 08/14/22 Patient is seen and examined today as a follow-up. He is postop day #2 for right fifth toe amputation and heel debridement. Overall his pain is well managed. Yesterday he had some EKG changes, he had elevated troponin. Cardiology is following. Currently denies any chest pain or shortness of breath. He is afebrile. Objective - Vital Signs Vital signs: Vital Signs Temp 98.6 F 08/14/22 01:51 Pulse 72 08/14/22 01:51 Resp 17 08/14/22 01:51 BP 158/77 08/14/22 01:51 Pulse Ox 97 08/14/22 01:51 FiO2 Intake & Output 08/13/22 08/14/22 08/14/22 18:59 06:59 18:59 Intake Total 1080 Output Total 1400 766 Balance -1400 314 Weight 109.316 kg Intake: Intake, IV Titration 600 Amount Dextrose 5% in Water 1, 600 000 ml @ 50 mls/hr IV . Q20H [facility] Rx#:[id number] Oral 480 Output: Urine 1400 550 Uretheral (Cross) 550 Post Void Residual 216 Other: Voiding Method Indwelling Catheter Indwelling Catheter - Exam General appearance: The patient is alert, appears in no acute distress. HET: Head is normocephalic and atraumatic. Neck: Supple without lymphadenopathy. Trachea midline. Extremities: Left heel with pressure ulcer, without any drainage or redness. Right fifth toe amputation site with sutures and open with small amount of bleeding. Right heel pressure ulcer, status post debridement Neurological: Alert, somewhat confused. - Labs CBC & Chem 7: 08/13/22 11:20 08/13/22 11:20 Labs: Abnormal Lab Results - Last 24 Hours (Table) 08/13/22 08/13/22 08/13/22 Range/Units 11:07 11: 11:20 RBC 3.21 L (4.30-5.90) m/uL Hgb 9.4 L (13.0-17.5) gm/dL Hct 30.8 L (39.0-53.0) % MCHC 30.6 L (31.0-37.0) g/dL PT 12.2 H (9.0-12.0) sec BUN (9-20) mg/dL Glucose (74-99) mg/dL POC Glucose (mg/dL) 245 H (70-110) mg/dL Troponin I (0.000-0.034) ng/mL 08/13/22 08/13/22 08/13/22 Range/Units 11:20 14:05 15:58 RBC (4.30-5.90) m/uL Hgb (13.0-17.5) gm/dL Hct (39.0-53.0) % MCHC (31.0-37.0) g/dL PT (9.0-12.0) sec BUN 33 H (9-20) mg/dL Glucose 225 H (74-99) mg/dL POC Glucose (mg/dL) (70-110) mg/dL Troponin I 0.397 H* 0.391 H* (0.000-0.034) ng/mL 08/13/22 08/13/22 08/14/22 Range/Units 16:45 20:46 06:38 RBC (4.30-5.90) m/uL Hgb (13.0-17.5) gm/dL Hct (39.0-53.0) % MCHC (31.0-37.0) g/dL PT (9.0-12.0) sec BUN (9-20) mg/dL Glucose (74-99) mg/dL POC Glucose (mg/dL) 163 H 165 H 124 H (70-110) mg/dL Troponin I (0.000-0.034) ng/mL Microbiology - Last 24 Hours (Table) 08/07/22 19:40 Blood Culture - Final Blood No Growth after 144 hours 08/07/22 19:25 Blood Culture - Final Blood No Growth after 144 hours 08/08/22 11:35 Anaerobic Culture - Final Foot - Right Anaerobic Gm Negative Bacilli Anaerobic Gram Positive Cocci 08/08/22 11:35 Gram Stain - Final Buttock Wound Culture - Final 08/12/22 14:18 Gram Stain - Preliminary Toe - Right Fifth Wound Culture - Preliminary Assessment and Plan Assessment: 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 Continue local wound care for bilateral heel pressure ulcers from infectious disease 2. Continue IV antibiotics per recommendations from infectious disease 3. Physical therapy 4. Apply wound VAC as ordered to right fifth toe amputation site. Change Friday 5. Patient to follow-up with Dr. Petty Thank you for this consultation. The impression and plan of care has been dictated as directed. Dr. Cross I performed a history and examination of this patient, discussed the same with the dictator. I agree with the dictator's note ,documented as a scribe. Any additional findings or plans will be noted.
[2022-08-14] MEDS ORDERED: ACETAMINOPHEN TAB 325 MG TAB PO PRN (14:18)
--- NOTE | 2022-08-14 14:37 | P.PN ---
Subjective Progress Note Date: 08/14/22 86-year-old male came to hospital with complaints of unable tablet because of multiple bilateral foot wounds patient has a ganglion the right fifth toe which was a dry gangrene still appears to be dry gangrene but there may be an area of infection in between the fourth and fifth toes and patient has a mostly stage II ulcers in both the heels. Patient does take Keflex at home patient is found to be in acute renal failure with creatinine going up to 3.17, baseline is around 1. Patient doesn't have any fever. Patient does have elevated white blood cell count. Patient is bit hyponatremic with potassium of 1 prior 34 and the potassium was 5.8 on admission presently 5.6 be enough around 79. 08/09/2022 Patient resting in bed today. Pending vascular intervention regarding right fifth toe. Creatinine has improved today down to 2.54, potassium 5.3. Lokelma was given. INR 1.33. Patient refused urology procedure that would allow for insertion of plaza catheter secondary to retention. IV fluids are continued and continue monitoring for urinary retention. Cultures are all pending at this time. Continues on IV unasyn. Surgery planned tentatively for friday. 08/10/2022 Patient had issues with urinary retention yesterday and had opted to not undergo urinary catheter placement with urology. Today he is retaining over 1 liter of urine in his bladder. He is slightly confused today and also his creatinine has increased up to 2.81. Potassium has improved to 4.7. Patient continues on IV antibiotics int he form of IV ampicillin. Wound culture of buttock showing many gram negative bacilli as well as many gram positive cocci. Unable to finalize culture. Plan is for surgical removal of right 5th toe on friday with vascular services. Coumadin remains on hold for this and patient is on subcu heparin. Inflammatory markers are elevated, ESR 119, C-RP 18.2. Plan is to receive an indwelling catheter today placed by urology. Will repeat labs tomorrow and monitor for improvement in kidney function. 08/11/2022 Patient monitored resting in bed today. He is alert x 2 and has some confusion and also has some visual hallucinations. He did have indwelling catheter placed yesterday secondary to urinary retention and required dorsal slit which there are some sutures in place. There is some hematuria which is expected and will be monitored. He continues off coumadin at this time for possible vascular surgery tomorrow. Otherwise his creatinine has improved today down to 2.1 which he did have about 2.3 Liters of urinary retention. Sodium 139, potassium 4.4. Blood glucose in the 190s, calcium 8.3. Right foot culture showing group B strep algalactiae. Antibiotics in the form of IV ampicillin-sulbactam and infectious disease is following. Nursing reports some difficulty breathing throughout the n ight and chest xray performed showing atelectasis left lung base. No obvious heart failure noted. Lungs are clear on exam and IV fluids to be continued. 08/12/2022 Patient is resting in bed today. Alert x 2 continues with confusion and he does state he feels confused. He had brain CT done showing moderate cerebral atrophy without acute stroke or hemorrhage. This is most likely an acute delirium. Kidney function has improved today with BUN of 53 and creatinine of 1.29. Sodium 146, Blood glucose 230s which insulin was increased. Continues off coumadin and on subcu heparin. White count 9.0 and hemoglobin of 9.1 today which is stable. Nephrology adjusted IV fluids. He continues with hematuria. Patient is scheduled for bilateral foot debridement right 5th toe amputation today. Would like to c heck a chest xray as patient dose have low oxygen sats. 08/13/2022 Patient is evaluated today postoperative day #1 for surgical debridement and right 5th toe amputation. he has complaints of tenderness to the right foot. He did have some complaints of chest pain earlier this morning which EKG was obtained and after review EKG is unchanged from admission EKG showing atrial paced rhythm. Troponin will be checked. INR 1.1 today and vascular surgery has cleared patient to be resumed on coumadin. Infectious disease following cultures currently on IV ampicillin/sulbactam every 8 hours. Mentation has improved slightly from yesterday he is alert x 1-2. Chest xray showing cleared of atelectasis left lung base. Today his sodium is 145, BUN 33, creatinine 1.02. 08/14/2022 Patient is postoperative day #2 right 5th toe amputation and surgical debridement. He had wound vac placed today. He does report pain to the right foot. He is receiving D5/water at 50 mls/hour currently. Creatinine has pavel lized as of yesterday. Has been resumed on coumadin and INR today 1.31. Cardiology consulted for chest pain with elevated troponin, his troponin has been trended and most likely from infection/renal injury. Patient had echocardiogram completed showing LV ejection fraction of 30 to 35%. Echocardiogr am prior from 07/15/2022 showing an LV function of 45 to 50%. Cardiology following with further recommendations pending. Review of Systems Constitutional: Reports some fatigue denied any fever. Cardio vascular: denied any chest pain, palpitations Gastrointestinal: denied any nausea, vomiting, diarrhea Pulmonary: Reports some shortness of breath, no cough Neurologic denied any new focal deficits reports confusion All inpatient medications were reviewed and appropriate changes in these medicat ions as dictated in the interval history and assessment and plan. PHYSICAL EXAMINATION: GENERAL: The patient is alert and oriented x1-2 today, not in any acute distress. Fatigued today. Slightly confused. Well developed, well nourished. Obese. HEENT: Pupils are round and equally reacting to light. EOMI. No scleral icterus. No conjunctival pallor. Normocephalic, atraumatic. No pharyngeal erythema. No thyromegaly. CARDIOVASCULAR: S1 and S2 present. No murmurs, rubs, or gallops. PULMONARY: Chest is clear to auscultation, no wheezing or crackles. ABDOMEN: Soft, nontender, nondistended, normoactive bowel sounds. No palpable organomegaly. MUSCULOSKELETAL: No joint swelling or deformity. EXTREMITIES: No cyanosis, clubbing, or pedal edema. NEUROLOGICAL: Gross neurological examination did not reveal any focal deficits. Does have generalized weakness SKIN: stage II ulcers in both heels. Refugio bandages were intact. Assessment and plan -Gangrene and right foot infection multiple ulcerations: Cultures will be obtained antiobiotics were changed to IV ampicillin/sulbactam and infectious d isease is following the patient. Patient is postoperative surgical debridement of right heel wound and also right fifth toe amputation and deep wound and tissue cultures. -Elevated troponin with chest pain, possibly from SNEHA/sepsis, cardiology work up. -Acute renal failure probably secondary to acute tubular necrosis from sepsis that may be a competent to prerenal. Continue with IV fluids D5/water at 50 mls, creatinine has normalized. Has some degree of hematuria secondary to plaza catheter placement. -Altered mental status secondary to acute metabolic and toxic encephalopathy secondary to acute renal failure, and possible sepsis from wounds. Brain CT negative for acute. Improving. -Hyperkalemia secondary to acute renal failure, REFUGIO inhibitor will be held, resolved. -Hypotension: Secondary to infection, hold off antihypertensive medications, blood pressure improving. -hypervolemic hyponatremia: improved with IV fluids -History of paroxysmal atrial fibrillation patient is presently rate controlled, resumed on low dose metoprolol -Supratherapeutic INR which has improved with vitamin K, resumed on coumadin, INR 1.31. 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 -Diabetic peripheral neuropathy cut down the dose of gabapentin because of acute renal failure -Hyperlipidemia -hypertension -Sleep apnea for which patient uses CPAP machine at home -Stage 3 sacral pressure ulcer which is being treated with medihoney and moist dressing and pressure offloading -Bilateral heel pressure ulcer unstageable patient underwent surgical debridement. DVT prophylaxis: Contine on subcu heparin, coumadin resumed today INR 1.31 GI Prophylaxis: Pepcid No Code Plan to continue IV antibiotics per infectious disease. Local wound care in place and will follow up with Dr. Holland in the wound care center on discharge. Patient will require subacute rehab on discharge. His kidney function has improved, nephrology following. He is status post surgical heel debridement and right 5th toe amputation and wound vac has been placed today. Cardiology work up ongoing and echocardiogram shows worsening LV function and further recommendations currently pending. Continue pressure offloading to sacral ulcer and bilateral heel ulcers. Mentation has improved today. BMP repeat in the AM. The impression and plan of care has been dictated by Chrissie Costa, Nurse Practitioner as directed. Dr. Katina MD I have performed a history and physical examination and medical decision making of this patient, discussed the same with the dictator, and agree with the dictators assessment and plan as written, documented as a scribe. Based on total visit time, I have performed more than 50% of this visit. Objective - Vital Signs Vital signs: Vital Signs Temp 98.9 F 08/14/22 08:56 Pulse 73 08/14/22 08:56 Resp 16 08/14/22 08:56 BP 135/74 08/14/22 08:56 Pulse Ox 96 08/14/22 08:56 FiO2 Intake & Output 08/13/22 08/14/22 08/14/22 18:59 06:59 18:59 Intake Total 1080 Output Total 1400 766 Balance -1400 314 Weight 109.316 kg Intake: Intake, IV Titration 600 Amount Dextrose 5% in Water 1, 600 000 ml @ 50 mls/hr IV . Q20H [facility] Rx#:[id number] Oral 480 Output: Urine 1400 550 Uretheral (Plaza) 550 Post Void Residual 216 Other: Voiding Method Indwelling Catheter Indwelling Catheter - Labs CBC & Chem 7: 08/13/22 11:20 08/13/22 11:20 Labs: Abnormal Lab Results - Last 24 Hours (Table) 08/13/22 08/13/22 08/13/22 Range/Units 11:20 11:20 14:05 PT 12.2 H (9.0-12.0) sec INR (0.90-1.11) BUN 33 H (9-20) mg/dL Glucose 225 H (74-99) mg/dL POC Glucose (mg/dL) (70-110) mg/dL Troponin I 0.397 H* (0.000-0.034) ng/mL 08/13/22 08/13/22 08/13/22 Range/Units 15:58 16:45 20:46 PT (9.0-12.0) sec INR (0.90-1.11) BUN (9-20) mg/dL Glucose (74-99) mg/dL POC Glucose (mg/dL) 163 H 165 H (70-110) mg/dL Troponin I 0.391 H* (0.000-0.034) ng/mL 08/14/22 08/14/22 Range/Units 06:38 07:12 PT 14.2 H (9.0-12.0) sec INR 1.31 H (0.90-1.11) BUN (9-20) mg/dL Glucose (74-99) mg/dL POC Glucose (mg/dL) 124 H (70-110) mg/dL Troponin I (0.000-0.034) ng/mL Microbiology - Last 24 Hours (Table) 08/07/22 19:40 Blood Culture - Final Blood No Growth after 144 hours 08/07/22 19:25 Blood Culture - Final Blood No Growth after 144 hours 08/08/22 11:35 Anaerobic Culture - Final Foot - Right Anaerobic Gm Negative Bacilli Anaerobic Gram Positive Cocci 08/08/22 11:35 Gram Stain - Final Buttock Wound Culture - Final 08/12/22 14:18 Gram Stain - Preliminary Toe - Right Fifth Wound Culture - Preliminary Assessment and Plan Time with Patient: Less than 30
[2022-08-14] MEDS: HYDROcodone/APAP 5-325MG 1 EACH TAB PO PRN ×2 (15:17→21:23)
[2022-08-14 16:50] LABS: Glucose,Whole Blood 227 mg/dL (70-110)
[2022-08-14] MEDS ORDERED: WARFARIN 3 MG TAB PO ONE (18:00)
[2022-08-14] MEDS: ASPIRIN 81 MG PO SCH (20:15)
[2022-08-14] MEDS: LEVOTHYROXINE 125 MCG TAB PO SCH (20:15)
[2022-08-14] MEDS: FAMOTIDINE 20 MG TAB PO SCH (20:16)
[2022-08-14] MEDS: ATORVASTATIN 40 MG TAB PO SCH (20:16)
[2022-08-14 20:39] LABS: Glucose,Whole Blood 166 mg/dL (70-110)
[2022-08-14] MEDS: INSULIN DETEMIR (LEVEMIR) 100 UNIT/ML SYR SQ SCH (21:01)
[2022-08-15 06:16] LABS: Glucose,Whole Blood 74 mg/dL (70-110)
[2022-08-15] MEDS: INSULIN ASPART (NovoLOG) 100 UNIT/ML VIAL SQ SCH ×7 (06:21→20:22)
[2022-08-15] MEDS: HYDROcodone/APAP 5-325MG 1 EACH TAB PO PRN ×2 (06:24→12:24)
--- NOTE | 2022-08-15 07:45 | P.PN ---
Progress Note - Text Progress Note Date: 08/15/22 Patient with urinary retention overnight. Bladder scan showed 706ml urine. Cross irrigated per Dr. Kasper's instructions. Cross draining well this morning. Hematuria noted. Impression and plan of care have been directed as dictated by the signing physician. Cecelia Evans nurse practitioner acting as scribe for signing physician. Cecelia Evans [facility] Palliative Care/Urology Spectralink [phone] Email: [email or web address] I examined the patient and concur with the above note, Krunal Kasper
--- NOTE | 2022-08-15 08:57 | P.PN ---
Subjective Progress Note Date: 08/12/22 Principal diagnosis: Right fifth toe gangrene and bilateral heel wounds Patient is a 86 year year-old male who was brought into the ER with an upright just right fifth toe; comparing of weakness did have bilateral heel necrotic wound as well, patient did went for indigestion requiring Cross catheter placement by urology, the patient is scheduled for vascular surgery t his afternoon On today's evaluation that is 08/12/2022, the patient remains to be afebrile, the patient is breathing comfortably on nasal cannula oxygen, the patient remains to be lethargic and did not answer any question, no vomiting or diarrhea has been reported by the nursing staff Objective - Vital Signs Vital signs: Vital Signs Temp 97.3 F L 08/12/22 13:18 Pulse 83 08/12/22 13:18 Resp 16 08/12/22 13:18 BP 171/75 08/12/22 13:18 Pulse Ox 92 L 08/12/22 13:18 FiO2 Intake & Output 08/11/22 08/12/22 08/12/22 18:59 06:59 18:59 Intake Total 50 Output Total 1764 2400 1100 Balance -1764 -2400 -1050 Intake: IV 50 Output: Urine 1500 2400 1100 Uretheral (Cross) 200 Post Void Residual 264 Other: Voiding Method Indwelling Catheter Indwelling Catheter Indwelling Catheter - Exam GENERAL DESCRIPTION: An elderly male lying in bed in no distress RESPIRATORY SYSTEM: Unlabored breathing , decreased breath sounds at bases HEART: S1 S2 regular rate and rhythm , ABDOMEN: Soft , no tenderness EXTREMITIES: Right fifth toe with dry gangrene bilateral heel wounds are currently dressed, - Labs CBC & Chem 7: 08/13/22 11:20 08/13/22 11:20 Labs: Abnormal Lab Results - Last 24 Hours (Table) 08/10/22 08/11/22 08/11/22 Range/Units 11:21 16:45 20:36 RBC (4.30-5.90) m/uL Hgb (13.0-17.5) gm/dL Hct (39.0-53.0) % MCHC (31.0-37.0) g/dL Lymphocytes # (1.0-4.8) k/uL Sodium (137-145) mmol/L Chloride (98-107) mmol/L BUN (9-20) mg/dL Creatinine (0.66-1.25) mg/dL Glucose (74-99) mg/dL POC Glucose (mg/dL) 174 H 260 H 287 H (70-110) mg/dL Calcium (8.4-10.2) mg/dL 08/12/22 08/12/22 08/12/22 Range/Units 05:57 08:09 08:09 RBC 3.10 L (4.30-5.90) m/uL Hgb 9.1 L (13.0-17.5) gm/dL Hct 30.1 L (39.0-53.0) % MCHC 30.3 L (31.0-37.0) g/dL Lymphocytes # 0.7 L (1.0-4.8) k/uL Sodium 146 H (137-145) mmol/L Chloride 113 H (98-107) mmol/L BUN 53 H (9-20) mg/dL Creatinine 1.29 H (0.66-1.25) mg/dL Glucose 235 H (74-99) mg/dL POC Glucose (mg/dL) 258 H (70-110) mg/dL Calcium 8.3 L (8.4-10.2) mg/dL 08/12/22 Range/Units 11:34 RBC (4.30-5.90) m/uL Hgb (13.0-17.5) gm/dL Hct (39.0-53.0) % MCHC (31.0-37.0) g/dL Lymphocytes # (1.0-4.8) k/uL Sodium (137-145) mmol/L Chloride (98-107) mmol/L BUN (9-20) mg/dL Creatinine (0.66-1.25) mg/dL Glucose (74-99) mg/dL POC Glucose (mg/dL) 234 H (70-110) mg/dL Calcium (8.4-10.2) mg/dL Microbiology - Last 24 Hours (Table) 08/08/22 11:35 Anaerobic Culture - Final Foot - Left 08/07/22 19:40 Blood Culture - Preliminary Blood No Growth after 96 hours 08/07/22 19:25 Blood Culture - Preliminary Blood No Growth after 96 hours 08/08/22 11:35 Anaerobic Culture - Final Coccyx Anaerobic Gm Negative Bacilli Anaerobic Gm Negative Bacilli#2 Anaerobic Gm Negative Bacilli#3 Assessment and Plan (1) Pressure ulcer of both heels Current Visit: Yes Status: Acute Code(s): L89.619 - PRESSURE ULCER OF RIGHT HEEL, UNSPECIFIED STAGE; L89.629 - PRESSURE ULCER OF LEFT HEEL, UNSPECIFIED STAGE SNOMED Code(s): 836943862 (2) Toe gangrene Current Visit: Yes Status: Acute Code(s): I96 - GANGRENE, NOT ELSEWHERE CLASSIFIED SNOMED Code(s): 419135225 Plan: 1patient with right fifth toe gangrene in this patient with multiple comorbidities wound looks mostly dry with minimal surrounding inflammatory changes and need to cover for the polymicrobial ivy usually associated with infection. 2patient also have bilateral heel pressure ulcer unstageable as there is a necrotic eschar and scheduled for surgical debridement this afternoon. 3patient also have a stage III sacral pressure ulcer with slough tissue no significant surrounding redness or foul-smelling drainage. 4patient also complaining of increasing shortness of breath. Pulmonary infiltrate slightly worse question of possible pneumonitis. 5 local wound care to the sacral wound with the Medihoney followed by moist dressing keep the area of the pressure. 6 patient local cultures have been finalized with strep and anaerobes, patient to continue with Unasyn and monitor clinical course closely Time with Patient: Less than 30
--- NOTE | 2022-08-15 09:01 | P.PN ---
Subjective Progress Note Date: 08/13/22 Principal diagnosis: Right fifth toe gangrene and bilateral heel wounds Patient is a 86 year year-old male who was brought into the ER with an upright just right fifth toe; comparing of weakness did have bilateral heel necrotic wound as well, patient did went for indigestion requiring Cross catheter placement by urology, the patient is status post right fifth toe ampu tation and debridement of the right heel wound completed on 08/12/2022 On today's evaluation that is 08/13/2022, the patient continues to be afebrile, the patient is breathing comfortably on nasal cannula oxygen, the patient sleepy and did not answer any question no vomiting or diarrhea reported by the nursing staff Objective - Vital Signs Vital signs: Vital Signs Temp 98.4 F 08/13/22 02:00 Pulse 85 08/13/22 08:46 Resp 15 08/13/22 08:46 BP 111/60 08/13/22 08:00 Pulse Ox 92 L 08/13/22 08:00 FiO2 Intake & Output 08/12/22 08/13/22 08/13/22 18:59 06:59 18:59 Intake Total 500 740 Output Total 2223 1050 Balance -1723 -310 Weight 109.316 kg Intake: IV 500 Intake, IV Titration 500 Amount Dextrose 5% in Water 1, 500 000 ml @ 50 mls/hr IV . Q20H [facility] Rx#:[id number] Oral 240 Output: Urine 1950 1050 Uretheral (Cross) 1050 Post Void Residual 271 Estimated Blood Loss 2 Other: Voiding Method Indwelling Catheter Indwelling Catheter Indwelling Catheter - Exam GENERAL DESCRIPTION: An elderly male lying in bed in no distress RESPIRATORY SYSTEM: Unlabored breathing , decreased breath sounds at bases HEART: S1 S2 regular rate and rhythm , ABDOMEN: Soft , no tenderness EXTREMITIES: Bilateral feet wounds are currently dressed no drainage of the dressing - Labs CBC & Chem 7: 08/13/22 11:20 08/13/22 11:20 Labs: Abnormal Lab Results - Last 24 Hours (Table) 08/12/22 08/12/22 08/13/22 Range/Units 17:12 21:35 07:29 RBC (4.30-5.90) m/uL Hgb (13.0-17.5) gm/dL Hct (39.0-53.0) % MCHC (31.0-37.0) g/dL PT (9.0-12.0) sec BUN (9-20) mg/dL Glucose (74-99) mg/dL POC Glucose (mg/dL) 196 H 174 H 212 H (70-110) mg/dL 08/13/22 08/13/22 08/13/22 Range/Units 11:07 11:20 11:20 RBC 3.21 L (4.30-5.90) m/uL Hgb 9.4 L (13.0-17.5) gm/dL Hct 30.8 L (39.0-53.0) % MCHC 30.6 L (31.0-37.0) g/dL PT 12.2 H (9.0-12.0) sec BUN (9-20) mg/dL Glucose (74-99) mg/dL POC Glucose (mg/dL) 245 H (70-110) mg/dL 08/13/22 Range/Units 11:20 RBC (4.30-5.90) m/uL Hgb (13.0-17.5) gm/dL Hct (39.0-53.0) % MCHC (31.0-37.0) g/dL PT (9.0-12.0) sec BUN 33 H (9-20) mg/dL Glucose 225 H (74-99) mg/dL POC Glucose (mg/dL) (70-110) mg/dL Microbiology - Last 24 Hours (Table) 08/08/22 11:35 Anaerobic Culture - Final Foot - Right Anaerobic Gm Negative Bacilli Anaerobic Gram Positive Cocci 08/08/22 11:35 Gram Stain - Final Buttock Wound Culture - Final 08/12/22 14:18 Gram Stain - Preliminary Toe - Right Fifth Wound Culture - Preliminary 08/12/22 14:18 Anaerobic Culture - Preliminary Toe - Right Fifth 08/07/22 19:40 Blood Culture - Preliminary Blood No Growth after 120 hours 08/07/22 19:25 Blood Culture - Preliminary Blood No Growth after 120 hours Assessment and Plan (1) Pressure ulcer of both heels Current Visit: Yes Status: Acute Code(s): L89.619 - PRESSURE ULCER OF RIGHT HEEL, UNSPECIFIED STAGE; L89.629 - PRESSURE ULCER OF LEFT HEEL, UNSPECIFIED STAGE SNOMED Code(s): 308330330 (2) Toe gangrene Current Visit: Yes Status: Acute Code(s): I96 - GANGRENE, NOT ELSEWHERE CLASSIFIED SNOMED Code(s): 122933405 Plan: 1patient with right fifth toe gangrene in this patient with multiple comorbidities wound looks mostly dry with minimal surrounding inflammatory changes and need to cover for the polymicrobial ivy usually associated with infection. 2 patient also have a stage III sacral pressure ulcer with slough tissue no significant surrounding redness or foul-smelling drainage. 3-patient with the right fifth toe gangrene and necrotic wound to the right heel area and this patient who is status post amputation of the right fifth toe and debridement of the right heel wound cultures initially grew strep and anaerobes for the patient is covered with Unasyn OR cultures are currently pending Time with Patient: Less than 30
--- NOTE | 2022-08-15 09:02 | P.PN ---
Subjective Progress Note Date: 08/14/22 Principal diagnosis: Right fifth toe gangrene and bilateral heel wounds Patient is a 86 year year-old male who was brought into the ER with an upright just right fifth toe; comparing of weakness did have bilateral heel necrotic wound as well, patient did went for indigestion requiring Cross catheter placement by urology, the patient is status post right fifth toe ampu tation and debridement of the right heel wound completed on 08/12/2022 On today's evaluation that is 08/14/2022, the patient remains to be afebrile, the patient is breathing comfortably on 3 L nasal cannula oxygen, the patient slightly more awake and alert today and it also some simple questions and denies any chest pain or cough no abdominal pain and no diarrhea has been reported Objective - Vital Signs Vital signs: Vital Signs Temp 98.9 F 08/14/22 08:56 Pulse 73 08/14/22 08:56 Resp 16 08/14/22 08:56 BP 135/74 08/14/22 08:56 Pulse Ox 96 08/14/22 08:56 FiO2 Intake & Output 08/13/22 08/14/22 08/14/22 18:59 06:59 18:59 Intake Total 1080 Output Total 1400 766 Balance -1400 314 Weight 109.316 kg Intake: Intake, IV Titration 600 Amount Dextrose 5% in Water 1, 600 000 ml @ 50 mls/hr IV . Q20H [facility] Rx#:[id number] Oral 480 Output: Urine 1400 550 Uretheral (Cross) 550 Post Void Residual 216 Other: Voiding Method Indwelling Catheter Indwelling Catheter - Exam GENERAL DESCRIPTION: An elderly male lying in bed in no distress RESPIRATORY SYSTEM: Unlabored breathing , decreased breath sounds at bases HEART: S1 S2 regular rate and rhythm , ABDOMEN: Soft , no tenderness EXTREMITIES: Bilateral feet wounds are currently dressed no drainage of the dressing - Labs CBC & Chem 7: 08/13/22 11:20 08/13/22 11:20 Labs: Abnormal Lab Results - Last 24 Hours (Table) 08/13/22 08/13/22 08/13/22 Range/Units 14:05 15:58 16:45 PT (9.9-11.9) sec INR (0.90-1.11) POC Glucose (mg/dL) 163 H (70-110) mg/dL Troponin I 0.397 H* 0.391 H* (0.000-0.034) ng/mL 08/13/22 08/14/22 08/14/22 Range/Units 20:46 06:38 07:12 PT 14.2 H (9.9-11.9) sec INR 1.31 H (0.90-1.11) POC Glucose (mg/dL) 165 H 124 H (70-110) mg/dL Troponin I (0.000-0.034) ng/mL 08/14/22 Range/Units 11:52 PT (9.9-11.9) sec INR (0.90-1.11) POC Glucose (mg/dL) 179 H (70-110) mg/dL Troponin I (0.000-0.034) ng/mL Microbiology - Last 24 Hours (Table) 08/07/22 19:40 Blood Culture - Final Blood No Growth after 144 hours 08/07/22 19:25 Blood Culture - Final Blood No Growth after 144 hours 08/08/22 11:35 Anaerobic Culture - Final Foot - Right Anaerobic Gm Negative Bacilli Anaerobic Gram Positive Cocci 08/08/22 11:35 Gram Stain - Final Buttock Wound Culture - Final 08/12/22 14:18 Gram Stain - Preliminary Toe - Right Fifth Wound Culture - Preliminary Assessment and Plan (1) Pressure ulcer of both heels Current Visit: Yes Status: Acute Code(s): L89.619 - PRESSURE ULCER OF RIGHT HEEL, UNSPECIFIED STAGE; L89.629 - PRESSURE ULCER OF LEFT HEEL, UNSPECIFIED STAGE SNOMED Code(s): 240010173 (2) Toe gangrene Current Visit: Yes Status: Acute Code(s): I96 - GANGRENE, NOT ELSEWHERE CLASSIFIED SNOMED Code(s): 953140261 Plan: 1patient with right fifth toe gangrene in this patient with multiple comorbidities wound looks mostly dry with minimal surrounding inflammatory changes and need to cover for the polymicrobial ivy usually associated with infection. 2 patient also have a stage III sacral pressure ulcer with slough tissue no significant surrounding redness or foul-smelling drainage. 3-patient with the right fifth toe gangrene and necrotic wound to the right heel area and this patient who is status post amputation of the right fifth toe and debridement of the right heel wound cultures initially grew strep and anaerobes , patient to continue with Unasyn while waiting for the OR cultures to be finalize Time with Patient: Less than 30
[2022-08-15] MEDS: METOPROLOL TARTRATE 12.5 MG TAB PO SCH ×2 (10:23→20:37)
[2022-08-15] MEDS: GABAPENTIN 100 MG CAP PO SCH ×2 (10:24→20:37)
[2022-08-15] MEDS: DOXAZOSIN 2 MG TAB PO SCH (10:24)
[2022-08-15] MEDS: FINASTERIDE 5 MG TAB PO SCH (10:24)
[2022-08-15] MEDS: HEPARIN SODIUM,PORCINE/PF 5,000 UNIT/0.5 ML SYRINGE SQ SCH ×2 (10:25→20:29)
[2022-08-15] MEDS: RANOLAZINE 500 MG TAB.ER.12H PO SCH ×2 (10:25→20:37)
[2022-08-15] MEDS: AMPICILLIN-SULBACTAM 3 GM in SODIUM CHLORIDE 0.9% 100 ML IVPB SCH ×2 (10:25→18:05)
[2022-08-15] MEDS: FLUTICASONE 50MCG/SPRAY NASAL 16GM EA NOSTRIL SCH ×2 (10:27→20:38)
--- NOTE | 2022-08-15 10:49 | P.PN ---
Subjective Progress Note Date: 08/15/22 Patient is seen and examined today as a follow-up. He is postop day #3 for right fifth toe amputation and heel debridement. Overall his pain is well managed. No acute changes through the night. Wound VAC was applied yesterday to right fifth toe amputation site. Objective - Vital Signs Vital signs: Vital Signs Temp 97.6 F 08/15/22 08:00 Pulse 66 08/15/22 08:00 Resp 18 08/15/22 08:00 BP 123/71 08/15/22 08:00 Pulse Ox 100 08/15/22 08:00 FiO2 Intake & Output 08/14/22 08/15/22 08/15/22 18:59 06:59 18:59 Intake Total 500 700 Output Total 925 Balance 500 -225 Intake: Intake, IV Titration 500 700 Amount Ampicillin-Sulbactam 3 gm 100 100 In Sodium Chloride 0.9% 100 ml @ 200 mls/hr IVPB Q8HR [facility] Rx#:[id number] Dextrose 5% in Water 1, 400 600 000 ml @ 50 mls/hr IV . Q20H [facility] Rx#:[id number] Output: Urine 925 Uretheral (Cross) 825 Other: Voiding Method Indwelling Catheter Indwelling Catheter - Exam General appearance: The patient is alert, appears in no acute distress. HET: Head is normocephalic and atraumatic. Neck: Supple without lymphadenopathy. Trachea midline. Extremities: Left heel with pressure ulcer, without any drainage or redness. Right fifth toe amputation site with wound VAC in place. Right heel pressure ulcer, status post debridement Neurological: Awake and alert. - Labs CBC & Chem 7: 08/13/22 11:20 08/13/22 11:20 Labs: Abnormal Lab Results - Last 24 Hours (Table) 08/14/22 08/14/22 08/14/22 Range/Units 07:12 11:52 16:47 PT 14.2 H (9.9-11.9) sec INR 1.31 H (0.90-1.11) POC Glucose (mg/dL) 179 H 227 H (70-110) mg/dL 08/14/22 Range/Units 20:35 PT (9.9-11.9) sec INR (0.90-1.11) POC Glucose (mg/dL) 166 H (70-110) mg/dL Microbiology - Last 24 Hours (Table) 08/12/22 14:18 Anaerobic Culture - Preliminary Toe - Right Fifth 08/12/22 14:18 Gram Stain - Final Toe - Right Fifth Wound Culture - Final Assessment and Plan Assessment: 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 Continue local wound care for bilateral heel pressure ulcers from infectious disease 2. Continue IV antibiotics per recommendations from infectious disease 3. Physical therapy 4. Apply wound VAC as ordered to right fifth toe amputation site. Change Friday 5. Patient to follow-up with Dr. Petty Thank you for this consultation. Patient is cleared for discharge from vascular surgery once otherwise medically stable. We will sign off at this time. The impression and plan of care has been dictated as directed. Dr. Cross I performed a history and examination of this patient, discussed the same with the dictator. I agree with the dictator's note ,documented as a scribe. Any additional findings or plans will be noted.
[2022-08-15 10:52] LABS: Magnesium 1.6 mg/dL (1.5-2.4)
[2022-08-15 10:56] LABS: INR 1.58 (0.90-1.11)
[2022-08-15] MEDS ORDERED: Magnesium Replacement Protocol 1 EACH MISC MISCELLANE PRN (11:09)
[2022-08-15 11:15] LABS: Glucose,Whole Blood 139 mg/dL (70-110)
--- NOTE | 2022-08-15 11:19 | P.PN ---
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 He follows in the office with Dr. Gilman. We have been asked to see in consultation for elevated troponin . Patient presents emergency department on 08/07/2022 with acute renal failure, hyperkalemia, supratherapeutic INR and gangrene on the right fifth toe. He underwent right fifth toe amputation and excisional debridement of right heel wound with Dr. Cole on 08/12/2022. Nephrology has following as well and his renal function has improved. There was some concern for possible changes telemetry. However, patient has a pacemaker, unclear of the changes. Troponins were drawn and minimally elevated at 0.39 x 2. EKG with no acute ischemia. 08/15/2022 Patient seen and examined at bedside, no acute distress. Sitting up in bed eating breakfast. Has no complaints, besides buttocks pain. He denies any chest pain, shortness of breath, palpitations, lightheadedness or dizziness. Denies any symptoms of Vital signs are stable, renal function improving,awaiting repeat labs today. Remains afebrile. Echocardiogram revealed EF of 3035 % PHYSICAL EXAMINATION Vitals reviewed CONSTITUTIONAL: No apparent distress. HEENT: Head is normocephalic.Neck Supple. No JVD. No carotid bruit. CHEST EXAMINATION: Lungs are clear to auscultation. No chest wall tenderness is noted on palpation or with deep breathing. HEART EXAMINATION: Regular rate and rhythm. S1, S2 heard. ABDOMEN: Soft, nontender. Positive bowel sounds. EXTREMITIES: 2+ peripheral pulses, no lower extremity edema, lower extremity dressings intact, Mediboots present. No calf tenderness. NEUROLOGIC EXAMINATION: Patient is awake, alert and oriented x3. 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 On discharge, patient to follow up with Dr. Gilman outpatient in 1-2 weeks. Nurse practitioner note has been reviewed by physician. Signing provider agrees with the documented findings, assessment, and plan of care. Objective - Vital Signs Vital signs: Vital Signs Temp 98.3 F 08/15/22 02:00 Pulse 63 08/15/22 02:00 Resp 16 08/15/22 02:00 BP 130/69 08/15/22 02:00 Pulse Ox 99 08/15/22 02:00 FiO2 Intake & Output 08/14/22 08/15/22 08/15/22 18:59 06:59 18:59 Intake Total 500 700 Output Total 925 Balance 500 -225 Intake: Intake, IV Titration 500 700 Amount Ampicillin-Sulbactam 3 gm 100 100 In Sodium Chloride 0.9% 100 ml @ 200 mls/hr IVPB Q8HR [facility] Rx#:[id number] Dextrose 5% in Water 1, 400 600 000 ml @ 50 mls/hr IV . Q20H [facility] Rx#:[id number] Output: Urine 925 Uretheral (Cross) 825 Other: Voiding Method Indwelling Catheter - Labs CBC & Chem 7: 08/13/22 11:20 08/15/22 07:15 Labs: Abnormal Lab Results - Last 24 Hours (Table) 08/14/22 08/14/22 08/14/22 Range/Units 07:12 11:52 16:47 PT 14.2 H (9.9-11.9) sec INR 1.31 H (0.90-1.11) POC Glucose (mg/dL) 179 H 227 H (70-110) mg/dL 08/14/22 Range/Units 20:35 PT (9.9-11.9) sec INR (0.90-1.11) POC Glucose (mg/dL) 166 H (70-110) mg/dL Microbiology - Last 24 Hours (Table) 08/12/22 14:18 Anaerobic Culture - Preliminary Toe - Right Fifth 08/12/22 14:18 Gram Stain - Final Toe - Right Fifth Wound Culture - Final
[2022-08-15 11:33] LABS: African American GFR (CKD) 72.7 (60.0-200.0); Anion Gap 9.8 mmol/L (10.00-18.00); BUN/Creat Ratio 20.74 Ratio (12.00-20.00); Blood Urea Nitrogen 22.4 mg/dL (9.0-27.0); Carbon Dioxide 28.3 mmol/L (20.0-27.5); Non-African American GFR(CKD) 62.7 (60.0-200.0); Potassium 4.2 mmol/L (3.5-5.5)
[2022-08-15] MEDS: MAGNESIUM SULFATE-D5W PMX 1 GM in DEXTROSE/WATER 1 100ML.BAG IVPB SCH ×2 (12:52→14:28)
--- NOTE | 2022-08-15 15:10 | P.PN ---
Subjective Progress Note Date: 08/15/22 86-year-old male came to hospital with complaints of unable tablet because of multiple bilateral foot wounds patient has a ganglion the right fifth toe which was a dry gangrene still appears to be dry gangrene but there may be an area of infection in between the fourth and fifth toes and patient has a mostly stage II ulcers in both the heels. Patient does take Keflex at home patient is found to be in acute renal failure with creatinine going up to 3.17, baseline is around 1. Patient doesn't have any fever. Patient does have elevated white blood cell count. Patient is bit hyponatremic with potassium of 1 prior 34 and the potassium was 5.8 on admission presently 5.6 be enough around 79. 08/09/2022 Patient resting in bed today. Pending vascular intervention regarding right fifth toe. Creatinine has improved today down to 2.54, potassium 5.3. Lokelma was given. INR 1.33. Patient refused urology procedure that would allow for insertion of palza catheter secondary to retention. IV fluids are continued and continue monitoring for urinary retention. Cultures are all pending at this time. Continues on IV unasyn. Surgery planned tentatively for friday. 08/10/2022 Patient had issues with urinary retention yesterday and had opted to not undergo urinary catheter placement with urology. Today he is retaining over 1 liter of urine in his bladder. He is slightly confused today and also his creatinine has increased up to 2.81. Potassium has improved to 4.7. Patient continues on IV antibiotics int he form of IV ampicillin. Wound culture of buttock showing many gram negative bacilli as well as many gram positive cocci. Unable to finalize culture. Plan is for surgical removal of right 5th toe on friday with vascular services. Coumadin remains on hold for this and patient is on subcu heparin. Inflammatory markers are elevated, ESR 119, C-RP 18.2. Plan is to receive an indwelling catheter today placed by urology. Will repeat labs tomorrow and monitor for improvement in kidney function. 08/11/2022 Patient monitored resting in bed today. He is alert x 2 and has some confusion and also has some visual hallucinations. He did have indwelling catheter placed yesterday secondary to urinary retention and required dorsal slit which there are some sutures in place. There is some hematuria which is expected and will be monitored. He continues off coumadin at this time for possible vascular surgery tomorrow. Otherwise his creatinine has improved today down to 2.1 which he did have about 2.3 Liters of urinary retention. Sodium 139, potassium 4.4. Blood glucose in the 190s, calcium 8.3. Right foot culture showing group B strep algalactiae. Antibiotics in the form of IV ampicillin-sulbactam and infectious disease is following. Nursing reports some difficulty breathing throughout the n ight and chest xray performed showing atelectasis left lung base. No obvious heart failure noted. Lungs are clear on exam and IV fluids to be continued. 08/12/2022 Patient is resting in bed today. Alert x 2 continues with confusion and he does state he feels confused. He had brain CT done showing moderate cerebral atrophy without acute stroke or hemorrhage. This is most likely an acute delirium. Kidney function has improved today with BUN of 53 and creatinine of 1.29. Sodium 146, Blood glucose 230s which insulin was increased. Continues off coumadin and on subcu heparin. White count 9.0 and hemoglobin of 9.1 today which is stable. Nephrology adjusted IV fluids. He continues with hematuria. Patient is scheduled for bilateral foot debridement right 5th toe amputation today. Would like to c heck a chest xray as patient dose have low oxygen sats. 08/13/2022 Patient is evaluated today postoperative day #1 for surgical debridement and right 5th toe amputation. he has complaints of tenderness to the right foot. He did have some complaints of chest pain earlier this morning which EKG was obtained and after review EKG is unchanged from admission EKG showing atrial paced rhythm. Troponin will be checked. INR 1.1 today and vascular surgery has cleared patient to be resumed on coumadin. Infectious disease following cultures currently on IV ampicillin/sulbactam every 8 hours. Mentation has improved slightly from yesterday he is alert x 1-2. Chest xray showing cleared of atelectasis left lung base. Today his sodium is 145, BUN 33, creatinine 1.02. 08/14/2022 Patient is postoperative day #2 right 5th toe amputation and surgical debridement. He had wound vac placed today. He does report pain to the right foot. He is receiving D5/water at 50 mls/hour currently. Creatinine has pavel lized as of yesterday. Has been resumed on coumadin and INR today 1.31. Cardiology consulted for chest pain with elevated troponin, his troponin has been trended and most likely from infection/renal injury. Patient had echocardiogram completed showing LV ejection fraction of 30 to 35%. Echocardiogr am prior from 07/15/2022 showing an LV function of 45 to 50%. Cardiology following with further recommendations pending. 08/15/2022 Patient is postoperative day #3 right 5th toe amputation and surgical debridement. Wound vac in place. Patient had issues overnight urinary retention and urinary catheter was irrigated with no current issues today. Urine out 925 in the last 24 hours. Creatinine remains stable at 1.1. INR 1.58 today and patient continues on coumadin. Antibiotics in the form of IV ampicillin. Continues on D5/water at 50 mls per hour. Being followed by multiple consultation including vascular surgery, cardiology, infectious disease, urology. Patient is being resumed on REFUGIO inhibitor, and will follow up with patient in the office. Review of Systems Constitutional: Reports some fatigue denied any fever. Cardio vascular: denied any chest pain, palpitations Gastrointestinal: denied any nausea, vomiting, diarrhea Pulmonary: Denies shortness of breath, denies cough. Neurologic denied any new focal deficits reports confusion All inpatient medications were reviewed and appropriate changes in these medications as dictated in the interval history and assessment and plan. PHYSICAL EXAMINATION: GENERAL: The patient is alert and oriented x2-3 today, not in any acute distre ss. Fatigued today. Well developed, well nourished. Obese. HEENT: Pupils are round and equally reacting to light. EOMI. No scleral icterus. No conjunctival pallor. Normocephalic, atraumatic. No pharyngeal erythema. No thyromegaly. CARDIOVASCULAR: S1 and S2 present. No murmurs, rubs, or gallops. PULMONARY: Chest is clear to auscultation, no wheezing or crackles. He has some diminished aeration ABDOMEN: Soft, nontender, nondistended, normoactive bowel sounds. No palpable organomegaly. MUSCULOSKELETAL: No joint swelling or deformity. EXTREMITIES: No cyanosis, clubbing, or pedal edema. NEUROLOGICAL: Gross neurological examination did not reveal any focal deficits. Does have generalized weakness SKIN: stage II ulcers in both heels. Refugio bandages were intact. Assessment and plan -Gangrene and right foot infection multiple ulcerations: Patient is postoperative surgical debridement of right heel wound and also right fifth toe amputation and deep wound and tissue cultures. On IV unasyn, local wound care. -Elevated troponin with chest pain, possibly from SNEHA/sepsis, cardiology work up . -Acute renal failure probably secondary to acute tubular necrosis from sepsis that may be a competent to prerenal. Continue with IV fluids D5/water at 50 mls, creatinine has normalized. Has some degree of hematuria secondary to plaza catheter placement. -Altered mental status secondary to acute metabolic and toxic encephalopathy secondary to acute renal failure, and possible sepsis from wounds. Brain CT negative for acute. Improving. -Hyperkalemia secondary to acute renal failure, REFUGIO inhibitor will be held, resolved. -Hypotension: Secondary to infection, hold off antihypertensive medications, blood pressure improving. -hypervolemic hyponatremia: improved with IV fluids -History of paroxysmal atrial fibrillation patient is presently rate controlled, resumed on low dose metoprolol -Supratherapeutic INR which has improved with vitamin K, resumed on coumadin, INR 1.31. 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 -Diabetic peripheral neuropathy cut down the dose of gabapentin because of acute renal failure -Hyperlipidemia -hypertension -Sleep apnea for which patient uses CPAP machine at home -Stage 3 sacral pressure ulcer which is being treated with medihoney and moist dressing and pressure offloading -Bilateral heel pressure ulcer unstageable patient underwent surgical debridement. DVT prophylaxis: Contine on subcu heparin, coumadin resumed today INR 1.31 GI Prophylaxis: Pepcid No Code Plan to continue IV antibiotics per infectious disease. Local wound care in place and will follow up with Dr. Holland in the wound care center on discharge. Patient will require subacute rehab on discharge. His kidney function has improved, nephrology following. He is status post surgical heel debridement and right 5th toe amputation and wound vac has been placed. Cardiology has resumed refugio inhibitor today and will follow up with patient on discharge. Continue pressure offloading to sacral ulcer and bilateral heel ulcers. Mentation has improved today. Patient will continue with indwelling catheter and follow up with urology outpatient. [facility] pending f inalized OR cultures, infectious disease clearance and antibiotic recommendations. The impression and plan of care has been dictated by Chrissie Costa, Nurse Practitioner as directed. Dr. Katina MD I have performed a history and physical examination and medical decision making of this patient, discussed the same with the dictator, and agree with the dictators assessment and plan as written, documented as a scribe. Based on total visit time, I have performed more than 50% of this visit. Objective - Vital Signs Vital signs: Vital Signs Temp 97.6 F 08/15/22 08:00 Pulse 66 08/15/22 08:00 Resp 18 08/15/22 08:00 BP 123/71 08/15/22 08:00 Pulse Ox 100 08/15/22 08:00 FiO2 Intake & Output 08/14/22 08/15/22 08/15/22 18:59 06:59 18:59 Intake Total 500 700 Output Total 925 Balance 500 -225 Intake: Intake, IV Titration 500 700 Amount Ampicillin-Sulbactam 3 gm 100 100 In Sodium Chloride 0.9% 100 ml @ 200 mls/hr IVPB Q8HR [facility] Rx#:[id number] Dextrose 5% in Water 1, 400 600 000 ml @ 50 mls/hr IV . Q20H [facility] Rx#:[id number] Output: Urine 925 Uretheral (Plaza) 825 Other: Voiding Method Indwelling Catheter Indwelling Catheter - Labs CBC & Chem 7: 08/13/22 11:20 08/15/22 07:15 Labs: Abnormal Lab Results - Last 24 Hours (Table) 08/14/22 08/14/22 08/15/22 Range/Units 16:47 20:35 07:06 PT 17.0 H (9.9-11.9) sec INR 1.58 H (0.90-1.11) Carbon Dioxide (20.0-27.5) mmol/L Anion Gap (10.00-18.00) mmol/L BUN/Creatinine Ratio (12.00-20.00) Ratio POC Glucose (mg/dL) 227 H 166 H (70-110) mg/dL Calcium (8.7-10.3) mg/dL 08/15/22 08/15/22 Range/Units 07:15 11:13 PT (9.9-11.9) sec INR (0.90-1.11) Carbon Dioxide 28.3 H (20.0-27.5) mmol/L Anion Gap 9.80 L (10.00-18.00) mmol/L BUN/Creatinine Ratio 20.74 H (12.00-20.00) Ratio POC Glucose (mg/dL) 139 H (70-110) mg/dL Calcium 8.0 L (8.7-10.3) mg/dL Microbiology - Last 24 Hours (Table) 08/12/22 14:18 Anaerobic Culture - Preliminary Toe - Right Fifth 08/12/22 14:18 Gram Stain - Final Toe - Right Fifth Wound Culture - Final Assessment and Plan Time with Patient: Less than 30
[2022-08-15 16:42] LABS: Glucose,Whole Blood 206 mg/dL (70-110)
[2022-08-15] MEDS ORDERED: WARFARIN 3 MG TAB PO ONE (18:00)
--- NOTE | 2022-08-15 19:59 | P.PN ---
Subjective Patient is seen in follow-up for acute kidney injury. Creatinine was 3.1 admission and is 2.5-2.8 today. Admitted with bilateral foot wounds. On antibiotics. Noted to have urinary retention. Seen by urology. Patient agreed for urology Intervention and had Plaza catheter with dorsal slit by urology. . Comfortable. No complaints. Serum creatinine down to 1.0 Maintained on D5W Objective - Vital Signs Vital signs: Vital Signs Temp 98.5 F 08/15/22 14:00 Pulse 67 08/15/22 14:00 Resp 18 08/15/22 14:00 BP 120/69 08/15/22 14:00 Pulse Ox 100 08/15/22 14:00 FiO2 Intake & Output 08/15/22 08/15/22 08/16/22 06:59 18:59 06:59 Intake Total 700 1050 Output Total 925 Balance -225 1050 Intake: Intake, IV Titration 700 600 Amount Ampicillin-Sulbactam 3 gm 100 100 In Sodium Chloride 0.9% 100 ml @ 200 mls/hr IVPB Q8HR ROBERT Rx#:[id number] Dextrose 5% in Water 1, 600 300 000 ml @ 50 mls/hr IV . Q20H ROBERT Rx#:[id number] Magnesium Sulfate-D5w Pmx 200 1 gm In Dextrose/Water 1 100ml.bag @ 100 mls/hr IVPB Q1H ROBERT Rx#: [id number] Oral 450 Output: Urine 925 Uretheral (Plaza) 825 Other: Voiding Method Indwelling Catheter Indwelling Catheter - Exam Vital signs are stable. General: Awake. No acute distress. HEENT: Head exam is unremarkable. On nasal cannula. LUNGS: Breath sounds decreased. Basal crackles HEART: Rate and Rhythm are regular. ABDOMEN: Soft, no distention. EXTREMITITES: 2+ edema. - Labs CBC & Chem 7: 08/13/22 11:20 08/15/22 07:15 Labs: Abnormal Lab Results - Last 24 Hours (Table) 08/14/22 08/15/22 08/15/22 Range/Units 20:35 07:06 07:15 PT 17.0 H (9.9-11.9) sec INR 1.58 H (0.90-1.11) Carbon Dioxide 28.3 H (20.0-27.5) mmol/L Anion Gap 9.80 L (10.00-18.00) mmol/L BUN/Creatinine Ratio 20.74 H (12.00-20.00) Ratio POC Glucose (mg/dL) 166 H (70-110) mg/dL Calcium 8.0 L (8.7-10.3) mg/dL 08/15/22 08/15/22 Range/Units 11:13 16:40 PT (9.9-11.9) sec INR (0.90-1.11) Carbon Dioxide (20.0-27.5) mmol/L Anion Gap (10.00-18.00) mmol/L BUN/Creatinine Ratio (12.00-20.00) Ratio POC Glucose (mg/dL) 139 H 206 H (70-110) mg/dL Calcium (8.7-10.3) mg/dL Microbiology - Last 24 Hours (Table) 08/12/22 14:18 Anaerobic Culture - Preliminary Toe - Right Fifth 08/12/22 14:18 Gram Stain - Final Toe - Right Fifth Wound Culture - Final Assessment and Plan Assessment: 1. Acute kidney injury secondary to ATN secondary to infection and hypotension and urine retention. Creatinine was 3.2 on admission and is down to 1.1 today. Baseline creatinine near 1 from 07/16/2022. 2. Hyperkalemia secondary to acute kidney injury and RADHA inhibitor. 3. 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 ID and vascular surgery following. 4. Diabetes mellitus. 5. Metabolic acidosis secondary to acute kidney injury. 6. Benign hypertension. Controlled. 7. Urinary retention. Seen by urology. No hydronephrosis noted on kidney ultrasound. Right kidney not properly visualized. Plaza catheter placed on 08/10/2022 by urology with a dorsal slit. On doxazosin. 8. Mild hypernatremia Plan: D/c D5 W Repeat sodium in am Continue plaza catheter.
[2022-08-15] MEDS: ATORVASTATIN 40 MG TAB PO SCH (20:13)
[2022-08-15] MEDS: ASPIRIN 81 MG PO SCH (20:13)
[2022-08-15 20:15] LABS: Glucose,Whole Blood 159 mg/dL (70-110)
[2022-08-15] MEDS: DEXTROSE 5% IN WATER 1,000 ML IV SCH (20:30)
[2022-08-15] MEDS: FAMOTIDINE 20 MG TAB PO SCH (20:37)
[2022-08-15] MEDS: LEVOTHYROXINE 112 MCG TAB PO SCH (20:37)
[2022-08-15] MEDS: INSULIN DETEMIR (LEVEMIR) 100 UNIT/ML SYR SQ SCH (20:37)
[2022-08-16] MEDS: AMPICILLIN-SULBACTAM 3 GM in SODIUM CHLORIDE 0.9% 100 ML IVPB SCH ×3 (03:49→16:21)
[2022-08-16] MEDS: HEPARIN SODIUM,PORCINE/PF 5,000 UNIT/0.5 ML SYRINGE SQ SCH ×3 (03:52→16:20)
[2022-08-16 05:49] LABS: Glucose,Whole Blood 75 mg/dL (70-110)
[2022-08-16] MEDS: INSULIN ASPART (NovoLOG) 100 UNIT/ML VIAL SQ SCH ×7 (06:45→20:18)
[2022-08-16 08:04] VITALS: PULSE 69
[2022-08-16 09:54] LABS: African American GFR (CKD) 88 (>60 ml/min/1.73 sqM); Anion Gap 4 mmol/L; Blood Urea Nitrogen 21 mg/dL (9-20); Calcium 7.7 mg/dL (8.4-10.2); Carbon Dioxide 30 mmol/L (22-30); Chloride 102 mmol/L (98-107); Glucose 71 mg/dL (74-99); Non-African American GFR(CKD) 76 (>60 ml/min/1.73 sqM); Potassium 4.3 mmol/L (3.5-5.1); Sodium 136 mmol/L (137-145)
[2022-08-16] MEDS: METOPROLOL TARTRATE 12.5 MG TAB PO SCH ×2 (10:00→20:23)
[2022-08-16] MEDS: RANOLAZINE 500 MG TAB.ER.12H PO SCH ×2 (10:00→20:23)
[2022-08-16] MEDS: FINASTERIDE 5 MG TAB PO SCH (10:01)
[2022-08-16] MEDS: GABAPENTIN 100 MG CAP PO SCH ×2 (10:01→20:23)
[2022-08-16] MEDS: DOXAZOSIN 2 MG TAB PO SCH (11:09)
[2022-08-16] MEDS: FLUTICASONE 50MCG/SPRAY NASAL 16GM EA NOSTRIL SCH ×2 (11:12→20:24)
[2022-08-16 11:22] LABS: INR 1.74 (0.90-1.11); Prothrombin Time 19.1 sec (9.9-11.9)
[2022-08-16 11:26] LABS: Glucose,Whole Blood 139 mg/dL (70-110)
--- NOTE | 2022-08-16 11:32 | P.PN ---
Subjective Patient is seen in follow-up for acute kidney injury. Creatinine was 3.1 admission and is 2.5-2.8 today. Admitted with bilateral foot wounds. On antibiotics. Noted to have urinary retention. Seen by urology. Patient agreed for urology Intervention and had Cross catheter with dorsal slit by urology. . Comfortable. No complaints. Serum creatinine down to 0.9 Objective - Vital Signs Vital signs: Vital Signs Temp 97.9 F 08/16/22 08:02 Pulse 69 08/16/22 08:02 Resp 16 08/16/22 08:02 BP 115/65 08/16/22 08:02 Pulse Ox 98 08/16/22 08:02 FiO2 Intake & Output 08/15/22 08/16/22 08/16/22 18:59 06:59 18:59 Intake Total 1050 Output Total 1000 Balance 1050 -1000 Intake: Intake, IV Titration 600 Amount Ampicillin-Sulbactam 3 gm 100 In Sodium Chloride 0.9% 100 ml @ 200 mls/hr IVPB Q8HR ROBERT Rx#:[id number] Dextrose 5% in Water 1, 300 000 ml @ 50 mls/hr IV . Q20H ROBERT Rx#:[id number] Magnesium Sulfate-D5w Pmx 200 1 gm In Dextrose/Water 1 100ml.bag @ 100 mls/hr IVPB Q1H ROBERT Rx#: [id number] Oral 450 Output: Urine 1000 Other: Voiding Method Indwelling Catheter Indwelling Catheter Indwelling Catheter - Exam Vital signs are stable. General: Awake. No acute distress. HEENT: Head exam is unremarkable. On nasal cannula. LUNGS: Breath sounds decreased. Basal crackles HEART: Rate and Rhythm are regular. ABDOMEN: Soft, no distention. EXTREMITITES: 1+ edema. - Labs CBC & Chem 7: 08/13/22 11:20 08/16/22 06:38 Labs: Abnormal Lab Results - Last 24 Hours (Table) 08/15/22 08/15/22 08/15/22 Range/Units 07:15 16:40 20:09 PT (9.9-11.9) sec INR (0.90-1.11) Sodium (137-145) mmol/L Carbon Dioxide 28.3 H (20.0-27.5) mmol/L Anion Gap 9.80 L (10.00-18.00) mmol/L BUN (9-20) mg/dL BUN/Creatinine Ratio 20.74 H (12.00-20.00) Ratio Glucose (74-99) mg/dL POC Glucose (mg/dL) 206 H 159 H (70-110) mg/dL Calcium 8.0 L (8.7-10.3) mg/dL 08/16/22 08/16/22 08/16/22 Range/Units 06:38 06:38 11:25 PT 19.1 H (9.9-11.9) sec INR 1.74 H (0.90-1.11) Sodium 136 L (137-145) mmol/L Carbon Dioxide (20.0-27.5) mmol/L Anion Gap (10.00-18.00) mmol/L BUN 21 H (9-20) mg/dL BUN/Creatinine Ratio (12.00-20.00) Ratio Glucose 71 L (74-99) mg/dL POC Glucose (mg/dL) 139 H (70-110) mg/dL Calcium 7.7 L (8.7-10.3) mg/dL Assessment and Plan Assessment: 1. Acute kidney injury secondary to ATN secondary to infection and hypotension and urine retention. Creatinine was 3.2 on admission and is down to 0.9 today. Baseline creatinine near 1 from 07/16/2022. 2. Hyperkalemia secondary to acute kidney injury and RADHA inhibitor. 3. 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 ID and vascular surgery following. 4. Diabetes mellitus. 5. Metabolic acidosis secondary to acute kidney injury. 6. Benign hypertension. Controlled. 7. Urinary retention. Seen by urology. No hydronephrosis noted on kidney ultrasound. Right kidney not properly visualized. Cross catheter placed on 08/10/2022 by urology with a dorsal slit. On doxazosin. 8. Mild hypernatremia Plan: Repeat sodium in am Check with urology regarding discontinuation of Cross catheter.
--- NOTE | 2022-08-16 13:24 | P.DS ---
Providers Date of admission: 08/07/22 23:30 Attending physician: Ran Mayfield Consults: 08/08/22 11:21 Consult Physician Urgent Consulting Provider: Jennifer Holland Consult Reason/Comments: sacral wound/bilateral feet wounds Do you want consulting provider notified?: Yes 08/08/22 11:36 Consult Physician Routine Consulting Provider: Mango Guido Consult Reason/Comments: SNEHA Do you want consulting provider notified?: Yes 08/09/22 00:13 Consult Physician Stat Consulting Provider: Cal Reyes Consult Reason/Comments: retention, unable to place plaza Do you want consulting provider notified?: Yes 08/13/22 15:05 Consult Physician Routine Consulting Provider: Donis Sampson Consult Reason/Comments: elevated trops Do you want consulting provider notified?: Yes Primary care physician: Nayan Castillo [facility] Course: Final Diagnosis Assessment and plan -Gangrene and right foot infection multiple ulcerations: Patient is postoperative surgical debridement of right heel wound and also right fifth toe amputation and deep wound and tissue cultures. On IV unasyn, local wound care. -Elevated troponin with chest pain, possibly from SNEHA/sepsis, cardiology work up. -Acute renal failure probably secondary to acute tubular necrosis from sepsis that may be a competent to prerenal. Continue with IV fluids D5/water at 50 mls, creatinine has normalized. Has some degree of hematuria secondary to plaza catheter placement. -Altered mental status secondary to acute metabolic and toxic encephalopathy secondary to acute renal failure, and possible sepsis from wounds. Brain CT negative for acute. Improving. -Hyperkalemia secondary to acute renal failure, RADHA inhibitor will be held, resolved. -Hypotension: Secondary to infection, hold off antihypertensive medications, blood pressure improving. -hypervolemic hyponatremia: improved with IV fluids -History of paroxysmal atrial fibrillation patient is presently rate controlled, resumed on low dose metoprolol -Supratherapeutic INR which has improved with vitamin K, resumed on coumadin, INR 1.31. 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 -Diabetic peripheral neuropathy cut down the dose of gabapentin because of acute renal failure -Hyperlipidemia -hypertension -Sleep apnea for which patient uses CPAP machine at home -Stage 3 sacral pressure ulcer which is being treated with medihoney and moist dressing and pressure offloading -Bilateral heel pressure ulcer unstageable patient underwent surgical debridement. No Code Discharge Disposition Patient is cleared for discharge in stable condition back to [facility]. He is postoperative day #4 right 5th toe amputation and surgical debridement he has wound vac in place which will need to be removed and can be reapplied one he returns to [facility]. He is scheduled to get PICC line today and will discharge on IV Unasyn Q6h for the next 4 weeks. Patient to follow up with Dr. Holland on discharge for further management. Patient will need to follow up with vascular surgery. He is to continue with local wound care to saccral pressure wound and also bilateral heels with meagan. Recommend to hold amlodipine on discharge. Captopril and Metoprolol has been decreased. Patient will need labs in 2 to 3 days. Patient will discharge with indwelling plaza catheter in place and will follow up with urology on discharge. Patient needs to see nephrology outpatient as well. Total time taken in discharge planning greater than 35 minutes. Hospital Course This is an 86-year-old male came to hospital with complaints of being unable to ambulate at rehab secondary to multiple chronic foot wounds and also has dry gangrene to the right fifth toe and patient has stage II ulcers in both the heels. He also has stage 2 saccral pressure injury, all present on admission. Patient does take Keflex from prior infection patient is found to be in acute renal failure with creatinine going up to 3.17, baseline is around 1. Patient doesn't have any fever. Patient does have elevated white blood cell count. Patient was also hyponatremic and also elevated potassium. He was evaluated by nephrology and also vascular surgery. He had urinary catheter placed by urology secondary to urinary retention which did require dorsal slit. He continued with hematuria which has now resolved and creatinine has normalized to 0.92. His PT/INR today is 1.74 and he has been resumed on coumadin therapy. He was supratherapuetic on admission INR was 4.8 and coumadin was held for vascular surgery. He underwent 5th toe surgical amputation and also surgical debridement of right heel wound and has continued with local wound care and wound vac applied to 5th toe amputation site. Patient did experience chest pain postoperatively and was evaluated by cardiology and ePatient had echocardiogram completed showing LV ejection fraction of 30 to 35%. Medications adjusted and ACS ruled out and patient will follow up with Dr. Gilman on discharge. Wound cultures showing polymicrobial anaerobic gm negative bacilli and also anaerobic gram positive cocci. Dr. Holland evaluated the patient and recommended PICC line on discharge with IV unasyn Q6 for 4 weeks. Patient will be discharged back to rehab today. 08/16/2022 Patient is evaluated today sitting up in bed. He has wound vac in place. He is receiving local wound care. He is currently alert and oriented x 2 to 3, more awake. He denies chest pain, no shortness of breath. He has had bowel movement. Indwelling catheter remains in place. Urine output 1L in the last 24 hours. His lungs are clear today s1 s2 auscultated. Focal neurological exam is negative. He is currently wearing 2L nasal cannula. Labs today showing sodium of 136, potassium 4.3, BUN 4, creatinine 0.92, glucose 139, calcium 7.7. INR today 1.74. He is afebrile 97.9, heart failure 69, blood pressure 115/65, 98% on 2 to 3 L nasal cannula which he can continue to wear on discharge. Please see medication reconciliation for a list of current medication. Thank you for allowing us to participate in the care of this patient. The impression and plan of care has been dictated by Chrissie Costa, Nurse Practitioner as directed. Dr. Katina MD I have performed a history and physical examination and medical decision making of this patient, discussed the same with the dictator, and agree with the dictators assessment and plan as written, documented as a scribe. Based on total visit time, I have performed more than 50% of this visit. Patient Condition at Discharge: Fair Plan - Discharge Summary Discharge Rx Participant: No New Discharge Prescriptions: New HYDROcodone/APAP 5-325MG [[place] 5-325] 1 each PO Q6HR PRN #4 tab PRN Reason: Moderate Pain Acetaminophen Tab [Tylenol] 650 mg PO Q6HR PRN tab PRN Reason: Fever and/ or mild Pain captopriL [Capoten] 6.25 mg PO AC-BID tab Metoprolol Tartrate [Lopressor] 12.5 mg PO BID #0 tab Gabapentin [Neurontin] 100 mg PO BID #6 cap Famotidine [Pepcid] 20 mg PO HS tab Ampicillin-Sulbactam [Unasyn] 3 gm IVPB Q6HR 28 Days #112 each Continue Multivitamins, Thera [Multivitamin (formulary)] 1 tab PO DAILY glipiZIDE [Glipizide] 5 mg PO DAILY@0600 Doxazosin [Cardura] 2 mg PO DAILY Atorvastatin [Lipitor] 40 mg PO HS #30 tab Nitroglycerin Sl Tabs [Nitrostat] 0.4 mg SUBLINGUAL Q5M PRN #0 tab PRN Reason: Chest Pain Levothyroxine Sodium [Synthroid] 112 mcg PO MOTH@2100 Ferrous Sulfate [Feosol] 325 mg PO Q48H Levothyroxine Sodium [Synthroid] 125 mcg PO SUTUWEFRSA@2100 Finasteride [Proscar] 5 mg PO DAILY Ranolazine [Ranexa] 500 mg PO BID Azelastine/Fluticasone [Azelastin-Flutic 137-50Mcg Spr] 2 spray EA NOSTRIL BID Aspirin EC [Ecotrin Low Dose] 81 mg PO HS Cholecalciferol [Vitamin D3 (25 Mcg = 1000 Iu)] 50 mcg PO HS Insulin Lispro [humaLOG Kwikpen] See Protocol SQ AC-TID Glucerna Shake 1 can PO BID@0900,1700 Insulin Glargine-Yfgn [Semglee (Yfgn) Pen] 20 units SQ HS Changed Warfarin [Coumadin] 3 mg PO DAILY@1700 #0 Discontinued amLODIPine [Norvasc] 5 mg PO HS captopriL [Capoten] 12.5 mg PO BID tab Gabapentin 300 mg PO TID@0600,1300,2100 atenoloL [Tenormin] 50 mg PO BID tab Cephalexin [Keflex] 500 mg PO TID@0900,1300,2100 Isosorbide Mononitrate [Imdur] 120 mg PO BID Discharge Medication List Doxazosin [Cardura] 2 mg PO DAILY 07/10/16 [History] Multivitamins, Thera [Multivitamin (formulary)] 1 tab PO DAILY 07/10/16 [History] glipiZIDE [Glipizide] 5 mg PO DAILY@0600 07/10/16 [History] Atorvastatin [Lipitor] 40 mg PO HS #30 tab 12/18/16 [Rx] Nitroglycerin Sl Tabs [Nitrostat] 0.4 mg SUBLINGUAL Q5M PRN #0 tab 12/26/16 [Rx] Azelastine/Fluticasone [Azelastin-Flutic 137-50Mcg Spr] 2 spray EA NOSTRIL BID 07/12/22 [History] Ferrous Sulfate [Feosol] 325 mg PO Q48H 07/12/22 [History] Finasteride [Proscar] 5 mg PO DAILY 07/12/22 [History] Levothyroxine Sodium [Synthroid] 112 mcg PO MOTH@2100 07/12/22 [History] Ranolazine [Ranexa] 500 mg PO BID 07/12/22 [History] Aspirin EC [Ecotrin Low Dose] 81 mg PO HS 07/14/22 [History] Cholecalciferol [Vitamin D3 (25 Mcg = 1000 Iu)] 50 mcg PO HS 07/14/22 [History] Glucerna Shake 1 can PO BID@0900,1700 08/07/22 [History] Insulin Glargine-Yfgn [Semglee (Yfgn) Pen] 20 units SQ HS 08/07/22 [History] Insulin Lispro [humaLOG Kwikpen] See Protocol SQ AC-TID 08/07/22 [History] Levothyroxine Sodium [Synthroid] 125 mcg PO SUTUWEFRSA@209908/07/22 [History] Acetaminophen Tab [Tylenol] 650 mg PO Q6HR PRN tab 08/16/22 [Rx] Ampicillin-Sulbactam [Unasyn] 3 gm IVPB Q6HR 28 Days #112 each 08/16/22 [Rx] Famotidine [Pepcid] 20 mg PO HS tab 08/16/22 [Rx] Gabapentin [Neurontin] 100 mg PO BID #6 cap 08/16/22 [Rx] HYDROcodone/APAP 5-325MG [[place] 5-325] 1 each PO Q6HR PRN #4 tab 08/16/22 [Rx] Metoprolol Tartrate [Lopressor] 12.5 mg PO BID #0 tab 08/16/22 [Rx] Warfarin [Coumadin] 3 mg PO DAILY@1700 #0 08/16/22 [Rx] captopriL [Capoten] 6.25 mg PO AC-BID tab 08/16/22 [Rx] Follow up Appointment(s)/Referral(s): Keith Gilman MD [STAFF PHYSICIAN] - 2 Weeks Nayan Castillo MD [Primary Care Provider] - 1-2 days Esequiel Smith DO [Doctor of Osteopathic Medicine] - 1 Week [facility], [NON-STAFF] - As Needed Mango Guido DO [STAFF PHYSICIAN] - 1 Week Jennifer Holland MD [STAFF PHYSICIAN] - 1 Week Ambulatory/Diagnostic Orders: Basic Metabolic Panel [LAB.AMB] Time Frame: 2 Days, Location: None Selected Complete Blood Count w/diff [LAB.AMB] Time Frame: 2 Days, Location: None Selected Magnesium [LAB.AMB] Time Frame: 2 Days, Location: None Selected Prothrombin Time INR [LAB.AMB] Time Frame: 08/19/22, Location: None Selected Activity/Diet/Wound Care/Special Instructions: Wound vac to right fifth toe amputation site change friday, friday, friday. Setting 125mmhg Follow up with Dr. Smith with vascular surgery. Continue Warfarin and check PT/INR on aug, and also on Patient will return to [facility] Diet: Dysphagia level 2: Ground with aspiration precautions Continue with local wound care to sacral ulcer stage III with Therahoney and moist dressing change daily Continue with local wound care to bilateral heel ulcer with Therahoney and most dressing change daily Patient to follow up with Dr. Holland in the wound care clinic for further management of wounds and antibiotics [phone] Patient will discharge with PICC line in place and IV antibiotics with current recommendations IV Unasyn [id number] for 4 weeks Continue with indwelling plaza catheter and follow up with urology outpatient Discharge Disposition: TRANSFER TO SNF/ECF
[2022-08-16] MEDS ORDERED: LIDOCAINE 1% INJ 10MG/ML (30 ML VIAL-PF) SQ ONE (13:38)
--- NOTE | 2022-08-16 14:08 | IR ---
PICC LINE PLACEMENT: HISTORY: Infection requiring long-term antibiotic therapy PROCEDURE: Ultrasound and fluoroscopic guidance of PICC line placement. COMPLICATIONS: None ANESTHESIA: 1. 1% Lidocaine locally. FINDINGS/TECHNIQUE: The procedure was explained to the patient. The risks, complications, benefits and alternatives were discussed and any questions were answered. Informed consent was obtained. The patient was placed supine on the fluoroscopic table and prepped and draped in the usual sterile fash ion. Utilizing a 21 gauge needle and sonographic and fluoroscopic guidance, access in the right bas ilic vein was achieved and there is placement of a 0.018 guidewire. The vein is patent. A 4-F sheat h was placed over the guidewire. The guidewire and dilator were removed and a 4-F. PICC line was meg carlito through the sheath with the tip at the level of the SVC. The sheath was removed, the catheter wa s flushed and sutured into position. The patient was stable throughout the procedure and remained st able upon discharge from the Department of Radiology. The vein puncture was patent under ultrasound. A taylor scale image was obtained to document patency of the vein punctured. All elements of the maximal barrier technique were utilized. FLUOROSCOPY TIME: 0.3 minutes and one image submitted IMPRESSION: Successful PICC line placement under ultrasound and fluoroscopic guidance.
[2022-08-16] MEDS: HYDROcodone/APAP 5-325MG 1 EACH TAB PO PRN (16:24)
[2022-08-16 16:43] LABS: Glucose,Whole Blood 105 mg/dL (70-110)
[2022-08-16] MEDS ORDERED: WARFARIN 2 MG TAB PO ONE (18:00)
[2022-08-16 20:03] LABS: Glucose,Whole Blood 133 mg/dL (70-110)
[2022-08-16 20:09] VITALS: BP 133/66; RESP 18; TEMP 97.6
[2022-08-16] MEDS: INSULIN DETEMIR (LEVEMIR) 100 UNIT/ML SYR SQ SCH (20:19)
[2022-08-16] MEDS: ASPIRIN 81 MG PO SCH (20:23)
[2022-08-16] MEDS: FAMOTIDINE 20 MG TAB PO SCH (20:23)
[2022-08-16] MEDS: LEVOTHYROXINE 125 MCG TAB PO SCH (20:23)
[2022-08-16] MEDS: ATORVASTATIN 40 MG TAB PO SCH (20:23)
== END 2022-08-16 21:48 | DRG 853 ==
LOC: EC 18:32 → 4SSUR 23:30
PROVIDERS: ADMIT Hospitalist; ATTEND Hospitalist
PROC: 0T9B80Z Drainage of Bladder with Drainage Device, Via Natural or Artificial Opening Endoscopic (ICD-10-PCS; 2022-08-10)
PROC: 0VNTXZZ Release Prepuce, External Approach (ICD-10-PCS; 2022-08-10)
PROC: 0Y6X0Z0 Detachment at Right 5th Toe, Complete, Open Approach (ICD-10-PCS; 2022-08-12)
PROC: 0JBQ0ZZ Excision of Right Foot Subcutaneous Tissue and Fascia, Open Approach (ICD-10-PCS; principal; 2022-08-12 13:45)
PROC: 05HB33Z Insertion of Infusion Device into Right Basilic Vein, Percutaneous Approach (ICD-10-PCS; 2022-08-13)
PROC: 02HV33Z Insertion of Infusion Device into Superior Vena Cava, Percutaneous Approach (ICD-10-PCS; 2022-08-16)
DX: A41.59 Other Gram-negative sepsis (principal); G92.8 Other toxic encephalopathy; L89.153 Pressure ulcer of sacral region, stage 3; L89.613 Pressure ulcer of right heel, stage 3; N17.0 Acute kidney failure with tubular necrosis; E11.52 Type 2 diabetes mellitus with diabetic peripheral angiopathy with gangrene; E87.0 Hyperosmolality and hypernatremia; E87.1 Hypo-osmolality and hyponatremia; E87.20 Acidosis, unspecified; I50.22 Chronic systolic (congestive) heart failure; J98.11 Atelectasis; T83.83XA Hemorrhage due to genitourinary prosthetic devices, implants and grafts, initial encounter; I11.0 Hypertensive heart disease with heart failure; E11.42 Type 2 diabetes mellitus with diabetic polyneuropathy; L97.519 Non-pressure chronic ulcer of other part of right foot with unspecified severity; L89.621 Pressure ulcer of left heel, stage 1; E11.621 Type 2 diabetes mellitus with foot ulcer; Z66 Do not resuscitate; E78.5 Hyperlipidemia, unspecified; R65.20 Severe sepsis without septic shock; I08.1 Rheumatic disorders of both mitral and tricuspid valves; E87.5 Hyperkalemia; E87.6 Hypokalemia; G47.30 Sleep apnea, unspecified; H54.62 Unqualified visual loss, left eye, normal vision right eye; I25.10 Atherosclerotic heart disease of native coronary artery without angina pectoris; I25.2 Old myocardial infarction; I25.5 Ischemic cardiomyopathy; I48.0 Paroxysmal atrial fibrillation; L08.9 Local infection of the skin and subcutaneous tissue, unspecified; H93.13 Tinnitus, bilateral; M47.9 Spondylosis, unspecified; N47.1 Phimosis; R79.1 Abnormal coagulation profile; Y84.6 Urinary catheterization as the cause of abnormal reaction of the patient, or of later complication, without mention of misadventure at the time of the procedure; R31.9 Hematuria, unspecified; R77.8 Other specified abnormalities of plasma proteins; Z28.21 Immunization not carried out because of patient refusal; Z79.01 Long term (current) use of anticoagulants; Z79.4 Long term (current) use of insulin; Z79.82 Long term (current) use of aspirin; Z79.84 Long term (current) use of oral hypoglycemic drugs; Z79.890 Hormone replacement therapy; Z79.899 Other long term (current) drug therapy; Z82.49 Family history of ischemic heart disease and other diseases of the circulatory system; Z87.891 Personal history of nicotine dependence; Z95.0 Presence of cardiac pacemaker; Z95.1 Presence of aortocoronary bypass graft; Z95.5 Presence of coronary angioplasty implant and graft
CPT/HCPCS: 36410; 36415; 36573; 70450; 71045; 71046; 76770; 76937; 80048; 80053; 81001; 83036; 83605; 83735; 83880; 84132; 84145; 84484; 85025; 85027; 85610; 85652; 85730; 86140; 87040; 87070; 87075; 87086; 87205; 88305; 93005; 93306; 94640; 94760; 96361; 96365; 96366; 96367; 96375; 99285

== ENCOUNTER 2022-08-18 05:56 | Emergency (ER) | payer MEDICARE, BC ==
--- NOTE | 2022-08-18 06:30 | ED ---
General Adult HPI - General Chief complaint: Recheck/Abnormal Lab/Rx Stated complaint: pic line Time Seen by Provider: 08/18/22 06:09 Source: patient, family, EMS, RN notes reviewed Mode of arrival: EMS Limitations: no limitations - History of Present Illness Initial comments: This an 86-year-old male presents emergency Department from [facility] for evalua tion of PICC line that was removed. Patient exited pulse PICC line out they sent him here to confirm that was fully removed in which he did send a PICC line with the patient. Patient was discharged Friday from the hospital after being admitted for infection of his feet, decubitus ulcers. Patient was recently diagnosed with COVID-19 2 days ago. Patient denies any bleeding, pain from the site of the PICC line patient has been receiving antibiotics for his current infection. - Related Data Home Medications Medication Instructions Recorded Confirmed Doxazosin [Cardura] 2 mg PO DAILY 07/10/16 08/07/22 Multivitamins, Thera [Multivitamin 1 tab PO DAILY 07/10/16 08/07/22 (formulary)] glipiZIDE [Glipizide] 5 mg PO DAILY@0600 07/10/16 08/07/22 Azelastine/Fluticasone 2 spray EA NOSTRIL BID 07/12/22 08/07/22 [Azelastin-Flutic 137-50Mcg Spr] Ferrous Sulfate [Feosol] 325 mg PO Q48H 07/12/22 08/07/22 Finasteride [Proscar] 5 mg PO DAILY 07/12/22 08/07/22 Levothyroxine Sodium [Synthroid] 112 mcg PO MOTH@2100 07/12/22 08/07/22 Ranolazine [Ranexa] 500 mg PO BID 07/12/22 08/07/22 Aspirin EC [Ecotrin Low Dose] 81 mg PO HS 07/14/22 08/07/22 Cholecalciferol [Vitamin D3 (25 50 mcg PO HS 07/14/22 08/07/22 Mcg = 1000 Iu)] Glucerna Shake 1 can PO BID@0900,1700 08/07/22 08/07/22 Insulin Glargine-Yfgn [Semglee 20 units SQ HS 08/07/22 08/07/22 (Yfgn) Pen] Insulin Lispro [humaLOG Kwikpen] See Protocol SQ AC-TID 08/07/22 08/07/22 Levothyroxine Sodium [Synthroid] 125 mcg PO SUTUWEFRSA@2100 08/07/22 08/07/22 Previous Rx's Medication Instructions Recorded Atorvastatin [Lipitor] 40 mg PO HS #30 tab 12/18/16 Nitroglycerin Sl Tabs [Nitrostat] 0.4 mg SUBLINGUAL Q5M PRN #0 tab 12/26/16 Acetaminophen Tab [Tylenol] 650 mg PO Q6HR PRN tab 08/16/22 Ampicillin-Sulbactam [Unasyn] 3 gm IVPB Q6HR 28 Days #112 each 08/16/22 Famotidine [Pepcid] 20 mg PO HS tab 08/16/22 Gabapentin [Neurontin] 100 mg PO BID #6 cap 08/16/22 HYDROcodone/APAP 5-325MG [[place] 1 each PO Q6HR PRN #4 tab 08/16/22 5-325] Metoprolol Tartrate [Lopressor] 12.5 mg PO BID #0 tab 08/16/22 Warfarin [Coumadin] 3 mg PO DAILY@1700 #0 08/16/22 captopriL [Capoten] 6.25 mg PO AC-BID tab 08/16/22 Allergies Allergy/AdvReac Type Severity Reaction Status Date / Time No Known Allergies Allergy Verified 08/12/22 13:22 Review of Systems ROS Statement: Those systems with pertinent positive or pertinent negative responses have been documented in the HPI. ROS Other: All systems not noted in ROS Statement are negative. Past Medical History Past Medical History: Atrial Fibrillation, Coronary Artery Disease (CAD), Chest Pain / Angina, Diabetes Mellitus, Eye Disorder, Hyperlipidemia, Hypertension, Myocardial Infarction ([place]), Osteoarthritis (OA), Sleep Apnea/CPAP/BIPAP Additional Past Medical History / Comment(s): MIs, CPAP use, IDDM type II, bradycardia with pacer, tinnitis bilaterally, non healing wound on rt foot side of little toe and in between the 2 toes. arthritis lower back. left eye blind Last Myocardial Infarction Date:: 07/02/16 History of Any Multi-Drug Resistant Organisms: None Reported Past Surgical History: Coronary Bypass/CABG, Heart Catheterization With Stent, Orthopedic Surgery, Pacemaker Additional Past Surgical History / Comment(s): 1990 cabg-1 vessel, PTCA, PCI with stents (4 total), sinus surgery r/t growth sinus cavity, colonoscopy, L knee arthroscopy, bilateral cataract removals. [place] [employer] pacemaker Past Anesthesia/Blood Transfusion Reactions: No Reported Reaction Date of Last Stent Placement:: 12/17/16 Type of Cardiac Device: Permanent Pacemaker Device Placement Date:: 11/05/16 Past Psychological History: No Psychological Hx Reported Smoking Status: Former smoker Past Alcohol Use History: None Reported - Past Family History Mother Family Medical History: Asthma Father Family Medical History: Myocardial Infarction ([place]) Additional Family Medical History / Comment(s): with [place] at age 62 Brother(s) Family Medical History: Deep Vein Thrombosis (DVT), Myocardial Infarction ([place]) Additional Family Medical History / Comment(s): at age 42 w/ [place] General Exam Limitations: no limitations General appearance: alert, in no apparent distress Respiratory exam: Present: normal lung sounds bilaterally. Absent: respiratory distress, wheezes, rales, rhonchi, stridor Cardiovascular Exam: Present: regular rate, normal rhythm, normal heart sounds. Absent: systolic murmur, diastolic murmur, rubs, gallop, clicks Extremities exam: Present: other (no Bleeding at the site) Neurological exam: Present: alert Course Vital Signs 08/18/22 08/18/22 05:58 06:07 Temperature 98.8 F 98.9 F Pulse Rate 78 73 Respiratory 18 18 Rate Blood Pressure 160/72 160/72 O2 Sat by Pulse 100 100 Oximetry Medical Decision Making - Medical Decision Making I did find records of PICC line placement here Hospital showing 43 cm which is confirmed with PICC line in the room. X-ray does not show an acute abnormality. Patient will have peripheral line left in for IV antibiotic use and will schedule tomorrow for outpatient PICC line placement. - Lab Data Result diagrams: 08/18/22 07:07 08/18/22 07:07 Lab Results 08/18/22 08/18/22 Range/Units 07:07 07:07 WBC 9.9 (3.8-10.6) k/uL RBC 3.22 L (4.30-5.90) m/uL Hgb 9.5 L (13.0-17.5) gm/dL Hct 30.3 L (39.0-53.0) % MCV 94.1 (80.0-100.0) fL MCH 29.6 (25.0-35.0) pg MCHC 31.4 (31.0-37.0) g/dL RDW 14.2 (11.5-15.5) % Plt Count 340 (150-450) k/uL MPV 7.1 Neutrophils % 79 % Lymphocytes % 14 % Monocytes % 4 % Eosinophils % 2 % Basophils % 0 % Neutrophils # 7.9 H (1.3-7.7) k/uL Lymphocytes # 1.4 (1.0-4.8) k/uL Monocytes # 0.4 (0-1.0) k/uL Eosinophils # 0.2 (0-0.7) k/uL Basophils # 0.0 (0-0.2) k/uL Hypochromasia Moderate Sodium 137 (137-145) mmol/L Potassium 4.2 (3.5-5.1) mmol/L Chloride 99 (98-107) mmol/L Carbon Dioxide 33 H (22-30) mmol/L Anion Gap 5 mmol/L BUN 15 (9-20) mg/dL Creatinine 1.01 (0.66-1.25) mg/dL Est GFR (CKD-EPI)AfAm 79 (>60 ml/min/1.73 sqM) Est GFR (CKD-EPI)NonAf 68 (>60 ml/min/1.73 sqM) Glucose 171 H (74-99) mg/dL Calcium 7.9 L (8.4-10.2) mg/dL Disposition Clinical Impression: PIC line (peripherally inserted central catheter) removal Disposition: HOME SELF-CARE Condition: Stable Additional Instructions: Please call tomorrow for outpatient PICC line placement. Is patient prescribed a controlled substance at d/c from ED?: No Referrals: Nayan Castillo MD [Primary Care Provider] - 1-2 days Time of Disposition: 07:48
--- NOTE | 2022-08-18 07:02 | XR ---
EXAMINATION TYPE: XR chest 1V DATE OF EXAM: 08/18/2022 COMPARISON: 08/12/2022 HISTORY: Short of breath TECHNIQUE: FINDINGS: There is some mild subsegmental atelectasis at the lung bases. No pleural effusion. No hear t failure. There are sternal wires. There is left axillary pacemaker. IMPRESSION: Mild subsegmental atelectasis. Inspiration slightly decreased compared to old exam. No he art failure seen.
[2022-08-18 07:22] LABS: Basophils % (A) 0 %; Eosinophils # (A) 0.2 k/uL (0-0.7); Eosinophils % (A) 2 %; HCT 30.3 % (39.0-53.0); HGB 9.5 gm/dL (13.0-17.5); Hypochromasia Moderate; Lymphocytes # (A) 1.4 k/uL (1.0-4.8); Lymphocytes % (A) 14 %; MCH 29.6 pg (25.0-35.0); MCHC 31.4 g/dL (31.0-37.0); MCV 94.1 fL (80.0-100.0); Mean Platelet Volume 7.1; Monocytes # (A) 0.4 k/uL (0-1.0); Monocytes % (A) 4 %; Neutrophils # (A) 7.9 k/uL (1.3-7.7); Neutrophils % (A) 79 %; Platelet Count 340 k/uL (150-450); RBC 3.22 m/uL (4.30-5.90); RDW 14.2 % (11.5-15.5); WBC 9.9 k/uL (3.8-10.6)
[2022-08-18 07:35] LABS: Calcium 7.9 mg/dL (8.4-10.2); Potassium 4.2 mmol/L (3.5-5.1)
[2022-08-18 09:03] VITALS: BP 153/84; PULSE 80; RESP 20; TEMP 98.6
== END 2022-08-18 09:03 | disposition home or self-care (01) ==
LOC: EC 05:56
DX: U07.1 COVID-19 (principal); Z45.2 Encounter for adjustment and management of vascular access device; I10 Essential (primary) hypertension; I48.91 Unspecified atrial fibrillation; I25.10 Atherosclerotic heart disease of native coronary artery without angina pectoris; E11.9 Type 2 diabetes mellitus without complications; E78.5 Hyperlipidemia, unspecified; I25.2 Old myocardial infarction; M19.90 Unspecified osteoarthritis, unspecified site; G47.30 Sleep apnea, unspecified; Z87.891 Personal history of nicotine dependence; Z79.811 Long term (current) use of aromatase inhibitors; Z79.899 Other long term (current) drug therapy
CPT/HCPCS: 36415; 71045; 80048; 85025; 87635; 99284

== ENCOUNTER 2022-08-27 13:48 | Inpatient (IN) | payer MEDICARE, BC ==
[2022-08-27 14:18] LABS: Basophils % (A) 0 %; Eosinophils # (A) 0.1 k/uL (0-0.7); Eosinophils % (A) 1 %; HCT 31.1 % (39.0-53.0); HGB 9.7 gm/dL (13.0-17.5); Hypochromasia Marked; Lymphocytes # (A) 1.2 k/uL (1.0-4.8); Lymphocytes % (A) 11 %; MCH 29.9 pg (25.0-35.0); MCHC 31.3 g/dL (31.0-37.0); MCV 95.4 fL (80.0-100.0); Monocytes # (A) 0.5 k/uL (0-1.0); Monocytes % (A) 4 %; Neutrophils % (A) 83 %; Platelet Count 340 k/uL (150-450); RBC 3.26 m/uL (4.30-5.90); RDW 14.5 % (11.5-15.5); WBC 10.9 k/uL (3.8-10.6)
--- NOTE | 2022-08-27 14:23 | ED ---
General Adult HPI - General Chief complaint: Syncope Stated complaint: syncope Time Seen by Provider: 08/27/22 13:52 Source: patient, family, EMS, RN notes reviewed, old records reviewed Mode of arrival: EMS Limitations: no limitations - History of Present Illness Initial comments: Patient is an 86-year-old male presenting to the emergency room via EMS after reports of being "unresponsive" with a "syncopal" event at [facility] earlier today while lying in bed. He was moved out of the Covid unit to another unit earlier today. His reports that he does have frequent confusion and poor verbal response especially with staff often since his last hospitalization and admission and the [facility]. He has few verbal response and is alert 1 b ut easily aroused; he denies any complaints or concerns and is resting comfortably. He denies any chest pain, shortness of breath, abdominal pain, or nausea at this time. He believes that he may have had an emesis event after breakfast this morning however he is unsure if that occurred today or prev iously. He is incontinent of bowel and bladder. He has an extensive past medical history including recent Covid diagnosis, atrial fibrillation, CAD, diabetes, legally blind in his left eye, hyperlipidemia, hypertension, arthritis, sleep apnea, multiple diabetic ulcers to his lower extremities and sick sinus syndrome with pacemaker. - Related Data Home Medications Medication Instructions Recorded Confirmed Doxazosin [Cardura] 2 mg PO DAILY 07/10/16 08/07/22 Multivitamins, Thera [Multivitamin 1 tab PO DAILY 07/10/16 08/07/22 (formulary)] glipiZIDE [Glipizide] 5 mg PO DAILY@0600 07/10/16 08/07/22 Azelastine/Fluticasone 2 spray EA NOSTRIL BID 07/12/22 08/07/22 [Azelastin-Flutic 137-50Mcg Spr] Ferrous Sulfate [Feosol] 325 mg PO Q48H 07/12/22 08/07/22 Finasteride [Proscar] 5 mg PO DAILY 07/12/22 08/07/22 Levothyroxine Sodium [Synthroid] 112 mcg PO MOTH@2100 07/12/22 08/07/22 Ranolazine [Ranexa] 500 mg PO BID 07/12/22 08/07/22 Aspirin EC [Ecotrin Low Dose] 81 mg PO HS 07/14/22 08/07/22 Cholecalciferol [Vitamin D3 (25 50 mcg PO HS 07/14/22 08/07/22 Mcg = 1000 Iu)] Glucerna Shake 1 can PO BID@0900,1700 08/07/22 08/07/22 Insulin Glargine-Yfgn [Semglee 20 units SQ HS 08/07/22 08/07/22 (Yfgn) Pen] Insulin Lispro [humaLOG Kwikpen] See Protocol SQ AC-TID 08/07/22 08/07/22 Levothyroxine Sodium [Synthroid] 125 mcg PO SUTUWEFRSA@2100 08/07/22 08/07/22 Previous Rx's Medication Instructions Recorded Atorvastatin [Lipitor] 40 mg PO HS #30 tab 12/18/16 Nitroglycerin Sl Tabs [Nitrostat] 0.4 mg SUBLINGUAL Q5M PRN #0 tab 12/26/16 Acetaminophen Tab [Tylenol] 650 mg PO Q6HR PRN tab 08/16/22 Ampicillin-Sulbactam [Unasyn] 3 gm IVPB Q6HR 28 Days #112 each 08/16/22 Famotidine [Pepcid] 20 mg PO HS tab 08/16/22 Gabapentin [Neurontin] 100 mg PO BID #6 cap 08/16/22 HYDROcodone/APAP 5-325MG [[place] 1 each PO Q6HR PRN #4 tab 08/16/22 5-325] Metoprolol Tartrate [Lopressor] 12.5 mg PO BID #0 tab 08/16/22 Warfarin [Coumadin] 3 mg PO DAILY@1700 #0 08/16/22 captopriL [Capoten] 6.25 mg PO AC-BID tab 08/16/22 Allergies Allergy/AdvReac Type Severity Reaction Status Date / Time No Known Allergies Allergy Verified 08/12/22 13:22 Review of Systems ROS Statement: Those systems with pertinent positive or pertinent negative responses have been documented in the HPI. ROS Other: All systems not noted in ROS Statement are negative. Past Medical History Past Medical History: Atrial Fibrillation, Coronary Artery Disease (CAD), Chest Pain / Angina, Diabetes Mellitus, Eye Disorder, Hyperlipidemia, Hypertension, Myocardial Infarction ([place]), Osteoarthritis (OA), Sleep Apnea/CPAP/BIPAP Additional Past Medical History / Comment(s): MIs, CPAP use, IDDM type II, bradycardia with pacer, tinnitis bilaterally, non healing wound on rt foot side of little toe and in between the 2 toes. arthritis lower back. left eye blind Last Myocardial Infarction Date:: 07/02/16 History of Any Multi-Drug Resistant Organisms: None Reported Past Surgical History: Coronary Bypass/CABG, Heart Catheterization With Stent, Orthopedic Surgery, Pacemaker Additional Past Surgical History / Comment(s): 1990 cabg-1 vessel, PTCA, PCI with stents (4 total), sinus surgery r/t growth sinus cavity, colonoscopy, L knee arthroscopy, bilateral cataract removals. [place] [employer] pacemaker Past Anesthesia/Blood Transfusion Reactions: No Reported Reaction Date of Last Stent Placement:: 12/17/16 Type of Cardiac Device: Permanent Pacemaker Device Placement Date:: 11/05/16 Past Psychological History: No Psychological Hx Reported Smoking Status: Former smoker Past Alcohol Use History: None Reported Past Drug Use History: Unable to Obtain - Past Family History Mother Family Medical History: Asthma Father Family Medical History: Myocardial Infarction ([place]) Additional Family Medical History / Comment(s): with [place] at age 62 Brother(s) Family Medical History: Deep Vein Thrombosis (DVT), Myocardial Infarction ([place]) Additional Family Medical History / Comment(s): at age 42 w/ [place] General Exam Limitations: no limitations General appearance: in no apparent distress, other (drowsy but arousable) Head exam: Present: atraumatic, normocephalic, normal inspection Eye exam: Present: normal appearance, PERRL, EOMI. Absent: scleral icterus, conjunctival injection, periorbital swelling ENT exam: Present: mucous membranes moist, other (Multiple missing teeth) Neck exam: Present: normal inspection, full ROM Cardiovascular Exam: Present: regular rate, normal rhythm, normal heart sounds. Absent: systolic murmur, diastolic murmur, rubs, gallop, clicks GI/Abdominal exam: Present: soft, normal bowel sounds, other (rounded). Absent: distended, tenderness, guarding, rebound, rigid Extremities exam: Present: pedal edema (Bilateral lower extremity swelling) Expanded Neurological exam: Present: other (Slow responses) Patient oriented to: Present: person. Absent: place, time Speech: Present: fluid speech Eye Response: (4) open spontaneously Motor Response: (6) obeys commands Verbal Response: (4) confused conversation [place] Total: 14 Psychiatric exam: Present: flat affect Skin exam: Present: other (Dressing intact to bilateral lower extremities for diabetic ulcers. Stage II pressure ulcer with dressing intact to sacrum) Course Vital Signs 08/27/22 13:52 Temperature 98.0 F Pulse Rate 87 Respiratory 18 Rate Blood Pressure 120/48 Medical Decision Making - Medical Decision Making 86-year-old male presenting to the emergency room via EMS with co ncerns regarding and unresponsive syncopal event at [facility] earlier today. Patient now responsive though oral responses are slow which is recent most recent baseline orientated 1. No acute distress. Will obtain CT of the brain along with chest x-ray, EKG, CBC, CMP, urinalysis, Troponin, and coags. Recent testing positive for COVID will not repeat testing. Chest x-ray image reviewed by me showing low lung volumes without consolidation. Computed tomography scan image reviewed by me showing no intracranial bleed or mass. EKG reveals electronically paced rhythm. CBC shows mild leukocytosis and anemia. CMP reveals dehydration with acute kidney injury BUN of 33 creatinine 1.92 with baseline abnormal renal function. Will start on gentle IV hydration and plan for admission with continued IV hydration and monitoring. E paged regarding admission. Presentation and evaluation results discussed with Gaby Shaver with [facility] who is accepting of admission. Admission orders place. Urinalysis resulted just prior to admission orders being placed showing urinary tract infection which developed while taking Unasyn for gangrenous toe infection. Will give gentamicin once now and defer further antibiotic therapy to primary team. Case discussed with Dr. Oropeza. - Lab Data Result diagrams: 08/27/22 14:11 08/27/22 14:11 Lab Results 08/27/22 08/27/22 08/27/22 Range/Units 14:11 14:11 14:11 WBC 10.9 H (3.8-10.6) k/uL RBC 3.26 L (4.30-5.90) m/uL Hgb 9.7 L (13.0-17.5) gm/dL Hct 31.1 L (39.0-53.0) % MCV 95.4 (80.0-100.0) fL MCH 29.9 (25.0-35.0) pg MCHC 31.3 (31.0-37.0) g/dL RDW 14.5 (11.5-15.5) % Plt Count 340 (150-450) k/uL MPV 8.0 Neutrophils % 83 % Lymphocytes % 11 % Monocytes % 4 % Eosinophils % 1 % Basophils % 0 % Neutrophils # 9.0 H (1.3-7.7) k/uL Lymphocytes # 1.2 (1.0-4.8) k/uL Monocytes # 0.5 (0-1.0) k/uL Eosinophils # 0.1 (0-0.7) k/uL Basophils # 0.0 (0-0.2) k/uL Hypochromasia Marked PT 22.4 H (9.0-12.0) sec INR 2.2 H (<1.2) APTT 47.3 H (22.0-30.0) sec Sodium 137 (137-145) mmol/L Potassium 4.0 (3.5-5.1) mmol/L Chloride 105 (98-107) mmol/L Carbon Dioxide 28 (22-30) mmol/L Anion Gap 4 mmol/L BUN 33 H (9-20) mg/dL Creatinine 1.92 H (0.66-1.25) mg/dL Est GFR (CKD-EPI)AfAm 36 (>60 ml/min/1.73 sqM) Est GFR (CKD-EPI)NonAf 31 (>60 ml/min/1.73 sqM) Glucose 124 H (74-99) mg/dL Calcium 8.2 L (8.4-10.2) mg/dL Total Bilirubin 0.5 (0.2-1.3) mg/dL AST 38 (17-59) U/L ALT 31 (4-49) U/L Alkaline Phosphatase 94 (38-126) U/L Troponin I (0.000-0.034) ng/mL Total Protein 5.4 L (6.3-8.2) g/dL Albumin 2.5 L (3.5-5.0) g/dL Urine Color Urine Appearance (Clear) Urine pH (5.0-8.0) Ur Specific [place] (1.001-1.035) Urine Protein (Negative) Urine Glucose (UA) (Negative) Urine Ketones (Negative) Urine Blood (Negative) Urine Nitrite (Negative) Urine Bilirubin (Negative) Urine Urobilinogen (<2.0) mg/dL Ur Leukocyte Esterase (Negative) Urine RBC (0-5) /hpf Urine WBC (0-5) /hpf Ur Squamous Epith Cells (0-4) /hpf Amorphous Sediment (None) /hpf Hyaline Casts (0-2) /lpf Urine Mucus (None) /hpf Ur Yeast w Hyphae (None) /hpf Urine Yeast (Budding) (None) /hpf 08/27/22 08/27/22 Range/Units 14:11 15:30 WBC (3.8-10.6) k/uL RBC (4.30-5.90) m/uL Hgb (13.0-17.5) gm/dL Hct (39.0-53.0) % MCV (80.0-100.0) fL MCH (25.0-35.0) pg MCHC (31.0-37.0) g/dL RDW (11.5-15.5) % Plt Count (150-450) k/uL MPV Neutrophils % % Lymphocytes % % Monocytes % % Eosinophils % % Basophils % % Neutrophils # (1.3-7.7) k/uL Lymphocytes # (1.0-4.8) k/uL Monocytes # (0-1.0) k/uL Eosinophils # (0-0.7) k/uL Basophils # (0-0.2) k/uL Hypochromasia PT (9.0-12.0) sec INR (<1.2) APTT (22.0-30.0) sec Sodium (137-145) mmol/L Potassium (3.5-5.1) mmol/L Chloride (98-107) mmol/L Carbon Dioxide (22-30) mmol/L Anion Gap mmol/L BUN (9-20) mg/dL Creatinine (0.66-1.25) mg/dL Est GFR (CKD-EPI)AfAm (>60 ml/min/1.73 sqM) Est GFR (CKD-EPI)NonAf (>60 ml/min/1.73 sqM) Glucose (74-99) mg/dL Calcium (8.4-10.2) mg/dL Total Bilirubin (0.2-1.3) mg/dL AST (17-59) U/L ALT (4-49) U/L Alkaline Phosphatase (38-126) U/L Troponin I 0.025 (0.000-0.034) ng/mL Total Protein (6.3-8.2) g/dL Albumin (3.5-5.0) g/dL Urine Color Yellow Urine Appearance Cloudy (Clear) Urine pH 5.5 (5.0-8.0) Ur Specific [place] 1.023 (1.001-1.035) Urine Protein 1+ H (Negative) Urine Glucose (UA) Negative (Negative) Urine Ketones Trace H (Negative) Urine Blood Moderate H (Negative) Urine Nitrite Negative (Negative) Urine Bilirubin Negative (Negative) Urine Urobilinogen 2.0 (<2.0) mg/dL Ur Leukocyte Esterase Large H (Negative) Urine RBC 31 H (0-5) /hpf Urine WBC >182 H (0-5) /hpf Ur Squamous Epith Cells 4 (0-4) /hpf Amorphous Sediment Rare H (None) /hpf Hyaline Casts 11 H (0-2) /lpf Urine Mucus Rare H (None) /hpf Ur Yeast w Hyphae Occasional (None) /hpf Urine Yeast (Budding) Moderate H (None) /hpf - EKG Data EKG Comments: EKG completed at 1400 to resume shows electronically ventricular paced rhythm, ventricular rate 80 bpm, DC interval * ms, QRS duration 158 ms, QT/QTC 411/456 most seconds, PRT axes *, 88, 261. - Radiology Data Radiology results: report reviewed, image reviewed Chest x-ray 2 view impression by radiologist reveals low lung volumes and cardiomegaly with bibasilar a atelectasis or linear scarring redemonstrated no acute infiltrate. CT the brain without contrast impression by radiologist no acute intracranial process. Nonspecific white matter changes likely secondary to chronic small that so ischemic disease. Similar appearance of opacity in the frontal sinus with frontal bone deformities or could be postsurgical. Right mastoid effusion. Disposition Clinical Impression: SNEHA (acute kidney injury), UTI (urinary tract infection) Disposition: ADMITTED IP TO THIS HOSP Condition: Stable Is patient prescribed a controlled substance at d/c from ED?: No Referrals: Nayan Castillo MD [Primary Care Provider] - 1-2 days Time of Disposition: 16:10
--- NOTE | 2022-08-27 14:43 | CT ---
EXAMINATION TYPE: CT brain wo con CT DLP: 1217.4 mGycm, Automated exposure control for dose reduction was used. DATE OF EXAM: 08/27/2022 2:36 PM COMPARISON: Prior CT Brain from 08/11/2022. CLINICAL INDICATION:Male, 86 years old with history of syncope TECHNIQUE: Brain: Multiple axial CT images of the brain were obtained without IV contrast. FINDINGS: Brain: Extra-axial spaces: No abnormal extra-axial fluid collections. Ventricular system: Within normal limits Cerebral parenchyma: No acute intraparenchymal hemorrhage or mass effect. The taylor-white junction is well differentiated. Scattered hypoattenuating areas are seen within the white matter. Cerebral cor tical atrophy redemonstrated. Cerebellum: Unremarkable. Mass effect: No evidence of midline shift. Intracranial vasculature: Atherosclerotic calcifications of the intracranial vessels. Soft tissues: Normal. Calvarium/osseous structures: No depressed skull fracture. Similar deformity of the frontal bone. Paranasal sinuses and mastoid air cells: Mild scattered paranasal sinus disease. Opacification of the frontal sinuses redemonstrate. Partial opacification of the right mastoid air cells. Mucosal thicken ing of the right maxillary sinus. Visualized orbits: Bilateral aphakia IMPRESSION: 1. No acute intracranial process. 2. Nonspecific white matter changes, likely secondary to chronic small vessel ischemic disease. 3. Similar appearance of opacification of frontal sinus with frontal bone deformities that could be p ostsurgical. 4. Right mastoid effusion.
--- NOTE | 2022-08-27 14:44 | XR ---
EXAMINATION TYPE: XR chest 2V DATE OF EXAM: 08/27/2022 COMPARISON: Chest x-ray August 18, 2022 HISTORY: Syncope and weakness. TECHNIQUE: Frontal and lateral views of the chest are obtained. FINDINGS: Low lung volumes redemonstrated. Overlying sternal wires and mediastinal clips again seen. Persistent cardiomegaly with dual lead pacemaker. Persistent bibasilar opacities favoring linear sca rring and/or atelectasis. No pleural effusion or pneumothorax seen bilaterally. Osseous structures re main intact. IMPRESSION: Low lung volumes and cardiomegaly with bibasilar acute atelectasis and/or linear scarrin g redemonstrated. No new acute infiltrate seen.
[2022-08-27 14:53] LABS: Albumin 2.5 g/dL (3.5-5.0); Calcium 8.2 mg/dL (8.4-10.2); Total Bilirubin 0.5 mg/dL (0.2-1.3); Total Protein 5.4 g/dL (6.3-8.2)
[2022-08-27 15:37] LABS: INR 2.2 (<1.2); Partial Thromboplastin Time 47.3 sec (22.0-30.0); Prothrombin Time 22.4 sec (9.0-12.0)
[2022-08-27] MEDS ORDERED: NALOXONE 0.4 MG/ML 1 ML VIAL IV PRN (16:00)
[2022-08-27] MEDS: SODIUM CHLORIDE 0.9% 1,000 ML IV SCH (16:06)
[2022-08-27 16:08] LABS: Amorphous Sediment,Urine Rare /hpf; Appearance,Urine Cloudy (Clear); Bilirubin,Urine Negative (Negative); Blood,Urine Moderate (Negative); Budding Yeast,Urine Moderate /hpf; Color,Urine Yellow; Glucose,Urine (UA) Negative (Negative); Hyaline Casts,Urine 11 /lpf (0-2); Hyphae Yeast, Urine Occasional /hpf; Ketones,Urine Trace (Negative); Leukocyte Esterase,Urine Large (Negative); Mucus,Urine Rare /hpf; Nitrite,Urine Negative (Negative); PH, Urine 5.5 (5.0-8.0); Protein,Urine 1+ (Negative); RBC,Urine 31 /hpf (0-5); Specific Gravity,Urine 1.023 (1.001-1.035); Squamous Epithelial Cell,Urine 4 /hpf (0-4); WBC,Urine >182 /hpf (0-5)
[2022-08-27] MEDS ORDERED: GENTAMICIN PER PHARMACY MISCELLANE PRN (16:23)
[2022-08-27] MEDS ORDERED: GENTAMICIN 400 MG in SODIUM CHLORIDE 0.9% 100 ML IVPB ONE (17:00)
[2022-08-28 06:29] LABS: Glucose,Whole Blood 90 mg/dL (70-110)
[2022-08-28] MEDS: SODIUM CHLORIDE 0.9% 1,000 ML IV SCH ×2 (06:33→17:58)
[2022-08-28] MEDS: INSULIN ASPART (NovoLOG) 100 UNIT/ML VIAL SQ SCH ×4 (06:34→22:31)
[2022-08-28 10:44] LABS: Basophils % (A) 0 %; Eosinophils # (A) 0.2 k/uL (0-0.7); Eosinophils % (A) 2 %; HCT 32.9 % (39.0-53.0); HGB 9.7 gm/dL (13.0-17.5); Hypochromasia Marked; Lymphocytes % (A) 13 %; MCHC 29.6 g/dL (31.0-37.0); Mean Platelet Volume 7.9; Monocytes # (A) 0.3 k/uL (0-1.0); Monocytes % (A) 4 %; Neutrophils # (A) 6.5 k/uL (1.3-7.7); Neutrophils % (A) 80 %; Platelet Count 319 k/uL (150-450); RBC 3.36 m/uL (4.30-5.90); RDW 14.8 % (11.5-15.5); WBC 8.2 k/uL (3.8-10.6)
[2022-08-28 10:52] LABS: INR 2.8 (<1.2); Prothrombin Time 27.6 sec (9.0-12.0)
--- NOTE | 2022-08-28 10:59 | P.PN ---
Progress Note - Text The patient is confused and only oriented x 1-2. Spoke to patient's , Hellen, via telephone. She has agreed to come in to the hospital tomorrow at 10:00am to discuss the patient's goals of care. It was noticed in the EMR that in previous admissions the patient was a DNR. Code status clarified with Hellen. She confirmed he is to be a DNR. Cecelia Evans [facility] Palliative Care/Urology [facility] [id number] Email: [email or web address]
[2022-08-28 11:01] LABS: African American GFR (CKD) 42 (>60 ml/min/1.73 sqM); Anion Gap 6 mmol/L; Blood Urea Nitrogen 31 mg/dL (9-20); Calcium 8.1 mg/dL (8.4-10.2); Carbon Dioxide 28 mmol/L (22-30); Chloride 105 mmol/L (98-107); Glucose 161 mg/dL (74-99); Non-African American GFR(CKD) 37 (>60 ml/min/1.73 sqM); Potassium 3.5 mmol/L (3.5-5.1); Sodium 139 mmol/L (137-145)
[2022-08-28 12:07] LABS: Glucose,Whole Blood 187 mg/dL (70-110)
[2022-08-28] MEDS: FERROUS SULFATE 325 MG TAB PO SCH (12:36)
--- NOTE | 2022-08-28 15:08 | P.HPIM ---
History of Present Illness H&P Date: 08/28/22 This is an 86-year-old male with medical history of atrial fibrillation, diabetes, hypertension, hyperlipidemia, sleep apnea, coronary artery disease with open heart and stents in the past, sick sinus syndrome status post permanent pacemaker placed in 2017. Patient is a former smoker. 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 He had PICC Line placed and was discharged on IV antibiotics to [facility]. He was recently diagnosed with covid on 08/18/22. He was in the E.C on 08/19 after accidently pulling his PICC Line out and required reinsertion of PICC line by interventional radiology. Patient presents to the hospital from the care home for altered mental status and a possible syncopal episode. Patient was moved out of the Covid unit yesterday at [facility]. Patient's does report that since his last hospital stay he has had confusion and poor verbal response. He is alert 1 but easily arousable in the EC. On examination he is alert x 2 to 3. Patient believes that he may have had an emesis episode after eating yesterday he is incontinent of bowel and bladder. He had brain CT completed showing no acute intracranial process. and non specific white matter change likely secondary to chronic small vessel ischemic disease. Also there is opacity of frontal sinus possible mastoid effusion. Chest xray showing bibasilar acute atelectasis and or linear scarring no acute infiltrate seen. Patient presents with a white count 10.9, hemoglobin 9.7, INR of 2.2, BUN 33, creatinine 1.92, glucose of 124, liver enzymes are normal, troponin 0.025. Urine is showing trace ketones, moderate blood, large leukocyte Estrace. Patient is anticoagulated with coumadin and INR is 2.2 on admission. He received a dose of gentamicin in the EC. He was discharged prevoius admission on IV unasyn managed by Dr. Holland who has been consulted. He was discharged to [facility] with indwelling catheter placed by urology his previous admission and this was discontinued at [facility] he is found to be retaining urine currently. Urology will be consulted. REVIEW OF SYSTEMS: CONSTITUTIONAL: No fever, no malaise, no fatigue. HEENT: No recent visual problems or hearing problems. Denied any sore throat. CARDIOVASCULAR: No chest pain, orthopnea, PND, no palpitations, no syncope. PULMONARY: No shortness of breath, no cough, no hemoptysis. GASTROINTESTINAL: No diarrhea, no nausea, no vomiting, no abdominal pain. NEUROLOGICAL: No headaches, no weakness, no numbness. HEMATOLOGICAL: Denies any bleeding or petechiae. GENITOURINARY: Denies any burning micturition, frequency, or urgency. MUSCULOSKELETAL/RHEUMATOLOGICAL: Denies any joint pain, swelling, or any muscle pain. ENDOCRINE: Denies any polyuria or polydipsia. The rest of the 14-point review of systems is negative. PHYSICAL EXAMINATION: GENERAL: The patient is alert and oriented x2-3, not in any acute distress. Well developed, well nourished. Pale. HEENT: Pupils are round and equally reacting to light. EOMI. No scleral icterus. No conjunctival pallor. Normocephalic, atraumatic. No pharyngeal erythema. No thyromegaly. CARDIOVASCULAR: S1 and S2 present. No murmurs, rubs, or gallops. PULMONARY: Chest is clear to auscultation, no wheezing or crackles. ABDOMEN: Soft, nontender, nondistended, normoactive bowel sounds. No palpable organomegaly. Obese. MUSCULOSKELETAL: No joint swelling or deformity. EXTREMITIES: No cyanosis, clubbing. Pitting lower extremity edema. NEUROLOGICAL: Gross neurological examination did not reveal any focal deficits. SKIN: No rashes. Kerlex intact to right fifth toe wound. He does have stage 2 sacral decubitus ulcer. Assessment and plan Assessment -Episode of unresponsiveness/syncope under investigation -Altered mental status secondary to acute metabolic encephalopathy from acute renal injury -Acute renal failure mostly likely prerenal and also patient has urinary retention -Recent covid infection with first positive on 08/18/22 -Urinary retention with indwelling catheter placed by urology previous admission -Recent hospitalization for gangrene and right foot infection with right fifth toe amputation and surgical debridement of right heel wound -History of paroxysmal atrial fibrillation patient is presently rate controlled anticoagulated with warfarin INR 2.2 -Coronary artery disease prior history of CABG and coronary stenting -Ischemic cardiomyopathy -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 -Diabetic peripheral neuropathy -Hyperlipidemia -hypertension -Sleep apnea for which patient uses CPAP machine at home -Stage 3 sacral pressure ulcer which is being treated with medihoney and moist dressing and pressure offloading, present on admission -Bilateral heel pressure ulcer unstageable patient underwent surgical debridement of right heel previous admission, present on admission GI prophylaxis DVT prophylaxis No Code Plan Resume appropriate home medications Consult ID, Consult urology Continue with gentle hydration and repeat BMP in AM Local wound care as per previous with medihoney and moist dressing to sacral ulcer Patient will need indwelling catheter replaced most likely. PT/OT consultation The impression and plan of care has been dictated by Chrissie Costa, Nurse Practitioner as directed. Dr. Katina MD I have performed a history and physical examination and medical decision making of this patient, discussed the same with the dictator, and agree with the dictators assessment and plan as written, documented as a scribe. Based on total visit time, I have performed more than 50% of this visit. Past Medical History Past Medical History: Atrial Fibrillation, Coronary Artery Disease (CAD), Chest Pain / Angina, Diabetes Mellitus, Eye Disorder, Hyperlipidemia, Hypertension, My ocardial Infarction ([place]), Osteoarthritis (OA), Sleep Apnea/CPAP/BIPAP Additional Past Medical History / Comment(s): MIs, CPAP use, IDDM type II, bradycardia with pacer, tinnitis bilaterally, non healing wound on rt foot side of little toe and in between the 2 toes. arthritis lower back. left eye blind Last Myocardial Infarction Date:: 07/02/16 History of Any Multi-Drug Resistant Organisms: None Reported Past Surgical History: Coronary Bypass/CABG, Heart Catheterization With Stent, Orthopedic Surgery, Pacemaker Additional Past Surgical History / Comment(s): 1990 cabg-1 vessel, PTCA, PCI with stents (4 total), sinus surgery r/t growth sinus cavity, colonoscopy, L knee arthroscopy, bilateral cataract removals. [employer] pacemaker Past Anesthesia/Blood Transfusion Reactions: No Reported Reaction Date of Last Stent Placement:: 12/17/16 Type of Cardiac Device: Permanent Pacemaker Device Placement Date:: 11/05/16 Past Psychological History: No Psychological Hx Reported Additional Psychological History / Comment(s): Pt resides with his spouse. He is independent. Pt frustrated, not able to do as much as he used to. Smoking Status: Former smoker Past Alcohol Use History: None Reported Additional Past Alcohol Use History / Comment(s): Quit Smoking 1972, 19 yrs-2 ppd. Past Drug Use History: Unable to Obtain Additional Drug Use History / Comment(s): cbd cream and THC cream hasn't used in 3 weeks. aware not to use 24 hrs before procedure. - Past Family History Mother Family Medical History: Asthma Father Family Medical History: Myocardial Infarction ([place]) Additional Family Medical History / Comment(s): with [place] at age 62 Brother(s) Family Medical History: Deep Vein Thrombosis (DVT), Myocardial Infarction ([place]) Additional Family Medical History / Comment(s): at age 42 w/ [place] Medications and Allergies Home Medications Medication Instructions Recorded Confirmed Type Doxazosin [Cardura] 2 mg PO DAILY 07/10/16 08/27/22 History Multivitamins, Thera [Multivitamin 1 tab PO DAILY 07/10/16 08/27/22 History (formulary)] glipiZIDE [Glipizide] 5 mg PO DAILY@0600 07/10/16 08/27/22 History Atorvastatin [Lipitor] 40 mg PO HS #30 tab 12/18/16 08/27/22 Rx Nitroglycerin Sl Tabs [Nitrostat] 0.4 mg SUBLINGUAL Q5M PRN #0 tab 12/26/16 08/27/22 Rx Azelastine/Fluticasone 2 spray EA NOSTRIL BID@0900,2100 07/12/22 08/27/22 History [Azelastin-Flutic 137-50Mcg Spr] Ferrous Sulfate [Feosol] 325 mg PO Q48H 07/12/22 08/27/22 History Finasteride [Proscar] 5 mg PO DAILY 07/12/22 08/27/22 History Levothyroxine Sodium [Synthroid] 112 mcg PO MOTH@2100 07/12/22 08/27/22 History Ranolazine [Ranexa] 500 mg PO BID 07/12/22 08/27/22 History Aspirin EC [Ecotrin Low Dose] 81 mg PO HS 07/14/22 08/27/22 History Cholecalciferol [Vitamin D3 (25 50 mcg PO HS 07/14/22 08/27/22 History Mcg = 1000 Iu)] Glucerna Shake 237 ml PO BID@0900,1700 08/07/22 08/27/22 History Insulin Glargine-Yfgn [Semglee 20 units SQ HS 08/07/22 08/27/22 History (Yfgn) Pen] Insulin Lispro [humaLOG Kwikpen] See Protocol SQ AC-TID 08/07/22 08/27/22 History Levothyroxine Sodium [Synthroid] 125 mcg PO SUTUWEFRSA@2100 08/07/22 08/27/22 History Acetaminophen Tab [Tylenol] 650 mg PO Q6HR PRN tab 08/16/22 08/27/22 Rx Ampicillin-Sulbactam [Unasyn] 3 gm IVPB Q6HR 28 Days #112 each 08/16/22 08/27/22 Rx Famotidine [Pepcid] 20 mg PO HS tab 08/16/22 08/27/22 Rx Gabapentin [Neurontin] 100 mg PO BID #6 cap 08/16/22 08/27/22 Rx Warfarin [Coumadin] 3 mg PO DAILY@1700 #0 08/16/22 08/27/22 Rx Ascorbic Acid [Vitamin C] 500 mg PO DAILY 08/27/22 08/27/22 History Collagenase [Santyl Ointment] 1 applic TOPICAL DAILY PRN 08/27/22 08/27/22 History Collagenase [Santyl Ointment] 1 applic TOPICAL HS 08/27/22 08/27/22 History HYDROcodone/APAP 5-325MG [[place] 1 tab PO Q6HR PRN 08/27/22 08/27/22 History 5-325] Metoprolol Tartrate [Lopressor] 12.5 mg PO BID 08/27/22 08/27/22 History Zinc Gluconate [Zinc] 50 mg PO DAILY 08/27/22 08/27/22 History captopriL [Captopril] 6.25 mg PO BID 08/27/22 08/27/22 History Allergies Allergy/AdvReac Type Severity Reaction Status Date / Time No Known Allergies Allergy Verified 08/27/22 16:35 Physical Exam Vitals: Vital Signs Temp Pulse Pulse Resp BP BP Pulse Ox 08/28/22 08:00 97.9 F 77 17 132/64 94 L 08/28/22 02:00 98.6 F 81 16 133/67 94 L 08/27/22 22:00 79 20 129/57 98 08/27/22 20:00 74 18 104/57 96 08/27/22 18:00 77 20 117/50 100 08/27/22 16:00 82 18 145/69 96 08/27/22 13:52 98.0 F 87 18 120/48 Intake and Output 08/27/22 08/28/22 08/28/22 22:59 06:59 14:59 Other: Weight 97.069 kg Results CBC & Chem 7: 08/28/22 10:14 08/28/22 10:14 Labs: Abnormal Lab Results - Last 24 Hours (Table) 08/27/22 08/27/22 08/27/22 Range/Units 14:11 14:11 14:11 WBC 10.9 H (3.8-10.6) k/uL RBC 3.26 L (4.30-5.90) m/uL Hgb 9.7 L (13.0-17.5) gm/dL Hct 31.1 L (39.0-53.0) % Neutrophils # 9.0 H (1.3-7.7) k/uL PT 22.4 H (9.0-12.0) sec INR 2.2 H (<1.2) APTT 47.3 H (22.0-30.0) sec BUN 33 H (9-20) mg/dL Creatinine 1.92 H (0.66-1.25) mg/dL Glucose 124 H (74-99) mg/dL Calcium 8.2 L (8.4-10.2) mg/dL Total Protein 5.4 L (6.3-8.2) g/dL Albumin 2.5 L (3.5-5.0) g/dL Urine Protein (Negative) Urine Ketones (Negative) Urine Blood (Negative) Ur Leukocyte Esterase (Negative) Urine RBC (0-5) /hpf Urine WBC (0-5) /hpf Amorphous Sediment (None) /hpf Hyaline Casts (0-2) /lpf Urine Mucus (None) /hpf Urine Yeast (Budding) (None) /hpf 08/27/22 Range/Units 15:30 WBC (3.8-10.6) k/uL RBC (4.30-5.90) m/uL Hgb (13.0-17.5) gm/dL Hct (39.0-53.0) % Neutrophils # (1.3-7.7) k/uL PT (9.0-12.0) sec INR (<1.2) APTT (22.0-30.0) sec BUN (9-20) mg/dL Creatinine (0.66-1.25) mg/dL Glucose (74-99) mg/dL Calcium (8.4-10.2) mg/dL Total Protein (6.3-8.2) g/dL Albumin (3.5-5.0) g/dL Urine Protein 1+ H (Negative) Urine Ketones Trace H (Negative) Urine Blood Moderate H (Negative) Ur Leukocyte Esterase Large H (Negative) Urine RBC 31 H (0-5) /hpf Urine WBC >182 H (0-5) /hpf Amorphous Sediment Rare H (None) /hpf Hyaline Casts 11 H (0-2) /lpf Urine Mucus Rare H (None) /hpf Urine Yeast (Budding) Moderate H (None) /hpf Microbiology - Last 24 Hours (Table) 08/27/22 15:30 Urine Culture - Preliminary Urine,Voided Thrombosis Risk Factor Assmnt - Choose All That Apply Any of the Below Risk Factors Present?: Yes Each Factor Represents 1 point: Obesity (BMI >25) Other Risk Factors: Yes Each Risk Factor Represents 3 Points: Age 75 years or older Other congenital or acquired thrombophilia - If yes, enter type in comment: No Thrombosis Risk Factor Assessment Total Risk Factor Score: 4 Thrombosis Risk Factor Assessment Level: Moderate Risk Assessment and Plan Time with Patient: Less than 30
[2022-08-28 17:11] LABS: Glucose,Whole Blood 134 mg/dL (70-110)
[2022-08-28] MEDS: COLLAGENASE 250 UNIT/GM OINTMENT 30 GM TUBE TOPICAL SCH (17:58)
[2022-08-28] MEDS: HYDROcodone/APAP 5-325MG 1 EACH TAB PO PRN (20:49)
[2022-08-28] MEDS: GABAPENTIN 100 MG CAP PO SCH (20:49)
[2022-08-28] MEDS: ATORVASTATIN 40 MG TAB PO SCH (20:50)
[2022-08-28] MEDS: METOPROLOL TARTRATE 12.5 MG TAB PO SCH (20:50)
[2022-08-28] MEDS: LEVOTHYROXINE 125 MCG TAB PO SCH (20:50)
[2022-08-28] MEDS: RANOLAZINE 500 MG TAB.ER.12H PO SCH (20:50)
[2022-08-28] MEDS: CHOLECALCIFEROL 25 MCG (1000 IU) TABLET PO SCH (20:50)
[2022-08-28] MEDS: FAMOTIDINE 20 MG TAB PO SCH (20:50)
[2022-08-28] MEDS: ASPIRIN 81 MG PO SCH (20:50)
[2022-08-28] MEDS ORDERED: INSULIN DETEMIR (LEVEMIR) 100 UNIT/ML SYR SQ SCH (21:00)
[2022-08-28 22:05] LABS: Glucose,Whole Blood 148 mg/dL (70-110)
[2022-08-28] MEDS: NON FORMULARY DRUG (Azelastine/Fluticasone [Azelastin-Flutic 137-50mcg Spr] 23 GM Each) EA NOSTRIL SCH (23:13)
[2022-08-28] MEDS: VANCOMYCIN ORAL SOLUTION 250 MG/5 ML BOTTLE PO SCH (23:13)
--- NOTE | 2022-08-29 00:18 | P.CONS ---
History of Present Illness - Reason for Consult Consult date: 08/28/22 Antibiotic management Requesting physician: Chrissie Costa - Chief Complaint Unresponsive and weakness x one day - History of Present Illness Mere is a 86-year-old male with a past medical history significant for diabetes mellitus, peripheral arterial disease he was recently admitted to [facility] on and did have right fifth toe gangrene as well as wound to bilateral heel area in this patient who is status post amputation of the right fifth toe debridement of the right heel wound, culture positive for Streptococcus agalactiae and anaerobes patient did get a PICC line and concerning for deep infection he was advised Unasyn started 4 weeks with the patient was currently receiving at the local alf since August 12, 2022 patient apparently also have problem with urinary retention requiring Cross catheter somehow the Cross catheter has been discontinued at the alf patient has not been brought back to the hospital yesterday afternoon as apparently the patient was noticed to be unresponsive with a syncopal episode and apparently patient was noticed to be confused with the symptom the patient was evaluated by ER physician on arrival to the ER patient was afebrile and no fever have been recorded subsequently patient did have a white count of 10.9 with a left shift he did have elevated BUN/creatinine patient did have a pos itive UA patient has been diagnosed with a urinary tract infection and the patient was started on gentamicin pharmacy to dose which subsequently has been discontinued by the admitting team infectious disease was consulted for antibiotic management patient also noted to have significant diarrhea patient not very clear why did his diarrhea started, patient did have a Cross catheter placement noticed to have significant retention and is now draining some cloudy urine Review of Systems Positive point has been mentioned in the HPI rest of the systems are negative Past Medical History Past Medical History: Atrial Fibrillation, Coronary Artery Disease (CAD), Chest Pain / Angina, Diabetes Mellitus, Eye Disorder, Hyperlipidemia, Hypertension, Myocardial Infarction ([place]), Osteoarthritis ([place]), Sleep Apnea/CPAP/BIPAP Additional Past Medical History / Comment(s): MIs, CPAP use, IDDM type II, bradycardia with pacer, tinnitis bilaterally, non healing wound on rt foot side of little toe and in between the 2 toes. arthritis lower back. left eye blind Last Myocardial Infarction Date:: 07/02/16 History of Any Multi-Drug Resistant Organisms: None Reported Past Surgical History: Coronary Bypass/CABG, Heart Catheterization With Stent, Orthopedic Surgery, Pacemaker Additional Past Surgical History / Comment(s): 1990 cabg-1 vessel, PTCA, PCI with stents (4 total), sinus surgery r/t growth sinus cavity, colonoscopy, L knee arthroscopy, bilateral cataract removals. [employer] pacemaker Past Anesthesia/Blood Transfusion Reactions: No Reported Reaction Date of Last Stent Placement:: 12/17/16 Type of Cardiac Device: Permanent Pacemaker Device Placement Date:: 11/05/16 Past Psychological History: No Psychological Hx Reported Additional Psychological History / Comment(s): Pt resides with his spouse. He is independent. Pt frustrated, not able to do as much as he used to. Smoking Status: Former smoker Past Alcohol Use History: None Reported Additional Past Alcohol Use History / Comment(s): Quit Smoking 1972, 21 yrs-2 ppd. Past Drug Use History: Unable to Obtain Additional Drug Use History / Comment(s): cbd cream and THC cream hasn't used in 3 weeks. aware not to use 24 hrs before procedure. - Past Family History Mother Family Medical History: Asthma Father Family Medical History: Myocardial Infarction ([place]) Additional Family Medical History / Comment(s): with [place] at age 62 Brother(s) Family Medical History: Deep Vein Thrombosis (DVT), Myocardial Infarction ([place]) Additional Family Medical History / Comment(s): at age 42 w/ [place] Medications and Allergies Home Medications Medication Instructions Recorded Confirmed Type Doxazosin [Cardura] 2 mg PO DAILY 07/10/16 08/27/22 History Multivitamins, Thera [Multivitamin 1 tab PO DAILY 07/10/16 08/27/22 History (formulary)] glipiZIDE [Glipizide] 5 mg PO DAILY@0600 07/10/16 08/27/22 History Atorvastatin [Lipitor] 40 mg PO HS #30 tab 12/18/16 08/27/22 Rx Nitroglycerin Sl Tabs [Nitrostat] 0.4 mg SUBLINGUAL Q5M PRN #0 tab 12/26/16 08/27/22 Rx Azelastine/Fluticasone 2 spray EA NOSTRIL BID@0900,2100 07/12/22 08/27/22 History [Azelastin-Flutic 137-50Mcg Spr] Ferrous Sulfate [Feosol] 325 mg PO Q48H 07/12/22 08/27/22 History Finasteride [Proscar] 5 mg PO DAILY 07/12/22 08/27/22 History Levothyroxine Sodium [Synthroid] 112 mcg PO MOTH@2100 07/12/22 08/27/22 History Ranolazine [Ranexa] 500 mg PO BID 07/12/22 08/27/22 History Aspirin EC [Ecotrin Low Dose] 81 mg PO HS 07/14/22 08/27/22 History Cholecalciferol [Vitamin D3 (25 50 mcg PO HS 07/14/22 08/27/22 History Mcg = 1000 Iu)] Glucerna Shake 237 ml PO BID@0900,1700 08/07/22 08/27/22 History Insulin Lispro [humaLOG Kwikpen] See Protocol SQ AC-TID 08/07/22 08/27/22 History Levothyroxine Sodium [Synthroid] 125 mcg PO SUTUWEFRSA@2100 08/07/22 08/27/22 History Acetaminophen Tab [Tylenol] 650 mg PO Q6HR PRN tab 08/16/22 08/27/22 Rx Famotidine [Pepcid] 20 mg PO HS tab 08/16/22 08/27/22 Rx Ascorbic Acid [Vitamin C] 500 mg PO DAILY 08/27/22 08/27/22 History Collagenase [Santyl Ointment] 1 applic TOPICAL DAILY PRN 08/27/22 08/27/22 History Collagenase [Santyl Ointment] 1 applic TOPICAL HS 08/27/22 08/27/22 History Metoprolol Tartrate [Lopressor] 12.5 mg PO BID 08/27/22 08/27/22 History Gabapentin [Neurontin] 100 mg PO BID #6 cap 09/09/22 Rx HYDROcodone/APAP 5-325MG [[place] 1 tab PO Q6HR PRN #6 tab 09/09/22 Rx 5-325] Insulin Glargine-Yfgn [Semglee 12 units SQ HS #0 09/09/22 08/27/22 Rx (Yfgn) Pen] Menthol-Zinc Oxide Oint 1 applic TOPICAL TID each 09/09/22 Rx [Calmoseptine Ointment] Tamsulosin [Flomax] 0.4 mg PO PC-SUPPER cap 09/09/22 Rx Vancomycin 125 mg PO QID 10 Days #40 cap 09/09/22 Rx Warfarin [Coumadin] 2 mg PO DAILY@1700 #0 09/09/22 08/27/22 Rx Allergies Allergy/AdvReac Type Severity Reaction Status Date / Time No Known Allergies Allergy Verified 09/04/22 13:52 Physical Exam Vitals: Vital Signs Temp Pulse Pulse Resp BP BP Pulse Ox 08/28/22 08:00 97.9 F 77 17 132/64 94 L 08/28/22 02:00 98.6 F 81 16 133/67 94 L 08/27/22 22:00 79 20 129/57 98 08/27/22 20:00 74 18 104/57 96 08/27/22 18:00 77 20 117/50 100 08/27/22 16:00 82 18 145/69 96 Intake and Output 08/27/22 08/28/22 08/28/22 22:59 06:59 14:59 Other: Voiding Method Incontinent External Catheter Weight 97.069 kg GENERAL DESCRIPTION: Anteriorly male lying in bed, no distress. No tachypnea or accessory muscle of respiration use. HEENT: Shows Pallor , no scleral icterus. Oral mucous membrane is dry. No pharyngeal erythema or thrush NECK: Trachea central, no thyromegaly. LUNGS: Unlabored breathing. Decreased breath sounds at the base HEART: S1, S2, regular rate and rhythm. No loud murmur ABDOMEN: Soft, no tenderness , guarding or rigidity, no organomegaly EXTREMITIES: Right fifth toe amputation site and red he did have some necrotic changes. SKIN: No rash, no masses palpable. NEUROLOGICAL: The patient is lethargic but arousable mood and affect is normal Results CBC & Chem 7: 09/09/22 05:42 09/09/22 05:42 Labs: Abnormal Lab Results - Last 24 Hours (Table) 08/27/22 08/27/22 08/27/22 Range/Units 14:11 14:11 15:30 RBC (4.30-5.90) m/uL Hgb (13.0-17.5) gm/dL Hct (39.0-53.0) % MCHC (31.0-37.0) g/dL PT 22.4 H (9.0-12.0) sec INR 2.2 H (<1.2) APTT 47.3 H (22.0-30.0) sec BUN 33 H (9-20) mg/dL Creatinine 1.92 H (0.66-1.25) mg/dL Glucose 124 H (74-99) mg/dL POC Glucose (mg/dL) (70-110) mg/dL Calcium 8.2 L (8.4-10.2) mg/dL Total Protein 5.4 L (6.3-8.2) g/dL Albumin 2.5 L (3.5-5.0) g/dL Urine Protein 1+ H (Negative) Urine Ketones Trace H (Negative) Urine Blood Moderate H (Negative) Ur Leukocyte Esterase Large H (Negative) Urine RBC 31 H (0-5) /hpf Urine WBC >182 H (0-5) /hpf Amorphous Sediment Rare H (None) /hpf Hyaline Casts 11 H (0-2) /lpf Urine Mucus Rare H (None) /hpf Urine Yeast (Budding) Moderate H (None) /hpf 08/28/22 08/28/22 08/28/22 Range/Units 10:14 10:14 10:14 RBC 3.36 L (4.30-5.90) m/uL Hgb 9.7 L (13.0-17.5) gm/dL Hct 32.9 L (39.0-53.0) % MCHC 29.6 L (31.0-37.0) g/dL PT 27.6 H (9.0-12.0) sec INR 2.8 H (<1.2) APTT (22.0-30.0) sec BUN 31 H (9-20) mg/dL Creatinine 1.69 H (0.66-1.25) mg/dL Glucose 161 H (74-99) mg/dL POC Glucose (mg/dL) (70-110) mg/dL Calcium 8.1 L (8.4-10.2) mg/dL Total Protein (6.3-8.2) g/dL Albumin (3.5-5.0) g/dL Urine Protein (Negative) Urine Ketones (Negative) Urine Blood (Negative) Ur Leukocyte Esterase (Negative) Urine RBC (0-5) /hpf Urine WBC (0-5) /hpf Amorphous Sediment (None) /hpf Hyaline Casts (0-2) /lpf Urine Mucus (None) /hpf Urine Yeast (Budding) (None) /hpf 08/28/22 Range/Units 12:05 RBC (4.30-5.90) m/uL Hgb (13.0-17.5) gm/dL Hct (39.0-53.0) % MCHC (31.0-37.0) g/dL PT (9.0-12.0) sec INR (<1.2) APTT (22.0-30.0) sec BUN (9-20) mg/dL Creatinine (0.66-1.25) mg/dL Glucose (74-99) mg/dL POC Glucose (mg/dL) 187 H (70-110) mg/dL Calcium (8.4-10.2) mg/dL Total Protein (6.3-8.2) g/dL Albumin (3.5-5.0) g/dL Urine Protein (Negative) Urine Ketones (Negative) Urine Blood (Negative) Ur Leukocyte Esterase (Negative) Urine RBC (0-5) /hpf Urine WBC (0-5) /hpf Amorphous Sediment (None) /hpf Hyaline Casts (0-2) /lpf Urine Mucus (None) /hpf Urine Yeast (Budding) (None) /hpf Microbiology - Last 24 Hours (Table) 08/27/22 15:30 Urine Culture - Preliminary Urine,Voided Assessment and Plan (1) Type 2 diabetes mellitus with foot ulcer Status: Acute Code(s): E11.621 - TYPE 2 DIABETES MELLITUS WITH FOOT ULCER; L97.509 - NON-PRESSURE CHRONIC ULCER OTH PRT UNSP FOOT W UNSP SEVERITY SNOMED Code(s): 807343260 (2) UTI (urinary tract infection) Status: Acute Code(s): N39.0 - URINARY TRACT INFECTION, SITE NOT SPECIFIED SNOMED Code(s): 58319391 Plan: 1patient presented to hospital with weakness confusion which is likely multifactorial in this patient who recently did have a right fifth toe gangrene status post amputation of the right fifth toe and debridement of the right heel wound culture positive for strep and anaerobes were the patient was receiving Unasyn at the alf patient did have a necrotic changes at the right fifth toe amputation site as well as right heel and will benefit from further surgical debridement. Following local wound care with the Santyl followed by moist dressing keep the area of the pressure 2patient with a complaint of UTI likely from urinary retention from enteric gram-negative pathogen patient to have a borderline kidney function high risk of nephrotoxicity from gentamicin which has been discontinued we will add Rocephin 1 g daily while awaiting further urine culture to finalize. 3patient with diarrhea and antibiotic exposure we will check a stool for C. difficile and treat if positive at the bedside question concerns answered We will follow on clinical condition and cultures to further adjust medication if needed Thank you for this consultation will follow this patient along with you Time with Patient: Greater than 30
[2022-08-29] MEDS: HYDROcodone/APAP 5-325MG 1 EACH TAB PO PRN ×3 (02:37→22:35)
[2022-08-29 06:14] LABS: Glucose,Whole Blood 68 mg/dL (70-110)
[2022-08-29] MEDS: INSULIN ASPART (NovoLOG) 100 UNIT/ML VIAL SQ SCH ×4 (06:23→22:29)
[2022-08-29 06:32] LABS: Glucose,Whole Blood 63 mg/dL (70-110)
[2022-08-29 06:54] LABS: Glucose,Whole Blood 101 mg/dL (70-110)
[2022-08-29] MEDS: NON FORMULARY DRUG (Azelastine/Fluticasone [Azelastin-Flutic 137-50mcg Spr] 23 GM Each) EA NOSTRIL SCH ×2 (07:54→22:30)
--- NOTE | 2022-08-29 08:41 | P.GSCN ---
History of Present Illness Consult date: 08/29/22 Reason for Consult: Urinary Retention Requesting physician: Chrissie Costa History of present illness: Patient is an 86-year-old white male who presented to the emergency room via EMS on 08/27/22 with concerns regarding and unresponsive syncopal event at [facility]. He has an extensive past medical history significant for atrial fibrillation, diabetes, hypertension, hyperlipidemia, sleep apnea, coronary artery disease w ith open heart and stents in the past, sick sinus syndrome status post permanent pacemaker placed in 2017. 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 He was also recently diagnosed with covid on 08/18/22. During his last admission he was found to be in urinary retention. A Plaza catheter could not be placed due to phimosis and underwent a dorsal slit with Dr. Reyes. A plaza catheter was placed. The patient was eventually discharged to a [facility]. The plaza catheter was removed in the [facility] prior to this admission. Urinalysis showing urinary tract infection which developed while taking Unasyn for gangrenous toe infection. ID following. Urology has been consulted for urinary retention. Review of Systems - Cardiovascular Reports syncope, Denies chest pain, Denies shortness of breath - Gastrointestinal Denies nausea - Genitourinary Reports incontinence - Neurological Reports confusion Past Medical History Past Medical History: Atrial Fibrillation, Coronary Artery Disease (CAD), Chest Pain / Angina, Diabetes Mellitus, Eye Disorder, Hyperlipidemia, Hypertension, Myocardial Infarction (SC), Osteoarthritis (OA), Sleep Apnea/CPAP/BIPAP Additional Past Medical History / Comment(s): MIs, CPAP use, IDDM type II, bradycardia with pacer, tinnitis bilaterally, non healing wound on rt foot side of little toe and in between the 2 toes. arthritis lower back. left eye blind Last Myocardial Infarction Date:: 07/02/16 History of Any Multi-Drug Resistant Organisms: None Reported Past Surgical History: Coronary Bypass/CABG, Heart Catheterization With Stent, Orthopedic Surgery, Pacemaker Additional Past Surgical History / Comment(s): 1990 cabg-1 vessel, PTCA, PCI with stents (4 total), sinus surgery r/t growth sinus cavity, colonoscopy, L knee arthroscopy, bilateral cataract removals. [employer] pacemaker Past Anesthesia/Blood Transfusion Reactions: No Reported Reaction Date of Last Stent Placement:: 12/17/16 Type of Cardiac Device: Permanent Pacemaker Device Placement Date:: 11/05/16 Past Psychological History: No Psychological Hx Reported Additional Psychological History / Comment(s): Pt resides with his spouse. He is independent. Pt frustrated, not able to do as much as he used to. Smoking Status: Former smoker Past Alcohol Use History: None Reported Additional Past Alcohol Use History / Comment(s): Quit Smoking 1973, 19 yrs-2 ppd. Past Drug Use History: Unable to Obtain Additional Drug Use History / Comment(s): cbd cream and THC cream hasn't used in 3 weeks. aware not to use 24 hrs before procedure. - Past Family History Mother Family Medical History: Asthma Father Family Medical History: Myocardial Infarction (SC) Additional Family Medical History / Comment(s): with SC at age 62 Brother(s) Family Medical History: Deep Vein Thrombosis (DVT), Myocardial Infarction (SC) Additional Family Medical History / Comment(s): at age 42 w/ SC Medications and Allergies Home Medications Medication Instructions Recorded Confirmed Type Doxazosin [Cardura] 2 mg PO DAILY 07/10/16 08/27/22 History Multivitamins, Thera [Multivitamin 1 tab PO DAILY 07/10/16 08/27/22 History (formulary)] glipiZIDE [Glipizide] 5 mg PO DAILY@0600 07/10/16 08/27/22 History Atorvastatin [Lipitor] 40 mg PO HS #30 tab 12/18/16 08/27/22 Rx Nitroglycerin Sl Tabs [Nitrostat] 0.4 mg SUBLINGUAL Q5M PRN #0 tab 12/26/16 08/27/22 Rx Azelastine/Fluticasone 2 spray EA NOSTRIL BID@0900,2100 07/12/22 08/27/22 History [Azelastin-Flutic 137-50Mcg Spr] Ferrous Sulfate [Feosol] 325 mg PO Q48H 07/12/22 08/27/22 History Finasteride [Proscar] 5 mg PO DAILY 07/12/22 08/27/22 History Levothyroxine Sodium [Synthroid] 112 mcg PO MOTH@2100 07/12/22 08/27/22 History Ranolazine [Ranexa] 500 mg PO BID 07/12/22 08/27/22 History Aspirin EC [Ecotrin Low Dose] 81 mg PO HS 07/14/22 08/27/22 History Cholecalciferol [Vitamin D3 (25 50 mcg PO HS 07/14/22 08/27/22 History Mcg = 1000 Iu)] Glucerna Shake 237 ml PO BID@0900,1700 08/07/22 08/27/22 History Insulin Glargine-Yfgn [Semglee 20 units SQ HS 08/07/22 08/27/22 History (Yfgn) Pen] Insulin Lispro [humaLOG Kwikpen] See Protocol SQ AC-TID 08/07/22 08/27/22 History Levothyroxine Sodium [Synthroid] 125 mcg PO SUTUWEFRSA@2100 08/07/22 08/27/22 History Acetaminophen Tab [Tylenol] 650 mg PO Q6HR PRN tab 08/16/22 08/27/22 Rx Ampicillin-Sulbactam [Unasyn] 3 gm IVPB Q6HR 28 Days #112 each 08/16/22 08/27/22 Rx Famotidine [Pepcid] 20 mg PO HS tab 08/16/22 08/27/22 Rx Gabapentin [Neurontin] 100 mg PO BID #6 cap 08/16/22 08/27/22 Rx Warfarin [Coumadin] 3 mg PO DAILY@1700 #0 08/16/22 08/27/22 Rx Ascorbic Acid [Vitamin C] 500 mg PO DAILY 08/27/22 08/27/22 History Collagenase [Santyl Ointment] 1 applic TOPICAL DAILY PRN 08/27/22 08/27/22 History Collagenase [Santyl Ointment] 1 applic TOPICAL HS 08/27/22 08/27/22 History HYDROcodone/APAP 5-325MG [[place] 1 tab PO Q6HR PRN 08/27/22 08/27/22 History 5-325] Metoprolol Tartrate [Lopressor] 12.5 mg PO BID 08/27/22 08/27/22 History Zinc Gluconate [Zinc] 50 mg PO DAILY 08/27/22 08/27/22 History captopriL [Captopril] 6.25 mg PO BID 08/27/22 08/27/22 History Allergies Allergy/AdvReac Type Severity Reaction Status Date / Time No Known Allergies Allergy Verified 08/27/22 16:35 Surgical - Exam Vital Signs Temp Pulse Resp BP 98.0 F 87 18 120/48 08/27/22 13:52 08/27/22 13:52 08/27/22 13:52 08/27/22 13:52 General: Well developed, well nourished. No acute distress. Chronically ill appearing HEENT: Head is atraumatic, normocephalic. Lungs: Respirations even and nonlabored. Abdomen/GI: Soft, round. No abdominal tenderness. : Plaza catheter present draining clear yellow urine, no bleeding from urethra Skin: Warm and dry Neurologic: Awake and alert Psychiatric: Appropriate mood and affect. Results - Labs 08/28/22 10:14 08/29/22 05:53 Abnormal Lab Results - Last 24 Hours (Table) 08/28/22 08/28/22 08/28/22 Range/Units 10:14 10:14 10:14 RBC 3.36 L (4.30-5.90) m/uL Hgb 9.7 L (13.0-17.5) gm/dL Hct 32.9 L (39.0-53.0) % MCHC 29.6 L (31.0-37.0) g/dL PT 27.6 H (9.0-12.0) sec INR 2.8 H (<1.2) BUN 31 H (9-20) mg/dL Creatinine 1.69 H (0.66-1.25) mg/dL Glucose 161 H (74-99) mg/dL POC Glucose (mg/dL) (70-110) mg/dL Calcium 8.1 L (8.4-10.2) mg/dL C. difficile (EIA) Intrp (Negative) 08/28/22 08/28/22 08/28/22 Range/Units 12:05 17:10 17:35 RBC (4.30-5.90) m/uL Hgb (13.0-17.5) gm/dL Hct (39.0-53.0) % MCHC (31.0-37.0) g/dL PT (9.0-12.0) sec INR (<1.2) BUN (9-20) mg/dL Creatinine (0.66-1.25) mg/dL Glucose (74-99) mg/dL POC Glucose (mg/dL) 187 H 134 H (70-110) mg/dL Calcium (8.4-10.2) mg/dL C. difficile (EIA) Intrp Positive A (Negative) 08/28/22 08/29/22 08/29/22 Range/Units 22:04 06:13 06:31 RBC (4.30-5.90) m/uL Hgb (13.0-17.5) gm/dL Hct (39.0-53.0) % MCHC (31.0-37.0) g/dL PT (9.0-12.0) sec INR (<1.2) BUN (9-20) mg/dL Creatinine (0.66-1.25) mg/dL Glucose (74-99) mg/dL POC Glucose (mg/dL) 148 H 68 L 63 L (70-110) mg/dL Calcium (8.4-10.2) mg/dL C. difficile (EIA) Intrp (Negative) Microbiology - Last 24 Hours (Table) 08/27/22 15:30 Urine Culture - Preliminary Urine,Voided Gram Neg Bacilli Diabetes panel 08/28/22 Range/Units 10:14 Sodium 139 (137-145) mmol/L Potassium 3.5 (3.5-5.1) mmol/L Chloride 105 (98-107) mmol/L Carbon Dioxide 28 (22-30) mmol/L BUN 31 H (9-20) mg/dL Creatinine 1.69 H (0.66-1.25) mg/dL Glucose 161 H (74-99) mg/dL Calcium 8.1 L (8.4-10.2) mg/dL Calcium panel 08/28/22 Range/Units 10:14 Calcium 8.1 L (8.4-10.2) mg/dL Pituitary panel 08/28/22 Range/Units 10:14 Sodium 139 (137-145) mmol/L Potassium 3.5 (3.5-5.1) mmol/L Chloride 105 (98-107) mmol/L Carbon Dioxide 28 (22-30) mmol/L BUN 31 H (9-20) mg/dL Creatinine 1.69 H (0.66-1.25) mg/dL Glucose 161 H (74-99) mg/dL Calcium 8.1 L (8.4-10.2) mg/dL Adrenal panel 08/28/22 Range/Units 10:14 Sodium 139 (137-145) mmol/L Potassium 3.5 (3.5-5.1) mmol/L Chloride 105 (98-107) mmol/L Carbon Dioxide 28 (22-30) mmol/L BUN 31 H (9-20) mg/dL Creatinine 1.69 H (0.66-1.25) mg/dL Glucose 161 H (74-99) mg/dL Calcium 8.1 L (8.4-10.2) mg/dL Assessment and Plan Assessment: Notified by nursing staff that the patient's bladder scan yesterday was >999. They spoke with Dr. Kasper and were able to insert a Plaza catheter with 1.5L urine returned. This morning the patient appears comfortable. His Plaza catheter is draining well. Preliminary urine culture shows gram negative bacilli. ID following. (1) Urinary retention Current Visit: Yes Status: Acute Code(s): R33.9 - RETENTION OF URINE, UNSPECIFIED SNOMED Code(s): 119918797 Plan: - Leave Plaza catheter in place - Start Flomax - Continue Proscar - Monitor serum creatinine - Continue gentle IV hydration - Awaiting final urine culture, antibiotics per ID Impression and plan of care have been directed as dictated by the signing physician. Cecelia Evans nurse practitioner acting as scribe for signing physician. Cecelia Evans [facility] Palliative Care/Urology [facility] [id number] Email: [email or web address] The patient has been evaluated by me and I concur with the above dictation, Krunal Kasper MD
[2022-08-29] MEDS: SODIUM CHLORIDE 0.9% 1,000 ML IV SCH ×2 (08:49→17:27)
[2022-08-29] MEDS: MULTIVITAMINS, THERA 1 EACH TAB PO SCH (09:00)
[2022-08-29] MEDS: RANOLAZINE 500 MG TAB.ER.12H PO SCH ×2 (09:00→22:21)
[2022-08-29] MEDS: FINASTERIDE 5 MG TAB PO SCH (09:00)
[2022-08-29] MEDS: GABAPENTIN 100 MG CAP PO SCH ×2 (09:00→22:20)
[2022-08-29] MEDS: METOPROLOL TARTRATE 12.5 MG TAB PO SCH ×2 (09:00→22:20)
[2022-08-29] MEDS: ZINC SULFATE 220 MG CAP PO SCH (09:00)
[2022-08-29] MEDS: ASCORBIC ACID 500 MG TAB PO SCH (09:00)
[2022-08-29] MEDS: VANCOMYCIN ORAL SOLUTION 250 MG/5 ML BOTTLE PO SCH ×4 (09:00→22:18)
[2022-08-29 09:46] LABS: African American GFR (CKD) 58.1 (60.0-200.0); Anion Gap 5.1 mmol/L (10.00-18.00); BUN/Creat Ratio 16.08 Ratio (12.00-20.00); Blood Urea Nitrogen 20.9 mg/dL (9.0-27.0); Calcium 7.7 mg/dL (8.7-10.3); Carbon Dioxide 27.9 mmol/L (20.0-27.5); Non-African American GFR(CKD) 50.1 (60.0-200.0); Potassium 3.1 mmol/L (3.5-5.5)
[2022-08-29] MEDS: POTASSIUM CHLORIDE ER 20 MEQ TAB.ER PO SCH ×2 (10:28→12:07)
[2022-08-29 11:02] LABS: INR 2.27 (0.90-1.11); Prothrombin Time 24.9 sec (9.9-11.9)
[2022-08-29 11:24] LABS: Glucose,Whole Blood 83 mg/dL (70-110)
[2022-08-29] MEDS: COLLAGENASE 250 UNIT/GM OINTMENT 30 GM TUBE TOPICAL SCH (14:16)
--- NOTE | 2022-08-29 16:03 | P.CONS ---
History of Present Illness - Reason for Consult Consult date: 08/29/22 Goals of care Requesting physician: Gaby Reeves - Chief Complaint Syncope - History of Present Illness This is an 86-year-old male with medical history of atrial fibrillation, diabetes, hypertension, hyperlipidemia, sleep apnea, coronary artery disease with open heart and stents in the past, sick sinus syndrome status post permanent pacemaker placed in 2017. Patient is a former smoker. 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 He had PICC Line placed and was discharged on IV antibiotics to [facility]. He was recently diagnosed with covid on 08/18/22. [facility] for altered [facility] status and a possible syncopal episode. Patient was moved out of the Covid unit yesterday at [facility]. Patient's does report that since his last hospital stay he has had confusion and poor verbal response. He is alert 1 but easily arousable in the EC. On examination he is alert x 2 to 3. Patient believes that he may have had an emesis episode after eating yesterday he is incontinent of bowel and bladder. He had brain CT completed showing no acute intracranial process. and non specific white matter change likely secondary to chronic small vessel ischemic disease. Also there is opacity of frontal sinus possible mastoid effusion. Chest xray showing bibasilar acute atelectasis and or linear scarring no acute infiltrate seen. Patient presents with a white count 10.9, hemoglobin 9.7, INR of 2.2, BUN 33, creatinine 1.92, glucose of 124, liver enzymes are normal, troponin 0.025. Urine is showing trace ketones, moderate blood, large leukocyte Estrace. Patient is anticoagulated with coumadin and INR is 2.2 on admission. He received a dose of gentamicin in the EC. He was discharged prevoius admission on IV unasyn managed by Dr. Holland who has been consulted. He was discharged to [facility] with indwelling catheter placed by urology his previous admission and this was discontinued at [facility] he is found to be retaining urine currently. Urology will be consulted. Review of Systems Constitutional: Reports as per HPI Past Medical History Past Medical History: Atrial Fibrillation, Coronary Artery Disease (CAD), Chest Pain / Angina, Diabetes Mellitus, Eye Disorder, Hyperlipidemia, Hypertension, Myocardial Infarction (ME), Osteoarthritis (OA), Sleep Apnea/CPAP/BIPAP Additional Past Medical History / Comment(s): MIs, CPAP use, IDDM type II, bradycardia with pacer, tinnitis bilaterally, non healing wound on rt foot side of little toe and in between the 2 toes. arthritis lower back. left eye blind Last Myocardial Infarction Date:: 07/02/16 History of Any Multi-Drug Resistant Organisms: None Reported Past Surgical History: Coronary Bypass/CABG, Heart Catheterization With Stent, Orthopedic Surgery, Pacemaker Additional Past Surgical History / Comment(s): 1990 cabg-1 vessel, PTCA, PCI with stents (4 total), sinus surgery r/t growth sinus cavity, colonoscopy, L knee arthroscopy, bilateral cataract removals. [employer] pacemaker Past Anesthesia/Blood Transfusion Reactions: No Reported Reaction Date of Last Stent Placement:: 12/17/16 Type of Cardiac Device: Permanent Pacemaker Device Placement Date:: 11/05/16 Past Psychological History: No Psychological Hx Reported Additional Psychological History / Comment(s): Pt resides with his spouse. He is independent. Pt frustrated, not able to do as much as he used to. Smoking Status: Former smoker Past Alcohol Use History: None Reported Additional Past Alcohol Use History / Comment(s): Quit Smoking 1972, 21 yrs-2 ppd. Past Drug Use History: Unable to Obtain Additional Drug Use History / Comment(s): cbd cream and THC cream hasn't used in 3 weeks. aware not to use 24 hrs before procedure. - Past Family History Mother Family Medical History: Asthma Father Family Medical History: Myocardial Infarction (ME) Additional Family Medical History / Comment(s): with ME at age 62 Brother(s) Family Medical History: Deep Vein Thrombosis (DVT), Myocardial Infarction (ME) Additional Family Medical History / Comment(s): at age 42 w/ ME Medications and Allergies Home Medications Medication Instructions Recorded Confirmed Type Doxazosin [Cardura] 2 mg PO DAILY 07/10/16 08/27/22 History Multivitamins, Thera [Multivitamin 1 tab PO DAILY 07/10/16 08/27/22 History (formulary)] glipiZIDE [Glipizide] 5 mg PO DAILY@0600 07/10/16 08/27/22 History Atorvastatin [Lipitor] 40 mg PO HS #30 tab 12/18/16 08/27/22 Rx Nitroglycerin Sl Tabs [Nitrostat] 0.4 mg SUBLINGUAL Q5M PRN #0 tab 12/26/16 08/27/22 Rx Azelastine/Fluticasone 2 spray EA NOSTRIL BID@0900,2100 07/12/22 08/27/22 History [Azelastin-Flutic 137-50Mcg Spr] Ferrous Sulfate [Feosol] 325 mg PO Q48H 07/12/22 08/27/22 History Finasteride [Proscar] 5 mg PO DAILY 07/12/22 08/27/22 History Levothyroxine Sodium [Synthroid] 112 mcg PO MOTH@209907/12/22 08/27/22 History Ranolazine [Ranexa] 500 mg PO BID 07/12/22 08/27/22 History Aspirin EC [Ecotrin Low Dose] 81 mg PO HS 07/14/22 08/27/22 History Cholecalciferol [Vitamin D3 (25 50 mcg PO HS 07/14/22 08/27/22 History Mcg = 1000 Iu)] Glucerna Shake 237 ml PO BID@0900,1700 08/07/22 08/27/22 History Insulin Glargine-Yfgn [Semglee 20 units SQ HS 08/07/22 08/27/22 History (Yfgn) Pen] Insulin Lispro [humaLOG Kwikpen] See Protocol SQ AC-TID 08/07/22 08/27/22 History Levothyroxine Sodium [Synthroid] 125 mcg PO SUTUWEFRSA@209908/07/22 08/27/22 History Acetaminophen Tab [Tylenol] 650 mg PO Q6HR PRN tab 08/16/22 08/27/22 Rx Ampicillin-Sulbactam [Unasyn] 3 gm IVPB Q6HR 28 Days #112 each 08/16/22 08/27/22 Rx Famotidine [Pepcid] 20 mg PO HS tab 08/16/22 08/27/22 Rx Gabapentin [Neurontin] 100 mg PO BID #6 cap 08/16/22 08/27/22 Rx Warfarin [Coumadin] 3 mg PO DAILY@1700 #0 08/16/22 08/27/22 Rx Ascorbic Acid [Vitamin C] 500 mg PO DAILY 08/27/22 08/27/22 History Collagenase [Santyl Ointment] 1 applic TOPICAL DAILY PRN 08/27/22 08/27/22 History Collagenase [Santyl Ointment] 1 applic TOPICAL HS 08/27/22 08/27/22 History HYDROcodone/APAP 5-325MG [[place] 1 tab PO Q6HR PRN 08/27/22 08/27/22 History 5-325] Metoprolol Tartrate [Lopressor] 12.5 mg PO BID 08/27/22 08/27/22 History Zinc Gluconate [Zinc] 50 mg PO DAILY 08/27/22 08/27/22 History captopriL [Captopril] 6.25 mg PO BID 08/27/22 08/27/22 History Allergies Allergy/AdvReac Type Severity Reaction Status Date / Time No Known Allergies Allergy Verified 08/27/22 16:35 Physical Exam Vitals: Vital Signs Temp Pulse Resp BP Pulse Ox 08/29/22 08:00 97.5 F L 78 17 126/68 99 08/29/22 07:31 96 08/29/22 02:00 98.1 F 70 16 117/55 96 08/28/22 20:00 97.6 F 86 16 127/61 96 Intake and Output 08/28/22 08/29/22 08/29/22 22:59 06:59 14:59 Intake Total 1670 Output Total 2700 826 Balance -2700 844 Intake: Intake, IV Titration 950 Amount Sodium Chloride 0.9% 1, 900 000 ml @ 75 mls/hr IV . [id number] ROBERT Rx#:[id number] cefTRIAXone 1 gm In 50 Sodium Chloride 0.9% 50 ml @ 100 mls/hr IVPB Q24H [facility] Rx#:[id number] Oral 720 Output: Urine 2700 825 Uretheral (Cross) 2700 Stool 1 Other: Voiding Method Indwelling Catheter # Bowel Movements 4 1 General: Well developed, well nourished. No acute distress. Chronically ill appearing HEENT: Head is atraumatic, normocephalic. Lungs: Respirations even and nonlabored. On 3L NC. Abdomen/GI: Soft, round. No abdominal tenderness. : Cross catheter present draining clear yellow urine, no bleeding from urethra Skin: Warm and dry Neurologic: alert and oriented x 2-3 Psychiatric: Appropriate mood and affect. Results CBC & Chem 7: 08/28/22 10:14 08/29/22 05:53 Labs: Abnormal Lab Results - Last 24 Hours (Table) 08/28/22 08/28/22 08/28/22 Range/Units 17:10 17:35 22:04 PT (9.9-11.9) sec INR (0.90-1.11) Potassium (3.5-5.5) mmol/L Carbon Dioxide (20.0-27.5) mmol/L Anion Gap (10.00-18.00) mmol/L Est GFR (CKD-EPI)AfAm (60.0-200.0) Est GFR (CKD-EPI)NonAf (60.0-200.0) Glucose (70-110) mg/dL POC Glucose (mg/dL) 134 H 148 H (70-110) mg/dL Calcium (8.7-10.3) mg/dL C. difficile (EIA) Intrp Positive A (Negative) 08/29/22 08/29/22 08/29/22 Range/Units 05:53 05:53 06:13 PT 24.9 H (9.9-11.9) sec INR 2.27 H (0.90-1.11) Potassium 3.1 L (3.5-5.5) mmol/L Carbon Dioxide 27.9 H (20.0-27.5) mmol/L Anion Gap 5.10 L (10.00-18.00) mmol/L Est GFR (CKD-EPI)AfAm 58.1 L (60.0-200.0) Est GFR (CKD-EPI)NonAf 50.1 L (60.0-200.0) Glucose 51 L (70-110) mg/dL POC Glucose (mg/dL) 68 L (70-110) mg/dL Calcium 7.7 L (8.7-10.3) mg/dL C. difficile (EIA) Intrp (Negative) 08/29/22 Range/Units 06:31 PT (9.9-11.9) sec INR (0.90-1.11) Potassium (3.5-5.5) mmol/L Carbon Dioxide (20.0-27.5) mmol/L Anion Gap (10.00-18.00) mmol/L Est GFR (CKD-EPI)AfAm (60.0-200.0) Est GFR (CKD-EPI)NonAf (60.0-200.0) Glucose (70-110) mg/dL POC Glucose (mg/dL) 63 L (70-110) mg/dL Calcium (8.7-10.3) mg/dL C. difficile (EIA) Intrp (Negative) Microbiology - Last 24 Hours (Table) 08/27/22 15:30 Urine Culture - Preliminary Urine,Voided Gram Neg Bacilli Chest x-ray: report reviewed CT Scan - head: report reviewed Assessment and Plan Assessment: Social * Occupation - Retired * Marital status - for 60 years * Children/grandchildren - 1 daughter ( last year) and 1 son * Residence - [place] * ETOH - No * Tobacco - Former smoker * Illicit drugs - No Spiritual/Cultural * A spiritual person - Yes * Denominational - Orthodoxy * Belong to a particular sabianist - Yes * Beliefs a source of comfort and strength - Yes * Advent or cultural practices restrictions - No * EOL considerations/rituals - None Functional Assessment * Able to walk independently - Not anymore, he was able to 4 months ago * Assistive devices - Walker * Able to use the bathroom independently - No * Continent - No * Require assistance bathing- Yes * Able to feed self - Yes * Who prepares meals - [facility] * How many meals a day eaten - 2-3 * What percentage of meals eaten daily - >50% * Able to clean house/do laundry - No * Transportation - * Able to shop -No * Who manages medications -[facility] * Who manages finances - Psychological/Emotional * Dementia present - Yes * Insight and judgment - Not intact * Depression - No * Suicidal thoughts - No * Good support system - Yes * Patients goals - optimize functionality * Frequent hospitalizations - Yes * Desire to keep coming back to the hospital for treatment - No Symptoms * Pain - 5/10 pressure ulcers on buttocks, Continue [place] * Fatigue - Weak and tired * SOB - SOB with activity on 3L NC * Insomnia - No * N/V - No * Anxiety - No * Depression - No * Confusion - Yes, secondary to UTI, continue Gent * Agitation - NO * Hallucinations - No * Appetite/weight loss - No recent weight loss or loss of appetite. Continue with Consistent carbohydrate diet * Dysphagia - No * Constipation - No * Incontinence - Cross * Itch - No * Cough - + dry cough (1) Urinary retention Current Visit: Yes Status: Acute Code(s): R33.9 - RETENTION OF URINE, UNSPECIFIED SNOMED Code(s): 279377187 Plan: Summary/Goals - The patient's is at the bedside. She stated the patient has been slowly declining the last four month. He has had multiple hospit alizations. She is concerned about his weakness. The patient was previously able to walk with his walker and get in and out of the care. He states that is an acceptable goal for him. The patient would like to go to rehab in attempt to get stronger and return home with his . At this time he is agreeable to coming back and forth to the hospital for treatment. Information regarding palliative care philosophies and services. They both are agreeable to outpatient palliative care in attempt to minimize readmissions. Recommendations - CAPRICE with OP palliative care Advanced Directives - No Code Status - DNR Thank you for this consultation Cecelia Evans [facility] Palliative Care [facility] [id number] Email: [email or web address] Time with Patient: Greater than 30
[2022-08-29 16:35] LABS: Glucose,Whole Blood 81 mg/dL (70-110)
--- NOTE | 2022-08-29 17:11 | P.PN ---
Subjective Progress Note Date: 08/29/22 This is an 86-year-old male with medical history of atrial fibrillation, diabetes, hypertension, hyperlipidemia, sleep apnea, coronary artery disease with open heart and stents in the past, sick sinus syndrome status post permanent pacemaker placed in 2017. Patient is a former smoker. 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 He had PICC Line placed and was discharged on IV antibiotics to [facility]. He was recently diagnosed with covid on 08/18/22. He was in the E.C on 08/19 after accidently pulling his PICC Line out and required reinsertion of PICC line by interventional radiology. [facility] for altered mental status and a possible syncopal episode. Patient was moved out of the Covid unit yesterday at [facility]. Patient's does report that since his last hospital stay he has had confusion and poor verbal response. He is alert 1 but easily arousable in the EC. On examination he is alert x 2 to 3. Patient believes that he may have had an emesis episode after eating yesterday he is incontinent of bowel and bladder. He had brain CT completed showing no acute intracranial process. and non specific white matter change likely secondary to chronic small vessel ischemic disease. Also there is opacity of frontal sinus possible mastoid effusion. Chest xray showing bibasilar acute atelectasis and or linear scarring no acute infiltrate seen. Patient presents with a white count 10.9, hemoglobin 9.7, INR of 2.2, BUN 33, creatinine 1.92, glucose of 124, liver enzymes are normal, troponin 0.025. Urine is showing trace ketones, moderate blood, large leukocyte Estrace. Patient is anticoagulated with coumadin and INR is 2.2 on admission. He received a dose of gentamicin in the EC. He was discharged prevoius admission on IV unasyn managed by Dr. Holland who has been consulted. He was discharged to [facility] with indwelling catheter placed by urology his previous admission and this was discontinued at [facility] he is found to be retaining urine currently. Urology will be consulted. 08/29/2022 Patient evaluated today on medical floor with at bedside. He was found to be positive for C.Dif colitis and has been started on oral vancomycin. He denies episodes of diarrhea however documentation shows 4 bowel movements overnight and 2 today. Urine culture is showing gram negative bacilli currently. He continues on IV ceftriaxone. Infectious disease following. Indwelling catheter has been replaced with urine output of -2.7 liters initially and an additional 844 mL of urine out today. IV fluids will be lowered to 50 mL per hour. Creatinine improved down to 1.3. today. Continues on oxygen via nasal cannula, afebrile, heart rate 70, blood pressure 156/75. If creatinine continues to improve tomorrow can resume ernesto inhibitor. Blood glucose in the 80s. Vascular services has been consulted for further evaluation of 5th toe amputation site. Review of Systems Constitutional: Denied any fatigue denied any fever. Cardio vascular: denied any chest pain, palpitations Gastrointestinal: denied any nausea, vomiting, diarrhea Pulmonary: Denied any shortness of breath cough Neurologic denied any new focal deficits All inpatient medications were reviewed and appropriate changes in these medications as dictated in the interval history and assessment and plan. PHYSICAL EXAMINATION: GENERAL: The patient is alert and oriented x2-3, not in any acute distress. Well developed, well nourished. Pale. HEENT: Pupils are round and equally reacting to light. EOMI. No scleral icterus. No conjunctival pallor. Normocephalic, atraumatic. No pharyngeal erythema. No thyromegaly. CARDIOVASCULAR: S1 and S2 present. No murmurs, rubs, or gallops. PULMONARY: Chest is clear to auscultation, no wheezing or crackles. ABDOMEN: Soft, nontender, nondistended, normoactive bowel sounds. No palpable organomegaly. Obese. MUSCULOSKELETAL: No joint swelling or deformity. EXTREMITIES: No cyanosis, clubbing. Pitting lower extremity edema. NEUROLOGICAL: Gross neurological examination did not reveal any focal deficits. SKIN: No rashes. Kerlex intact to right fifth toe wound. He does have stage 2 sacral decubitus ulcer. Assessment and plan Assessment -Episode of unresponsiveness/syncope under investigation -Altered mental status secondary to acute metabolic encephalopathy from acute renal injury -Acute renal failure mostly likely prerenal and also patient has urinary retention -C.Dif colitis -Recent covid infection with first positive on 08/18/22 -Urinary retention with indwelling catheter placed by urology previous admission -Recent hospitalization for gangrene and right foot infection with right fifth toe amputation and surgical debridement of right heel wound -History of paroxysmal atrial fibrillation patient is presently rate controlled anticoagulated with warfarin INR 2.2 -Coronary artery disease prior history of CABG and coronary stenting -Ischemic cardiomyopathy -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 -Diabetic peripheral neuropathy -Hyperlipidemia -hypertension -Sleep apnea for which patient uses CPAP machine at home -Stage 3 sacral pressure ulcer which is being treated with medihoney and moist dressing and pressure offloading, present on admission -Bilateral heel pressure ulcer unstageable patient underwent surgical debridement of right heel previous admission, present on admission GI prophylaxis DVT prophylaxis No Code Plan Continue with gentle hydration and repeat BMP in AM Local wound care as per previous with medihoney and moist dressing to sacral ulcer Local wound care with santyl with moist dressing and pressure off loading to right heel. Continue with indwelling catheter ID, urology following. Vascular services has been consulted for further evaluation of right 5th toe amputation site PT/OT consultation The impression and plan of care has been dictated by Chrissie Costa, Nurse Practitioner as directed. Dr. Katina MD I have performed a history and physical examination and medical decision making of this patient, discussed the same with the dictator, and agree with the dictators assessment and plan as written, documented as a scribe. Based on total visit time, I have performed more than 50% of this visit. Objective - Vital Signs Vital signs: Vital Signs Temp 98.0 F 08/29/22 16:51 Pulse 70 08/29/22 16:51 Resp 18 08/29/22 16:51 BP 156/75 08/29/22 16:51 Pulse Ox 100 08/29/22 16:51 FiO2 Intake & Output 08/28/22 08/29/22 08/29/22 18:59 06:59 18:59 Intake Total 1670 Output Total 2700 826 Balance -2700 844 Intake: Intake, IV Titration 950 Amount Sodium Chloride 0.9% 1, 900 000 ml @ 75 mls/hr IV . [id number] ROBERT Rx#:[id number] cefTRIAXone 1 gm In 50 Sodium Chloride 0.9% 50 ml @ 100 mls/hr IVPB Q24H ROBERT Rx#:[id number] Oral 720 Output: Urine 2700 825 Uretheral (Cross) 2700 Stool 1 Other: Voiding Method Incontinent Indwelling Catheter Indwelling Catheter External Catheter # Bowel Movements 4 1 1 - Labs CBC & Chem 7: 08/28/22 10:14 08/29/22 05:53 Labs: Abnormal Lab Results - Last 24 Hours (Table) 08/28/22 08/28/22 08/28/22 Range/Units 17:10 17:35 22:04 PT (9.9-11.9) sec INR (0.90-1.11) Potassium (3.5-5.5) mmol/L Carbon Dioxide (20.0-27.5) mmol/L Anion Gap (10.00-18.00) mmol/L Est GFR (CKD-EPI)AfAm (60.0-200.0) Est GFR (CKD-EPI)NonAf (60.0-200.0) Glucose (70-110) mg/dL POC Glucose (mg/dL) 134 H 148 H (70-110) mg/dL Calcium (8.7-10.3) mg/dL C. difficile (EIA) Intrp Positive A (Negative) 08/29/22 08/29/22 08/29/22 Range/Units 05:53 05:53 06:13 PT 24.9 H (9.9-11.9) sec INR 2.27 H (0.90-1.11) Potassium 3.1 L (3.5-5.5) mmol/L Carbon Dioxide 27.9 H (20.0-27.5) mmol/L Anion Gap 5.10 L (10.00-18.00) mmol/L Est GFR (CKD-EPI)AfAm 58.1 L (60.0-200.0) Est GFR (CKD-EPI)NonAf 50.1 L (60.0-200.0) Glucose 51 L (70-110) mg/dL POC Glucose (mg/dL) 68 L (70-110) mg/dL Calcium 7.7 L (8.7-10.3) mg/dL C. difficile (EIA) Intrp (Negative) 08/29/22 Range/Units 06:31 PT (9.9-11.9) sec INR (0.90-1.11) Potassium (3.5-5.5) mmol/L Carbon Dioxide (20.0-27.5) mmol/L Anion Gap (10.00-18.00) mmol/L Est GFR (CKD-EPI)AfAm (60.0-200.0) Est GFR (CKD-EPI)NonAf (60.0-200.0) Glucose (70-110) mg/dL POC Glucose (mg/dL) 63 L (70-110) mg/dL Calcium (8.7-10.3) mg/dL C. difficile (EIA) Intrp (Negative) Microbiology - Last 24 Hours (Table) 08/27/22 15:30 Urine Culture - Preliminary Urine,Voided Gram Neg Bacilli Assessment and Plan Time with Patient: Less than 30
[2022-08-29] MEDS: TAMSULOSIN 0.4 MG CAP.ER.24H PO SCH (17:45)
[2022-08-29] MEDS ORDERED: GENTAMICIN 400 MG in SODIUM CHLORIDE 0.9% 100 ML IVPB SCH (18:00)
[2022-08-29 20:19] LABS: Glucose,Whole Blood 114 mg/dL (70-110)
[2022-08-29] MEDS: LEVOTHYROXINE 125 MCG TAB PO SCH (22:20)
[2022-08-29] MEDS: CHOLECALCIFEROL 25 MCG (1000 IU) TABLET PO SCH (22:20)
[2022-08-29] MEDS: ATORVASTATIN 40 MG TAB PO SCH (22:20)
[2022-08-29] MEDS: FAMOTIDINE 20 MG TAB PO SCH (22:20)
[2022-08-29] MEDS: ASPIRIN 81 MG PO SCH (22:21)
[2022-08-29] MEDS: LEVOTHYROXINE 112 MCG TAB PO SCH (22:28)
[2022-08-29] MEDS: INSULIN DETEMIR (LEVEMIR) 100 UNIT/ML SYR SQ SCH (22:45)
[2022-08-30 06:16] LABS: Glucose,Whole Blood 93 mg/dL (70-110)
[2022-08-30] MEDS: INSULIN ASPART (NovoLOG) 100 UNIT/ML VIAL SQ SCH ×4 (06:26→22:43)
[2022-08-30] MEDS: HYDROcodone/APAP 5-325MG 1 EACH TAB PO PRN ×2 (08:30→18:20)
[2022-08-30] MEDS: NON FORMULARY DRUG (Azelastine/Fluticasone [Azelastin-Flutic 137-50mcg Spr] 23 GM Each) EA NOSTRIL SCH ×2 (08:50→23:15)
[2022-08-30] MEDS: GABAPENTIN 100 MG CAP PO SCH ×2 (08:55→22:44)
[2022-08-30] MEDS: RANOLAZINE 500 MG TAB.ER.12H PO SCH ×2 (08:56→22:44)
[2022-08-30] MEDS: ZINC SULFATE 220 MG CAP PO SCH (08:56)
[2022-08-30] MEDS: MULTIVITAMINS, THERA 1 EACH TAB PO SCH (08:56)
[2022-08-30] MEDS: METOPROLOL TARTRATE 12.5 MG TAB PO SCH ×2 (08:56→22:44)
[2022-08-30] MEDS: FINASTERIDE 5 MG TAB PO SCH (08:56)
[2022-08-30] MEDS: DOXAZOSIN 2 MG TAB PO SCH (08:56)
[2022-08-30] MEDS: VANCOMYCIN ORAL SOLUTION 250 MG/5 ML BOTTLE PO SCH ×4 (08:56→22:45)
[2022-08-30] MEDS: ASCORBIC ACID 500 MG TAB PO SCH (08:56)
--- NOTE | 2022-08-30 09:21 | P.GSCN ---
History of Present Illness Consult date: 08/30/22 Reason for Consult: Postop fifth toe amputation Requesting physician: Chrissie Costa History of present illness: This an 86-year-old male with known peripheral arterial disease who was recently hospitalized and underwent a right fifth toe amputation as well as bilateral heel debridements on 08/12/2022. Patient has been at [facility] with an indwelling Cross catheter, patient had it removed and had urinary retention. He was sent into the emergency department for further evaluation. He has multiple comorbidities including atrial fibrillation on Coumadin, diabetes, hypertension, hyperlipidemia, sleep apnea coronary artery disease with bypass and stents, sick sinus syndrome with permanent pacemaker and is a former smoker. During his last hospitalization he had a urinary tract infection and was discharged on IV antibiotics. Patient has been evaluated by vascular surgery in the outpatient setting and is supposed to undergo further evaluation of his peripheral arterial disease, however during last hospitalization patient had acute kidney injury therefore further investigation was postponed. Patient has had no follow-up with vascular surgery or wound care center since last discharge. Wound care is been managed at the nursing facility. He is currently has sample ordered from infectious disease was also recommending a debridement at the amputation site as well as heels. Vascular surgery was consulted for the above. Patient at this time is denying any chest pain or shortness of breath. Denies any fevers chills or body aches. He has been afebrile. Review of Systems A 14 point review systems was completed all pertinent positives and negatives as stated in the HPI. Past Medical History Past Medical History: Atrial Fibrillation, Coronary Artery Disease (CAD), Chest Pain / Angina, Diabetes Mellitus, Eye Disorder, Hyperlipidemia, Hypertension, Myocardial Infarction ([place]), Osteoarthritis (OA), Sleep Apnea/CPAP/BIPAP Additional Past Medical History / Comment(s): MIs, CPAP use, IDDM type II, bradycardia with pacer, tinnitis bilaterally, non healing wound on rt foot side of little toe and in between the 2 toes. arthritis lower back. left eye blind Last Myocardial Infarction Date:: 07/02/16 History of Any Multi-Drug Resistant Organisms: None Reported Past Surgical History: Coronary Bypass/CABG, Heart Catheterization With Stent, Orthopedic Surgery, Pacemaker Additional Past Surgical History / Comment(s): 1990 cabg-1 vessel, PTCA, PCI with stents (4 total), sinus surgery r/t growth sinus cavity, colonoscopy, L knee arthroscopy, bilateral cataract removals. [employer] pacemaker Past Anesthesia/Blood Transfusion Reactions: No Reported Reaction Date of Last Stent Placement:: 12/17/16 Type of Cardiac Device: Permanent Pacemaker Device Placement Date:: 11/05/16 Past Psychological History: No Psychological Hx Reported Additional Psychological History / Comment(s): Pt resides with his spouse. He is independent. Pt frustrated, not able to do as much as he used to. Smoking Status: Former smoker Past Alcohol Use History: None Reported Additional Past Alcohol Use History / Comment(s): Quit Smoking 1972, 21 yrs-2 ppd. Past Drug Use History: Unable to Obtain Additional Drug Use History / Comment(s): cbd cream and THC cream hasn't used in 3 weeks. aware not to use 24 hrs before procedure. - Past Family History Mother Family Medical History: Asthma Father Family Medical History: Myocardial Infarction ([place]) Additional Family Medical History / Comment(s): with OH at age 62 Brother(s) Family Medical History: Deep Vein Thrombosis (DVT), Myocardial Infarction ([place]) Additional Family Medical History / Comment(s): at age 42 w/ OH Medications and Allergies Home Medications Medication Instructions Recorded Confirmed Type Doxazosin [Cardura] 2 mg PO DAILY 07/10/16 08/27/22 History Multivitamins, Thera [Multivitamin 1 tab PO DAILY 07/10/16 08/27/22 History (formulary)] glipiZIDE [Glipizide] 5 mg PO DAILY@0600 07/10/16 08/27/22 History Atorvastatin [Lipitor] 40 mg PO HS #30 tab 12/18/16 08/27/22 Rx Nitroglycerin Sl Tabs [Nitrostat] 0.4 mg SUBLINGUAL Q5M PRN #0 tab 12/26/16 08/27/22 Rx Azelastine/Fluticasone 2 spray EA NOSTRIL BID@0900,2100 07/12/22 08/27/22 History [Azelastin-Flutic 137-50Mcg Spr] Ferrous Sulfate [Feosol] 325 mg PO Q48H 07/12/22 08/27/22 History Finasteride [Proscar] 5 mg PO DAILY 07/12/22 08/27/22 History Levothyroxine Sodium [Synthroid] 112 mcg PO MOTH@2100 07/12/22 08/27/22 History Ranolazine [Ranexa] 500 mg PO BID 07/12/22 08/27/22 History Aspirin EC [Ecotrin Low Dose] 81 mg PO HS 07/14/22 08/27/22 History Cholecalciferol [Vitamin D3 (25 50 mcg PO HS 07/14/22 08/27/22 History Mcg = 1000 Iu)] Glucerna Shake 237 ml PO BID@0900,1700 08/07/22 08/27/22 History Insulin Glargine-Yfgn [Semglee 20 units SQ HS 08/07/22 08/27/22 History (Yfgn) Pen] Insulin Lispro [humaLOG Kwikpen] See Protocol SQ AC-TID 08/07/22 08/27/22 History Levothyroxine Sodium [Synthroid] 125 mcg PO SUTUWEFRSA@2100 08/07/22 08/27/22 History Acetaminophen Tab [Tylenol] 650 mg PO Q6HR PRN tab 08/16/22 08/27/22 Rx Ampicillin-Sulbactam [Unasyn] 3 gm IVPB Q6HR 28 Days #112 each 08/16/22 08/27/22 Rx Famotidine [Pepcid] 20 mg PO HS tab 08/16/22 08/27/22 Rx Gabapentin [Neurontin] 100 mg PO BID #6 cap 08/16/22 08/27/22 Rx Warfarin [Coumadin] 3 mg PO DAILY@1700 #0 08/16/22 08/27/22 Rx Ascorbic Acid [Vitamin C] 500 mg PO DAILY 08/27/22 08/27/22 History Collagenase [Santyl Ointment] 1 applic TOPICAL DAILY PRN 08/27/22 08/27/22 History Collagenase [Santyl Ointment] 1 applic TOPICAL HS 08/27/22 08/27/22 History HYDROcodone/APAP 5-325MG [Mccracken 1 tab PO Q6HR PRN 08/27/22 08/27/22 History 5-325] Metoprolol Tartrate [Lopressor] 12.5 mg PO BID 08/27/22 08/27/22 History Zinc Gluconate [Zinc] 50 mg PO DAILY 08/27/22 08/27/22 History captopriL [Captopril] 6.25 mg PO BID 08/27/22 08/27/22 History Allergies Allergy/AdvReac Type Severity Reaction Status Date / Time No Known Allergies Allergy Verified 08/27/22 16:35 Surgical - Exam Vital Signs Temp Pulse Resp BP 98.0 F 87 18 120/48 08/27/22 13:52 08/27/22 13:52 08/27/22 13:52 08/27/22 13:52 General appearance: The patient is alert, oriented, appears in no acute distress. HET: Head is normocephalic and atraumatic. Pupils are equal and reactive. Neck: Supple without lymphadenopathy. Trachea midline. Heart: Regular. Lungs: Equal expansion, normal respiratory effort. Abdomen: Soft, nontender, nondistended. Extremities: Bilateral heel wounds, with some nonviable tissue. Right foot amputation site with nonviable tissue, no redness, minimal drainage. No odor. [address] Neurological: Patient alert and oriented to self, place at times. Results - Labs 08/30/22 06:42 08/30/22 06:42 Abnormal Lab Results - Last 24 Hours (Table) 08/29/22 08/29/22 08/29/22 Range/Units 05:53 05:53 20:18 PT 24.9 H (9.9-11.9) sec INR 2.27 H (0.90-1.11) Potassium 3.1 L (3.5-5.5) mmol/L Carbon Dioxide 27.9 H (20.0-27.5) mmol/L Anion Gap 5.10 L (10.00-18.00) mmol/L Est GFR (CKD-EPI)AfAm 58.1 L (60.0-200.0) Est GFR (CKD-EPI)NonAf 50.1 L (60.0-200.0) Glucose 51 L (70-110) mg/dL POC Glucose (mg/dL) 114 H (70-110) mg/dL Calcium 7.7 L (8.7-10.3) mg/dL Diabetes panel 08/29/22 Range/Units 05:53 Sodium 141 (135-145) mmol/L Potassium 3.1 L (3.5-5.5) mmol/L Chloride 108 (96-109) mmol/L Carbon Dioxide 27.9 H (20.0-27.5) mmol/L BUN 20.9 (9.0-27.0) mg/dL Creatinine 1.3 (0.6-1.5) mg/dL Glucose 51 L (70-110) mg/dL Calcium 7.7 L (8.7-10.3) mg/dL Calcium panel 08/29/22 Range/Units 05:53 Calcium 7.7 L (8.7-10.3) mg/dL Pituitary panel 08/29/22 Range/Units 05:53 Sodium 141 (135-145) mmol/L Potassium 3.1 L (3.5-5.5) mmol/L Chloride 108 (96-109) mmol/L Carbon Dioxide 27.9 H (20.0-27.5) mmol/L BUN 20.9 (9.0-27.0) mg/dL Creatinine 1.3 (0.6-1.5) mg/dL Glucose 51 L (70-110) mg/dL Calcium 7.7 L (8.7-10.3) mg/dL Adrenal panel 08/29/22 Range/Units 05:53 Sodium 141 (135-145) mmol/L Potassium 3.1 L (3.5-5.5) mmol/L Chloride 108 (96-109) mmol/L Carbon Dioxide 27.9 H (20.0-27.5) mmol/L BUN 20.9 (9.0-27.0) mg/dL Creatinine 1.3 (0.6-1.5) mg/dL Glucose 51 L (70-110) mg/dL Calcium 7.7 L (8.7-10.3) mg/dL Assessment and Plan Assessment: 1. Peripheral arterial disease 2. Recent right fifth toe amputation for wet gangrene on 08/12/2022 3. Bilateral heel pressure ulcers status post debridement on 08/12/2022 4. Acute kidney injury 5. C. diff colitis 6. Atrial fibrillation on Coumadin, currently on hold 7. History coronary artery disease status post bypass and stenting 8. Pacemaker implantation Plan: 1. Continue symptomatic supportive care 2. Continue local wound care as ordered 3. nothing by mouth after midnight 4. hold Coumadin 5. Patient scheduled for aortogram tomorrow Thank you for this consultation, we will continue to follow. The impression and plan of care has been dictated as directed. Dr. Cuppari I performed a history and examination of this patient, discussed the same with the dictator. I agree with the dictator's note ,documented as a scribe. Any additional findings or plans will be noted.
[2022-08-30 10:42] LABS: Basophils # (A) 0.03 X 10*3/uL (0.00-0.10); Basophils % (A) 0.6 %; Eosinophils # (A) 0.25 X 10*3/uL (0.04-0.35); Eosinophils % (A) 4.6 %; HCT 29.5 % (39.6-50.0); HGB 8.7 g/dL (13.0-17.0); Immature Grans, Automated 1.7 %; Lymphocytes # (A) 1.13 X 10*3/uL (0.90-5.00); Lymphocytes % (A) 20.9 %; MCH 28.7 pg (27.0-32.0); MCHC 29.5 g/dL (32.0-37.0); MCV 97.4 fL (80.0-97.0); Mean Platelet Volume 9.7 fL (9.5-12.2); Monocytes # (A) 0.42 X 10*3/uL (0.20-1.00); Monocytes % (A) 7.8 %; NRBC Per 100 WBC 0 /100 WBCS (0.0-0.0); Neutrophils # (A) 3.49 X 10*3/uL (1.80-7.70); Neutrophils % (A) 64.4 %; Platelet Count 365 X 10*3/uL (140-440); RBC 3.03 X 10*6/uL (4.40-5.60); RDW 15.2 % (11.5-14.5); WBC 5.41 X 10*3/uL (4.50-10.00)
[2022-08-30 11:19] LABS: Magnesium 1.8 mg/dL (1.5-2.4)
[2022-08-30 11:22] LABS: INR 2.35 (0.90-1.11); Prothrombin Time 25.7 sec (9.9-11.9)
[2022-08-30 11:24] LABS: Glucose,Whole Blood 143 mg/dL (70-110)
[2022-08-30 11:26] LABS: African American GFR (CKD) 58.1 (60.0-200.0); Anion Gap 7.5 mmol/L (10.00-18.00); BUN/Creat Ratio 11.62 Ratio (12.00-20.00); Blood Urea Nitrogen 15.1 mg/dL (9.0-27.0); Calcium 8.1 mg/dL (8.7-10.3); Carbon Dioxide 25.5 mmol/L (20.0-27.5); Non-African American GFR(CKD) 50.1 (60.0-200.0); Potassium 4.4 mmol/L (3.5-5.5)
[2022-08-30 11:35] VITALS: BMI 32.5
--- NOTE | 2022-08-30 11:41 | P.PN ---
Subjective Progress Note Date: 08/30/22 This is an 86-year-old male with medical history of atrial fibrillation, diabetes, hypertension, hyperlipidemia, sleep apnea, coronary artery disease with open heart and stents in the past, sick sinus syndrome status post permanent pacemaker placed in 2017. Patient is a former smoker. 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 He had PICC Line placed and was discharged on IV antibiotics to [facility]. He was recently diagnosed with covid on 08/18/22. Patient presents to the hospital from the long-term for altered mental status and a possible syncopal episode. Patient was moved out of the Covid unit yesterday at [facility]. Patient's does report that since his last hospital stay he has had confusion and poor verbal response. He is alert 1 but easily arousable in the EC. On examination he is alert x 2 to 3. Patient believes that he may have had an emesis episode after eating yesterday he is incontinent of bowel and bladder. He had brain CT completed showing no acute intracranial process. and non specific white matter change likely secondary to chronic small vessel ischemic disease. Also there is opacity of frontal sinus possible mastoid effusion. Chest xray showing bibasilar acute atelectasis and or linear scarring no acute infiltrate seen. Patient presents with a white count 10.9, hemoglobin 9.7, INR of 2.2, BUN 33, creatinine 1.92, glucose of 124, liver enzymes are normal, troponin 0.025. Urine is showing trace ketones, moderate blood, large leukocyte Estrace. Patient is anticoagulated with coumadin and INR is 2.2 on admission. He received a dose of gentamicin in the EC. He was discharged prevoius admission on IV unasyn managed by Dr. Holland who has been co nsulted. He was discharged to [facility] with indwelling catheter placed by urology his previous admission and this was discontinued at [facility] he was found to be retaining urine again. Urology was consulted and a Cross catheter was placed. Objective - Vital Signs Vital signs: Vital Signs Temp 98.1 F 08/30/22 08:00 Pulse 79 08/30/22 08:00 Resp 16 08/30/22 08:00 BP 141/69 08/30/22 08:00 Pulse Ox 96 08/30/22 08:25 FiO2 Intake & Output 08/29/22 08/30/22 08/30/22 18:59 06:59 18:59 Output Total 998 466 1815 Balance -250 -902 -1420 Weight 97.069 kg Output: Urine 748 799 8654 Uretheral (Cross) 1420 Stool 2 Other: Voiding Method Indwelling Catheter Indwelling Catheter Indwelling Catheter # Bowel Movements 1 - Exam General: Well developed, well nourished. No acute distress. Chronically ill appearing HEENT: Head is atraumatic, normocephalic. Lungs: Respirations even and nonlabored. On 2L NC. Abdomen/GI: Soft, round. No abdominal tenderness. : Cross catheter present draining clear yellow urine, no bleeding from urethra Skin: Warm and dry Neurologic: alert and oriented x 2-3 Psychiatric: Appropriate mood and affect. - Labs CBC & Chem 7: 08/30/22 06:42 08/30/22 06:42 Labs: Abnormal Lab Results - Last 24 Hours (Table) 08/29/22 08/30/22 08/30/22 Range/Units 20:18 06:42 06:42 RBC 3.03 L (4.40-5.60) X 10*6/uL Hgb 8.7 L (13.0-17.0) g/dL Hct 29.5 L (39.6-50.0) % MCV 97.4 H (80.0-97.0) fL MCHC 29.5 L (32.0-37.0) g/dL RDW 15.2 H (11.5-14.5) % Immature Gran # 0.09 H (0.00-0.04) X 10*3/uL PT (9.9-11.9) sec INR (0.90-1.11) Anion Gap 7.50 L (10.00-18.00) mmol/L Est GFR (CKD-EPI)AfAm 58.1 L (60.0-200.0) Est GFR (CKD-EPI)NonAf 50.1 L (60.0-200.0) BUN/Creatinine Ratio 11.62 L (12.00-20.00) Ratio POC Glucose (mg/dL) 114 H (70-110) mg/dL Calcium 8.1 L (8.7-10.3) mg/dL 08/30/22 08/30/22 Range/Units 06:42 11:22 RBC (4.40-5.60) X 10*6/uL Hgb (13.0-17.0) g/dL Hct (39.6-50.0) % MCV (80.0-97.0) fL MCHC (32.0-37.0) g/dL RDW (11.5-14.5) % Immature Gran # (0.00-0.04) X 10*3/uL PT 25.7 H (9.9-11.9) sec INR 2.35 H (0.90-1.11) Anion Gap (10.00-18.00) mmol/L Est GFR (CKD-EPI)AfAm (60.0-200.0) Est GFR (CKD-EPI)NonAf (60.0-200.0) BUN/Creatinine Ratio (12.00-20.00) Ratio POC Glucose (mg/dL) 143 H (70-110) mg/dL Calcium (8.7-10.3) mg/dL Assessment and Plan Assessment: Symptoms * Pain - 4/10 toes, Continue [place] * Fatigue - Weak and tired * SOB - SOB with activity on 2L NC * Insomnia - No * N/V - No * Anxiety - No * Depression - No * Confusion - Yes, secondary to UTI, continue Gent * Agitation - NO * Hallucinations - No * Appetite/weight loss - No recent weight loss or loss of appetite. Continue with consistent carbohydrate diet * Dysphagia - No * Constipation - No * Incontinence - Cross * Itch - No * Cough - + dry cough (1) Urinary retention Current Visit: Yes Status: Acute Code(s): R33.9 - RETENTION OF URINE, U NSPECIFIED SNOMED Code(s): 273842290 Plan: Summary/Goals - The patient is resting in bed. He states his toes are hurting him today. There are no visitors at the bedside. He states his plan has not changed, he would like to go to rehab to get stronger. talent program manager aware that he is interested in outpatient palliative care. Recommendations - CAPRICE with OP palliative care Advanced Directives - No Code Status - DNR Thank you for this consultation Cecelia DIAZ- Palliative [facility] [id number] Email: [email or web address]
[2022-08-30] MEDS: FERROUS SULFATE 325 MG TAB PO SCH (13:16)
[2022-08-30] MEDS: SODIUM CHLORIDE 0.9% 1,000 ML IV SCH ×2 (13:19→13:25)
[2022-08-30] MEDS: MENTHOL-ZINC OXIDE OINT 113 GM TUBE TOPICAL SCH ×2 (16:24→22:50)
[2022-08-30] MEDS: COLLAGENASE 250 UNIT/GM OINTMENT 30 GM TUBE TOPICAL SCH (16:24)
[2022-08-30 16:44] LABS: Glucose,Whole Blood 125 mg/dL (70-110)
[2022-08-30] MEDS ORDERED: WARFARIN 3 MG TAB PO ONE (18:00)
[2022-08-30] MEDS: TAMSULOSIN 0.4 MG CAP.ER.24H PO SCH (18:17)
[2022-08-30 19:16] LABS: Glucose,Whole Blood 240 mg/dL (70-110)
--- NOTE | 2022-08-30 22:35 | P.PN ---
Subjective Progress Note Date: 08/30/22 This is an 86-year-old male with medical history of atrial fibrillation, diabetes, hypertension, hyperlipidemia, sleep apnea, coronary artery disease with open heart and stents in the past, sick sinus syndrome status post permanent pacemaker placed in 2017. Patient is a former smoker. 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 He had PICC Line placed and was discharged on IV antibiotics to [facility]. He was recently diagnosed with covid on 08/18/22. He was in the [facility] on 08/19 after accidently pulling his PICC Line out and required reinsertion of PICC line by interventional radiology. [facility] for altered mental status and a possible syncopal episode. Patient was moved out of the Covid unit yesterday at [facility]. Patient's does report that since his last hospital stay he has had confusion and poor verbal response. He is alert 1 but easily arousable in the EC. On examination he is alert x 2 to 3. Patient believes that he may have had an emesis episode after eating yesterday he is incontinent of bowel and bladder. He had brain CT completed showing no acute intracranial process. and non specific white matter change likely secondary to chronic small vessel ischemic disease. Also there is opacity of frontal sinus possible mastoid effusion. Chest xray showing bibasilar acute atelectasis and or linear scarring no acute infiltrate seen. Patient presents with a white count 10.9, hemoglobin 9.7, INR of 2.2, BUN 33, creatinine 1.92, glucose of 124, liver enzymes are normal, troponin 0.025. Urine is showing trace ketones, moderate blood, large leukocyte Estrace. Patient is anticoagulated with coumadin and INR is 2.2 on admission. He received a dose of gentamicin in the EC. He was discharged prevoius admission on IV unasyn managed by Dr. Holland who has been consulted. He was discharged to [facility] with indwelling catheter placed by urology his previous admission and this was discontinued at [facility] he is found to be retaining urine currently. Urology will be consulted. 08/29/2022 Patient evaluated today on medical floor with at bedside. He was found to be positive for C.Dif colitis and has been started on oral vancomycin. He denies episodes of diarrhea however documentation shows 4 bowel movements overnight and 2 today. Urine culture is showing gram negative bacilli currently. He continues on IV ceftriaxone. Infectious disease following. Indwelling catheter has been replaced with urine output of -2.7 liters initially and an additional 844 mL of urine out today. IV fluids will be lowered to 50 mL per hour. Creatinine improved down to 1.3. today. Continues on oxygen via nasal cannula, afebrile, heart rate 70, blood pressure 156/75. If creatinine continues to improve tomorrow can resume ernesto inhibitor. Blood glucose in the 80s. Vascular services has been consulted for further evaluation of 5th toe amputation site. 08/30/2022 No acute events overnight. Continues on 2L nasal cannula. Reports no pain. Vascular consultation requested secondary to necrosis at 5th toe amputation site. Patient is scheduled to undergo aortogram with Dr. Cole tomorrow. Coumadin has been placed on hold for this. INR today 2.35. Hgb 8.7, magnesium 1.8. Creatinine stable at 1.3. Continues on gentle hydration. Continues on IV ceftriaxone for UTI and also on oral vanco for C. Dif. 1 Bowel movement overnight and 1 BM today, staff reports stool is loose in consistency. No longer liquid. Review of Systems Constitutional: Denied any fatigue denied any fever. Cardio vascular: denied any chest pain, palpitations Gastrointestinal: denied any nausea, vomiting. Has diarrhea. Pulmonary: Denied any shortness of breath cough Neurologic denied any new focal deficits All inpatient medications were reviewed and appropriate changes in these medications as dictated in the interval history and assessment and plan. PHYSICAL EXAMINATION: GENERAL: The patient is alert and oriented x2-3, not in any acute distress. Well developed, well nourished. Pale. HEENT: Pupils are round and equally reacting to light. EOMI. No scleral icterus. No conjunctival pallor. Normocephalic, atraumatic. No pharyngeal erythema. No thyromegaly. CARDIOVASCULAR: S1 and S2 present. No murmurs, rubs, or gallops. PULMONARY: Chest is clear to auscultation, no wheezing or crackles. ABDOMEN: Soft, nontender, nondistended, normoactive bowel sounds. No palpable organomegaly. Obese. MUSCULOSKELETAL: No joint swelling or deformity. EXTREMITIES: No cyanosis, clubbing. Pitting lower extremity edema. NEUROLOGICAL: Gross neurological examination did not reveal any focal deficits. SKIN: No rashes. He does have stage 3 sacral decubitus ulcer. Necrotic tissue to 5th toe ampuation site. Assessment and plan Assessment -Episode of unresponsiveness/syncope mostly likely from dehydration -Altered mental status secondary to acute metabolic encephalopathy from acute renal injury -Acute renal failure mostly likely prerenal and also patient has urinary retention -C.Dif colitis -Recent covid infection with first positive on 08/18/22 -Urinary retention with indwelling catheter placed by urology previous admission -Recent hospitalization for gangrene and right foot infection with right fifth toe amputation and surgical debridement of right heel wound -History of paroxysmal atrial fibrillation patient is presently rate controlled anticoagulated with warfarin INR 2.35 -Coronary artery disease prior history of CABG and coronary stenting -Ischemic cardiomyopathy -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 -Diabetic peripheral neuropathy -Hyperlipidemia -hypertension -Sleep apnea for which patient uses CPAP machine at home -Stage 3 sacral pressure ulcer present on admission -Bilateral heel pressure ulcer unstageable patient underwent surgical debridement of right heel previous admission, present on admission GI prophylaxis DVT prophylaxis No Code Plan Continue with gentle hydration Continues with local wound care Continue with indwelling catheter ID, urology following. Vascular services has been consulted and recommending aortogram tomorrow PT/OT consultation The impression and plan of care has been dictated by Chrissie Costa, Nurse Practitioner as directed. Dr. Katina MD I have performed a history and physical examination and medical decision making of this patient, discussed the same with the dictator, and agree with the dictators assessment and plan as written, documented as a scribe. Based on total visit time, I have performed more than 50% of this visit. Objective - Vital Signs Vital signs: Vital Signs Temp 98.5 F 08/30/22 14:00 Pulse 77 08/30/22 14:00 Resp 16 08/30/22 14:00 BP 138/59 08/30/22 14:00 Pulse Ox 98 08/30/22 14:00 FiO2 Intake & Output 08/29/22 08/30/22 08/30/22 18:59 06:59 18:59 Output Total 764 251 9108 Balance -250 -902 -1420 Weight 97.069 kg Output: Urine 002 172 8533 Uretheral (Cross) 1420 Stool 2 Other: Voiding Method Indwelling Catheter Indwelling Catheter Indwelling Catheter # Bowel Movements 1 - Labs CBC & Chem 7: 08/30/22 06:42 08/30/22 06:42 Labs: Abnormal Lab Results - Last 24 Hours (Table) 08/29/22 08/30/22 08/30/22 Range/Units 20:18 06:42 06:42 RBC 3.03 L (4.40-5.60) X 10*6/uL Hgb 8.7 L (13.0-17.0) g/dL Hct 29.5 L (39.6-50.0) % MCV 97.4 H (80.0-97.0) fL MCHC 29.5 L (32.0-37.0) g/dL RDW 15.2 H (11.5-14.5) % Immature Gran # 0.09 H (0.00-0.04) X 10*3/uL PT (9.9-11.9) sec INR (0.90-1.11) Anion Gap 7.50 L (10.00-18.00) mmol/L Est GFR (CKD-EPI)AfAm 58.1 L (60.0-200.0) Est GFR (CKD-EPI)NonAf 50.1 L (60.0-200.0) BUN/Creatinine Ratio 11.62 L (12.00-20.00) Ratio POC Glucose (mg/dL) 114 H (70-110) mg/dL Calcium 8.1 L (8.7-10.3) mg/dL 08/30/22 08/30/22 Range/Units 06:42 11:22 RBC (4.40-5.60) X 10*6/uL Hgb (13.0-17.0) g/dL Hct (39.6-50.0) % MCV (80.0-97.0) fL MCHC (32.0-37.0) g/dL RDW (11.5-14.5) % Immature Gran # (0.00-0.04) X 10*3/uL PT 25.7 H (9.9-11.9) sec INR 2.35 H (0.90-1.11) Anion Gap (10.00-18.00) mmol/L Est GFR (CKD-EPI)AfAm (60.0-200.0) Est GFR (CKD-EPI)NonAf (60.0-200.0) BUN/Creatinine Ratio (12.00-20.00) Ratio POC Glucose (mg/dL) 143 H (70-110) mg/dL Calcium (8.7-10.3) mg/dL Assessment and Plan Time with Patient: Less than 30
[2022-08-30] MEDS: INSULIN DETEMIR (LEVEMIR) 100 UNIT/ML SYR SQ SCH (22:44)
[2022-08-30] MEDS: FAMOTIDINE 20 MG TAB PO SCH (22:44)
[2022-08-30] MEDS: ASPIRIN 81 MG PO SCH (22:44)
[2022-08-30] MEDS: ATORVASTATIN 40 MG TAB PO SCH (22:44)
[2022-08-30] MEDS: CHOLECALCIFEROL 25 MCG (1000 IU) TABLET PO SCH (22:44)
--- NOTE | 2022-08-30 23:20 | P.PN ---
Subjective Progress Note Date: 08/29/22 Principal diagnosis: UTI/C. diff colitis and right foot wound Patient is a 86-year-old male with multiple comorbidities with recent right fifth toe amputation for gangrene and debridement of the right foot culture positive for strep and the patient was [facility] the [facility] on [facility] Unasyn now presenting back to the hospital with mental status changes noticed to have significant urinary retention requiring Cross catheter placement and a positive UA. On today's evaluation that is 08/29/2022, the patient denies having any fever or any chills the patient is more awake and alert he is breathing comfortably no chest pain or shortness of breath cough no abdominal pain diarrhea has slowed down Objective - Vital Signs Vital signs: Vital Signs Temp 98 F 08/29/22 14:00 Pulse 72 08/29/22 14:00 Resp 16 08/29/22 14:00 BP 132/60 08/29/22 14:00 Pulse Ox 98 08/29/22 14:00 FiO2 Intake & Output 08/28/22 08/29/22 08/29/22 18:59 06:59 18:59 Intake Total 1670 Output Total 2700 826 Balance -2700 844 Intake: Intake, IV Titration 950 Amount Sodium Chloride 0.9% 1, 900 000 ml @ 75 mls/hr IV . [id number] [facility] Rx#:[id number] cefTRIAXone 1 gm In 50 Sodium Chloride 0.9% 50 ml @ 100 mls/hr IVPB Q24H [facility] Rx#:[id number] Oral 720 Output: Urine 2700 825 Uretheral (Cross) 2700 Stool 1 Other: Voiding Method Incontinent Indwelling Catheter External Catheter # Bowel Movements 4 1 1 - Exam GENERAL DESCRIPTION: An elderly male lying in bed in no distress RESPIRATORY SYSTEM: Unlabored breathing , decreased breath sounds at bases HEART: S1 S2 regular rate and rhythm , ABDOMEN: Soft , no tenderness EXTREMITIES: Right foot wound is currently dressed, no drainage on the dressing - Labs CBC & Chem 7: 08/30/22 06:42 08/30/22 06:42 Labs: Abnormal Lab Results - Last 24 Hours (Table) 08/28/22 08/28/22 08/28/22 Range/Units 17:10 17:35 22:04 PT (9.9-11.9) sec INR (0.90-1.11) Potassium (3.5-5.5) mmol/L Carbon Dioxide (20.0-27.5) mmol/L Anion Gap (10.00-18.00) mmol/L Est GFR (CKD-EPI)AfAm (60.0-200.0) Est GFR (CKD-EPI)NonAf (60.0-200.0) Glucose (70-110) mg/dL POC Glucose (mg/dL) 134 H 148 H (70-110) mg/dL Calcium (8.7-10.3) mg/dL C. difficile (EIA) Intrp Positive A (Negative) 08/29/22 08/29/22 08/29/22 Range/Units 05:53 05:53 06:13 PT 24.9 H (9.9-11.9) sec INR 2.27 H (0.90-1.11) Potassium 3.1 L (3.5-5.5) mmol/L Carbon Dioxide 27.9 H (20.0-27.5) mmol/L Anion Gap 5.10 L (10.00-18.00) mmol/L Est GFR (CKD-EPI)AfAm 58.1 L (60.0-200.0) Est GFR (CKD-EPI)NonAf 50.1 L (60.0-200.0) Glucose 51 L (70-110) mg/dL POC Glucose (mg/dL) 68 L (70-110) mg/dL Calcium 7.7 L (8.7-10.3) mg/dL C. difficile (EIA) Intrp (Negative) 08/29/22 Range/Units 06:31 PT (9.9-11.9) sec INR (0.90-1.11) Potassium (3.5-5.5) mmol/L Carbon Dioxide (20.0-27.5) mmol/L Anion Gap (10.00-18.00) mmol/L Est GFR (CKD-EPI)AfAm (60.0-200.0) Est GFR (CKD-EPI)NonAf (60.0-200.0) Glucose (70-110) mg/dL POC Glucose (mg/dL) 63 L (70-110) mg/dL Calcium (8.7-10.3) mg/dL C. difficile (EIA) Intrp (Negative) Microbiology - Last 24 Hours (Table) 08/27/22 15:30 Urine Culture - Preliminary Urine,Voided Gram Neg Bacilli Assessment and Plan (1) C. difficile colitis Current Visit: Yes Status: Acute Code(s): A04.72 - ENTEROCOLITIS D/T CLOSTRIDIUM DIFFICILE, NOT SPCF RECUR SNOMED Code(s): 161920463 (2) UTI (urinary tract infection) Current Visit: Yes Status: Acute Code(s): N39.0 - URINARY TRACT INFECTION, SITE NOT SPECIFIED SNOMED Code(s): 99386804 Plan: 1patient presented to hospital with weakness confusion which is likely multifactorial in this patient who recently did have a right fifth toe gangrene status post amputation of the right fifth toe and debridement of the right heel wound culture positive for strep and anaerobes were the patient was receiving Unasyn at the detention patient did have a necrotic changes at the right fifth toe amputation site as well as right heel and will benefit from further surgical evaluation, local wound care with the Santyl followed by moist dressing keep the area of the pressure 2patient with a complaint of UTI likely from urinary retention from enteric gram-negative pathogen patient to have a borderline kidney function high risk of nephrotoxicity from gentamicin which has been discontinued , patient to continue with Rocephin 1 g daily while awaiting further urine culture to finalize. 3 patient stool for C. diff came back positive patient was started on oral vancomycin to continue Time with Patient: Less than 30
--- NOTE | 2022-08-30 23:22 | P.PN ---
Subjective Progress Note Date: 08/30/22 Principal diagnosis: UTI/C. diff colitis and right foot wound Patient is a 86-year-old male with multiple comorbidities with recent right fifth toe amputation for gangrene and debridement of the right foot culture positive for strep and the [facility] now presenting back to the hospital with mental status changes noticed to have significant urinary retention requiring Cross catheter placement and a positive UA. On today's evaluation that is 08/30/2022 the patient denies having any fever or any chills patient is breathing comfortably and is currently on room air denies any chest pain shortness of breath or cough no abdominal pain or any worsening diarrhea Objective - Vital Signs Vital signs: Vital Signs Temp 98.1 F 08/30/22 08:00 Pulse 79 08/30/22 08:00 Resp 16 08/30/22 08:00 BP 141/69 08/30/22 08:00 Pulse Ox 96 08/30/22 08:25 FiO2 Intake & Output 08/29/22 08/30/22 08/30/22 18:59 06:59 18:59 Output Total 326 657 4750 Balance -250 -902 -1420 Weight 97.069 kg Output: Urine 391 058 9199 Uretheral (Cross) 1420 Stool 2 Other: Voiding Method Indwelling Catheter Indwelling Catheter Indwelling Catheter # Bowel Movements 1 - Exam GENERAL DESCRIPTION: An elderly male lying in bed in no distress RESPIRATORY SYSTEM: Unlabored breathing , decreased breath sounds at bases HEART: S1 S2 regular rate and rhythm , ABDOMEN: Soft , no tenderness EXTREMITIES: Right foot wound is currently dressed, no drainage on the dressing - Labs CBC & Chem 7: 08/30/22 06:42 08/30/22 06:42 Labs: Abnormal Lab Results - Last 24 Hours (Table) 08/29/22 08/30/22 08/30/22 Range/Units 20:18 06:42 06:42 RBC 3.03 L (4.40-5.60) X 10*6/uL Hgb 8.7 L (13.0-17.0) g/dL Hct 29.5 L (39.6-50.0) % MCV 97.4 H (80.0-97.0) fL MCHC 29.5 L (32.0-37.0) g/dL RDW 15.2 H (11.5-14.5) % Immature Gran # 0.09 H (0.00-0.04) X 10*3/uL PT (9.9-11.9) sec INR (0.90-1.11) Anion Gap 7.50 L (10.00-18.00) mmol/L Est GFR (CKD-EPI)AfAm 58.1 L (60.0-200.0) Est GFR (CKD-EPI)NonAf 50.1 L (60.0-200.0) BUN/Creatinine Ratio 11.62 L (12.00-20.00) Ratio POC Glucose (mg/dL) 114 H (70-110) mg/dL Calcium 8.1 L (8.7-10.3) mg/dL 08/30/22 08/30/22 Range/Units 06:42 11:22 RBC (4.40-5.60) X 10*6/uL Hgb (13.0-17.0) g/dL Hct (39.6-50.0) % MCV (80.0-97.0) fL MCHC (32.0-37.0) g/dL RDW (11.5-14.5) % Immature Gran # (0.00-0.04) X 10*3/uL PT 25.7 H (9.9-11.9) sec INR 2.35 H (0.90-1.11) Anion Gap (10.00-18.00) mmol/L Est GFR (CKD-EPI)AfAm (60.0-200.0) Est GFR (CKD-EPI)NonAf (60.0-200.0) BUN/Creatinine Ratio (12.00-20.00) Ratio POC Glucose (mg/dL) 143 H (70-110) mg/dL Calcium (8.7-10.3) mg/dL Assessment and Plan (1) C. difficile colitis Current Visit: Yes Status: Acute Code(s): A04.72 - ENTEROCOLITIS D/T CLOSTRIDIUM DIFFICILE, NOT SPCF RECUR SNOMED Code(s): 028175984 (2) UTI (urinary tract infection) Current Visit: Yes Status: Acute Code(s): N39.0 - URINARY TRACT INFECTION, SITE NOT SPECIFIED SNOMED Code(s): 01932369 Plan: 1patient presented to hospital with weakness confusion which is likely multifa ctorial in this patient who recently did have a right fifth toe gangrene status post amputation of the right fifth toe and debridement of the right heel wound culture positive for strep and anaerobes were the patient was [facility] patient did have a necrotic changes at the right fifth toe amputation site as well as right heel and will benefit from further surgical evaluation, local wound care with the Santyl followed by moist dressing keep the area of the pressure 2patient with a complaint of UTI likely from urinary retention from enteric gram-negative pathogen patient to have a borderline kidney function high risk of nephrotoxicity from gentamicin which has been discontinued ,Patient urine has been finalized with a Pseudomonas Rocephin will be discontinued short course of Fortaz and will also ask for repeat UA which if not significantly positive may discontinue antibiotics 3 patient stool for C. diff came back positive , Patient was started on oral vancomycin the patient diarrhea is improving continue with oral vancomycin advised to increase his probiotic and yogurt intake Time with Patient: Less than 30
[2022-08-31 02:29] LABS: Appearance,Urine Cloudy (Clear); Bacteria,Urine Rare /hpf; Bilirubin,Urine Negative (Negative); Blood,Urine Small (Negative); Budding Yeast,Urine Occasional /hpf; Color,Urine Light Yellow; Glucose,Urine (UA) Negative (Negative); Ketones,Urine Negative (Negative); Leukocyte Esterase,Urine Large (Negative); Mucus,Urine Rare /hpf; Nitrite,Urine Negative (Negative); Protein,Urine Trace (Negative); RBC,Urine 5 /hpf (0-5); Specific Gravity,Urine 1.008 (1.001-1.035); Squamous Epithelial Cell,Urine <1 /hpf (0-4); Urobilinogen,Urine <2.0 mg/dL (<2.0); WBC,Urine 37 /hpf (0-5)
[2022-08-31 06:00] LABS: Glucose,Whole Blood 106 mg/dL (70-110)
[2022-08-31] MEDS: INSULIN ASPART (NovoLOG) 100 UNIT/ML VIAL SQ SCH ×4 (06:02→20:27)
[2022-08-31] MEDS ORDERED: VERAPAMIL 2.5 MG/ML 2 ML AMP ONE (07:46)
[2022-08-31] MEDS ORDERED: fentaNYL (PF) 50 MCG/ML 2 ML AMP ONE (08:12)
[2022-08-31] MEDS ORDERED: fentaNYL (PF) 50 MCG/ML 2 ML AMP IVP ONE (08:18)
[2022-08-31] MEDS ORDERED: IV FLUID CONTINUATION 1,000 ML IV ONE (08:18)
[2022-08-31] MEDS ORDERED: MIDAZOLAM 2 MG/2 ML VIAL IVP ONE (08:18)
[2022-08-31] MEDS ORDERED: LIDOCAINE 1% INJ 10MG/ML (30 ML VIAL-PF) SQ ONE (08:20)
[2022-08-31] MEDS ORDERED: IOPAMIDOL-250 100ML BTL INTRAARTER ONE (08:41)
--- NOTE | 2022-08-31 09:03 | P.OP ---
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 He had previous arterial Doppler demonstrated ABIs of 0.15 on the right and 0.3 on the left. On exam he has no palpable femoral popliteal or DP PT pulses bilaterally therefore he presents today for aortogram with runoff via the left upper extremity access. Upon examination he does have a palpable radial pulse bilaterally. Operative Findings: Diminutive left radial artery with high bifurcation into the brachial artery. Description of Procedure: After written and informed consent was obtained the patient all risks, benefits and complications were described and patient was brought to the Immigration Coordinator and laid in a supine position with his left arm outstretched on an armboard. The area of the left arm was prepped and draped in usual sterile fashion. Utilizing ultrasound the radial artery was located and visualized shown to have calcific disease but patent. Local anesthetic was then infused overlying the radial artery and utilizing a micro-access needle the artery was accessed. Guidewire was placed followed by a 4-Sinhala sheath. 035 Glidewire was then placed into the subclavian artery and advanced into the aortic arch. Pigtail catheter was then attempted to be placed and was unable to traverse pass the mid forearm. At this time the pigtail catheter was removed and replaced with a crossing catheter which was placed into the subclavian area but with some resistance and therefore angiogram was obtained demonstrating diminutive radial artery that his spasms extending to the wrist and sheath. The brachial artery was visualized and there was a extremely high bifurcation of the radial artery. Due to the patient's discomfort and inability to place a larger catheter all guidewires and catheters were removed and procedure was terminated. Sheath was then removed and pressure was held for hemostasis. Patient tolerated the procedure well had a palpable radial pulse at the conclusion of the procedure. He will be sent for a CTA of the abdomen and pelvis with runoff in place of his catheter directed angiogram.
[2022-08-31] MEDS: DOXAZOSIN 2 MG TAB PO SCH (10:10)
[2022-08-31] MEDS: GABAPENTIN 100 MG CAP PO SCH ×2 (10:10→20:27)
[2022-08-31] MEDS: MULTIVITAMINS, THERA 1 EACH TAB PO SCH (10:11)
[2022-08-31] MEDS: FINASTERIDE 5 MG TAB PO SCH (10:11)
[2022-08-31] MEDS: VANCOMYCIN ORAL SOLUTION 250 MG/5 ML BOTTLE PO SCH ×4 (10:12→20:29)
[2022-08-31] MEDS: ASCORBIC ACID 500 MG TAB PO SCH (10:12)
[2022-08-31] MEDS: ZINC SULFATE 220 MG CAP PO SCH (10:12)
[2022-08-31] MEDS: RANOLAZINE 500 MG TAB.ER.12H PO SCH ×2 (10:12→20:29)
[2022-08-31] MEDS: METOPROLOL TARTRATE 12.5 MG TAB PO SCH ×2 (10:12→20:29)
[2022-08-31] MEDS: COLLAGENASE 250 UNIT/GM OINTMENT 30 GM TUBE TOPICAL SCH (10:13)
[2022-08-31] MEDS: MENTHOL-ZINC OXIDE OINT 113 GM TUBE TOPICAL SCH ×3 (10:13→20:30)
[2022-08-31] MEDS: CHERRY FLAVOR 60 ML BOTTLE PO SCH ×4 (10:13→20:30)
[2022-08-31] MEDS: NON FORMULARY DRUG (Azelastine/Fluticasone [Azelastin-Flutic 137-50mcg Spr] 23 GM Each) EA NOSTRIL SCH ×2 (10:25→20:19)
--- NOTE | 2022-08-31 10:53 | P.PN ---
Subjective Progress Note Date: 08/31/22 The patient is in the hospital the urine infection. His urine retention. He had a dorsal slit by turn his last admission. The catheter had been replaced yesterday. The patient stated that he did feel full and the catheter was plugged. Once the patient recuperates and as an outpatient he should be evaluated as to whether prostate surgery be of benefit to help him urinate. Objective - Vital Signs Vital signs: Vital Signs Temp 97.5 F L 08/31/22 07:32 Pulse 74 08/31/22 07:32 Resp 18 08/31/22 07:40 BP 149/72 08/31/22 07:32 Pulse Ox 98 08/31/22 07:32 FiO2 Intake & Output 08/30/22 08/31/22 08/31/22 18:59 06:59 18:59 Intake Total 660 50 Output Total 2320 900 Balance -1660 -900 50 Weight 97.069 kg Intake: IV 660 50 Sodium Chloride 0.9% 1, 660 000 ml @ 50 mls/hr IV . Q20H [facility] Rx#:[id number] Output: Urine 2320 900 Uretheral (Cross) 2320 Other: Voiding Method Indwelling Catheter Indwelling Catheter Indwelling Catheter # Bowel Movements 1 1 - Labs CBC & Chem 7: 08/30/22 06:42 08/30/22 06:42 Labs: Abnormal Lab Results - Last 24 Hours (Table) 08/30/22 08/30/22 08/30/22 Range/Units 06:42 06:42 11:22 PT 25.7 H (9.9-11.9) sec INR 2.35 H (0.90-1.11) Anion Gap 7.50 L (10.00-18.00) mmol/L Est GFR (CKD-EPI)AfAm 58.1 L (60.0-200.0) Est GFR (CKD-EPI)NonAf 50.1 L (60.0-200.0) BUN/Creatinine Ratio 11.62 L (12.00-20.00) Ratio POC Glucose (mg/dL) 143 H (70-110) mg/dL Calcium 8.1 L (8.7-10.3) mg/dL Urine Protein (Negative) Urine Blood (Negative) Ur Leukocyte Esterase (Negative) Urine WBC (0-5) /hpf Urine Bacteria (None) /hpf Urine Mucus (None) /hpf Urine Yeast (Budding) (None) /hpf 08/30/22 08/30/22 08/31/22 Range/Units 16:41 19:14 02:17 PT (9.9-11.9) sec INR (0.90-1.11) Anion Gap (10.00-18.00) mmol/L Est GFR (CKD-EPI)AfAm (60.0-200.0) Est GFR (CKD-EPI)NonAf (60.0-200.0) BUN/Creatinine Ratio (12.00-20.00) Ratio POC Glucose (mg/dL) 125 H 240 H (70-110) mg/dL Calcium (8.7-10.3) mg/dL Urine Protein Trace H (Negative) Urine Blood Small H (Negative) Ur Leukocyte Esterase Large H (Negative) Urine WBC 37 H (0-5) /hpf Urine Bacteria Rare H (None) /hpf Urine Mucus Rare H (None) /hpf Urine Yeast (Budding) Occasional H (None) /hpf Microbiology - Last 24 Hours (Table) 08/31/22 02:17 Urine Culture - Preliminary Urine,Voided 08/27/22 15:30 Urine Culture - Final Urine,Voided Pseudomonas aeruginosa Assessment and Plan (1) Urinary retention Current Visit: Yes Status: Acute Code(s): R33.9 - RETENTION OF URINE, UNSPECIFIED SNOMED Code(s): 311953317
[2022-08-31 11:35] LABS: Glucose,Whole Blood 177 mg/dL (70-110)
[2022-08-31 11:39] LABS: INR 2.11 (0.90-1.11); Prothrombin Time 23.2 sec (9.9-11.9)
[2022-08-31] MEDS: HYDROcodone/APAP 5-325MG 1 EACH TAB PO PRN (14:08)
--- NOTE | 2022-08-31 14:42 | P.PN ---
Subjective Progress Note Date: 08/31/22 This is an 86-year-old male with medical history of atrial fibrillation, diabetes, hypertension, hyperlipidemia, sleep apnea, coronary artery disease with open heart and stents in the past, sick sinus syndrome status post permanent pacemaker placed in 2017. Patient is a former smoker. 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 He had PICC Line placed and was discharged on IV antibiotics to [facility]. He was recently diagnosed with covid on 08/18/22. He was in the E.C on 08/19 after accidently pulling his PICC Line out and required reinsertion of PICC line by interventional radiology. [facility] for [facility] mental status and a possible syncopal episode. Patient was moved out of the Covid unit yesterday at [facility]. Patient's does report that since his last hospital stay he has had confusion and poor verbal response. He is alert 1 but easily arousable in the EC. On examination he is alert x 2 to 3. Patient believes that he may have had an emesis episode after eating yesterday he is incontinent of bowel and bladder. He had brain CT completed showing no acute intracranial process. and non specific white matter change likely secondary to chronic small vessel ischemic disease. Also there is opacity of frontal sinus possible mastoid effusion. Chest xray showing bibasilar acute atelectasis and or linear scarring no acute infiltrate seen. Patient presents with a white count 10.9, hemoglobin 9.7, INR of 2.2, BUN 33, creatinine 1.92, glucose of 124, liver enzymes are normal, troponin 0.025. Urine is showing trace ketones, moderate blood, large leukocyte Estrace. Patient is anticoagulated with coumadin and INR is 2.2 on admission. He received a dose of gentamicin in the EC. He was discharged prevoius admission on IV unasyn managed by Dr. Holland who has been consulted. He was discharged to [facility] with indwelling catheter placed by urology his previous admission and this was discontinued at [facility] he is found to be retaining urine currently. Urology will be consulted. 08/29/2022 Patient evaluated today on medical floor with at bedside. He was found to be positive for C.Dif colitis and has been started on oral vancomycin. He denies episodes of diarrhea however documentation shows 4 bowel movements overnight and 2 today. Urine culture is showing gram negative bacilli currently. He continues on IV ceftriaxone. Infectious disease following. Indwelling catheter has been replaced with urine output of -2.7 liters initially and an additional 844 mL of urine out today. IV fluids will be lowered to 50 mL per hour. Creatinine improved down to 1.3. today. Continues on oxygen via nasal cannula, afebrile, heart rate 70, blood pressure 156/75. If creatinine continues to improve tomorrow can resume ernesto inhibitor. Blood glucose in the 80s. Vascular services has been consulted for further evaluation of 5th toe amputation site. 08/30/2022 No acute events overnight. Continues on 2L nasal cannula. Reports no pain. Vascular consultation requested secondary to necrosis at 5th toe amputation site. Patient is scheduled to undergo aortogram with Dr. Cole tomorrow. Coumadin has been placed on hold for this. INR today 2.35. Hgb 8.7, magnesium 1.8. Creatinine stable at 1.3. Continues on gentle hydration. Continues on IV ceftriaxone for UTI and also on oral vanco for C. Dif. 1 Bowel movement overnight and 1 BM today, staff reports stool is loose in consistency. No longer liquid. 08/31/2022 Patient is evaluated today post aortogram which was unsuccessful per notes. There is critical limb ischemia right lower extremity with diminutive left radial artery with high bifurcation. Plans for CTA of abdomen pelvis with run off recommended. He reports no acute events overnight. Continues on 2L nasal cannula, lungs are clear at this time. Staff reports 1 BM overnight which is becoming more formed. Continues on oral vancomycin. Urine culture has finalized showing pseudomonas aeruginosa. Antibiotics adjusted to ceftazadime. Infectious disease following. White count today 5.41, hgb 8.7, sodium 139, potassium 4.4, magnesium 1.8, BUN 15.1, creatinine 1.3. Glucose 170s. UA has been repeated with improvement. Blood pressure 151/71. Review of Systems Constitutional: Denied any fatigue denied any fever. Cardio vascular: denied any chest pain, palpitations Gastrointestinal: denied any nausea, vomiting. Has diarrhea. Pulmonary: Denied any shortness of breath cough Neurologic denied any new focal deficits All inpatient medications were reviewed and appropriate changes in these medications as dictated in the interval history and assessment and plan. PHYSICAL EXAMINATION: GENERAL: The patient is alert and oriented x2-3, not in any acute distress. Well developed, well nourished. Pale. HEENT: Pupils are round and equally reacting to light. EOMI. No scleral icterus. No conjunctival pallor. Normocephalic, atraumatic. No pharyngeal erythema. No thyromegaly. CARDIOVASCULAR: S1 and S2 present. No murmurs, rubs, or gallops. PULMONARY: Chest is clear to auscultation, no wheezing or crackles. ABDOMEN: Soft, nontender, nondistended, normoactive bowel sounds. No palpable organomegaly. Obese. MUSCULOSKELETAL: No joint swelling or deformity. EXTREMITIES: No cyanosis, clubbing. Pitting lower extremity edema. NEUROLOGICAL: Gross neurological examination did not reveal any focal deficits. SKIN: No rashes. He does have stage 3 sacral decubitus ulcer. Necrotic tissue to 5th toe ampuation site. Assessment and plan Assessment -Episode of unresponsiveness/syncope mostly likely from dehydration -Altered mental status secondary to acute metabolic encephalopathy from acute re nal injury, improved -Acute renal failure mostly likely prerenal and also patient has urinary reten tion, improved -C.Dif colitis -Recent covid infection with first positive on 08/18/22 -Urinary retention with indwelling catheter placed by urology previous admission -Recent hospitalization for gangrene and right foot infection with right fifth toe amputation and surgical debridement of right heel wound -History of paroxysmal atrial fibrillation patient is presently rate controlled anticoagulated with warfarin INR 2.11 -Coronary artery disease prior history of CABG and coronary stenting -Ischemic cardiomyopathy -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 -Diabetic peripheral neuropathy -Hyperlipidemia -hypertension -Sleep apnea for which patient uses CPAP machine at home -Stage 3 sacral pressure ulcer present on admission -Bilateral heel pressure ulcer unstageable patient underwent surgical debridement of right heel previous admission, present on admission GI prophylaxis DVT prophylaxis No Code Plan Continue with gentle hydration Continues with local wound care Continue with indwelling catheter ID, urology following. CTA abdomen pelvis with run off scheduled Coumadin held per vascular services PT/OT consultation The impression and plan of care has been dictated by Chrissie Costa Nurse Practitioner as directed. Dr. Katina MD I have performed a history and physical examination and medical decision making of this patient, discussed the same with the dictator, and agree with the dictators assessment and plan as written, documented as a scribe. Based on total visit time, I have performed more than 50% of this visit. Objective - Vital Signs Vital signs: Vital Signs Temp 97.9 F 08/31/22 14:00 Pulse 81 08/31/22 14:00 Resp 18 08/31/22 14:00 BP 151/71 08/31/22 14:00 Pulse Ox 98 08/31/22 14:00 FiO2 Intake & Output 08/30/22 08/31/22 08/31/22 18:59 06:59 18:59 Intake Total 660 50 Output Total 2320 900 Balance -1660 -900 50 Weight 97.069 kg Intake: IV 660 50 Sodium Chloride 0.9% 1, 660 000 ml @ 50 mls/hr IV . Q20H [facility] Rx#:[id number] Output: Urine 2320 900 Uretheral (Cross) 2320 Other: Voiding Method Indwelling Catheter Indwelling Catheter Indwelling Catheter # Bowel Movements 1 1 - Labs CBC & Chem 7: 08/30/22 06:42 08/30/22 06:42 Labs: Abnormal Lab Results - Last 24 Hours (Table) 08/30/22 08/30/22 08/31/22 Range/Units 16:41 19:14 02:17 PT (9.9-11.9) sec INR (0.90-1.11) POC Glucose (mg/dL) 125 H 240 H (70-110) mg/dL Urine Protein Trace H (Negative) Urine Blood Small H (Negative) Ur Leukocyte Esterase Large H (Negative) Urine WBC 37 H (0-5) /hpf Urine Bacteria Rare H (None) /hpf Urine Mucus Rare H (None) /hpf Urine Yeast (Budding) Occasional H (None) /hpf 08/31/22 08/31/22 Range/Units 05:57 11:34 PT 23.2 H (9.9-11.9) sec INR 2.11 H (0.90-1.11) POC Glucose (mg/dL) 177 H (70-110) mg/dL Urine Protein (Negative) Urine Blood (Negative) Ur Leukocyte Esterase (Negative) Urine WBC (0-5) /hpf Urine Bacteria (None) /hpf Urine Mucus (None) /hpf Urine Yeast (Budding) (None) /hpf Microbiology - Last 24 Hours (Table) 08/31/22 02:17 Urine Culture - Preliminary Urine,Voided 08/27/22 15:30 Urine Culture - Final Urine,Voided Pseudomonas aeruginosa Assessment and Plan Time with Patient: Less than 30
[2022-08-31 16:30] LABS: Glucose,Whole Blood 149 mg/dL (70-110)
--- NOTE | 2022-08-31 16:58 | CT ---
EXAMINATION TYPE: CT angio abd aorta w/Runoff DATE OF EXAM: 08/31/2022 COMPARISON: None HISTORY: Gangrene right foot CT DLP: mGycm Automated exposure control for dose reduction was used. CONTRAST: Performed , patient injected with mL of . The IV contrast was 100 mL Isovue. There are Three-D postprocessed images. Images obtained from the diaphragm to the bottom of the feet without and subsequently with the IV con trast. There are Three-D postprocessed images. There are bilateral pleural effusions. There is bilateral basilar atelectasis. Heart size is normal. No pericardial effusion. Liver spleen pancreas and gallbladder appear intact. The bile ducts are not dilated. No pancreatic mass. There is no adrenal mass. Kidneys show satisfactory contrast opacificati on. No hydronephrosis. There are bilateral renal cortical cysts that measure up to 5 cm. No retroperi toneal adenopathy. There is small amount of air in the urinary bladder. There is mild fat stranding a round the urinary bladder. There is a Cross catheter in the bladder. No inguinal hernia. There is ath erosclerotic vascular calcification in the abdominal aorta and its branches. There is arterial flow in the abdominal aorta and the celiac artery and superior mesenteric artery. T here is arterial flow in the renal arteries and iliac and femoral arteries. There is arterial flow in the inferior mesenteric artery. No evidence of any significant stenosis in the vessels in the abdome n and pelvis. Is extensive vascular calcification involving the femoral and popliteal arteries. Arter ial flow in the vessels is difficult to evaluate because of the calcification. There appears to be mu ltifocal focal stenosis of the femoral and popliteal and tibial arteries up to 50%. There is arterial flow in the tibial arteries and the tibial artery trifurcations. There is arterial flow in the anter ior and posterior tibial arteries at both ankles. There is dorsalis artery flow in both feet. There i s posterior tibial artery flow to the distal metatarsals. There is subcutaneous edema over the left and right lateral abdomen noted. IMPRESSION: Diffuse vascular calcification. No definite evidence for hemodynamic arterial stenosis in both legs. Arterial flow is demonstrated in the anterior and posterior tibial arteries at the right foot. Bilateral pleural effusions and basilar atelectasis. Large urinary bladder with Cross catheter present. There is some fat stranding around the bladder and cystitis is possible.
[2022-08-31] MEDS: TAMSULOSIN 0.4 MG CAP.ER.24H PO SCH (17:33)
[2022-08-31 19:33] LABS: Glucose,Whole Blood 183 mg/dL (70-110)
[2022-08-31] MEDS: CHOLECALCIFEROL 25 MCG (1000 IU) TABLET PO SCH (20:26)
[2022-08-31] MEDS: ATORVASTATIN 40 MG TAB PO SCH (20:26)
[2022-08-31] MEDS: ASPIRIN 81 MG PO SCH (20:26)
[2022-08-31] MEDS: FAMOTIDINE 20 MG TAB PO SCH (20:27)
[2022-08-31] MEDS: INSULIN DETEMIR (LEVEMIR) 100 UNIT/ML SYR SQ SCH (20:29)
[2022-08-31] MEDS: LEVOTHYROXINE 125 MCG TAB PO SCH (20:29)
[2022-09-01 06:00] LABS: Glucose,Whole Blood 103 mg/dL (70-110)
[2022-09-01] MEDS: INSULIN ASPART (NovoLOG) 100 UNIT/ML VIAL SQ SCH ×4 (06:12→21:53)
[2022-09-01] MEDS: ZINC SULFATE 220 MG CAP PO SCH (09:00)
[2022-09-01] MEDS: HYDROcodone/APAP 5-325MG 1 EACH TAB PO PRN ×2 (09:00→17:14)
[2022-09-01] MEDS: FINASTERIDE 5 MG TAB PO SCH (09:00)
[2022-09-01] MEDS: FERROUS SULFATE 325 MG TAB PO SCH ×2 (09:00→12:23)
[2022-09-01] MEDS: GABAPENTIN 100 MG CAP PO SCH ×2 (09:00→21:52)
[2022-09-01] MEDS: VANCOMYCIN ORAL SOLUTION 250 MG/5 ML BOTTLE PO SCH ×4 (09:00→21:53)
[2022-09-01] MEDS: ASCORBIC ACID 500 MG TAB PO SCH (09:00)
[2022-09-01] MEDS: MULTIVITAMINS, THERA 1 EACH TAB PO SCH (09:00)
[2022-09-01] MEDS: DOXAZOSIN 2 MG TAB PO SCH (09:00)
[2022-09-01] MEDS: MENTHOL-ZINC OXIDE OINT 113 GM TUBE TOPICAL SCH ×3 (09:01→21:54)
[2022-09-01] MEDS: CHERRY FLAVOR 60 ML BOTTLE PO SCH ×4 (09:01→21:53)
[2022-09-01] MEDS: COLLAGENASE 250 UNIT/GM OINTMENT 30 GM TUBE TOPICAL SCH (09:01)
[2022-09-01] MEDS: RANOLAZINE 500 MG TAB.ER.12H PO SCH ×2 (09:01→21:53)
[2022-09-01] MEDS: METOPROLOL TARTRATE 12.5 MG TAB PO SCH ×2 (09:01→21:52)
[2022-09-01] MEDS: NON FORMULARY DRUG (Azelastine/Fluticasone [Azelastin-Flutic 137-50mcg Spr] 23 GM Each) EA NOSTRIL SCH ×2 (09:02→21:54)
[2022-09-01 09:53] LABS: HCT 28.1 % (39.6-50.0); HGB 8.4 g/dL (13.0-17.0); MCH 28.3 pg (27.0-32.0); MCHC 29.9 g/dL (32.0-37.0); MCV 94.6 fL (80.0-97.0); Mean Platelet Volume 9.3 fL (9.5-12.2); NRBC Per 100 WBC 0 /100 WBCS (0.0-0.0); Platelet Count 320 X 10*3/uL (140-440); RBC 2.97 X 10*6/uL (4.40-5.60); RDW 15.4 % (11.5-14.5); WBC 6.57 X 10*3/uL (4.50-10.00)
[2022-09-01 10:18] LABS: Anion Gap 5.9 mmol/L (10.00-18.00); BUN/Creat Ratio 8.75 Ratio (12.00-20.00); Blood Urea Nitrogen 10.5 mg/dL (9.0-27.0); Calcium 8.3 mg/dL (8.7-10.3); Carbon Dioxide 28.1 mmol/L (20.0-27.5); Non-African American GFR(CKD) 55.2 (60.0-200.0); Potassium 4.2 mmol/L (3.5-5.5)
--- NOTE | 2022-09-01 10:55 | P.PN ---
Subjective Progress Note Date: 09/01/22 Patient is without complaint. I did review the results of the CTA. This demonstrated no significant arterial occlusive disease. I do not believe vascular intervention is appropriate. Recommend continued offloading and local wound care. Objective - Vital Signs Vital signs: Vital Signs Temp 98.4 F 09/01/22 07:54 Pulse 79 09/01/22 07:54 Resp 18 09/01/22 07:54 BP 150/72 09/01/22 07:54 Pulse Ox 97 09/01/22 07:54 FiO2 Intake & Output 08/31/22 09/01/22 09/01/22 18:59 06:59 18:59 Intake Total 50 Output Total 1500 2300 Balance -1450 -2300 Intake: IV 50 Output: Urine 1500 2300 Other: Voiding Method Indwelling Catheter Indwelling Catheter Indwelling Catheter # Bowel Movements 1 - Labs CBC & Chem 7: 09/01/22 06:41 09/01/22 06:41 Labs: Abnormal Lab Results - Last 24 Hours (Table) 08/31/22 08/31/22 08/31/22 Range/Units 05:57 11:34 16:29 RBC (4.40-5.60) X 10*6/uL Hgb (13.0-17.0) g/dL Hct (39.6-50.0) % MCHC (32.0-37.0) g/dL RDW (11.5-14.5) % MPV (9.5-12.2) fL PT 23.2 H (9.9-11.9) sec INR 2.11 H (0.90-1.11) Carbon Dioxide (20.0-27.5) mmol/L Anion Gap (10.00-18.00) mmol/L Est GFR (CKD-EPI)NonAf (60.0-200.0) BUN/Creatinine Ratio (12.00-20.00) Ratio POC Glucose (mg/dL) 177 H 149 H (70-110) mg/dL Calcium (8.7-10.3) mg/dL 08/31/22 09/01/22 09/01/22 Range/Units 19:31 06:41 06:41 RBC 2.97 L (4.40-5.60) X 10*6/uL Hgb 8.4 L (13.0-17.0) g/dL Hct 28.1 L (39.6-50.0) % MCHC 29.9 L (32.0-37.0) g/dL RDW 15.4 H (11.5-14.5) % MPV 9.3 L (9.5-12.2) fL PT (9.9-11.9) sec INR (0.90-1.11) Carbon Dioxide 28.1 H (20.0-27.5) mmol/L Anion Gap 5.90 L (10.00-18.00) mmol/L Est GFR (CKD-EPI)NonAf 55.2 L (60.0-200.0) BUN/Creatinine Ratio 8.75 L (12.00-20.00) Ratio POC Glucose (mg/dL) 183 H (70-110) mg/dL Calcium 8.3 L (8.7-10.3) mg/dL Microbiology - Last 24 Hours (Table) 08/31/22 02:17 Urine Culture - Preliminary Urine,Voided Yeast species Assessment and Plan Assessment: 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 Plan: Would recommend continued offloading and local wound care. No imminent plans for surgical intervention at this time. Time with Patient: Less than 30
[2022-09-01 11:42] LABS: Glucose,Whole Blood 150 mg/dL (70-110)
--- NOTE | 2022-09-01 12:40 | P.PN ---
Subjective Progress Note Date: 09/01/22 This is an 86-year-old male with medical history of atrial fibrillation, diabetes, hypertension, hyperlipidemia, sleep apnea, coronary artery disease with open heart and stents in the past, sick sinus syndrome status post permanent pacemaker placed in 2017. Patient is a former smoker. 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 He had PICC Line placed and was discharged on IV antibiotics to [facility]. He was recently diagnosed with covid on 08/18/22. He was in the E.C on 08/19 after accidently pulling his PICC Line out and required reinsertion of PICC line by interventional radiology. Patient [facility] the [facility] for altered mental status and a possible syncopal episode. Patient was moved out of the Covid unit yesterday at [facility]. Patient's does report that since his last hospital stay he has had confusion and poor verbal response. He is alert 1 but easily arousable in the EC. On examination he is alert x 2 to 3. Patient believes that he may have had an emesis episode after eating yesterday he is incontinent of bowel and bladder. He had brain CT completed showing no acute intracranial process. and non specific white matter change likely secondary to chronic small vessel ischemic disease. Also there is opacity of frontal sinus possible mastoid effusion. Chest xray showing bibasilar acute atelectasis and or linear scarring no acute infiltrate seen. Patient presents with a white count 10.9, hemoglobin 9.7, INR of 2.2, BUN 33, creatinine 1.92, glucose of 124, liver enzymes are normal, troponin 0.025. Urine is showing trace ketones, moderate blood, large leukocyte Estrace. Patient is anticoagulated with coumadin and INR is 2.2 on admission. He received a dose of gentamicin in the EC. He was discharged prevoius admission on IV unasyn managed by Dr. Holland who has been consulted. He was discharged to [facility] with indwelling catheter placed by urology his previous admission and this was discontinued at [facility] he is found to be retaining urine currently. Urology will be consulted. 08/29/2022 Patient evaluated today on medical floor with at bedside. He was found to be positive for C.Dif colitis and has been started on oral vancomycin. He denies episodes of diarrhea however documentation shows 4 bowel movements overnight and 2 today. Urine culture is showing gram negative bacilli currently. He continues on IV ceftriaxone. Infectious disease following. Indwelling catheter has been replaced with urine output of -2.7 liters initially and an additional 844 mL of urine out today. IV fluids will be lowered to 50 mL per hour. Creatinine improved down to 1.3. today. Continues on oxygen via nasal cannula, afebrile, heart rate 70, blood pressure 156/75. If creatinine continues to improve tomorrow can resume ernesto inhibitor. Blood glucose in the 80s. Vascular services has been consulted for further evaluation of 5th toe amputation site. 08/30/2022 No acute events overnight. Continues on 2L nasal cannula. Reports no pain. Vascular consultation requested secondary to necrosis at 5th toe amputation site. Patient is scheduled to undergo aortogram with Dr. Cole tomorrow. Coumadin has been placed on hold for this. INR today 2.35. Hgb 8.7, magnesium 1.8. Creatinine stable at 1.3. Continues on gentle hydration. Continues on IV ceftriaxone for UTI and also on oral vanco for C. Dif. 1 Bowel movement overnight and 1 BM today, staff reports stool is loose in consistency. No longer liquid. 08/31/2022 Patient is evaluated today post aortogram which was unsuccessful per notes. There is critical limb ischemia right lower extremity with diminutive left radial artery with high bifurcation. Plans for CTA of abdomen pelvis with run off recommended. He reports no acute events overnight. Continues on 2L nasal cannula, lungs are clear at this time. Staff reports 1 BM overnight which is becoming more formed. Continues on oral vancomycin. Urine culture has finalized showing pseudomonas aeruginosa. Antibiotics adjusted to ceftazadime. Infectious disease following. White count today 5.41, hgb 8.7, sodium 139, potassium 4.4, magnesium 1.8, BUN 15.1, creatinine 1.3. Glucose 170s. UA has been repeated with improvement. Blood pressure 151/71. 09/01/2022 Patient is evaluated today resting in bed. No acute events overnight. Patient underwent CTA abdomen aorta with run off today. Vascular surgery not recommended any intervention, recommending to continue local wound care and offloading. Warfarin will be resumed. HGB today 8.4. Creatinine improving down to 1.2. Repeat urine culture pending finalized. Patient continues on IV ceftazidime. Local wound care with santyl. Patient is having 1 BM per shift which staff reports is becoming more formed. Review of Systems Constitutional: Denied any fatigue denied any fever. Cardio vascular: denied any chest pain, palpitations Gastrointestinal: denied any nausea, vomiting. Has diarrhea. Pulmonary: Denied any shortness of breath cough Neurologic denied any new focal deficits All inpatient medications were reviewed and appropriate changes in these medications as dictated in the interval history and assessment and plan. PHYSICAL EXAMINATION: GENERAL: The patient is alert and oriented x2-3, not in any acute distress. Well developed, well nourished. Pale. HEENT: Pupils are round and equally reacting to light. EOMI. No scleral icterus. No conjunctival pallor. Normocephalic, atraumatic. No pharyngeal erythema. No thyromegaly. CARDIOVASCULAR: S1 and S2 present. No murmurs, rubs, or gallops. PULMONARY: Chest is clear to auscultation, no wheezing or crackles. ABDOMEN: Soft, nontender, nondistended, normoactive bowel sounds. No palpable organomegaly. Obese. MUSCULOSKELETAL: No joint swelling or deformity. EXTREMITIES: No cyanosis, clubbing. Pitting lower extremity edema. NEUROLOGICAL: Gross neurological examination did not reveal any focal deficits. SKIN: No rashes. He does have stage 3 sacral decubitus ulcer. Necrotic tissue to 5th toe ampuation site. Assessment and plan Assessment -Episode of unresponsiveness/syncope mostly likely from dehydration -Altered mental status secondary to acute metabolic encephalopathy from acute renal injury, improved -Acute renal failure mostly likely prerenal and also patient has urinary retention, improved -C.Dif colitis -Recent covid infection with first positive on 08/18/22 currently maintained on 2L of nasal cannula since. 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 -Diabetic peripheral neuropathy -Hyperlipidemia -hypertension -Sleep apnea for which patient uses CPAP machine at home -Stage 3 sacral pressure ulcer present on admission -Bilateral heel pressure ulcer unstageable patient underwent surgical debridement of right heel previous admission, present on admission GI prophylaxis DVT prophylaxis No Code Plan Continue with gentle hydration Continues with local wound care Continue with indwelling catheter ID, urology following. No vascular intervention recommended Resume warfarin Resume captopril tomorrow PT/OT consultation Possible DC in the next 24 to 48 hours back to [facility]. The impression and plan of care has been dictated by Chrissie Costa, Nurse Practitioner as directed. Dr. Katina MD I have performed a history and physical examination and medical decision making of this patient, discussed the same with the dictator, and agree with the dictators assessment and plan as written, documented as a scribe. Based on total visit time, I have performed more than 50% of this visit. Objective - Vital Signs Vital signs: Vital Signs Temp 98.4 F 09/01/22 07:54 Pulse 79 09/01/22 07:54 Resp 18 09/01/22 07:54 BP 150/72 09/01/22 07:54 Pulse Ox 97 09/01/22 07:54 FiO2 Intake & Output 08/31/22 09/01/22 09/01/22 18:59 06:59 18:59 Intake Total 50 Output Total 1500 2300 Balance -1450 -2300 Intake: IV 50 Output: Urine 1500 2300 Other: Voiding Method Indwelling Catheter Indwelling Catheter Indwelling Catheter # Bowel Movements 1 - Labs CBC & Chem 7: 09/01/22 06:41 09/01/22 06:41 Labs: Abnormal Lab Results - Last 24 Hours (Table) 08/31/22 08/31/22 09/01/22 Range/Units 16:29 19:31 06:41 RBC 2.97 L (4.40-5.60) X 10*6/uL Hgb 8.4 L (13.0-17.0) g/dL Hct 28.1 L (39.6-50.0) % MCHC 29.9 L (32.0-37.0) g/dL RDW 15.4 H (11.5-14.5) % MPV 9.3 L (9.5-12.2) fL Carbon Dioxide (20.0-27.5) mmol/L Anion Gap (10.00-18.00) mmol/L Est GFR (CKD-EPI)NonAf (60.0-200.0) BUN/Creatinine Ratio (12.00-20.00) Ratio POC Glucose (mg/dL) 149 H 183 H (70-110) mg/dL Calcium (8.7-10.3) mg/dL 09/01/22 09/01/22 Range/Units 06:41 11:41 RBC (4.40-5.60) X 10*6/uL Hgb (13.0-17.0) g/dL Hct (39.6-50.0) % MCHC (32.0-37.0) g/dL RDW (11.5-14.5) % MPV (9.5-12.2) fL Carbon Dioxide 28.1 H (20.0-27.5) mmol/L Anion Gap 5.90 L (10.00-18.00) mmol/L Est GFR (CKD-EPI)NonAf 55.2 L (60.0-200.0) BUN/Creatinine Ratio 8.75 L (12.00-20.00) Ratio POC Glucose (mg/dL) 150 H (70-110) mg/dL Calcium 8.3 L (8.7-10.3) mg/dL Microbiology - Last 24 Hours (Table) 08/31/22 02:17 Urine Culture - Preliminary Urine,Voided Yeast species Assessment and Plan Time with Patient: Less than 30
[2022-09-01 13:45] LABS: INR 1.4 (<1.2)
[2022-09-01 14:33] LABS: INR 1.4 (0.90-1.11); Prothrombin Time 15.6 sec (9.9-11.9)
[2022-09-01 16:24] LABS: Glucose,Whole Blood 144 mg/dL (70-110)
[2022-09-01] MEDS: TAMSULOSIN 0.4 MG CAP.ER.24H PO SCH (17:06)
[2022-09-01] MEDS ORDERED: WARFARIN 3 MG TAB PO ONE (18:00)
[2022-09-01] MEDS: SODIUM CHLORIDE 0.9% 1,000 ML IV SCH (20:06)
[2022-09-01 20:18] LABS: Glucose,Whole Blood 175 mg/dL (70-110)
[2022-09-01] MEDS: LEVOTHYROXINE 125 MCG TAB PO SCH (21:52)
[2022-09-01] MEDS: CHOLECALCIFEROL 25 MCG (1000 IU) TABLET PO SCH (21:52)
[2022-09-01] MEDS: FAMOTIDINE 20 MG TAB PO SCH (21:52)
[2022-09-01] MEDS: ASPIRIN 81 MG PO SCH (21:53)
[2022-09-01] MEDS: ATORVASTATIN 40 MG TAB PO SCH (21:53)
[2022-09-01] MEDS: INSULIN DETEMIR (LEVEMIR) 100 UNIT/ML SYR SQ SCH (21:54)
--- NOTE | 2022-09-01 22:50 | P.PN ---
Subjective Progress Note Date: 08/31/22 Principal diagnosis: UTI/C. diff colitis and right foot wound Patient is a 86-year-old male with multiple comorbidities with recent right fifth toe amputation for gangrene and debridement of the right foot culture positive for strep and the patient was sent to the half-way on IV Unasyn now presenting back to the hospital with mental status changes noticed to have significant urinary retention requiring Cross catheter placement and a positive UA. On today's evaluation that is 08/31/2022 the patient remains to be afebrile, patient is breathing comfortably on room air, the patient denies any chest pain shortness of breath or cough no abdominal pain or any worsening diarrhea Objective - Vital Signs Vital signs: Vital Signs Temp 97.5 F L 08/31/22 07:32 Pulse 74 08/31/22 07:32 Resp 18 08/31/22 07:40 BP 149/72 08/31/22 07:32 Pulse Ox 98 08/31/22 07:32 FiO2 Intake & Output 08/30/22 08/31/22 08/31/22 18:59 06:59 18:59 Intake Total 660 50 Output Total 2320 900 Balance -1660 -900 50 Weight 97.069 kg Intake: IV 660 50 Sodium Chloride 0.9% 1, 660 000 ml @ 50 mls/hr IV . Q20H [facility] Rx#:[id number] Output: Urine 2320 900 Uretheral (Cross) 2320 Other: Voiding Method Indwelling Catheter Indwelling Catheter Indwelling Catheter # Bowel Movements 1 1 - Exam GENERAL DESCRIPTION: An elderly male lying in bed in no distress RESPIRATORY SYSTEM: Unlabored breathing , decreased breath sounds at bases HEART: S1 S2 regular rate and rhythm , ABDOMEN: Soft , no tenderness EXTREMITIES: Right foot wound is currently dressed, no drainage on the dressing - Labs CBC & Chem 7: 09/01/22 06:41 09/01/22 06:41 Labs: Abnormal Lab Results - Last 24 Hours (Table) 08/30/22 08/30/22 08/31/22 Range/Units 16:41 19:14 02:17 PT (9.9-11.9) sec INR (0.90-1.11) POC Glucose (mg/dL) 125 H 240 H (70-110) mg/dL Urine Protein Trace H (Negative) Urine Blood Small H (Negative) Ur Leukocyte Esterase Large H (Negative) Urine WBC 37 H (0-5) /hpf Urine Bacteria Rare H (None) /hpf Urine Mucus Rare H (None) /hpf Urine Yeast (Budding) Occasional H (None) /hpf 08/31/22 08/31/22 Range/Units 05:57 11:34 PT 23.2 H (9.9-11.9) sec INR 2.11 H (0.90-1.11) POC Glucose (mg/dL) 177 H (70-110) mg/dL Urine Protein (Negative) Urine Blood (Negative) Ur Leukocyte Esterase (Negative) Urine WBC (0-5) /hpf Urine Bacteria (None) /hpf Urine Mucus (None) /hpf Urine Yeast (Budding) (None) /hpf Microbiology - Last 24 Hours (Table) 08/31/22 02:17 Urine Culture - Preliminary Urine,Voided 08/27/22 15:30 Urine Culture - Final Urine,Voided Pseudomonas aeruginosa Assessment and Plan (1) C. difficile colitis Current Visit: Yes Status: Acute Code(s): A04.72 - ENTEROCOLITIS D/T CLOSTRIDIUM DIFFICILE, NOT SPCF RECUR SNOMED Code(s): 873482279 (2) UTI (urinary tract infection) Current Visit: Yes Status: Acute Code(s): N39.0 - URINARY TRACT INFECTION, SITE NOT SPECIFIED SNOMED Code(s): 53486899 Plan: 1patient presented to hospital with weakness confusion which is likely multifactorial in this patient who recently did have a right fifth toe gangrene status post amputation of the right fifth toe and debridement of the right heel wound culture positive for strep and anaerobes were the patient was receiving Unasyn at the half-way patient did have a necrotic changes at the right fifth toe amputation site as well as right heel and will benefit from further surgical evaluation, local wound care with the Santyl followed by moist dressing keep the area of the pressure 2patient with a complaint of UTI likely from urinary retention from enteric gram-negative pathogen patient to have a borderline kidney function high risk of nephrotoxicity from gentamicin which has been discontinued ,Patient urine has been finalized with a Pseudomonas, UA has been repeated which is slightly positive continue with Fortaz while waiting for the cultures to finalize 3 patient with a C. diff colitis for the patient will continue with oral vancomycin the patient diarrhea is improving continue with oral vancomycin advised to increase his probiotic and yogurt intake Time with Patient: Less than 30
--- NOTE | 2022-09-01 22:51 | P.PN ---
Subjective Progress Note Date: 09/01/22 Principal diagnosis: UTI/C. diff colitis and right foot wound Patient is a 86-year-old male with multiple comorbidities with recent right fifth toe amputation for gangrene and debridement of the right foot culture positive for strep and the patient was sent to the longterm on IV Unasyn now presenting back to the hospital with mental status changes noticed to have significant urinary retention requiring Cross catheter placement and a positive UA. On today's evaluation that is 09/01/2022 the patient continuous to be afebrile, patient is breathing comfortably on room air, the patient denies any chest pain shortness of breath or cough no abdominal pain that diarrhea has decreased in frequency, patient still has significant cloudy urine in the catheter Objective - Vital Signs Vital signs: Vital Signs Temp 98.5 F 09/01/22 20:00 Pulse 83 09/01/22 20:00 Resp 20 09/01/22 20:00 BP 123/77 09/01/22 20:00 Pulse Ox 98 09/01/22 20:00 FiO2 Intake & Output 09/01/22 09/01/22 09/02/22 06:59 18:59 06:59 Output Total 2300 1550 Balance -2300 -1550 Output: Urine 2300 1550 Other: Voiding Method Indwelling Catheter Indwelling Catheter Indwelling Catheter - Exam GENERAL DESCRIPTION: An elderly male lying in bed in no distress RESPIRATORY SYSTEM: Unlabored breathing , decreased breath sounds at bases HEART: S1 S2 regular rate and rhythm , ABDOMEN: Soft , no tenderness EXTREMITIES: Right foot wound is currently dressed, no drainage on the dressing - Labs CBC & Chem 7: 09/01/22 06:41 09/01/22 06:41 Labs: Abnormal Lab Results - Last 24 Hours (Table) 09/01/22 09/01/22 09/01/22 Range/Units 06:41 06:41 06:41 RBC 2.97 L (4.40-5.60) X 10*6/uL Hgb 8.4 L (13.0-17.0) g/dL Hct 28.1 L (39.6-50.0) % MCHC 29.9 L (32.0-37.0) g/dL RDW 15.4 H (11.5-14.5) % MPV 9.3 L (9.5-12.2) fL PT 15.6 H (9.9-11.9) sec INR 1.40 H (0.90-1.11) Carbon Dioxide 28.1 H (20.0-27.5) mmol/L Anion Gap 5.90 L (10.00-18.00) mmol/L Est GFR (CKD-EPI)NonAf 55.2 L (60.0-200.0) BUN/Creatinine Ratio 8.75 L (12.00-20.00) Ratio POC Glucose (mg/dL) (70-110) mg/dL Calcium 8.3 L (8.7-10.3) mg/dL 09/01/22 09/01/22 09/01/22 Range/Units 11:41 13:18 16:23 RBC (4.40-5.60) X 10*6/uL Hgb (13.0-17.0) g/dL Hct (39.6-50.0) % MCHC (32.0-37.0) g/dL RDW (11.5-14.5) % MPV (9.5-12.2) fL PT 15.0 H (9.9-11.9) sec INR 1.4 H (0.90-1.11) Carbon Dioxide (20.0-27.5) mmol/L Anion Gap (10.00-18.00) mmol/L Est GFR (CKD-EPI)NonAf (60.0-200.0) BUN/Creatinine Ratio (12.00-20.00) Ratio POC Glucose (mg/dL) 150 H 144 H (70-110) mg/dL Calcium (8.7-10.3) mg/dL 09/01/22 Range/Units 20:17 RBC (4.40-5.60) X 10*6/uL Hgb (13.0-17.0) g/dL Hct (39.6-50.0) % MCHC (32.0-37.0) g/dL RDW (11.5-14.5) % MPV (9.5-12.2) fL PT (9.9-11.9) sec INR (0.90-1.11) Carbon Dioxide (20.0-27.5) mmol/L Anion Gap (10.00-18.00) mmol/L Est GFR (CKD-EPI)NonAf (60.0-200.0) BUN/Creatinine Ratio (12.00-20.00) Ratio POC Glucose (mg/dL) 175 H (70-110) mg/dL Calcium (8.7-10.3) mg/dL Microbiology - Last 24 Hours (Table) 08/31/22 02:17 Urine Culture - Final Urine,Voided Jessika albicans Assessment and Plan (1) C. difficile colitis Current Visit: Yes Status: Acute Code(s): A04.72 - ENTEROCOLITIS D/T CLOSTRIDIUM DIFFICILE, NOT SPCF RECUR SNOMED Code(s): 547786283 (2) UTI (urinary tract infection) Current Visit: Yes Status: Acute Code(s): N39.0 - URINARY TRACT INFECTION, SITE NOT SPECIFIED SNOMED Code(s): 71009234 Plan: 1patient presented to hospital with weakness confusion which is likely multifactorial in this patient who recently did have a right fifth toe gangrene status post amputation of the right fifth toe and debridement of the right heel wound culture positive for strep and anaerobes were the patient was receiving Unasyn at the longterm patient did have a necrotic changes at the right fifth toe amputation site as well as right heel and will benefit from further youngblood rgical evaluation, local wound care with the Santyl followed by moist dressing keep the area of the pressure 2patient with a complaint of UTI likely from urinary retention from enteric gram-negative pathogen patient to have a borderline kidney function high risk of nephrotoxicity initial urinalysis Pseudomonas repeat urine and now showing Jessika albicans discontinue orders given short course of oral Diflucan 3 patient with a C. diff colitis for the patient will continue with oral vancomycin the patient diarrhea has improved continue with the vancomycin and monitor clinical course closely Time with Patient: Less than 30
[2022-09-02] MEDS: SODIUM CHLORIDE 0.9% 1,000 ML IV SCH ×2 (03:16→23:13)
[2022-09-02 06:28] LABS: Glucose,Whole Blood 129 mg/dL (70-110)
[2022-09-02] MEDS: INSULIN ASPART (NovoLOG) 100 UNIT/ML VIAL SQ SCH ×4 (06:39→20:54)
--- NOTE | 2022-09-02 08:05 | IR ---
EXAMINATION TYPE: IR angio extremity LT DATE OF EXAM: 08/31/2022 COMPARISON: NONE HISTORY: Fluoroscopy time. Fluoroscopy was provided to the referring clinician.
[2022-09-02 09:48] LABS: INR 1.22 (0.90-1.11); Prothrombin Time 13.7 sec (9.9-11.9)
[2022-09-02] MEDS: RANOLAZINE 500 MG TAB.ER.12H PO SCH ×2 (10:17→20:55)
[2022-09-02] MEDS: FLUCONAZOLE 100 MG TAB PO SCH (10:18)
[2022-09-02] MEDS: MULTIVITAMINS, THERA 1 EACH TAB PO SCH (10:18)
[2022-09-02] MEDS: ZINC SULFATE 220 MG CAP PO SCH (10:19)
[2022-09-02] MEDS: METOPROLOL TARTRATE 12.5 MG TAB PO SCH ×2 (10:19→20:54)
[2022-09-02] MEDS: FINASTERIDE 5 MG TAB PO SCH (10:19)
[2022-09-02] MEDS: MENTHOL-ZINC OXIDE OINT 113 GM TUBE TOPICAL SCH ×3 (10:19→23:12)
[2022-09-02] MEDS: DOXAZOSIN 2 MG TAB PO SCH (10:19)
[2022-09-02] MEDS: GABAPENTIN 100 MG CAP PO SCH ×2 (10:19→20:54)
[2022-09-02] MEDS: NON FORMULARY DRUG (Azelastine/Fluticasone [Azelastin-Flutic 137-50mcg Spr] 23 GM Each) EA NOSTRIL SCH ×2 (10:20→21:00)
[2022-09-02] MEDS: ASCORBIC ACID 500 MG TAB PO SCH (10:24)
[2022-09-02] MEDS: CHERRY FLAVOR 60 ML BOTTLE PO SCH ×4 (10:45→23:13)
[2022-09-02] MEDS: VANCOMYCIN ORAL SOLUTION 250 MG/5 ML BOTTLE PO SCH ×4 (10:46→23:13)
[2022-09-02 11:46] LABS: Glucose,Whole Blood 155 mg/dL (70-110)
--- NOTE | 2022-09-02 11:49 | P.PN ---
Subjective Progress Note Date: 09/02/22 Principal diagnosis: Postop fifth toe amputation, right heel pressure ulcer Patient is seen today and examined as a follow-up. He was admitted with a urinary tract infection, and altered mental status changes. On admission he was noted to have some drainage and non-viable tissue at amputation site as non- viable tissue on right heel pressure ulcer. He underwent a CT angiogram abdomen and aorta with runoff that reported diffuse vascular calcification. No definite evidence for hemodynamic arterial stenosis in both legs. Arterial flow is demonstrated in the anterior and posterior tibial arteries at the right foot. Today patient denies any acute changes. He is very pleasant at the bedside. He denies any severe pain down his leg. He's been afebrile. Infectious disease is following for local wound care with Santyl, moist gauze and offloading boots are in place. Patient was positive for C. diff colitis, currently on vancomycin. Objective - Vital Signs Vital signs: Vital Signs Temp 98.6 F 09/02/22 08:00 Pulse 77 09/02/22 08:00 Resp 18 09/02/22 08:00 BP 164/68 09/02/22 08:00 Pulse Ox 97 09/02/22 08:00 FiO2 Intake & Output 09/01/22 09/02/22 09/02/22 18:59 06:59 18:59 Output Total 1550 1575 Balance -1550 -1575 Output: Urine 1550 1575 Other: Voiding Method Indwelling Catheter Indwelling Catheter - Exam General appearance: The patient is alert, oriented, appears in no acute distress. HET: Head is normocephalic and atraumatic. Pupils are equal and reactive. Neck: Supple without lymphadenopathy. Trachea midline. Heart: Regular. Lungs: Equal expansion, normal respiratory effort. Abdomen: Soft, nontender, nondistended. Extremities: Bilateral heel wounds, with some nonviable tissue to right heel. Right foot amputation site with nonviable tissue, no redness, minimal drainage. No odor. [address] Also noted today pressure ulcer to posterior right extremity/calf Neurological: Patient alert and oriented to self, place at times. - Labs CBC & Chem 7: 09/01/22 06:41 09/01/22 06:41 Labs: Abnormal Lab Results - Last 24 Hours (Table) 09/01/22 09/01/22 09/01/22 Range/Units 06:41 06:41 06:41 RBC 2.97 L (4.40-5.60) X 10*6/uL Hgb 8.4 L (13.0-17.0) g/dL Hct 28.1 L (39.6-50.0) % MCHC 29.9 L (32.0-37.0) g/dL RDW 15.4 H (11.5-14.5) % MPV 9.3 L (9.5-12.2) fL PT 15.6 H (9.9-11.9) sec INR 1.40 H (0.90-1.11) Carbon Dioxide 28.1 H (20.0-27.5) mmol/L Anion Gap 5.90 L (10.00-18.00) mmol/L Est GFR (CKD-EPI)NonAf 55.2 L (60.0-200.0) BUN/Creatinine Ratio 8.75 L (12.00-20.00) Ratio POC Glucose (mg/dL) (70-110) mg/dL Calcium 8.3 L (8.7-10.3) mg/dL 09/01/22 09/01/22 09/01/22 Range/Units 11:41 13:18 16:23 RBC (4.40-5.60) X 10*6/uL Hgb (13.0-17.0) g/dL Hct (39.6-50.0) % MCHC (32.0-37.0) g/dL RDW (11.5-14.5) % MPV (9.5-12.2) fL PT 15.0 H (9.9-11.9) sec INR 1.4 H (0.90-1.11) Carbon Dioxide (20.0-27.5) mmol/L Anion Gap (10.00-18.00) mmol/L Est GFR (CKD-EPI)NonAf (60.0-200.0) BUN/Creatinine Ratio (12.00-20.00) Ratio POC Glucose (mg/dL) 150 H 144 H (70-110) mg/dL Calcium (8.7-10.3) mg/dL 09/01/22 09/02/22 09/02/22 Range/Units 20:17 05:28 06:27 RBC (4.40-5.60) X 10*6/uL Hgb (13.0-17.0) g/dL Hct (39.6-50.0) % MCHC (32.0-37.0) g/dL RDW (11.5-14.5) % MPV (9.5-12.2) fL PT 13.7 H (9.9-11.9) sec INR 1.22 H (0.90-1.11) Carbon Dioxide (20.0-27.5) mmol/L Anion Gap (10.00-18.00) mmol/L Est GFR (CKD-EPI)NonAf (60.0-200.0) BUN/Creatinine Ratio (12.00-20.00) Ratio POC Glucose (mg/dL) 175 H 129 H (70-110) mg/dL Calcium (8.7-10.3) mg/dL Microbiology - Last 24 Hours (Table) 08/31/22 02:17 Urine Culture - Final Urine,Voided Jessika albicans Assessment and Plan Assessment: 1. 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 Recent right fifth toe amputation for wet gangrene on 08/12/2022 3. Bilateral heel pressure ulcers status post debridement on 08/12/2022 4. Acute kidney injury 5. C. diff colitis 6. Atrial fibrillation on Coumadin, currently on hold 7. History coronary artery disease status post bypass and stenting 8. Pacemaker implantation Plan: 1. Continue symptomatic supportive care 2. Continue local wound care as ordered 3. Recommend outpatient wound care clinic 4. Continue with offloading boots bilaterally 5. Keep nothing by mouth after midnight Friday 6. Patient scheduled for right lower extremity debridement on Friday with Dr. Cross 7. We'll need to hold Coumadin. The impression and plan of care has been dictated as directed. Dr. Cole I performed a history and examination of this patient, discussed the same with the dictator. I agree with the dictator's note ,documented as a scribe. Any additional findings or plans will be noted.
[2022-09-02] MEDS: COLLAGENASE 250 UNIT/GM OINTMENT 30 GM TUBE TOPICAL SCH (14:07)
--- NOTE | 2022-09-02 15:07 | P.PN ---
Subjective Progress Note Date: 09/02/22 Principal diagnosis: Syncope This is an 86-year-old male with medical history of atrial fibrillation, diabetes, hypertension, hyperlipidemia, sleep apnea, coronary artery disease with open heart and stents in the past, sick sinus syndrome status post permanent pacemaker placed in 2017. Patient is a former smoker. 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 He had PICC Line placed and was discharged on IV antibiotics to [facility]. He was recently diagnosed with covid on 08/18/22. Patient presents to the hospital from the longterm for altered mental status and a possible syncopal episode. Patient was moved out of the Covid unit yesterday at [facility]. Patient's does report that since his last hospital stay he has had confusion and poor verbal response. He is alert 1 but easily arousable in the EC. On examination he is alert x 2 to 3. Patient believes that he may have had an emesis episode after eating yesterday he is incontinent of bowel and bladder. He had brain CT completed showing no acute intracranial process. and non specific white matter change likely secondary to chronic small vessel ischemic disease. Also there is opacity of frontal sinus possible mastoid effusion. Chest xray showing bibasilar acute atelectasis and or linear scarring no acute infiltrate seen. Patient presents with a white count 10.9, hemoglobin 9.7, INR of 2.2, BUN 33, creatinine 1.92, glucose of 124, liver enzymes are normal, troponin 0.025. Urine is showing trace ketones, moderate blood, large leukocyte Estrace. Patient is anticoagulated with coumadin and INR is 2.2 on admission. He received a dose of gentamicin in the EC. He was discharged prevoius admission on IV unasyn managed by Dr. Holland who has been consulted. He was discharged to [facility] with indwelling catheter placed by urology his previous admission and this was discontinued at [facility] he was found to be retaining urine again. Urology was consulted and a Cross catheter was placed. Objective - Vital Signs Vital signs: Vital Signs Temp 98.6 F 09/02/22 08:00 Pulse 77 09/02/22 08:00 Resp 18 09/02/22 08:00 BP 164/68 09/02/22 08:00 Pulse Ox 97 09/02/22 08:00 FiO2 Intake & Output 09/01/22 09/02/22 09/02/22 18:59 06:59 18:59 Output Total 1550 1575 Balance -1550 -1575 Weight 97.069 kg Output: Urine 1550 1575 Other: Voiding Method Indwelling Catheter Indwelling Catheter Indwelling Catheter - Exam General: Well developed, well nourished. No acute distress. Chronically ill appearing HEENT: Head is atraumatic, normocephalic. Lungs: Respirations even and nonlabored. On 2L NC. Abdomen/GI: Soft, round. No abdominal tenderness. : Cross catheter present draining clear yellow urine Skin: Warm and dry Neurologic: Alert and oriented x 2-3 Psychiatric: Appropriate mood and affect. - Labs CBC & Chem 7: 09/01/22 06:41 09/01/22 06:41 Labs: Abnormal Lab Results - Last 24 Hours (Table) 09/01/22 09/01/22 09/02/22 Range/Units 16:23 20:17 05:28 PT 13.7 H (9.9-11.9) sec INR 1.22 H (0.90-1.11) POC Glucose (mg/dL) 144 H 175 H (70-110) mg/dL 09/02/22 09/02/22 Range/Units 06:27 11:45 PT (9.9-11.9) sec INR (0.90-1.11) POC Glucose (mg/dL) 129 H 155 H (70-110) mg/dL Microbiology - Last 24 Hours (Table) 08/31/22 02:17 Urine Culture - Final Urine,Voided Jessika albicans Assessment and Plan Assessment: Symptoms * Pain - 4/10 toes, Continue Starks * Fatigue - Weak and tired * SOB - SOB with activity on 2L NC * Insomnia - No * N/V - No * Anxiety - No * Depression - No * Confusion - Occasionally * Agitation - No * Hallucinations - No * Appetite/weight loss - No recent weight loss or loss of appetite. Continue with consistent carbohydrate diet * Dysphagia - No * Constipation - No * Incontinence - Cross * Itch - No * Cough - + dry cough (1) Urinary retention Current Visit: Yes Status: Acute Code(s): R33.9 - RETENTION OF URINE, UNSPECIFIED SNOMED Code(s): 390095353 Plan: Summary/Goals - The patient is resting in bed. His is at the bedside. The patient seems a little confused. He thinks he is having some sort of procedure or surgery tomorrow. He cannot remember who he spoke to or if it was a man or woman. Care manger and patient's nurse are not aware of any upcoming procedures. The plan for the patient is to go back to [facility] for rehab. Recommendations - CAPRICE with OP palliative care Advanced Directives - No Code Status - DNR Thank you for this consultation Cecelia Evans [facility] Palliative Care [facility] [id number] Email: [email or web address] Time with Patient: Less than 30
--- NOTE | 2022-09-02 15:10 | P.PN ---
Subjective Progress Note Date: 09/02/22 This is an 86-year-old male with medical history of atrial fibrillation, diabetes, hypertension, hyperlipidemia, sleep apnea, coronary artery disease with open heart and stents in the past, sick sinus syndrome status post permanent pacemaker placed in 2017. Patient is a former smoker. 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 He had PICC Line placed and was discharged on IV antibiotics to [facility]. He was recently diagnosed with covid on 08/18/22. He was in the E.C on 08/19 after accidently pulling his PICC Line out and required reinsertion of PICC line by interventional radiology. Patient presents to the hospital from the detention for altered mental status and a possible syncopal episode. Patient was moved out of the Covid unit yesterday at [facility]. Patient's does report that since his last hospital stay he has had confusion and poor verbal response. He is alert 1 but easily a rousable in the EC. On examination he is alert x 2 to 3. Patient believes that he may have had an emesis episode after eating yesterday he is incontinent of bowel and bladder. He had brain CT completed showing no acute intracranial process. and non specific white matter change likely secondary to chronic small vessel ischemic disease. Also there is opacity of frontal sinus possible mastoid effusion. Chest xray showing bibasilar acute atelectasis and or linear scarring no acute infiltrate seen. Patient presents with a white count 10.9, hemoglobin 9.7, INR of 2.2, BUN 33, creatinine 1.92, glucose of 124, liver enzymes are normal, troponin 0.025. Urine is showing trace ketones, moderate blood, large leukocyte Estrace. Patient is anticoagulated with coumadin and INR is 2.2 on admission. He received a dose of gentamicin in the EC. He was discharged prevoius admission on IV unasyn managed by Dr. Holland who has been consulted. He was discharged to [facility] with indwelling catheter placed by urology his previous admission and this was discontinued at [facility] he is found to be retaining urine currently. Urology will be consulted. 08/29/2022 Patient evaluated today on medical floor with at bedside. He was found to be positive for C.Dif colitis and has been started on oral vancomycin. He denies episodes of diarrhea however documentation shows 4 bowel movements overnight and 2 today. Urine culture is showing gram negative bacilli currently. He continues on IV ceftriaxone. Infectious disease following. Indwelling catheter has been replaced with urine output of -2.7 liters initially and an additional 844 mL of urine out today. IV fluids will be lowered to 50 mL per hour. Creatinine improved down to 1.3. today. Continues on oxygen via nasal cannula, afebrile, heart rate 70, blood pressure 156/75. If creatinine continues to improve tomorrow can resume ernesto inhibitor. Blood glucose in the 80s. Vascular services has been consulted for further evaluation of 5th toe amputation site. 08/30/2022 No acute events overnight. Continues on 2L nasal cannula. Reports no pain. Vascular consultation requested secondary to necrosis at 5th toe amputation site. Patient is scheduled to undergo aortogram with Dr. Cole tomorrow. Coumadin has been placed on hold for this. INR today 2.35. Hgb 8.7, magnesium 1.8. Creatinine stable at 1.3. Continues on gentle hydration. Continues on IV ceftriaxone for UTI and also on oral vanco for C. Dif. 1 Bowel movement overnight and 1 BM today, staff reports stool is loose in consistency. No longer liquid. 08/31/2022 Patient is evaluated today post aortogram which was unsuccessful per notes. There is critical limb ischemia right lower extremity with diminutive left radial artery with high bifurcation. Plans for CTA of abdomen pelvis with run off recommended. He reports no acute events overnight. Continues on 2L nasal cannula, lungs are clear at this time. Staff reports 1 BM overnight which is becoming more formed. Continues on oral vancomycin. Urine culture has finalized showing pseudomonas aeruginosa. Antibiotics adjusted to ceftazadime. Infectious disease following. White count today 5.41, hgb 8.7, sodium 139, potassium 4.4, magnesium 1.8, BUN 15.1, creatinine 1.3. Glucose 170s. UA has been repeated with improvement. Blood pressure 151/71. 09/01/2022 Patient is evaluated today resting in bed. No acute events overnight. Patient underwent CTA abdomen aorta with run off today. Vascular surgery not recommended any intervention, recommending to continue local wound care and offloading. Warfarin will be resumed. HGB today 8.4. Creatinine improving down to 1.2. Repeat urine culture pending finalized. Patient continues on IV ceftazidime. Local wound care with santyl. Patient is having 1 BM per shift which staff reports is becoming more formed. 09/02/22. Patient seen and examined. Denies any pain in his right foot. States he feels better. Scheduled for procedure tomorrow REVIEW OF SYSTEMS: CONSTITUTIONAL: No fever, no malaise,. CARDIOVASCULAR: No chest pain, no palpitations, no syncope. PULMONARY: No shortness of breath, no cough, GASTROINTESTINAL: No diarrhea, no nausea, no vomiting, no abdominal pain. NEUROLOGICAL: No headaches, no weakness, PHYSICAL EXAMINATION: GENERAL: The patient is alert and oriented x3, not in any acute distress. Well developed, well nourished. HEENT: Pupils are round and equally reacting to light. EOMI. No scleral icterus. No conjunctival pallor. Normocephalic, atraumatic. No pharyngeal erythema. No thyromegaly. CARDIOVASCULAR: S1 and S2 present. No murmurs, rubs, or gallops. PULMONARY: Chest is clear to auscultation, no wheezing or crackles. ABDOMEN: Soft, nontender, nondistended, normoactive bowel sounds. No palpable organomegaly. MUSCULOSKELETAL: Right foot dressing seen EXTREMITIES: No cyanosis, clubbing, or pedal edema. NEUROLOGICAL: Gross neurological examination did not reveal any focal deficits. SKIN: No rashes. Assessment and plan Episode of unresponsiveness/syncope mostly likely from dehydration -Altered mental status secondary to acute metabolic encephalopathy from acute renal injury, improved -Acute renal failure mostly likely prerenal and also patient has urinary retention, improved -C.Dif colitis -Recent covid infection with first positive on 08/18/22 currently maintained on 2L of nasal cannula since. 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 -Diabetic peripheral neuropathy -Hyperlipidemia -hypertension -Sleep apnea for which patient uses CPAP machine at home -Stage 3 sacral pressure ulcer present on admission -Bilateral heel pressure ulcer unstageable patient underwent surgical debridement of right heel previous admission, present on admission Plan Continue with gentle hydration Continue oral vancomycin Continues with local wound care Continue with indwelling catheter ID, urology following. Keep nothing by mouth after midnight Friday Patient scheduled for right lower extremity debridement on Friday with Dr. America Cosme Coumadin Objective - Vital Signs Vital signs: Vital Signs Temp 98.6 F 09/02/22 08:00 Pulse 77 09/02/22 08:00 Resp 18 09/02/22 08:00 BP 164/68 09/02/22 08:00 Pulse Ox 97 09/02/22 08:00 FiO2 Intake & Output 09/01/22 09/02/22 09/02/22 18:59 06:59 18:59 Output Total 1550 1575 Balance -1550 -1575 Weight 97.069 kg Output: Urine 1550 1575 Other: Voiding Method Indwelling Catheter Indwelling Catheter Indwelling Catheter - Labs CBC & Chem 7: 09/01/22 06:41 09/01/22 06:41 Labs: Abnormal Lab Results - Last 24 Hours (Table) 09/01/22 09/01/22 09/02/22 Range/Units 16:23 20:17 05:28 PT 13.7 H (9.9-11.9) sec INR 1.22 H (0.90-1.11) POC Glucose (mg/dL) 144 H 175 H (70-110) mg/dL 09/02/22 09/02/22 Range/Units 06:27 11:45 PT (9.9-11.9) sec INR (0.90-1.11) POC Glucose (mg/dL) 129 H 155 H (70-110) mg/dL Microbiology - Last 24 Hours (Table) 08/31/22 02:17 Urine Culture - Final Urine,Voided Jessika albicans
[2022-09-02 16:51] LABS: Glucose,Whole Blood 173 mg/dL (70-110)
[2022-09-02] MEDS: HYDROcodone/APAP 5-325MG 1 EACH TAB PO PRN (16:55)
[2022-09-02] MEDS: TAMSULOSIN 0.4 MG CAP.ER.24H PO SCH (16:56)
[2022-09-02] MEDS ORDERED: WARFARIN 3 MG TAB PO ONE (18:00)
[2022-09-02 19:44] LABS: Glucose,Whole Blood 224 mg/dL (70-110)
[2022-09-02] MEDS: INSULIN DETEMIR (LEVEMIR) 100 UNIT/ML SYR SQ SCH (20:53)
[2022-09-02] MEDS: LEVOTHYROXINE 112 MCG TAB PO SCH (20:54)
[2022-09-02] MEDS: ATORVASTATIN 40 MG TAB PO SCH (20:54)
[2022-09-02] MEDS: ASPIRIN 81 MG PO SCH (20:54)
[2022-09-02] MEDS: CHOLECALCIFEROL 25 MCG (1000 IU) TABLET PO SCH (20:55)
[2022-09-02] MEDS: FAMOTIDINE 20 MG TAB PO SCH (20:55)
--- NOTE | 2022-09-02 22:38 | P.PN ---
Subjective Progress Note Date: 09/02/22 Principal diagnosis: UTI/C. diff colitis and right foot wound Patient is a 86-year-old male with multiple comorbidities with recent right fifth toe amputation for gangrene and debridement of the right foot culture positive for strep and the patient was sent to the senior living on IV Unasyn now presenting back to the hospital with mental status changes noticed to have significant urinary retention requiring Cross catheter placement and a positive UA. On today's evaluation that is 09/02/2022 the patient remains to be afebrile, patient is breathing comfortably on room air, the patient denies chest pain shortness of breath or cough no abdominal pain, the patient diarrhea has decreased in frequency, no new symptoms Objective - Vital Signs Vital signs: Vital Signs Temp 98.6 F 09/02/22 08:00 Pulse 77 09/02/22 08:00 Resp 18 09/02/22 08:00 BP 164/68 09/02/22 08:00 Pulse Ox 97 09/02/22 08:00 FiO2 Intake & Output 09/01/22 09/02/22 09/02/22 18:59 06:59 18:59 Output Total 1550 1575 Balance -1550 -1575 Output: Urine 1550 1575 Other: Voiding Method Indwelling Catheter Indwelling Catheter Indwelling Catheter - Exam GENERAL DESCRIPTION: An elderly male lying in bed in no distress RESPIRATORY SYSTEM: Unlabored breathing , decreased breath sounds at bases HEART: S1 S2 regular rate and rhythm , ABDOMEN: Soft , no tenderness EXTREMITIES: Right foot wound is currently dressed, no drainage on the dressing - Labs CBC & Chem 7: 09/01/22 06:41 09/01/22 06:41 Labs: Abnormal Lab Results - Last 24 Hours (Table) 09/01/22 09/01/22 09/01/22 Range/Units 06:41 11:41 13:18 PT 15.6 H 15.0 H (9.9-11.9) sec INR 1.40 H 1.4 H (0.90-1.11) POC Glucose (mg/dL) 150 H (70-110) mg/dL 09/01/22 09/01/22 09/02/22 Range/Units 16:23 20:17 05:28 PT 13.7 H (9.9-11.9) sec INR 1.22 H (0.90-1.11) POC Glucose (mg/dL) 144 H 175 H (70-110) mg/dL 09/02/22 Range/Units 06:27 PT (9.9-11.9) sec INR (0.90-1.11) POC Glucose (mg/dL) 129 H (70-110) mg/dL Microbiology - Last 24 Hours (Table) 08/31/22 02:17 Urine Culture - Final Urine,Voided Jessika albicans Assessment and Plan (1) C. difficile colitis Current Visit: Yes Status: Acute Code(s): A04.72 - ENTEROCOLITIS D/T CLOSTRIDIUM DIFFICILE, NOT SPCF RECUR SNOMED Code(s): 191595626 (2) UTI (urinary tract infection) Current Visit: Yes Status: Acute Code(s): N39.0 - URINARY TRACT INFECTION, SITE NOT SPECIFIED SNOMED Code(s): 78501022 Plan: 1patient presented to hospital with weakness confusion which is likely multifactorial in this patient who recently did have a right fifth toe gangrene status post amputation of the right fifth toe and debridement of the right heel wound culture positive for strep and anaerobes were the patient was receiving Unasyn at the senior living patient did have a necrotic changes at the right fifth toe amputation site as well as right heel and will benefit from further surgical evaluation, local wound care with the Santyl followed by moist dressing keep the area of the pressure 2patient with a complaint of UTI likely from urinary retention from enteric gram-negative pathogen patient to have a borderline kidney function high risk of nephrotoxicity initial urinalysis Pseudomonas repeat urine and now showing Jessika albicans patient to continue with short course of oral Diflucan 3 patient with a C. diff colitis, patient did have improvement in his diarrhea continued the vancomycin advised to increase his yogurt intake
[2022-09-03 06:31] LABS: Glucose,Whole Blood 170 mg/dL (70-110)
[2022-09-03 06:42] LABS: INR 1.3 (<1.2); Prothrombin Time 13.7 sec (9.0-12.0)
[2022-09-03] MEDS: INSULIN ASPART (NovoLOG) 100 UNIT/ML VIAL SQ SCH ×4 (06:47→22:10)
[2022-09-03] MEDS: NON FORMULARY DRUG (Azelastine/Fluticasone [Azelastin-Flutic 137-50mcg Spr] 23 GM Each) EA NOSTRIL SCH ×2 (08:16→22:03)
[2022-09-03] MEDS: CHERRY FLAVOR 60 ML BOTTLE PO SCH ×4 (08:17→22:03)
[2022-09-03] MEDS: VANCOMYCIN ORAL SOLUTION 250 MG/5 ML BOTTLE PO SCH ×4 (08:17→22:03)
[2022-09-03] MEDS: ZINC SULFATE 220 MG CAP PO SCH (08:19)
[2022-09-03] MEDS: FINASTERIDE 5 MG TAB PO SCH (08:20)
[2022-09-03] MEDS: MULTIVITAMINS, THERA 1 EACH TAB PO SCH (08:20)
[2022-09-03] MEDS: GABAPENTIN 100 MG CAP PO SCH ×2 (08:20→22:01)
[2022-09-03] MEDS: FLUCONAZOLE 100 MG TAB PO SCH (08:20)
[2022-09-03] MEDS: DOXAZOSIN 2 MG TAB PO SCH (08:20)
[2022-09-03] MEDS: METOPROLOL TARTRATE 12.5 MG TAB PO SCH ×2 (08:20→22:02)
[2022-09-03] MEDS: RANOLAZINE 500 MG TAB.ER.12H PO SCH ×2 (08:20→22:03)
[2022-09-03] MEDS: MENTHOL-ZINC OXIDE OINT 113 GM TUBE TOPICAL SCH ×3 (08:22→22:03)
[2022-09-03] MEDS: ASCORBIC ACID 500 MG TAB PO SCH (08:28)
--- NOTE | 2022-09-03 10:33 | P.PN ---
Subjective Progress Note Date: 09/03/22 Principal diagnosis: Postop fifth toe amputation, right heel pressure ulcer Patient is seen today and examined as a follow-up. No acute changes overnight. He's been afebrile. Encouraging patient to improve movement, and working with physical therapy. Physical therapy has been following patient however he has not been willing to get up and ambulate. Patient has not even been up into the chair. Patient is scheduled tomorrow for right heel, amputation site and possible right calf region surgical debridement. Objective - Vital Signs Vital signs: Vital Signs Temp 98.2 F 09/03/22 07:42 Pulse 103 H 09/03/22 07:42 Resp 18 09/03/22 07:42 BP 132/76 09/03/22 07:42 Pulse Ox 95 09/03/22 07:42 FiO2 Intake & Output 09/02/22 09/03/22 09/03/22 18:59 06:59 18:59 Intake Total 620 Output Total 500 25 Balance 120 -25 Weight 97.069 kg Intake: Oral 620 Output: Urine 500 25 Other: Voiding Method Indwelling Catheter Indwelling Catheter - Exam General appearance: The patient is alert, oriented, appears in no acute distress. HET: Head is normocephalic and atraumatic. Pupils are equal and reactive. Neck: Supple without lymphadenopathy. Trachea midline. Heart: Regular. Lungs: Equal expansion, normal respiratory effort. Abdomen: Soft, nontender, nondistended. Extremities: Bilateral offloading boots in place. Bilateral feet with dressings clean dry and intact. Neurological: Patient alert and oriented to self, place at times. - Labs CBC & Chem 7: 09/01/22 06:41 09/01/22 06:41 Labs: Abnormal Lab Results - Last 24 Hours (Table) 09/02/22 09/02/22 09/02/22 Range/Units 05:28 11:45 16:49 PT 13.7 H (9.9-11.9) sec INR 1.22 H (0.90-1.11) POC Glucose (mg/dL) 155 H 173 H (70-110) mg/dL 09/02/22 09/03/22 09/03/22 Range/Units 19:42 05:57 06:30 PT 13.7 H (9.9-11.9) sec INR 1.3 H (0.90-1.11) POC Glucose (mg/dL) 224 H 170 H (70-110) mg/dL Assessment and Plan Assessment: 1. 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 Recent right fifth toe amputation for wet gangrene on 08/12/2022 3. Bilateral heel pressure ulcers status post debridement on 08/12/2022 4. Acute kidney injury 5. C. diff colitis 6. Atrial fibrillation on Coumadin, currently on hold 7. History coronary artery disease status post bypass and stenting 8. Pacemaker implantation Plan: 1. Continue symptomatic supportive care 2. Continue local wound care as ordered 3. Recommend outpatient wound care clinic 4. Continue with offloading boots bilaterally 5. Keep nothing by mouth after midnight Friday 6. Patient scheduled for right lower extremity debridement on Friday with Gianfranco Cross 7. We'll need to hold Coumadin. The impression and plan of care has been dictated as directed. Dr. Cole I performed a history and examination of this patient, discussed the same with the dictator. I agree with the dictator's note ,documented as a scribe. Any ad ditional findings or plans will be noted.
[2022-09-03 11:28] LABS: Glucose,Whole Blood 215 mg/dL (70-110)
--- NOTE | 2022-09-03 13:00 | P.PN ---
Subjective Progress Note Date: 09/03/22 This is an 86-year-old male with medical history of atrial fibrillation, diabetes, hypertension, hyperlipidemia, sleep apnea, coronary artery disease with open heart and stents in the past, sick sinus syndrome status post permanent pacemaker placed in 2017. Patient is a former smoker. 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 He had PICC Line placed and was discharged on IV antibiotics to [facility]. He was recently diagnosed with covid on 08/18/22. He was in the E.C on 08/19 after accidently pulling his PICC Line out and required reinsertion of PICC line by interventional radiology. Patient presents to the hospital from the group home for altered mental status and a possible syncopal episode. Patient was moved out of the Covid unit yesterday at [facility]. Patient's does report that since his last hospital stay he has had confusion and poor verbal response. He is alert 1 but easily a rousable in the EC. On examination he is alert x 2 to 3. Patient believes that he may have had an emesis episode after eating yesterday he is incontinent of bowel and bladder. He had brain CT completed showing no acute intracranial process. and non specific white matter change likely secondary to chronic small vessel ischemic disease. Also there is opacity of frontal sinus possible mastoid effusion. Chest xray showing bibasilar acute atelectasis and or linear scarring no acute infiltrate seen. Patient presents with a white count 10.9, hemoglobin 9.7, INR of 2.2, BUN 33, creatinine 1.92, glucose of 124, liver enzymes are normal, troponin 0.025. Urine is showing trace ketones, moderate blood, large leukocyte Estrace. Patient is anticoagulated with coumadin and INR is 2.2 on admission. He received a dose of gentamicin in the EC. He was discharged prevoius admission on IV unasyn managed by Dr. Holland who has been consulted. He was discharged to [facility] with indwelling catheter placed by urology his previous admission and this was discontinued at [facility] he is found to be retaining urine currently. Urology will be consulted. 08/29/2022 Patient evaluated today on medical floor with at bedside. He was found to be positive for C.Dif colitis and has been started on oral vancomycin. He denies episodes of diarrhea however documentation shows 4 bowel movements overnight and 2 today. Urine culture is showing gram negative bacilli currently. He continues on IV ceftriaxone. Infectious disease following. Indwelling catheter has been replaced with urine output of -2.7 liters initially and an additional 844 mL of urine out today. IV fluids will be lowered to 50 mL per hour. Creatinine improved down to 1.3. today. Continues on oxygen via nasal cannula, afebrile, heart rate 70, blood pressure 156/75. If creatinine continues to improve tomorrow can resume ernesto inhibitor. Blood glucose in the 80s. Vascular services has been consulted for further evaluation of 5th toe amputation site. 08/30/2022 No acute events overnight. Continues on 2L nasal cannula. Reports no pain. Vascular consultation requested secondary to necrosis at 5th toe amputation site. Patient is scheduled to undergo aortogram with Dr. Cole tomorrow. Coumadin has been placed on hold for this. INR today 2.35. Hgb 8.7, magnesium 1.8. Creatinine stable at 1.3. Continues on gentle hydration. Continues on IV ceftriaxone for UTI and also on oral vanco for C. Dif. 1 Bowel movement overnight and 1 BM today, staff reports stool is loose in consistency. No longer liquid. 08/31/2022 Patient is evaluated today post aortogram which was unsuccessful per notes. There is critical limb ischemia right lower extremity with diminutive left radial artery with high bifurcation. Plans for CTA of abdomen pelvis with run off recommended. He reports no acute events overnight. Continues on 2L nasal cannula, lungs are clear at this time. Staff reports 1 BM overnight which is becoming more formed. Continues on oral vancomycin. Urine culture has finalized showing pseudomonas aeruginosa. Antibiotics adjusted to ceftazadime. Infectious disease following. White count today 5.41, hgb 8.7, sodium 139, potassium 4.4, magnesium 1.8, BUN 15.1, creatinine 1.3. Glucose 170s. UA has been repeated with improvement. Blood pressure 151/71. 09/01/2022 Patient is evaluated today resting in bed. No acute events overnight. Patient underwent CTA abdomen aorta with run off today. Vascular surgery not recommended any intervention, recommending to continue local wound care and offloading. Warfarin will be resumed. HGB today 8.4. Creatinine improving down to 1.2. Repeat urine culture pending finalized. Patient continues on IV ceftazidime. Local wound care with santyl. Patient is having 1 BM per shift which staff reports is becoming more formed. 09/02/22. Patient seen and examined. Denies any pain in his right foot. States he feels better. Scheduled for procedure tomorrow 09/03/22. Patient seen and examined. Denies any acute issues overnight. States pain in his foot has improved. Denies any diarrhea. Vital signs stable REVIEW OF SYSTEMS: CONSTITUTIONAL: No fever, no malaise,. CARDIOVASCULAR: No chest pain, no palpitations, no syncope. PULMONARY: No shortness of breath, no cough, GASTROINTESTINAL: No diarrhea, no nausea, no vomiting, no abdominal pain. NEUROLOGICAL: No headaches, no weakness, PHYSICAL EXAMINATION: GENERAL: The patient is alert and oriented x3, not in any acute distress. Well developed, well nourished. HEENT: Pupils are round and equally reacting to light. EOMI. No scleral icterus. No conjunctival pallor. Normocephalic, atraumatic. No pharyngeal erythema. No thyromegaly. CARDIOVASCULAR: S1 and S2 present. No murmurs, rubs, or gallops. PULMONARY: Chest is clear to auscultation, no wheezing or crackles. ABDOMEN: Soft, nontender, nondistended, normoactive bowel sounds. No palpable organomegaly. MUSCULOSKELETAL: Right foot dressing seen EXTREMITIES: No cyanosis, clubbing, or pedal edema. NEUROLOGICAL: Gross neurological examination did not reveal any focal deficits. SKIN: No rashes. Assessment and plan Episode of unresponsiveness/syncope mostly likely from dehydration -Altered mental status secondary to acute metabolic encephalopathy from acute renal injury, improved -Acute renal failure mostly likely prerenal and also patient has urinary retention, improved -C.Dif colitis -Recent covid infection with first positive on 08/18/22 currently maintained on 2L of nasal cannula since. 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 -Diabetic peripheral neuropathy -Hyperlipidemia -hypertension -Sleep apnea for which patient uses CPAP machine at home -Stage 3 sacral pressure ulcer present on admission -Bilateral heel pressure ulcer unstageable patient underwent surgical debridement of right heel previous admission, present on admission Plan Monitor vital signs Monitor CBC Continue oral vancomycin Continues with local wound care Continue with indwelling catheter ID, urology following. Keep nothing by mouth after midnight Friday Patient scheduled for right lower extremity debridement on Friday with Dr. America Cosme Coumadin Objective - Vital Signs Vital signs: Vital Signs Temp 98.2 F 09/03/22 07:42 Pulse 103 H 09/03/22 07:42 Resp 18 09/03/22 07:42 BP 132/76 09/03/22 07:42 Pulse Ox 95 09/03/22 07:42 FiO2 Intake & Output 09/02/22 09/03/22 09/03/22 18:59 06:59 18:59 Intake Total 620 Output Total 500 25 Balance 120 -25 Weight 97.069 kg Intake: Oral 620 Output: Urine 500 25 Other: Voiding Method Indwelling Catheter Indwelling Catheter Indwelling Catheter - Labs CBC & Chem 7: 09/01/22 06:41 09/01/22 06:41 Labs: Abnormal Lab Results - Last 24 Hours (Table) 09/02/22 09/02/22 09/03/22 Range/Units 16:49 19:42 05:57 PT 13.7 H (9.0-12.0) sec INR 1.3 H (<1.2) POC Glucose (mg/dL) 173 H 224 H (70-110) mg/dL 09/03/22 09/03/22 Range/Units 06:30 11:26 PT (9.0-12.0) sec INR (<1.2) POC Glucose (mg/dL) 170 H 215 H (70-110) mg/dL
[2022-09-03] MEDS: COLLAGENASE 250 UNIT/GM OINTMENT 30 GM TUBE TOPICAL SCH (13:56)
[2022-09-03 16:22] LABS: Glucose,Whole Blood 240 mg/dL (70-110)
[2022-09-03] MEDS: SODIUM CHLORIDE 0.9% 1,000 ML IV SCH (17:34)
[2022-09-03] MEDS: TAMSULOSIN 0.4 MG CAP.ER.24H PO SCH (17:37)
[2022-09-03] MEDS: CHOLECALCIFEROL 25 MCG (1000 IU) TABLET PO SCH (22:01)
[2022-09-03] MEDS: LEVOTHYROXINE 125 MCG TAB PO SCH (22:01)
[2022-09-03] MEDS: ATORVASTATIN 40 MG TAB PO SCH (22:01)
[2022-09-03] MEDS: LEVOTHYROXINE 112 MCG TAB PO SCH (22:02)
[2022-09-03] MEDS: FAMOTIDINE 20 MG TAB PO SCH (22:02)
[2022-09-03] MEDS: ASPIRIN 81 MG PO SCH (22:02)
[2022-09-03] MEDS: INSULIN DETEMIR (LEVEMIR) 100 UNIT/ML SYR SQ SCH (22:10)
[2022-09-03 22:11] LABS: Glucose,Whole Blood 192 mg/dL (70-110)
[2022-09-04 06:52] LABS: Glucose,Whole Blood 145 mg/dL (70-110)
[2022-09-04 06:59] LABS: Basophils # (A) 0.1 k/uL (0-0.2); Basophils % (A) 1 %; Eosinophils # (A) 0.2 k/uL (0-0.7); Eosinophils % (A) 2 %; HCT 28.9 % (39.0-53.0); Hypochromasia Marked; Lymphocytes # (A) 1.3 k/uL (1.0-4.8); Lymphocytes % (A) 16 %; MCH 30.1 pg (25.0-35.0); MCHC 31.3 g/dL (31.0-37.0); MCV 96.2 fL (80.0-100.0); Mean Platelet Volume 8.4; Monocytes # (A) 0.4 k/uL (0-1.0); Monocytes % (A) 5 %; Neutrophils # (A) 5.7 k/uL (1.3-7.7); Neutrophils % (A) 75 %; Platelet Count 304 k/uL (150-450); RDW 15.1 % (11.5-15.5); WBC 7.7 k/uL (3.8-10.6)
[2022-09-04] MEDS: INSULIN ASPART (NovoLOG) 100 UNIT/ML VIAL SQ SCH ×4 (06:59→21:33)
[2022-09-04 07:08] LABS: INR 1.3 (<1.2); Prothrombin Time 13.2 sec (9.0-12.0)
[2022-09-04 07:12] LABS: ALT 26 U/L (4-49); AST 30 U/L (17-59); African American GFR (CKD) 76 (>60 ml/min/1.73 sqM); Albumin 2.2 g/dL (3.5-5.0); Albumin/Globulin Ratio 0.8; Alkaline Phosphatase 76 U/L (38-126); Anion Gap 5 mmol/L; Blood Urea Nitrogen 14 mg/dL (9-20); Calcium 7.8 mg/dL (8.4-10.2); Carbon Dioxide 27 mmol/L (22-30); Chloride 104 mmol/L (98-107); Globulin 2.6 g/dL; Glucose 115 mg/dL (74-99); Non-African American GFR(CKD) 65 (>60 ml/min/1.73 sqM); Potassium 4.2 mmol/L (3.5-5.1); Sodium 136 mmol/L (137-145); Total Bilirubin 0.5 mg/dL (0.2-1.3); Total Protein 4.8 g/dL (6.3-8.2)
[2022-09-04] MEDS: NON FORMULARY DRUG (Azelastine/Fluticasone [Azelastin-Flutic 137-50mcg Spr] 23 GM Each) EA NOSTRIL SCH ×2 (09:00→21:30)
[2022-09-04] MEDS: ASCORBIC ACID 500 MG TAB PO SCH (09:00)
[2022-09-04] MEDS: CHERRY FLAVOR 60 ML BOTTLE PO SCH ×4 (09:00→21:21)
[2022-09-04] MEDS: FLUCONAZOLE 100 MG TAB PO SCH (09:01)
[2022-09-04] MEDS: GABAPENTIN 100 MG CAP PO SCH ×2 (09:01→20:46)
[2022-09-04] MEDS: DOXAZOSIN 2 MG TAB PO SCH (09:01)
[2022-09-04] MEDS: FINASTERIDE 5 MG TAB PO SCH (09:01)
[2022-09-04] MEDS: COLLAGENASE 250 UNIT/GM OINTMENT 30 GM TUBE TOPICAL SCH (09:01)
[2022-09-04] MEDS: MENTHOL-ZINC OXIDE OINT 113 GM TUBE TOPICAL SCH ×3 (09:01→21:36)
[2022-09-04] MEDS: METOPROLOL TARTRATE 12.5 MG TAB PO SCH ×2 (09:02→20:31)
[2022-09-04] MEDS: MULTIVITAMINS, THERA 1 EACH TAB PO SCH (09:03)
[2022-09-04] MEDS: RANOLAZINE 500 MG TAB.ER.12H PO SCH ×2 (09:03→21:36)
[2022-09-04] MEDS: ZINC SULFATE 220 MG CAP PO SCH (09:03)
[2022-09-04] MEDS: VANCOMYCIN ORAL SOLUTION 250 MG/5 ML BOTTLE PO SCH ×4 (09:03→20:47)
[2022-09-04] MEDS: HYDROcodone/APAP 5-325MG 1 EACH TAB PO PRN ×2 (09:08→20:48)
[2022-09-04 11:28] LABS: Glucose,Whole Blood 106 mg/dL (70-110)
--- NOTE | 2022-09-04 13:47 | P.PN ---
Subjective Progress Note Date: 09/04/22 This is an 86-year-old male with medical history of atrial fibrillation, diabetes, hypertension, hyperlipidemia, sleep apnea, coronary artery disease with open heart and stents in the past, sick sinus syndrome status post permanent pacemaker placed in 2017. Patient is a former smoker. 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 He had PICC Line placed and was discharged on IV antibiotics to [facility]. He was recently diagnosed with covid on 08/18/22. He was in the E.C on 08/19 after accidently pulling his PICC Line out and required reinsertion of PICC line by interventional radiology. [facility] for altered mental status and a possible syncopal episode. Patient was moved out of the Covid unit yesterday at [facility]. Patient's does report that since his last hospital stay he has had confusion and poor verbal response. He is alert 1 but easily a rousable in the EC. On examination he is alert x 2 to 3. Patient believes that he may have had an emesis episode after eating yesterday he is incontinent of bowel and bladder. He had brain CT completed showing no acute intracranial process. and non specific white matter change likely secondary to chronic small vessel ischemic disease. Also there is opacity of frontal sinus possible mastoid effusion. Chest xray showing bibasilar acute atelectasis and or linear scarring no acute infiltrate seen. Patient presents with a white count 10.9, hemoglobin 9.7, INR of 2.2, BUN 33, creatinine 1.92, glucose of 124, liver enzymes are normal, troponin 0.025. Urine is showing trace ketones, moderate blood, large leukocyte Estrace. Patient is anticoagulated with coumadin and INR is 2.2 on admission. He received a dose of gentamicin in the EC. He was discharged prevoius admission on IV unasyn managed by Dr. Holland who has been consulted. He was discharged to [facility] with indwelling catheter placed by urology his previous admission and this was discontinued at [facility] he is found to be retaining urine currently. Urology will be consulted. 08/29/2022 Patient evaluated today on medical floor with at bedside. He was found to be positive for C.Dif colitis and has been started on oral vancomycin. He denies episodes of diarrhea however documentation shows 4 bowel movements overnight and 2 today. Urine culture is showing gram negative bacilli currently. He continues on IV ceftriaxone. Infectious disease following. Indwelling catheter has been replaced with urine output of -2.7 liters initially and an additional 844 mL of urine out today. IV fluids will be lowered to 50 mL per hour. Creatinine improved down to 1.3. today. Continues on oxygen via nasal cannula, afebrile, heart rate 70, blood pressure 156/75. If creatinine continues to improve tomorrow can resume ernesto inhibitor. Blood glucose in the 80s. Vascular services has been consulted for further evaluation of 5th toe amputation site. 08/30/2022 No acute events overnight. Continues on 2L nasal cannula. Reports no pain. Vascular consultation requested secondary to necrosis at 5th toe amputation site. Patient is scheduled to undergo aortogram with Dr. Cole tomorrow. Coumadin has been placed on hold for this. INR today 2.35. Hgb 8.7, magnesium 1.8. Creatinine stable at 1.3. Continues on gentle hydration. Continues on IV ceftriaxone for UTI and also on oral vanco for C. Dif. 1 Bowel movement overnight and 1 BM today, staff reports stool is loose in consistency. No longer liquid. 08/31/2022 Patient is evaluated today post aortogram which was unsuccessful per notes. There is critical limb ischemia right lower extremity with diminutive left radial artery with high bifurcation. Plans for CTA of abdomen pelvis with run off recommended. He reports no acute events overnight. Continues on 2L nasal cannula, lungs are clear at this time. Staff reports 1 BM overnight which is becoming more formed. Continues on oral vancomycin. Urine culture has finalized showing pseudomonas aeruginosa. Antibiotics adjusted to ceftazadime. Infectious disease following. White count today 5.41, hgb 8.7, sodium 139, potassium 4.4, magnesium 1.8, BUN 15.1, creatinine 1.3. Glucose 170s. UA has been repeated with improvement. Blood pressure 151/71. 09/01/2022 Patient is evaluated today resting in bed. No acute events overnight. Patient underwent CTA abdomen aorta with run off today. Vascular surgery not recommended any intervention, recommending to continue local wound care and offloading. Warfarin will be resumed. HGB today 8.4. Creatinine improving down to 1.2. Repeat urine culture pending finalized. Patient continues on IV ceftazidime. Local wound care with santyl. Patient is having 1 BM per shift which staff reports is becoming more formed. 09/02/22. Patient seen and examined. Denies any pain in his right foot. States he feels better. Scheduled for procedure tomorrow 09/03/22. Patient seen and examined. Denies any acute issues overnight. States pain in his foot has improved. Denies any diarrhea. Vital signs stable 09/04/22. Patient seen and examined. Currently nothing by mouth for surgery today. Vital signs stable still has pain in his right foot REVIEW OF SYSTEMS: CONSTITUTIONAL: No fever, no malaise,. CARDIOVASCULAR: No chest pain, no palpitations, no syncope. PULMONARY: No shortness of breath, no cough, GASTROINTESTINAL: No diarrhea, no nausea, no vomiting, no abdominal pain. NEUROLOGICAL: No headaches, no weakness, PHYSICAL EXAMINATION: GENERAL: The patient is alert and oriented x3, not in any acute distress. Well developed, well nourished. HEENT: Pupils are round and equally reacting to light. EOMI. No scleral icterus. No conjunctival pallor. Normocephalic, atraumatic. No pharyngeal erythema. No thyromegaly. CARDIOVASCULAR: S1 and S2 present. No murmurs, rubs, or gallops. PULMONARY: Chest is clear to auscultation, no wheezing or crackles. ABDOMEN: Soft, nontender, nondistended, normoactive bowel sounds. No palpable organomegaly. MUSCULOSKELETAL: Right foot dressing seen EXTREMITIES: No cyanosis, clubbing, or pedal edema. NEUROLOGICAL: Gross neurological examination did not reveal any focal deficits. SKIN: No rashes. Assessment and plan Episode of unresponsiveness/syncope mostly likely from dehydration -Altered mental status secondary to acute metabolic encephalopathy from acute renal injury, improved -Acute renal failure mostly likely prerenal and also patient has urinary retention, improved -C.Dif colitis -Recent covid infection with first positive on 08/18/22 currently maintained on 2L of nasal cannula since. 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 -Diabetic peripheral neuropathy -Hyperlipidemia -hypertension -Sleep apnea for which patient uses CPAP machine at home -Stage 3 sacral pressure ulcer present on admission -Bilateral heel pressure ulcer unstageable patient underwent surgical debridement of right heel previous admission, present on admission Plan Monitor vital signs Monitor CBC Continue oral vancomycin Continues with local wound care Continue with indwelling catheter ID, urology following. Nothing by mouth going for right lower extremity debridement today with Dr. Cross Hold Coumadin Objective - Vital Signs Vital signs: Vital Signs Temp 97.5 F L 09/04/22 07:38 Pulse 88 09/04/22 08:26 Resp 17 09/04/22 08:26 BP 136/75 09/04/22 07:38 Pulse Ox 97 09/04/22 07:38 FiO2 Intake & Output 09/03/22 09/04/22 09/04/22 18:59 06:59 18:59 Output Total 1900 1200 Balance -1900 -1200 Output: Urine 1900 1200 Other: Voiding Method Indwelling Catheter Indwelling Catheter Indwelling Catheter - Labs CBC & Chem 7: 09/04/22 05:57 09/04/22 05:57 Labs: Abnormal Lab Results - Last 24 Hours (Table) 09/03/22 09/03/22 09/04/22 Range/Units 16:18 22:10 05:57 RBC 3.00 L (4.30-5.90) m/uL Hgb 9.0 L (13.0-17.5) gm/dL Hct 28.9 L (39.0-53.0) % PT (9.0-12.0) sec INR (<1.2) Sodium (137-145) mmol/L Glucose (74-99) mg/dL POC Glucose (mg/dL) 240 H 192 H (70-110) mg/dL Calcium (8.4-10.2) mg/dL Total Protein (6.3-8.2) g/dL Albumin (3.5-5.0) g/dL 09/04/22 09/04/22 09/04/22 Range/Units 05:57 05:57 06:50 RBC (4.30-5.90) m/uL Hgb (13.0-17.5) gm/dL Hct (39.0-53.0) % PT 13.2 H (9.0-12.0) sec INR 1.3 H (<1.2) Sodium 136 L (137-145) mmol/L Glucose 115 H (74-99) mg/dL POC Glucose (mg/dL) 145 H (70-110) mg/dL Calcium 7.8 L (8.4-10.2) mg/dL Total Protein 4.8 L (6.3-8.2) g/dL Albumin 2.2 L (3.5-5.0) g/dL
[2022-09-04] MEDS ORDERED: LACTATED RINGERS 1,000 ML IV ONE (13:58)
[2022-09-04] MEDS ORDERED: fentaNYL (PF) 50 MCG/ML 2 ML AMP ONE (14:56)
[2022-09-04] MEDS ORDERED: PROPOFOL 10 MG/ML 20 ML VIAL IV ONE (14:56)
--- NOTE | 2022-09-04 15:41 | P.OP ---
Date of Procedure: 09/04/22 Description of Procedure: Preoperative diagnosis: [Dry gangrene right lower extremity, immobility, bedbound] Postoperative diagnosis: Same Procedure: [#1 sharp excisional debridement right fifth toe amputation site 5 x 3.5 x 0.7cm to bone Sharp excisional debridement right heel 5 x 5 x 0.3cm subcutaneous tissue Application of wound VAC] Surgeon: Chari Cross D.O. EBL: [Less than 10 mL] IV fluids: [See records] Urine output: [See records] Drains: [None] Complications: [None] Condition: [None] Operative indication and findings: [Patient is a 86-year-old male with previous amputation of his fifth toe for gangrene. He did not follow-up and repeat onto the hospital with further areas of gangrene on his fifth toe as well as his heel therefore he is offered debridement once more. It was discussed with family that during the operative procedure the patient will be full code and may return to her status following the procedure. they seemingly understood and wanted to proceed] Procedure in detail: [The patient was taken to the operative suite and placed in supine position. The right lower extremity is prepped and draped in usual sterile fashion. A preprocedure timeout was performed, all parties were in agreement. Using the scalpel as well as scissors, the areas of necrotic tissue were debrided from the right lateral foot at the amputation site. There was a small area of deep tissue injury at the lateral portion of the fourth digit. This was cleaned but not to a point of healthy appearing tissue as it did extend only to the bone. The heel was debrided sharply and the eschar overlying was excised. There is no evidence of purulent drainage or discharge. There is a small area of eschar on the lateral portion of the leg which was left intact as there was no erythema or fluctuance. All the areas were then cleansed. Hemostasis was achieved with electrocautery. The amputation site was dressed with a wound VAC with good seal. The rest the dressings were placed. The patient was allowed to transfer to recovery after tolerating the procedure well]
[2022-09-04 16:59] LABS: Glucose,Whole Blood 91 mg/dL (70-110)
[2022-09-04] MEDS: TAMSULOSIN 0.4 MG CAP.ER.24H PO SCH (18:42)
[2022-09-04] MEDS: SODIUM CHLORIDE 0.9% 1,000 ML IV SCH (18:43)
[2022-09-04] MEDS: ATORVASTATIN 40 MG TAB PO SCH (20:31)
[2022-09-04] MEDS: FAMOTIDINE 20 MG TAB PO SCH (20:32)
[2022-09-04] MEDS: CHOLECALCIFEROL 25 MCG (1000 IU) TABLET PO SCH (20:32)
[2022-09-04] MEDS: LEVOTHYROXINE 125 MCG TAB PO SCH (20:33)
[2022-09-04] MEDS: ASPIRIN 81 MG PO SCH (20:46)
[2022-09-04 21:24] LABS: Glucose,Whole Blood 125 mg/dL (70-110)
[2022-09-04] MEDS: INSULIN DETEMIR (LEVEMIR) 100 UNIT/ML SYR SQ SCH (21:36)
[2022-09-05] MEDS: HYDROcodone/APAP 5-325MG 1 EACH TAB PO PRN ×3 (03:20→21:00)
[2022-09-05 06:18] LABS: Glucose,Whole Blood 104 mg/dL (70-110)
[2022-09-05] MEDS: INSULIN ASPART (NovoLOG) 100 UNIT/ML VIAL SQ SCH ×4 (06:20→20:59)
[2022-09-05 08:07] LABS: INR 1.2 (<1.2); Prothrombin Time 12.6 sec (9.0-12.0)
[2022-09-05] MEDS: NON FORMULARY DRUG (Azelastine/Fluticasone [Azelastin-Flutic 137-50mcg Spr] 23 GM Each) EA NOSTRIL SCH ×2 (09:58→21:02)
[2022-09-05] MEDS: FINASTERIDE 5 MG TAB PO SCH (10:02)
[2022-09-05] MEDS: RANOLAZINE 500 MG TAB.ER.12H PO SCH ×2 (10:02→21:00)
[2022-09-05] MEDS: ASCORBIC ACID 500 MG TAB PO SCH (10:02)
[2022-09-05] MEDS: MULTIVITAMINS, THERA 1 EACH TAB PO SCH (10:02)
[2022-09-05] MEDS: ZINC SULFATE 220 MG CAP PO SCH (10:02)
[2022-09-05] MEDS: DOXAZOSIN 2 MG TAB PO SCH (10:02)
[2022-09-05] MEDS: METOPROLOL TARTRATE 12.5 MG TAB PO SCH ×2 (10:02→21:00)
[2022-09-05] MEDS: MENTHOL-ZINC OXIDE OINT 113 GM TUBE TOPICAL SCH ×3 (10:02→21:02)
[2022-09-05] MEDS: FLUCONAZOLE 100 MG TAB PO SCH (10:02)
[2022-09-05] MEDS: GABAPENTIN 100 MG CAP PO SCH ×2 (10:02→21:00)
[2022-09-05 11:43] LABS: Glucose,Whole Blood 138 mg/dL (70-110)
[2022-09-05] MEDS: CHERRY FLAVOR 60 ML BOTTLE PO SCH ×4 (11:43→21:19)
[2022-09-05] MEDS: SODIUM CHLORIDE 0.9% 1,000 ML IV SCH (11:58)
[2022-09-05] MEDS: COLLAGENASE 250 UNIT/GM OINTMENT 30 GM TUBE TOPICAL SCH (12:02)
[2022-09-05] MEDS: FERROUS SULFATE 325 MG TAB PO SCH (12:13)
--- NOTE | 2022-09-05 14:06 | P.PN ---
Subjective Progress Note Date: 09/05/22 This is an 86-year-old male with medical history of atrial fibrillation, diabetes, hypertension, hyperlipidemia, sleep apnea, coronary artery disease with open heart and stents in the past, sick sinus syndrome status post permanent pacemaker placed in 2017. Patient is a former smoker. 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 He had PICC Line placed and was discharged on IV antibiotics to [facility]. He was recently diagnosed with covid on 08/18/22. He was in the E.C on 08/19 after accidently pulling his PICC Line out and required reinsertion of PICC line by interventional radiology. Patient [facility] the [facility] for altered mental status and a possible syncopal episode. Patient was moved out of the Covid unit yesterday at [facility]. Patient's does report that since his last hospital stay he has had confusion and poor verbal response. He is alert 1 but easily a rousable in the EC. On examination he is alert x 2 to 3. Patient believes that he may have had an emesis episode after eating yesterday he is incontinent of bowel and bladder. He had brain CT completed showing no acute intracranial process. and non specific white matter change likely secondary to chronic small vessel ischemic disease. Also there is opacity of frontal sinus possible mastoid effusion. Chest xray showing bibasilar acute atelectasis and or linear scarring no acute infiltrate seen. Patient presents with a white count 10.9, hemoglobin 9.7, INR of 2.2, BUN 33, creatinine 1.92, glucose of 124, liver enzymes are normal, troponin 0.025. Urine is showing trace ketones, moderate blood, large leukocyte Estrace. Patient is anticoagulated with coumadin and INR is 2.2 on admission. He received a dose of gentamicin in the EC. He was discharged prevoius admission on IV unasyn managed by Dr. Holland who has been consulted. He was discharged to [facility] with indwelling catheter placed by urology his previous admission and this was discontinued at [facility] he is found to be retaining urine currently. Urology will be consulted. 08/29/2022 Patient evaluated today on medical floor with at bedside. He was found to be positive for C.Dif colitis and has been started on oral vancomycin. He denies episodes of diarrhea however documentation shows 4 bowel movements overnight and 2 today. Urine culture is showing gram negative bacilli currently. He continues on IV ceftriaxone. Infectious disease following. Indwelling catheter has been replaced with urine output of -2.7 liters initially and an additional 844 mL of urine out today. IV fluids will be lowered to 50 mL per hour. Creatinine improved down to 1.3. today. Continues on oxygen via nasal cannula, afebrile, heart rate 70, blood pressure 156/75. If creatinine continues to improve tomorrow can resume ernesto inhibitor. Blood glucose in the 80s. Vascular services has been consulted for further evaluation of 5th toe amputation site. 08/30/2022 No acute events overnight. Continues on 2L nasal cannula. Reports no pain. Vascular consultation requested secondary to necrosis at 5th toe amputation site. Patient is scheduled to undergo aortogram with Dr. Cole tomorrow. Coumadin has been placed on hold for this. INR today 2.35. Hgb 8.7, magnesium 1.8. Creatinine stable at 1.3. Continues on gentle hydration. Continues on IV ceftriaxone for UTI and also on oral vanco for C. Dif. 1 Bowel movement overnight and 1 BM today, staff reports stool is loose in consistency. No longer liquid. 08/31/2022 Patient is evaluated today post aortogram which was unsuccessful per notes. There is critical limb ischemia right lower extremity with diminutive left radial artery with high bifurcation. Plans for CTA of abdomen pelvis with run off recommended. He reports no acute events overnight. Continues on 2L nasal cannula, lungs are clear at this time. Staff reports 1 BM overnight which is becoming more formed. Continues on oral vancomycin. Urine culture has finalized showing pseudomonas aeruginosa. Antibiotics adjusted to ceftazadime. Infectious disease following. White count today 5.41, hgb 8.7, sodium 139, potassium 4.4, magnesium 1.8, BUN 15.1, creatinine 1.3. Glucose 170s. UA has been repeated with improvement. Blood pressure 151/71. 09/01/2022 Patient is evaluated today resting in bed. No acute events overnight. Patient underwent CTA abdomen aorta with run off today. Vascular surgery not recommended any intervention, recommending to continue local wound care and offloading. Warfarin will be resumed. HGB today 8.4. Creatinine improving down to 1.2. Repeat urine culture pending finalized. Patient continues on IV ceftazidime. Local wound care with santyl. Patient is having 1 BM per shift which staff reports is becoming more formed. 09/02/22. Patient seen and examined. Denies any pain in his right foot. States he feels better. Scheduled for procedure tomorrow 09/03/22. Patient seen and examined. Denies any acute issues overnight. States pain in his foot has improved. Denies any diarrhea. Vital signs stable 09/04/22. Patient seen and examined. Currently nothing by mouth for surgery today. Vital signs stable still has pain in his right foot 09/05/22. Patient seen and examined. Patient underwent sharp excisional debridement right fifth toe amputation site 5 x 3.5 x 0.7cm to bone,Sharp excisional debridement right heel 5 x 5 x 0.3cm subcutaneous tissue yesterday, wound VAC in place. Still has pain in his right foot REVIEW OF SYSTEMS: CONSTITUTIONAL: No fever, no malaise,. CARDIOVASCULAR: No chest pain, no palpitations, no syncope. PULMONARY: No shortness of breath, no cough, GASTROINTESTINAL: No diarrhea, no nausea, no abdominal pain. NEUROLOGICAL: No headaches, no weakness, PHYSICAL EXAMINATION: GENERAL: The patient is alert and oriented x3, not in any acute distress. Well developed, well nourished. HEENT: Pupils are round and equally reacting to light. EOMI. No scleral icterus. No conjunctival pallor. Normocephalic, atraumatic. No pharyngeal erythema. No thyromegaly. CARDIOVASCULAR: S1 and S2 present. No murmurs, rubs, or gallops. PULMONARY: Chest is clear to auscultation, no wheezing or crackles. ABDOMEN: Soft, nontender, nondistended, normoactive bowel sounds. No palpable organomegaly. MUSCULOSKELETAL: Right foot dressing seen, wound VAC seen EXTREMITIES: No cyanosis, clubbing, or pedal edema. NEUROLOGICAL: Gross neurological examination did not reveal any focal deficits. SKIN: No rashes. Assessment and plan Episode of unresponsiveness/syncope mostly likely from dehydration -Altered mental status secondary to acute metabolic encephalopathy from acute renal injury, improved -Acute renal failure mostly likely prerenal and also patient has urinary retention, improved -C.Dif colitis -Recent covid infection with first positive on 08/18/22 currently maintained on 2L of nasal cannula since. 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 -Diabetic peripheral neuropathy -Hyperlipidemia -hypertension -Sleep apnea for which patient uses CPAP machine at home -Stage 3 sacral pressure ulcer present on admission -Bilateral heel pressure ulcer unstageable patient underwent surgical debridement of right heel previous admission, present on admission Plan Monitor vital signs Monitor CBC Continue oral vancomycin Continues with local wound care Continue wound VAC per surgery Continue with indwelling catheter ID, urology following. Resume Coumadin from today, pharmacy to dose Objective - Vital Signs Vital signs: Vital Signs Temp 97.6 F 09/05/22 08:00 Pulse 78 09/05/22 08:00 Resp 16 09/05/22 08:00 BP 110/65 09/05/22 08:00 Pulse Ox 91 L 09/05/22 08:00 FiO2 Intake & Output 09/04/22 09/05/22 09/05/22 18:59 06:59 18:59 Intake Total 400 100 Output Total 562 1501 200 Balance -162 -1401 -200 Weight 97.069 kg Intake: IV 400 Oral 100 Output: Urine 560 1500 200 Uretheral (Cross) 200 Stool 1 Estimated Blood Loss 2 Other: Voiding Method Indwelling Catheter Indwelling Catheter Indwelling Catheter - Labs CBC & Chem 7: 09/04/22 05:57 09/04/22 05:57 Labs: Abnormal Lab Results - Last 24 Hours (Table) 09/04/22 09/05/22 09/05/22 Range/Units 21:16 07:28 11:41 PT 12.6 H (9.0-12.0) sec INR 1.2 H (<1.2) POC Glucose (mg/dL) 125 H 138 H (70-110) mg/dL
[2022-09-05 16:43] LABS: Glucose,Whole Blood 190 mg/dL (70-110)
[2022-09-05] MEDS ORDERED: WARFARIN 5 MG TAB PO ONE (18:00)
[2022-09-05] MEDS: TAMSULOSIN 0.4 MG CAP.ER.24H PO SCH (18:16)
[2022-09-05 20:53] LABS: Glucose,Whole Blood 209 mg/dL (70-110)
[2022-09-05] MEDS: LEVOTHYROXINE 112 MCG TAB PO SCH (20:59)
[2022-09-05] MEDS: INSULIN DETEMIR (LEVEMIR) 100 UNIT/ML SYR SQ SCH (20:59)
[2022-09-05] MEDS: CHOLECALCIFEROL 25 MCG (1000 IU) TABLET PO SCH (21:00)
[2022-09-05] MEDS: FAMOTIDINE 20 MG TAB PO SCH (21:00)
[2022-09-05] MEDS: ASPIRIN 81 MG PO SCH (21:00)
[2022-09-05] MEDS: ATORVASTATIN 40 MG TAB PO SCH (21:00)
--- NOTE | 2022-09-05 23:39 | P.PN ---
Subjective Progress Note Date: 09/03/22 Principal diagnosis: UTI/C. diff colitis and right foot wound Patient is a 86-year-old male with multiple comorbidities with recent right fifth toe amputation for gangrene and debridement of the right foot culture positive for strep and the patient was sent to the long-term on IV Unasyn now presenting back to the hospital with mental status changes noticed to have significant urinary retention requiring Cross catheter placement and a positive UA. On today's evaluation that is 09/03/2022 the patient continues to be afebrile, patient is breathing comfortably on room air, the patient denies chest pain shortness of breath or cough no abdominal pain, the patient diarrhea has decreased in frequency Objective - Vital Signs Vital signs: Vital Signs Temp 98.2 F 09/03/22 07:42 Pulse 103 H 09/03/22 07:42 Resp 18 09/03/22 07:42 BP 132/76 09/03/22 07:42 Pulse Ox 95 09/03/22 07:42 FiO2 Intake & Output 09/02/22 09/03/22 09/03/22 18:59 06:59 18:59 Intake Total 620 Output Total 500 25 Balance 120 -25 Weight 97.069 kg Intake: Oral 620 Output: Urine 500 25 Other: Voiding Method Indwelling Catheter Indwelling Catheter Indwelling Catheter - Exam GENERAL DESCRIPTION: An elderly male lying in bed in no distress RESPIRATORY SYSTEM: Unlabored breathing , decreased breath sounds at bases HEART: S1 S2 regular rate and rhythm , ABDOMEN: Soft , no tenderness EXTREMITIES: Right foot wound is currently dressed, no drainage on the dressing - Labs CBC & Chem 7: 09/04/22 05:57 09/04/22 05:57 Labs: Abnormal Lab Results - Last 24 Hours (Table) 09/02/22 09/02/22 09/03/22 Range/Units 16:49 19:42 05:57 PT 13.7 H (9.0-12.0) sec INR 1.3 H (<1.2) POC Glucose (mg/dL) 173 H 224 H (70-110) mg/dL 09/03/22 09/03/22 Range/Units 06:30 11:26 PT (9.0-12.0) sec INR (<1.2) POC Glucose (mg/dL) 170 H 215 H (70-110) mg/dL Assessment and Plan (1) C. difficile colitis Current Visit: Yes Status: Acute Code(s): A04.72 - ENTEROCOLITIS D/T CLOSTRIDIUM DIFFICILE, NOT SPCF RECUR SNOMED Code(s): 725948500 (2) UTI (urinary tract infection) Current Visit: Yes Status: Acute Code(s): N39.0 - URINARY TRACT INFECTION, SITE NOT SPECIFIED SNOMED Code(s): 73030043 Plan: 1patient presented to hospital with weakness confusion which is likely multifactorial in this patient who recently did have a right fifth toe gangrene status post amputation of the right fifth toe and debridement of the right heel wound culture positive for strep and anaerobes were the patient was receiving Unasyn at the long-term patient did have a necrotic changes at the right fifth toe amputation site as well as right heel and will benefit from further surgical evaluation, local wound care with the Santyl followed by moist dressing keep the area of the pressure 2patient with a complaint of UTI likely from urinary retention from enteric gram-negative pathogen patient to have a borderline kidney function high risk of nephrotoxicity initial urinalysis Pseudomonas repeat urine and now showing Jessika albicans patient to continue with short course of oral Diflucan 3 patient with a C. diff colitis, patient did have improvement in his diarrhea patient to continu with vancomycin to finish a 10 day course of therapy Time with Patient: Less than 30
--- NOTE | 2022-09-05 23:46 | P.PN ---
Subjective Progress Note Date: 09/04/22 Principal diagnosis: UTI/C. diff colitis and right foot wound Patient is a 86-year-old male with multiple comorbidities with recent right fifth toe amputation for gangrene and debridement of the right foot culture positive for strep and the [facility] now presenting back to the hospital with mental status changes noticed to have significant urinary retention requiring Cross catheter placement and a positive UA. On today's evaluation that is 09/04/2022 the patient remains to be afebrile, patient is breathing comfortably on room air, the patient denies chest pain shortness of breath or cough no abdominal pain, the patient diarrhea has resolved Objective - Vital Signs Vital signs: Vital Signs Temp 97.5 F L 09/04/22 07:38 Pulse 88 09/04/22 08:26 Resp 17 09/04/22 08:26 BP 136/75 09/04/22 07:38 Pulse Ox 97 09/04/22 07:38 FiO2 Intake & Output 09/03/22 09/04/22 09/04/22 18:59 06:59 18:59 Output Total 1900 1200 Balance -1900 -1200 Output: Urine 1900 1200 Other: Voiding Method Indwelling Catheter Indwelling Catheter Indwelling Catheter - Exam GENERAL DESCRIPTION: An elderly male lying in bed in no distress RESPIRATORY SYSTEM: Unlabored breathing , decreased breath sounds at bases HEART: S1 S2 regular rate and rhythm , ABDOMEN: Soft , no tenderness EXTREMITIES: Right foot wound is currently dressed, no drainage on the dressing - Labs CBC & Chem 7: 09/04/22 05:57 09/04/22 05:57 Labs: Abnormal Lab Results - Last 24 Hours (Table) 09/03/22 09/03/22 09/04/22 Range/Units 16:18 22:10 05:57 RBC 3.00 L (4.30-5.90) m/uL Hgb 9.0 L (13.0-17.5) gm/dL Hct 28.9 L (39.0-53.0) % PT (9.0-12.0) sec INR (<1.2) Sodium (137-145) mmol/L Glucose (74-99) mg/dL POC Glucose (mg/dL) 240 H 192 H (70-110) mg/dL Calcium (8.4-10.2) mg/dL Total Protein (6.3-8.2) g/dL Albumin (3.5-5.0) g/dL 09/04/22 09/04/22 09/04/22 Range/Units 05:57 05:57 06:50 RBC (4.30-5.90) m/uL Hgb (13.0-17.5) gm/dL Hct (39.0-53.0) % PT 13.2 H (9.0-12.0) sec INR 1.3 H (<1.2) Sodium 136 L (137-145) mmol/L Glucose 115 H (74-99) mg/dL POC Glucose (mg/dL) 145 H (70-110) mg/dL Calcium 7.8 L (8.4-10.2) mg/dL Total Protein 4.8 L (6.3-8.2) g/dL Albumin 2.2 L (3.5-5.0) g/dL Assessment and Plan (1) C. difficile colitis Current Visit: Yes Status: Acute Code(s): A04.72 - ENTEROCOLITIS D/T CLOSTRIDIUM DIFFICILE, NOT SPCF RECUR SNOMED Code(s): 244123821 (2) UTI (urinary tract infection) Current Visit: Yes Status: Acute Code(s): N39.0 - URINARY TRACT INFECTION, SITE NOT SPECIFIED SNOMED Code(s): 48014865 Plan: 1patient presented to hospital with weakness confusion which is likely multifactorial in this patient who recently did have a right fifth toe gangrene status post amputation of the right fifth toe and debridement of the right heel wound culture positive for strep and anaerobes were the patient was receiving Unasyn at the jail patient did have a necrotic changes at the right fifth toe amputation site as well as right heel and will benefit from further surgical evaluation, local wound care with the Santyl followed by moist dressing keep the area of the pressure 2patient with a complaint of UTI likely from urinary retention from enteric gr am-negative pathogen patient to have a borderline kidney function high risk of nephrotoxicity initial urinalysis Pseudomonas repeat urine and now showing Jessika albicans patient to continue with short course of oral Diflucan 3 patient with a C. diff colitis, patient did have improvement in his diarrhea patient currently being treated with vancomycin and monitor clinical course closely Time with Patient: Less than 30
--- NOTE | 2022-09-05 23:49 | P.PN ---
Subjective Progress Note Date: 09/05/22 Principal diagnosis: UTI/C. diff colitis and right foot wound Patient is a 86-year-old male with multiple comorbidities with recent right fifth toe amputation for gangrene and debridement of the right foot culture positive for strep and the patient was sent to the residential on IV Unasyn now presenting back to the hospital with mental status changes noticed to have significant urinary retention requiring Cross catheter placement and a positive UA. Patient is status post debridement of the right fifth toe amputation site and right heel wound by vascular surgery on 09/04/2022 On today's evaluation that is 09/05/2022 the patient remains to be afebrile, patient is breathing comfortably on room air, the patient denies chest pain shortness of breath or cough no abdominal pain, the patient diarrhea has resolved per the nursing staff has been complaining of pain to the right foot area Objective - Vital Signs Vital signs: Vital Signs Temp 97.5 F L 09/05/22 20:00 Pulse 81 09/05/22 20:00 Resp 18 09/05/22 20:00 BP 161/74 09/05/22 20:00 Pulse Ox 93 L 09/05/22 20:00 FiO2 Intake & Output 09/05/22 09/05/22 09/06/22 06:59 18:59 06:59 Intake Total 100 600 Output Total 1501 340 Balance -1401 260 Intake: IV 600 Sodium Chloride 0.9% 1, 600 000 ml @ 50 mls/hr IV . Q20H [facility] Rx#:[id number] Oral 100 Output: Urine 1500 340 Uretheral (Cross) 340 Stool 1 Other: Voiding Method Indwelling Catheter Indwelling Catheter - Exam GENERAL DESCRIPTION: An elderly male lying in bed in no distress RESPIRATORY SYSTEM: Unlabored breathing , decreased breath sounds at bases HEART: S1 S2 regular rate and rhythm , ABDOMEN: Soft , no tenderness EXTREMITIES: Right foot wound is currently covered with a wound VAC - Labs CBC & Chem 7: 09/04/22 05:57 09/04/22 05:57 Labs: Abnormal Lab Results - Last 24 Hours (Table) 09/05/22 09/05/22 09/05/22 Range/Units 07:28 11:41 16:42 PT 12.6 H (9.0-12.0) sec INR 1.2 H (<1.2) POC Glucose (mg/dL) 138 H 190 H (70-110) mg/dL 09/05/22 Range/Units 20:51 PT (9.0-12.0) sec INR (<1.2) POC Glucose (mg/dL) 209 H (70-110) mg/dL Assessment and Plan (1) C. difficile colitis Current Visit: Yes Status: Acute Code(s): A04.72 - ENTEROCOLITIS D/T CLOSTRIDIUM DIFFICILE, NOT SPCF RECUR SNOMED Code(s): 894467931 (2) UTI (urinary tract infection) Current Visit: Yes Status: Acute Code(s): N39.0 - URINARY TRACT INFECTION, SITE NOT SPECIFIED SNOMED Code(s): 24333923 Plan: 1patient presented to hospital with weakness confusion which is likely multifactorial in this patient who recently did have a right fifth toe gangrene status post amputation of the right fifth toe and debridement of the right heel wound culture positive for strep and anaerobes were the patient was receiving Unasyn at the residential patient did have a necrotic changes at the right fifth toe amputation site patient is status post surgical debridement and local care switched to wound VAC to continue 2patient with a complaint of UTI likely from urinary retention from enteric gram-negative pathogen patient to have a borderline kidney function high risk of nephrotoxicity initial urinalysis Pseudomonas repeat urine and now showing Sylvia da albicans patient to continue with short course of oral Diflucan 3 patient with a C. diff colitis, patient did have improvement in his diarrhea to continue with vancomycin to finish a ten-day course of therapy Time with Patient: Less than 30
[2022-09-06] MEDS: VANCOMYCIN 125 MG CAPSULE PO SCH ×5 (01:19→23:09)
[2022-09-06] MEDS: ACETAMINOPHEN TAB 325 MG TAB PO PRN (01:20)
[2022-09-06 06:47] LABS: Glucose,Whole Blood 101 mg/dL (70-110)
[2022-09-06 07:52] LABS: Basophils # (A) 0.1 k/uL (0-0.2); Basophils % (A) 1 %; Eosinophils # (A) 0.2 k/uL (0-0.7); Eosinophils % (A) 3 %; HCT 33.1 % (39.0-53.0); HGB 9.6 gm/dL (13.0-17.5); Hypochromasia Marked; Lymphocytes # (A) 1.4 k/uL (1.0-4.8); Lymphocytes % (A) 18 %; MCH 28.4 pg (25.0-35.0); MCV 97.8 fL (80.0-100.0); Macrocytosis Slight; Mean Platelet Volume 8.2; Monocytes # (A) 0.4 k/uL (0-1.0); Monocytes % (A) 5 %; Neutrophils # (A) 5.4 k/uL (1.3-7.7); Neutrophils % (A) 71 %; Platelet Count 305 k/uL (150-450); RBC 3.38 m/uL (4.30-5.90); RDW 15.8 % (11.5-15.5); WBC 7.5 k/uL (3.8-10.6)
[2022-09-06] MEDS: INSULIN ASPART (NovoLOG) 100 UNIT/ML VIAL SQ SCH ×4 (07:59→23:15)
[2022-09-06] MEDS: NON FORMULARY DRUG (Azelastine/Fluticasone [Azelastin-Flutic 137-50mcg Spr] 23 GM Each) EA NOSTRIL SCH (08:00)
[2022-09-06 08:12] LABS: African American GFR (CKD) 83 (>60 ml/min/1.73 sqM); Anion Gap 4 mmol/L; Blood Urea Nitrogen 12 mg/dL (9-20); Calcium 8.2 mg/dL (8.4-10.2); Carbon Dioxide 29 mmol/L (22-30); Chloride 105 mmol/L (98-107); Glucose 80 mg/dL (74-99); Non-African American GFR(CKD) 72 (>60 ml/min/1.73 sqM); Potassium 4.6 mmol/L (3.5-5.1); Sodium 138 mmol/L (137-145)
[2022-09-06 08:14] LABS: INR 1.2 (<1.2); Prothrombin Time 12.8 sec (9.0-12.0)
[2022-09-06] MEDS: RANOLAZINE 500 MG TAB.ER.12H PO SCH ×2 (08:50→23:28)
[2022-09-06] MEDS: ASCORBIC ACID 500 MG TAB PO SCH (08:50)
[2022-09-06] MEDS: DOXAZOSIN 2 MG TAB PO SCH (08:50)
[2022-09-06] MEDS: MULTIVITAMINS, THERA 1 EACH TAB PO SCH (08:50)
[2022-09-06] MEDS: METOPROLOL TARTRATE 12.5 MG TAB PO SCH ×2 (08:50→23:10)
[2022-09-06] MEDS: FINASTERIDE 5 MG TAB PO SCH (08:50)
[2022-09-06] MEDS: ZINC SULFATE 220 MG CAP PO SCH (08:50)
[2022-09-06] MEDS: GABAPENTIN 100 MG CAP PO SCH ×2 (08:50→23:09)
[2022-09-06] MEDS: FLUCONAZOLE 100 MG TAB PO SCH (08:50)
[2022-09-06] MEDS: MENTHOL-ZINC OXIDE OINT 113 GM TUBE TOPICAL SCH ×3 (08:52→23:10)
[2022-09-06] MEDS: SODIUM CHLORIDE 0.9% 1,000 ML IV SCH (11:16)
[2022-09-06 11:23] LABS: Glucose,Whole Blood 141 mg/dL (70-110)
--- NOTE | 2022-09-06 15:13 | P.PN ---
Subjective Progress Note Date: 09/06/22 This is an 86-year-old male with medical history of atrial fibrillation, diabetes, hypertension, hyperlipidemia, sleep apnea, coronary artery disease with open heart and stents in the past, sick sinus syndrome status post permanent pacemaker placed in 2017. Patient is a former smoker. 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 He had PICC Line placed and was discharged on IV antibiotics to [facility]. He was recently diagnosed with covid on 08/18/22. He was in the E.[facility] on 08/19 after accidently pulling his PICC Line out and required reinsertion of PICC line by interventional radiology. Patient presents to the hospital from the retirement for altered mental status and a possible syncopal episode. Patient was moved out of the Covid unit yesterday at [facility]. Patient's does report that since his last hospital stay he has had confusion and poor verbal response. He is alert 1 but easily a rousable in the EC. On examination he is alert x 2 to 3. Patient believes that he may have had an emesis episode after eating yesterday he is incontinent of bowel and bladder. He had brain CT completed showing no acute intracranial process. and non specific white matter change likely secondary to chronic small vessel ischemic disease. Also there is opacity of frontal sinus possible mastoid effusion. Chest xray showing bibasilar acute atelectasis and or linear scarring no acute infiltrate seen. Patient presents with a white count 10.9, hemoglobin 9.7, INR of 2.2, BUN 33, creatinine 1.92, glucose of 124, liver enzymes are normal, troponin 0.025. Urine is showing trace ketones, moderate blood, large leukocyte Estrace. Patient is anticoagulated with coumadin and INR is 2.2 on admission. He received a dose of gentamicin in the EC. He was discharged prevoius admission on IV unasyn managed by Dr. Holland who has been consulted. He was discharged to [facility] with indwelling catheter placed by urology his previous admission and this was discontinued at [facility] he is found to be retaining urine currently. Urology will be consulted. 08/29/2022 Patient evaluated today on medical floor with at bedside. He was found to be positive for C.Dif colitis and has been started on oral vancomycin. He denies episodes of diarrhea however documentation shows 4 bowel movements overnight and 2 today. Urine culture is showing gram negative bacilli currently. He continues on IV ceftriaxone. Infectious disease following. Indwelling catheter has been replaced with urine output of -2.7 liters initially and an additional 844 mL of urine out today. IV fluids will be lowered to 50 mL per hour. Creatinine improved down to 1.3. today. Continues on oxygen via nasal cannula, afebrile, heart rate 70, blood pressure 156/75. If creatinine continues to improve tomorrow can resume ernesto inhibitor. Blood glucose in the 80s. Vascular services has been consulted for further evaluation of 5th toe amputation site. 08/30/2022 No acute events overnight. Continues on 2L nasal cannula. Reports no pain. Vascular consultation requested secondary to necrosis at 5th toe amputation site. Patient is scheduled to undergo aortogram with Dr. Cole tomorrow. Coumadin has been placed on hold for this. INR today 2.35. Hgb 8.7, magnesium 1.8. Creatinine stable at 1.3. Continues on gentle hydration. Continues on IV ceftriaxone for UTI and also on oral vanco for C. Dif. 1 Bowel movement overnight and 1 BM today, staff reports stool is loose in consistency. No longer liquid. 08/31/2022 Patient is evaluated today post aortogram which was unsuccessful per notes. There is critical limb ischemia right lower extremity with diminutive left radial artery with high bifurcation. Plans for CTA of abdomen pelvis with run off recommended. He reports no acute events overnight. Continues on 2L nasal cannula, lungs are clear at this time. Staff reports 1 BM overnight which is becoming more formed. Continues on oral vancomycin. Urine culture has finalized showing pseudomonas aeruginosa. Antibiotics adjusted to ceftazadime. Infectious disease following. White count today 5.41, hgb 8.7, sodium 139, potassium 4.4, magnesium 1.8, BUN 15.1, creatinine 1.3. Glucose 170s. UA has been repeated with improvement. Blood pressure 151/71. 09/01/2022 Patient is evaluated today resting in bed. No acute events overnight. Patient underwent CTA abdomen aorta with run off today. Vascular surgery not recommended any intervention, recommending to continue local wound care and offloading. Warfarin will be resumed. HGB today 8.4. Creatinine improving down to 1.2. Repeat urine culture pending finalized. Patient continues on IV ceftazidime. Local wound care with santyl. Patient is having 1 BM per shift which staff reports is becoming more formed. 09/02/22. Patient seen and examined. Denies any pain in his right foot. States he feels better. Scheduled for procedure tomorrow 09/03/22. Patient seen and examined. Denies any acute issues overnight. States pain in his foot has improved. Denies any diarrhea. Vital signs stable 09/04/22. Patient seen and examined. Currently nothing by mouth for surgery today. Vital signs stable still has pain in his right foot 09/05/22. Patient seen and examined. Patient underwent sharp excisional debridement right fifth toe amputation site 5 x 3.5 x 0.7cm to bone,Sharp excisional debridement right heel 5 x 5 x 0.3cm subcutaneous tissue yesterday, wound VAC in place. Still has pain in his right foot 09/06. Patient seen and examined. Labs reviewed. Vital signs stable. REVIEW OF SYSTEMS: CONSTITUTIONAL: No fever, no malaise,. CARDIOVASCULAR: No chest pain, no palpitations, no syncope. PULMONARY: No shortness of breath, no cough, GASTROINTESTINAL: No diarrhea, no nausea, no abdominal pain. PHYSICAL EXAMINATION: GENERAL: The patient is alert and oriented x3, not in any acute distress. Well developed, well nourished. HEENT: Pupils are round and equally reacting to light. EOMI. No scleral icterus. No conjunctival pallor. Normocephalic, atraumatic. No pharyngeal erythema. No thyromegaly. CARDIOVASCULAR: S1 and S2 present. No murmurs, rubs, or gallops. PULMONARY: Chest is clear to auscultation, no wheezing or crackles. ABDOMEN: Soft, nontender, nondistended, normoactive bowel sounds. No palpable organomegaly. MUSCULOSKELETAL: Right foot dressing seen, wound VAC seen EXTREMITIES: No cyanosis, clubbing, or pedal edema. NEUROLOGICAL: Gross neurological examination did not reveal any focal deficits. SKIN: No rashes. Assessment and plan Episode of unresponsiveness/syncope mostly likely from dehydration -Altered mental status secondary to acute metabolic encephalopathy from acute renal injury, improved -Acute renal failure mostly likely prerenal and also patient has urinary retention, improved -C.Dif colitis -Recent covid infection with first positive on 08/18/22 currently maintained on 2L of nasal cannula since. 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 -Diabetic peripheral neuropathy -Hyperlipidemia -hypertension -Sleep apnea for which patient uses CPAP machine at home -Stage 3 sacral pressure ulcer present on admission -Bilateral heel pressure ulcer unstageable patient underwent surgical debridement of right heel previous admission, present on admission Plan Monitor vital signs Monitor CBC Continue oral vancomycin Continues with local wound care Continue wound VAC per surgery Continue with indwelling catheter Follow-up in ID recommendations Continue Coumadin Objective - Vital Signs Vital signs: Vital Signs Temp 98.3 F 09/06/22 14:18 Pulse 79 09/06/22 14:18 Resp 18 09/06/22 14:18 BP 157/75 09/06/22 14:18 Pulse Ox 92 L 09/06/22 14:18 FiO2 Intake & Output 09/05/22 09/06/22 09/06/22 18:59 06:59 18:59 Intake Total 600 Output Total 340 1100 Balance 260 -1100 Intake: IV 600 Sodium Chloride 0.9% 1, 600 000 ml @ 50 mls/hr IV . Q20H [facility] Rx#:[id number] Output: Urine 340 1100 Uretheral (Cross) 340 Other: Voiding Method Indwelling Catheter Indwelling Catheter Indwelling Catheter - Labs CBC & Chem 7: 09/06/22 07:13 09/06/22 07:13 Labs: Abnormal Lab Results - Last 24 Hours (Table) 09/05/22 09/05/22 09/06/22 Range/Units 16:42 20:51 07:13 RBC (4.30-5.90) m/uL Hgb (13.0-17.5) gm/dL Hct (39.0-53.0) % MCHC (31.0-37.0) g/dL RDW (11.5-15.5) % PT 12.8 H (9.0-12.0) sec INR 1.2 H (<1.2) POC Glucose (mg/dL) 190 H 209 H (70-110) mg/dL Calcium (8.4-10.2) mg/dL 09/06/22 09/06/22 09/06/22 Range/Units 07:13 07:13 11:22 RBC 3.38 L (4.30-5.90) m/uL Hgb 9.6 L (13.0-17.5) gm/dL Hct 33.1 L (39.0-53.0) % MCHC 29.0 L (31.0-37.0) g/dL RDW 15.8 H (11.5-15.5) % PT (9.0-12.0) sec INR (<1.2) POC Glucose (mg/dL) 141 H (70-110) mg/dL Calcium 8.2 L (8.4-10.2) mg/dL
[2022-09-06 16:33] LABS: Glucose,Whole Blood 174 mg/dL (70-110)
[2022-09-06] MEDS: TAMSULOSIN 0.4 MG CAP.ER.24H PO SCH (17:22)
[2022-09-06] MEDS ORDERED: WARFARIN 5 MG TAB PO ONE (18:00)
[2022-09-06 20:42] LABS: Glucose,Whole Blood 193 mg/dL (70-110)
[2022-09-06] MEDS: INSULIN DETEMIR (LEVEMIR) 100 UNIT/ML SYR SQ SCH (23:08)
[2022-09-06 23:09] LABS: Glucose,Whole Blood 162 mg/dL (70-110)
[2022-09-06] MEDS: ATORVASTATIN 40 MG TAB PO SCH (23:09)
[2022-09-06] MEDS: LEVOTHYROXINE 125 MCG TAB PO SCH (23:09)
[2022-09-06] MEDS: ASPIRIN 81 MG PO SCH (23:10)
[2022-09-06] MEDS: CHOLECALCIFEROL 25 MCG (1000 IU) TABLET PO SCH (23:10)
[2022-09-06] MEDS: FAMOTIDINE 20 MG TAB PO SCH (23:10)
[2022-09-07] MEDS: NON FORMULARY DRUG (Azelastine/Fluticasone [Azelastin-Flutic 137-50mcg Spr] 23 GM Each) EA NOSTRIL SCH ×3 (01:31→21:21)
[2022-09-07] MEDS: SODIUM CHLORIDE 0.9% 1,000 ML IV SCH ×2 (05:00→21:29)
[2022-09-07 07:14] LABS: Glucose,Whole Blood 133 mg/dL (70-110)
[2022-09-07] MEDS: INSULIN ASPART (NovoLOG) 100 UNIT/ML VIAL SQ SCH ×4 (07:28→21:20)
[2022-09-07] MEDS: FLUCONAZOLE 100 MG TAB PO SCH (07:48)
[2022-09-07] MEDS: VANCOMYCIN 125 MG CAPSULE PO SCH ×4 (07:48→21:23)
[2022-09-07] MEDS: GABAPENTIN 100 MG CAP PO SCH ×2 (07:48→21:19)
[2022-09-07] MEDS: DOXAZOSIN 2 MG TAB PO SCH (07:48)
[2022-09-07] MEDS: RANOLAZINE 500 MG TAB.ER.12H PO SCH ×2 (07:48→21:20)
[2022-09-07] MEDS: METOPROLOL TARTRATE 12.5 MG TAB PO SCH ×2 (07:48→21:20)
[2022-09-07] MEDS: ASCORBIC ACID 500 MG TAB PO SCH (07:48)
[2022-09-07] MEDS: MULTIVITAMINS, THERA 1 EACH TAB PO SCH (07:48)
[2022-09-07] MEDS: MENTHOL-ZINC OXIDE OINT 113 GM TUBE TOPICAL SCH ×3 (07:48→21:23)
[2022-09-07] MEDS: FINASTERIDE 5 MG TAB PO SCH (07:48)
[2022-09-07] MEDS: ZINC SULFATE 220 MG CAP PO SCH (07:48)
[2022-09-07 08:59] LABS: Basophils % (A) 0 %; Eosinophils # (A) 0.2 k/uL (0-0.7); Eosinophils % (A) 3 %; HCT 32.4 % (39.0-53.0); Hypochromasia Marked; Lymphocytes # (A) 1.6 k/uL (1.0-4.8); Lymphocytes % (A) 23 %; MCH 29.6 pg (25.0-35.0); MCHC 30.7 g/dL (31.0-37.0); MCV 96.5 fL (80.0-100.0); Mean Platelet Volume 8.1; Monocytes # (A) 0.3 k/uL (0-1.0); Monocytes % (A) 5 %; Neutrophils # (A) 4.5 k/uL (1.3-7.7); Neutrophils % (A) 67 %; Platelet Count 300 k/uL (150-450); RBC 3.36 m/uL (4.30-5.90); RDW 15.6 % (11.5-15.5); WBC 6.7 k/uL (3.8-10.6)
[2022-09-07 09:10] LABS: African American GFR (CKD) 79 (>60 ml/min/1.73 sqM); Anion Gap 5 mmol/L; Blood Urea Nitrogen 10 mg/dL (9-20); Calcium 8.2 mg/dL (8.4-10.2); Carbon Dioxide 31 mmol/L (22-30); Chloride 103 mmol/L (98-107); Glucose 133 mg/dL (74-99); Non-African American GFR(CKD) 68 (>60 ml/min/1.73 sqM); Potassium 4.5 mmol/L (3.5-5.1); Sodium 139 mmol/L (137-145)
[2022-09-07 09:11] LABS: INR 1.6 (<1.2); Prothrombin Time 15.9 sec (9.0-12.0)
[2022-09-07 11:43] LABS: Glucose,Whole Blood 181 mg/dL (70-110)
[2022-09-07] MEDS: FERROUS SULFATE 325 MG TAB PO SCH (11:48)
--- NOTE | 2022-09-07 14:33 | P.PN ---
Subjective Progress Note Date: 09/07/22 This is an 86-year-old male with medical history of atrial fibrillation, diabetes, hypertension, hyperlipidemia, sleep apnea, coronary artery disease with open heart and stents in the past, sick sinus syndrome status post permanent pacemaker placed in 2017. Patient is a former smoker. 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 He had PICC Line placed and was discharged on IV antibiotics to [facility]. He was recently diagnosed with covid on 08/18/22. He was in the E.C on 08/19 after accidently pulling his PICC Line out and required reinsertion of PICC line by interventional radiology. Patient presents to the hospital from the residential for altered mental status and a possible syncopal episode. Patient was moved out of the Covid unit yesterday at [facility]. Patient's does report that since his last hospital stay he has had confusion and poor verbal response. He is alert 1 but easily a rousable in the EC. On examination he is alert x 2 to 3. Patient believes that he may have had an emesis episode after eating yesterday he is incontinent of bowel and bladder. He had brain CT completed showing no acute intracranial process. and non specific white matter change likely secondary to chronic small vessel ischemic disease. Also there is opacity of frontal sinus possible mastoid effusion. Chest xray showing bibasilar acute atelectasis and or linear scarring no acute infiltrate seen. Patient presents with a white count 10.9, hemoglobin 9.7, INR of 2.2, BUN 33, creatinine 1.92, glucose of 124, liver enzymes are normal, troponin 0.025. Urine is showing trace ketones, moderate blood, large leukocyte Estrace. Patient is anticoagulated with coumadin and INR is 2.2 on admission. He received a dose of gentamicin in the EC. He was discharged prevoius admission on IV unasyn managed by Dr. Holland who has been consulted. He was discharged to [facility] with indwelling catheter placed by urology his previous admission and this was discontinued at [facility] he is found to be retaining urine currently. Urology will be consulted. 08/29/2022 Patient evaluated today on medical floor with at bedside. He was found to be positive for C.Dif colitis and has been started on oral vancomycin. He denies episodes of diarrhea however documentation shows 4 bowel movements overnight and 2 today. Urine culture is showing gram negative bacilli currently. He continues on IV ceftriaxone. Infectious disease following. Indwelling catheter has been replaced with urine output of -2.7 liters initially and an additional 844 mL of urine out today. IV fluids will be lowered to 50 mL per hour. Creatinine improved down to 1.3. today. Continues on oxygen via nasal cannula, afebrile, heart rate 70, blood pressure 156/75. If creatinine continues to improve tomorrow can resume ernesto inhibitor. Blood glucose in the 80s. Vascular services has been consulted for further evaluation of 5th toe amputation site. 08/30/2022 No acute events overnight. Continues on 2L nasal cannula. Reports no pain. Vascular consultation requested secondary to necrosis at 5th toe amputation site. Patient is scheduled to undergo aortogram with Dr. Cole tomorrow. Coumadin has been placed on hold for this. INR today 2.35. Hgb 8.7, magnesium 1.8. Creatinine stable at 1.3. Continues on gentle hydration. Continues on IV ceftriaxone for UTI and also on oral vanco for C. Dif. 1 Bowel movement overnight and 1 BM today, staff reports stool is loose in consistency. No longer liquid. 08/31/2022 Patient is evaluated today post aortogram which was unsuccessful per notes. There is critical limb ischemia right lower extremity with diminutive left radial artery with high bifurcation. Plans for CTA of abdomen pelvis with run off recommended. He reports no acute events overnight. Continues on 2L nasal cannula, lungs are clear at this time. Staff reports 1 BM overnight which is becoming more formed. Continues on oral vancomycin. Urine culture has finalized showing pseudomonas aeruginosa. Antibiotics adjusted to ceftazadime. Infectious disease following. White count today 5.41, hgb 8.7, sodium 139, potassium 4.4, magnesium 1.8, BUN 15.1, creatinine 1.3. Glucose 170s. UA has been repeated with improvement. Blood pressure 151/71. 09/01/2022 Patient is evaluated today resting in bed. No acute events overnight. Patient underwent CTA abdomen aorta with run off today. Vascular surgery not recommended any intervention, recommending to continue local wound care and offloading. Warfarin will be resumed. HGB today 8.4. Creatinine improving down to 1.2. Repeat urine culture pending finalized. Patient continues on IV ceftazidime. Local wound care with santyl. Patient is having 1 BM per shift which staff reports is becoming more formed. 09/02/22. Patient seen and examined. Denies any pain in his right foot. States he feels better. Scheduled for procedure tomorrow 09/03/22. Patient seen and examined. Denies any acute issues overnight. States pain in his foot has improved. Denies any diarrhea. Vital signs stable 09/04/22. Patient seen and examined. Currently nothing by mouth for surgery today. Vital signs stable still has pain in his right foot 09/05/22. Patient seen and examined. Patient underwent sharp excisional debridement right fifth toe amputation site 5 x 3.5 x 0.7cm to bone,Sharp excisional debridement right heel 5 x 5 x 0.3cm subcutaneous tissue yesterday, wound VAC in place. Still has pain in his right foot 09/06. Patient seen and examined. Labs reviewed. Vital signs stable. 09/07. Labs reviewed. Patient currently laying comfortably in the bed. Denies any acute issues overnight. REVIEW OF SYSTEMS: CONSTITUTIONAL: No fever, no malaise,. CARDIOVASCULAR: No chest pain, no palpitations, no syncope. PULMONARY: No shortness of breath, no cough, GASTROINTESTINAL: No diarrhea, no nausea, no abdominal pain. PHYSICAL EXAMINATION: GENERAL: The patient is alert and oriented x3, not in any acute distress. Well developed, well nourished. HEENT: Pupils are round and equally reacting to light. EOMI. No scleral icterus. No conjunctival pallor. Normocephalic, atraumatic. No pharyngeal erythema. No thyromegaly. CARDIOVASCULAR: S1 and S2 present. No murmurs, rubs, or gallops. PULMONARY: Chest is clear to auscultation, no wheezing or crackles. ABDOMEN: Soft, nontender, nondistended, normoactive bowel sounds. No palpable organomegaly. MUSCULOSKELETAL: Right foot dressing seen, wound VAC seen EXTREMITIES: No cyanosis, clubbing, or pedal edema. NEUROLOGICAL: Gross neurological examination did not reveal any focal deficits. SKIN: No rashes. Assessment and plan Episode of unresponsiveness/syncope mostly likely from dehydration -Altered mental status secondary to acute metabolic encephalopathy from acute renal injury, improved -Acute renal failure mostly likely prerenal and also patient has urinary retention, improved -C.Dif colitis -Recent covid infection with first positive on 08/18/22 currently maintained on 2L of nasal cannula since. 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 -Diabetic peripheral neuropathy -Hyperlipidemia -hypertension -Sleep apnea for which patient uses CPAP machine at home -Stage 3 sacral pressure ulcer present on admission -Bilateral heel pressure ulcer unstageable patient underwent surgical debridement of right heel previous admission, present on admission Plan Monitor vital signs Monitor CBC Continue oral vancomycin Continues with local wound care Continue wound VAC per surgery Continue with indwelling catheter Follow-up in ID recommendations Continue Coumadin and INR is 1.6 Objective - Vital Signs Vital signs: Vital Signs Temp 98.0 F 09/07/22 08:00 Pulse 93 09/07/22 08:00 Resp 18 09/07/22 08:16 BP 153/78 09/07/22 08:00 Pulse Ox 94 L 09/07/22 08:00 FiO2 Intake & Output 09/06/22 09/07/22 09/07/22 18:59 06:59 18:59 Intake Total 1080 Output Total 1250 2300 650 Balance -170 -2300 -650 Intake: Oral 1080 Output: Urine 1250 2300 650 Uretheral (Cross) 875 Other: Voiding Method Indwelling Catheter Indwelling Catheter Indwelling Catheter - Labs CBC & Chem 7: 09/07/22 07:58 09/07/22 07:58 Labs: Abnormal Lab Results - Last 24 Hours (Table) 09/06/22 09/06/22 09/06/22 Range/Units 16:31 20:40 23:06 RBC (4.30-5.90) m/uL Hgb (13.0-17.5) gm/dL Hct (39.0-53.0) % MCHC (31.0-37.0) g/dL RDW (11.5-15.5) % PT (9.0-12.0) sec INR (<1.2) Carbon Dioxide (22-30) mmol/L Glucose (74-99) mg/dL POC Glucose (mg/dL) 174 H 193 H 162 H (70-110) mg/dL Calcium (8.4-10.2) mg/dL 09/07/22 09/07/22 09/07/22 Range/Units 07:13 07:58 07:58 RBC 3.36 L (4.30-5.90) m/uL Hgb 10.0 L (13.0-17.5) gm/dL Hct 32.4 L (39.0-53.0) % MCHC 30.7 L (31.0-37.0) g/dL RDW 15.6 H (11.5-15.5) % PT 15.9 H (9.0-12.0) sec INR 1.6 H (<1.2) Carbon Dioxide (22-30) mmol/L Glucose (74-99) mg/dL POC Glucose (mg/dL) 133 H (70-110) mg/dL Calcium (8.4-10.2) mg/dL 09/07/22 09/07/22 Range/Units 07:58 11:42 RBC (4.30-5.90) m/uL Hgb (13.0-17.5) gm/dL Hct (39.0-53.0) % MCHC (31.0-37.0) g/dL RDW (11.5-15.5) % PT (9.0-12.0) sec INR (<1.2) Carbon Dioxide 31 H (22-30) mmol/L Glucose 133 H (74-99) mg/dL POC Glucose (mg/dL) 181 H (70-110) mg/dL Calcium 8.2 L (8.4-10.2) mg/dL
[2022-09-07 16:42] LABS: Glucose,Whole Blood 159 mg/dL (70-110)
[2022-09-07] MEDS: TAMSULOSIN 0.4 MG CAP.ER.24H PO SCH (17:21)
[2022-09-07] MEDS: ACETAMINOPHEN TAB 325 MG TAB PO PRN (17:21)
[2022-09-07] MEDS ORDERED: WARFARIN 3 MG TAB PO ONE (18:00)
[2022-09-07] MEDS: HYDROcodone/APAP 5-325MG 1 EACH TAB PO PRN (20:07)
[2022-09-07 21:14] LABS: Glucose,Whole Blood 188 mg/dL (70-110)
[2022-09-07] MEDS: ASPIRIN 81 MG PO SCH (21:19)
[2022-09-07] MEDS: FAMOTIDINE 20 MG TAB PO SCH (21:19)
[2022-09-07] MEDS: CHOLECALCIFEROL 25 MCG (1000 IU) TABLET PO SCH (21:19)
[2022-09-07] MEDS: ATORVASTATIN 40 MG TAB PO SCH (21:19)
[2022-09-07] MEDS: INSULIN DETEMIR (LEVEMIR) 100 UNIT/ML SYR SQ SCH (21:21)
[2022-09-07] MEDS: LEVOTHYROXINE 125 MCG TAB PO SCH (21:22)
--- NOTE | 2022-09-08 00:09 | P.PN ---
Subjective Progress Note Date: 09/06/22 Principal diagnosis: UTI/C. diff colitis and right foot wound Patient is a 86-year-old male with multiple comorbidities with recent right fifth toe amputation for gangrene and debridement of the right foot culture positive for strep and the patient was sent to the custodial on IV Unasyn now presenting back to the hospital with mental status changes noticed to have significant urinary retention requiring Cross catheter placement and a positive UA. Patient is status post debridement of the right fifth toe amputation site and right heel wound by vascular surgery on 09/04/2022 On today's evaluation that is 09/06/2022 the patient continues to be afebrile, patient is breathing comfortably on room air, the patient denies chest pain shortness of breath or cough no abdominal pain, the patient diarrhea has resolved per the nursing staff , no new symptoms Objective - Vital Signs Vital signs: Vital Signs Temp 98.1 F 09/06/22 06:48 Pulse 74 09/06/22 08:46 Resp 16 09/06/22 08:46 BP 147/68 09/06/22 06:48 Pulse Ox 92 L 09/06/22 06:48 FiO2 Intake & Output 09/05/22 09/06/22 09/06/22 18:59 06:59 18:59 Intake Total 600 Output Total 340 1100 Balance 260 -1100 Intake: IV 600 Sodium Chloride 0.9% 1, 600 000 ml @ 50 mls/hr IV . Q20H [facility] Rx#:[id number] Output: Urine 340 1100 Uretheral (Cross) 340 Other: Voiding Method Indwelling Catheter Indwelling Catheter Indwelling Catheter - Exam GENERAL DESCRIPTION: An elderly male lying in bed in no distress RESPIRATORY SYSTEM: Unlabored breathing , decreased breath sounds at bases HEART: S1 S2 regular rate and rhythm , ABDOMEN: Soft , no tenderness EXTREMITIES: Right foot wound is currently covered with a wound VAC - Labs CBC & Chem 7: 09/07/22 07:58 09/07/22 07:58 Labs: Abnormal Lab Results - Last 24 Hours (Table) 09/05/22 09/05/22 09/06/22 Range/Units 16:42 20:51 07:13 RBC (4.30-5.90) m/uL Hgb (13.0-17.5) gm/dL Hct (39.0-53.0) % MCHC (31.0-37.0) g/dL RDW (11.5-15.5) % PT 12.8 H (9.0-12.0) sec INR 1.2 H (<1.2) POC Glucose (mg/dL) 190 H 209 H (70-110) mg/dL Calcium (8.4-10.2) mg/dL 09/06/22 09/06/22 09/06/22 Range/Units 07:13 07:13 11:22 RBC 3.38 L (4.30-5.90) m/uL Hgb 9.6 L (13.0-17.5) gm/dL Hct 33.1 L (39.0-53.0) % MCHC 29.0 L (31.0-37.0) g/dL RDW 15.8 H (11.5-15.5) % PT (9.0-12.0) sec INR (<1.2) POC Glucose (mg/dL) 141 H (70-110) mg/dL Calcium 8.2 L (8.4-10.2) mg/dL Assessment and Plan (1) C. difficile colitis Current Visit: Yes Status: Acute Code(s): A04.72 - ENTEROCOLITIS D/T CLOSTRIDIUM DIFFICILE, NOT SPCF RECUR SNOMED Code(s): 904842339 (2) UTI (urinary tract infection) Current Visit: Yes Status: Acute Code(s): N39.0 - URINARY TRACT INFECTION, SITE NOT SPECIFIED SNOMED Code(s): 02552789 Plan: 1patient presented to hospital with weakness confusion which is likely multi factorial in this patient who recently did have a right fifth toe gangrene status post amputation of the right fifth toe and debridement of the right heel wound culture positive for strep and anaerobes were the patient was receiving Unasyn at the custodial patient did have a necrotic changes at the right fifth toe amputation site patient is status post surgical debridement and local care switched to wound VAC to continue 2patient with a complaint of UTI likely from urinary retention from enteric gram-negative pathogen patient to have a borderline kidney function high risk of nephrotoxicity initial urinalysis Pseudomonas repeat urine and now showing Jessika albicans patient currently on oral Diflucan 3 patient with a C. diff colitis, patient did have improvement in his diarrhea patient is currently being treated with vancomycin to finish a ten-day course of therapy Time with Patient: Less than 30
--- NOTE | 2022-09-08 00:11 | P.PN ---
Subjective Progress Note Date: 09/07/22 Principal diagnosis: UTI/C. diff colitis and right foot wound Patient is a 86-year-old male with multiple comorbidities with recent right fifth toe amputation for gangrene and debridement of the right foot culture positive for strep and the patient was sent to the shelter on IV Unasyn now presenting back to the hospital with mental status changes noticed to have significant urinary retention requiring Cross catheter placement and a positive UA. Patient is status post debridement of the right fifth toe amputation site and right heel wound by vascular surgery on 09/04/2022 On today's evaluation that is 09/07/2022 the patient remains to be afebrile, patient is breathing comfortably on room air, the patient denies chest pain shortness of breath or cough no abdominal pain, the patient diarrhea has resolved, the patient overall feeling better Objective - Vital Signs Vital signs: Vital Signs Temp 97.4 F L 09/07/22 14:00 Pulse 85 09/07/22 14:00 Resp 18 09/07/22 14:00 BP 160/80 09/07/22 14:00 Pulse Ox 93 L 09/07/22 14:00 FiO2 Intake & Output 09/06/22 09/07/22 09/07/22 18:59 06:59 18:59 Intake Total 1080 Output Total 1250 2300 650 Balance -170 -2300 -650 Intake: Oral 1080 Output: Urine 1250 2300 650 Uretheral (Cross) 875 Other: Voiding Method Indwelling Catheter Indwelling Catheter Indwelling Catheter - Exam GENERAL DESCRIPTION: An elderly male lying in bed in no distress RESPIRATORY SYSTEM: Unlabored breathing , decreased breath sounds at bases HEART: S1 S2 regular rate and rhythm , ABDOMEN: Soft , no tenderness EXTREMITIES: Right foot wound is currently covered with a wound VAC - Labs CBC & Chem 7: 09/07/22 07:58 09/07/22 07:58 Labs: Abnormal Lab Results - Last 24 Hours (Table) 09/06/22 09/06/22 09/07/22 Range/Units 20:40 23:06 07:13 RBC (4.30-5.90) m/uL Hgb (13.0-17.5) gm/dL Hct (39.0-53.0) % MCHC (31.0-37.0) g/dL RDW (11.5-15.5) % PT (9.0-12.0) sec INR (<1.2) Carbon Dioxide (22-30) mmol/L Glucose (74-99) mg/dL POC Glucose (mg/dL) 193 H 162 H 133 H (70-110) mg/dL Calcium (8.4-10.2) mg/dL 09/07/22 09/07/22 09/07/22 Range/Units 07:58 07:58 07:58 RBC 3.36 L (4.30-5.90) m/uL Hgb 10.0 L (13.0-17.5) gm/dL Hct 32.4 L (39.0-53.0) % MCHC 30.7 L (31.0-37.0) g/dL RDW 15.6 H (11.5-15.5) % PT 15.9 H (9.0-12.0) sec INR 1.6 H (<1.2) Carbon Dioxide 31 H (22-30) mmol/L Glucose 133 H (74-99) mg/dL POC Glucose (mg/dL) (70-110) mg/dL Calcium 8.2 L (8.4-10.2) mg/dL 09/07/22 09/07/22 Range/Units 11:42 16:38 RBC (4.30-5.90) m/uL Hgb (13.0-17.5) gm/dL Hct (39.0-53.0) % MCHC (31.0-37.0) g/dL RDW (11.5-15.5) % PT (9.0-12.0) sec INR (<1.2) Carbon Dioxide (22-30) mmol/L Glucose (74-99) mg/dL POC Glucose (mg/dL) 181 H 159 H (70-110) mg/dL Calcium (8.4-10.2) mg/dL Assessment and Plan (1) C. difficile colitis Current Visit: Yes Status: Acute Code(s): A04.72 - ENTEROCOLITIS D/T CLOSTRIDIUM DIFFICILE, NOT SPCF RECUR SNOMED Code(s): 538979719 (2) UTI (urinary tract infection) Current Visit: Yes Status: Acute Code(s): N39.0 - URINARY TRACT INFECTION, SITE NOT SPECIFIED SNOMED Code(s): 81577979 Plan: 1patient presented to hospital with weakness confusion which is likely multifactorial in this patient who recently did have a right fifth toe gangrene status post amputation of the right fifth toe and debridement of the right heel wound culture positive for strep and anaerobes were the patient was receiving Unasyn at the shelter patient did have a necrotic changes at the right fifth toe amputation site patient is status post surgical debridement and local care switched to wound VAC to continue 2patient with a complaint of UTI likely from urinary retention from enteric gram-negative pathogen patient to have a borderline kidney function high risk of nephrotoxicity initial urinalysis Pseudomonas repeat urine and now showing Jessika albicans patient to continue short course of Diflucan 3 patient with a C. diff colitis, patient has shown Clinical improvement and will continue the vancomycin oral and monitor clinical course closely Time with Patient: Less than 30
[2022-09-08] MEDS: HYDROcodone/APAP 5-325MG 1 EACH TAB PO PRN ×3 (04:48→18:41)
[2022-09-08 06:20] LABS: Glucose,Whole Blood 111 mg/dL (70-110)
[2022-09-08] MEDS: INSULIN ASPART (NovoLOG) 100 UNIT/ML VIAL SQ SCH ×4 (06:29→21:38)
[2022-09-08] MEDS: NON FORMULARY DRUG (Azelastine/Fluticasone [Azelastin-Flutic 137-50mcg Spr] 23 GM Each) EA NOSTRIL SCH ×2 (07:02→21:19)
[2022-09-08] MEDS: GABAPENTIN 100 MG CAP PO SCH ×2 (07:53→21:17)
[2022-09-08] MEDS: DOXAZOSIN 2 MG TAB PO SCH (07:53)
[2022-09-08] MEDS: ZINC SULFATE 220 MG CAP PO SCH (07:53)
[2022-09-08] MEDS: METOPROLOL TARTRATE 12.5 MG TAB PO SCH ×2 (07:53→21:18)
[2022-09-08] MEDS: RANOLAZINE 500 MG TAB.ER.12H PO SCH ×2 (07:53→21:17)
[2022-09-08] MEDS: VANCOMYCIN 125 MG CAPSULE PO SCH ×4 (07:53→21:17)
[2022-09-08] MEDS: FINASTERIDE 5 MG TAB PO SCH (07:53)
[2022-09-08] MEDS: MULTIVITAMINS, THERA 1 EACH TAB PO SCH (07:53)
[2022-09-08] MEDS: ASCORBIC ACID 500 MG TAB PO SCH (07:53)
[2022-09-08] MEDS: MENTHOL-ZINC OXIDE OINT 113 GM TUBE TOPICAL SCH ×3 (07:54→21:21)
[2022-09-08] MEDS: FLUCONAZOLE 100 MG TAB PO SCH (07:54)
--- NOTE | 2022-09-08 10:48 | P.PN ---
Progress Note - Text Progress Note Date: 09/08/22 The Cross catheter remains in place for urinary retention. It is draining clear urine. The dorsal slit incision has healed. Recent urine cultures have shown Pseudomonas and Jessika, which may simply represent colonization. It would be reasonable to remove the catheter for a voiding trial, but I suspect the catheter will need to be replaced for recurrent urinary retention. Ultimately, he may require formal urodynamic testing and cystoscopy as an outpatient.
[2022-09-08 11:05] LABS: Glucose,Whole Blood 167 mg/dL (70-110)
--- NOTE | 2022-09-08 12:52 | P.PN ---
Subjective Progress Note Date: 09/08/22 This is an 86-year-old male with medical history of atrial fibrillation, diabetes, hypertension, hyperlipidemia, sleep apnea, coronary artery disease with open heart and stents in the past, sick sinus syndrome status post permanent pacemaker placed in 2017. Patient is a former smoker. 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 He had PICC Line placed and was discharged on IV antibiotics to [facility]. He was recently diagnosed with covid on 08/18/22. He was in the E.C on 08/19 after accidently pulling his PICC Line out and required reinsertion of PICC line by interventional radiology. Patient presents to the hospital from the long-term for altered mental status and a possible syncopal episode. Patient was moved out of the Covid unit yesterday at [facility]. Patient's does report that since his last hospital stay he has had confusion and poor verbal response. He is alert 1 but easily a rousable in the EC. On examination he is alert x 2 to 3. Patient believes that he may have had an emesis episode after eating yesterday he is incontinent of bowel and bladder. He had brain CT completed showing no acute intracranial process. and non specific white matter change likely secondary to chronic small vessel ischemic disease. Also there is opacity of frontal sinus possible mastoid effusion. Chest xray showing bibasilar acute atelectasis and or linear scarring no acute infiltrate seen. Patient presents with a white count 10.9, hemoglobin 9.7, INR of 2.2, BUN 33, creatinine 1.92, glucose of 124, liver enzymes are normal, troponin 0.025. Urine is showing trace ketones, moderate blood, large leukocyte Estrace. Patient is anticoagulated with coumadin and INR is 2.2 on admission. He received a dose of gentamicin in the EC. He was discharged prevoius admission on IV unasyn managed by Dr. Holland who has been consulted. He was discharged to [facility] with indwelling catheter placed by urology his previous admission and this was discontinued at [facility] he is found to be retaining urine currently. Urology will be consulted. 08/29/2022 Patient evaluated today on medical floor with at bedside. He was found to be positive for C.Dif colitis and has been started on oral vancomycin. He denies episodes of diarrhea however documentation shows 4 bowel movements overnight and 2 today. Urine culture is showing gram negative bacilli currently. He continues on IV ceftriaxone. Infectious disease following. Indwelling catheter has been replaced with urine output of -2.7 liters initially and an additional 844 mL of urine out today. IV fluids will be lowered to 50 mL per hour. Creatinine improved down to 1.3. today. Continues on oxygen via nasal cannula, afebrile, heart rate 70, blood pressure 156/75. If creatinine continues to improve tomorrow can resume ernesto inhibitor. Blood glucose in the 80s. Vascular services has been consulted for further evaluation of 5th toe amputation site. 08/30/2022 No acute events overnight. Continues on 2L nasal cannula. Reports no pain. Vascular consultation requested secondary to necrosis at 5th toe amputation site. Patient is scheduled to undergo aortogram with Dr. Cole tomorrow. Coumadin has been placed on hold for this. INR today 2.35. Hgb 8.7, magnesium 1.8. Creatinine stable at 1.3. Continues on gentle hydration. Continues on IV ceftriaxone for UTI and also on oral vanco for C. Dif. 1 Bowel movement overnight and 1 BM today, staff reports stool is loose in consistency. No longer liquid. 08/31/2022 Patient is evaluated today post aortogram which was unsuccessful per notes. There is critical limb ischemia right lower extremity with diminutive left radial artery with high bifurcation. Plans for CTA of abdomen pelvis with run off recommended. He reports no acute events overnight. Continues on 2L nasal cannula, lungs are clear at this time. Staff reports 1 BM overnight which is becoming more formed. Continues on oral vancomycin. Urine culture has finalized showing pseudomonas aeruginosa. Antibiotics adjusted to ceftazadime. Infectious disease following. White count today 5.41, hgb 8.7, sodium 139, potassium 4.4, magnesium 1.8, BUN 15.1, creatinine 1.3. Glucose 170s. UA has been repeated with improvement. Blood pressure 151/71. 09/01/2022 Patient is evaluated today resting in bed. No acute events overnight. Patient underwent CTA abdomen aorta with run off today. Vascular surgery not recommended any intervention, recommending to continue local wound care and offloading. Warfarin will be resumed. HGB today 8.4. Creatinine improving down to 1.2. Repeat urine culture pending finalized. Patient continues on IV ceftazidime. Local wound care with santyl. Patient is having 1 BM per shift which staff reports is becoming more formed. 09/02/22. Patient seen and examined. Denies any pain in his right foot. States he feels better. Scheduled for procedure tomorrow 09/03/22. Patient seen and examined. Denies any acute issues overnight. States pain in his foot has improved. Denies any diarrhea. Vital signs stable 09/04/22. Patient seen and examined. Currently nothing by mouth for surgery today. Vital signs stable still has pain in his right foot 09/05/22. Patient seen and examined. Patient underwent sharp excisional debridement right fifth toe amputation site 5 x 3.5 x 0.7cm to bone,Sharp excisional debridement right heel 5 x 5 x 0.3cm subcutaneous tissue yesterday, wound VAC in place. Still has pain in his right foot 09/06. Patient seen and examined. Labs reviewed. Vital signs stable. 09/07. Labs reviewed. Patient currently laying comfortably in the bed. Denies any acute issues overnight. 09/08. Patient seen and examined. No acute issues overnight. Vital signs stable. Right foot pain has improved REVIEW OF SYSTEMS: CONSTITUTIONAL: No fever, no malaise,. CARDIOVASCULAR: No chest pain, no palpitations, no syncope. PULMONARY: No shortness of breath, no cough, GASTROINTESTINAL: No diarrhea, no nausea, no abdominal pain. PHYSICAL EXAMINATION: GENERAL: The patient is alert and oriented x3, not in any acute distress. Well developed, well nourished. HEENT: Pupils are round and equally reacting to light. EOMI. No scleral icterus. No conjunctival pallor. Normocephalic, atraumatic. No pharyngeal erythema. No thyromegaly. CARDIOVASCULAR: S1 and S2 present. No murmurs, rubs, or gallops. PULMONARY: Chest is clear to auscultation, no wheezing or crackles. ABDOMEN: Soft, nontender, nondistended, normoactive bowel sounds. No palpable organomegaly. MUSCULOSKELETAL: Right foot dressing seen, wound VAC seen EXTREMITIES: No cyanosis, clubbing, or pedal edema. NEUROLOGICAL: Gross neurological examination did not reveal any focal deficits. SKIN: No rashes. Assessment and plan Episode of unresponsiveness/syncope mostly likely from dehydration -Altered mental status secondary to acute metabolic encephalopathy from acute renal injury, improved -Acute renal failure mostly likely prerenal and also patient has urinary retention, improved -C.Dif colitis -Recent covid infection with first positive on 08/18/22 currently maintained on 2L of nasal cannula since. 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 -Diabetic peripheral neuropathy -Hyperlipidemia -hypertension -Sleep apnea for which patient uses CPAP machine at home -Stage 3 sacral pressure ulcer present on admission -Bilateral heel pressure ulcer unstageable patient underwent surgical debridement of right heel previous admission, present on admission Plan Monitor vital signs Monitor CBC Continue oral vancomycin Continues with local wound care Continue wound VAC per surgery Continue with indwelling catheter Follow-up in ID recommendations INR therapeutic, continue pharmacy dose Coumadin Possible discharge in the morning to rehab Objective - Vital Signs Vital signs: Vital Signs Temp 98.2 F 09/08/22 08:00 Pulse 84 09/08/22 08:00 Resp 18 09/08/22 09:50 BP 149/64 09/08/22 08:00 Pulse Ox 91 L 09/08/22 08:00 FiO2 Intake & Output 09/07/22 09/08/22 09/08/22 18:59 06:59 18:59 Intake Total 200 Output Total 1999 1300 1 Balance -1999 199 Intake: Oral 200 Output: Urine 1999 1300 Stool 1 Other: Voiding Method Indwelling Catheter Indwelling Catheter Indwelling Catheter - Labs CBC & Chem 7: 09/07/22 07:58 09/07/22 07:58 Labs: Abnormal Lab Results - Last 24 Hours (Table) 09/07/22 09/07/22 09/08/22 Range/Units 16:38 21:12 04:51 PT 20.0 H (9.0-12.0) sec INR 2.0 H (<1.2) POC Glucose (mg/dL) 159 H 188 H (70-110) mg/dL 09/08/22 09/08/22 Range/Units 06:18 11:03 PT (9.0-12.0) sec INR (<1.2) POC Glucose (mg/dL) 111 H 167 H (70-110) mg/dL
--- NOTE | 2022-09-08 15:54 | P.PN ---
Subjective Progress Note Date: 09/08/22 Principal diagnosis: UTI/C. diff colitis and right foot wound Patient is a 86-year-old male with multiple comorbidities with recent right fifth toe amputation for gangrene and debridement of the right foot culture positive for strep and the patient was sent to the custodial on IV Unasyn now presenting back to the hospital with mental status changes noticed to have significant urinary retention requiring Cross catheter placement and a positive UA. Patient is status post debridement of the right fifth toe amputation site and right heel wound by vascular surgery on 09/04/2022 On today's evaluation that is 09/08/2022 the patient continues to be afebrile, patient is breathing comfortably on room air, the patient denies chest pain shortness of breath or cough, the patient denies having any nausea no vomiting no abdominal pain and did have resolution of his diarrhea pain to the right foot is controlled Objective - Vital Signs Vital signs: Vital Signs Temp 97.5 F L 09/08/22 14:00 Pulse 74 09/08/22 14:00 Resp 16 09/08/22 14:00 BP 113/63 09/08/22 14:00 Pulse Ox 93 L 09/08/22 14:00 FiO2 Intake & Output 09/07/22 09/08/22 09/08/22 18:59 06:59 18:59 Intake Total 200 Output Total 1999 1300 1 Balance -1999 199 Intake: Oral 200 Output: Urine 1999 1300 Stool 1 Other: Voiding Method Indwelling Catheter Indwelling Catheter Indwelling Catheter - Exam GENERAL DESCRIPTION: An elderly male lying in bed in no distress RESPIRATORY SYSTEM: Unlabored breathing , decreased breath sounds at bases HEART: S1 S2 regular rate and rhythm , ABDOMEN: Soft , no tenderness EXTREMITIES: Right foot wound is currently covered with a wound VAC - Labs CBC & Chem 7: 09/07/22 07:58 09/07/22 07:58 Labs: Abnormal Lab Results - Last 24 Hours (Table) 09/07/22 09/07/22 09/08/22 Range/Units 16:38 21:12 04:51 PT 20.0 H (9.0-12.0) sec INR 2.0 H (<1.2) POC Glucose (mg/dL) 159 H 188 H (70-110) mg/dL 09/08/22 09/08/22 Range/Units 06:18 11:03 PT (9.0-12.0) sec INR (<1.2) POC Glucose (mg/dL) 111 H 167 H (70-110) mg/dL Assessment and Plan (1) C. difficile colitis Current Visit: Yes Status: Acute Code(s): A04.72 - ENTEROCOLITIS D/T CLOSTRIDIUM DIFFICILE, NOT SPCF RECUR SNOMED Code(s): 860665924 (2) UTI (urinary tract infection) Current Visit: Yes Status: Acute Code(s): N39.0 - URINARY TRACT INFECTION, SITE NOT SPECIFIED SNOMED Code(s): 41467063 Plan: 1patient presented to hospital with weakness confusion which is likely multifactorial in this patient who recently did have a right fifth toe gangrene status post amputation of the right fifth toe and debridement of the right heel wound culture positive for strep and anaerobes were the patient was receiving Unasyn at the custodial patient did have a necrotic changes at the right fifth toe amputation site patient is status post surgical debridement and local care switched to wound VAC to continue 2patient with a complaint of UTI likely from urinary retention from enteric gram-negative pathogen patient to have a borderline kidney function high risk of nephrotoxicity initial urinalysis Pseudomonas repeat urine and now showing Jessika albicans patient has received short course of Diflucan and can be disco ntinued 3 patient with a C. diff colitis, patient has shown Clinical improvement and plan is to finish a ten-day course of oral vancomycin Time with Patient: Less than 30
[2022-09-08] MEDS: SODIUM CHLORIDE 0.9% 1,000 ML IV SCH (16:25)
[2022-09-08 17:02] LABS: Glucose,Whole Blood 133 mg/dL (70-110)
[2022-09-08] MEDS: TAMSULOSIN 0.4 MG CAP.ER.24H PO SCH (17:14)
[2022-09-08] MEDS ORDERED: WARFARIN 3 MG TAB PO ONE (18:00)
[2022-09-08] MEDS: ACETAMINOPHEN TAB 325 MG TAB PO PRN (21:17)
[2022-09-08] MEDS: CHOLECALCIFEROL 25 MCG (1000 IU) TABLET PO SCH (21:17)
[2022-09-08] MEDS: LEVOTHYROXINE 125 MCG TAB PO SCH (21:18)
[2022-09-08] MEDS: FAMOTIDINE 20 MG TAB PO SCH (21:18)
[2022-09-08] MEDS: ATORVASTATIN 40 MG TAB PO SCH (21:18)
[2022-09-08] MEDS: ASPIRIN 81 MG PO SCH (21:18)
[2022-09-08 21:29] LABS: Glucose,Whole Blood 217 mg/dL (70-110)
[2022-09-08] MEDS: INSULIN DETEMIR (LEVEMIR) 100 UNIT/ML SYR SQ SCH (21:38)
[2022-09-09] MEDS: HYDROcodone/APAP 5-325MG 1 EACH TAB PO PRN ×3 (01:25→15:16)
[2022-09-09 04:47] VITALS: PULSE 76
[2022-09-09 06:11] LABS: Glucose,Whole Blood 122 mg/dL (70-110)
[2022-09-09] MEDS: INSULIN ASPART (NovoLOG) 100 UNIT/ML VIAL SQ SCH ×3 (06:22→17:40)
[2022-09-09 06:39] LABS: INR 3.1 (<1.2); Prothrombin Time 31.3 sec (9.0-12.0)
[2022-09-09 08:06] VITALS: BP 123/72; TEMP 97.3
[2022-09-09 08:38] LABS: HCT 28.8 % (39.6-50.0); HGB 8.4 g/dL (13.0-17.0); MCH 27.9 pg (27.0-32.0); MCHC 29.2 g/dL (32.0-37.0); MCV 95.7 fL (80.0-97.0); Mean Platelet Volume 9.2 fL (9.5-12.2); NRBC Per 100 WBC 0 /100 WBCS (0.0-0.0); Platelet Count 285 X 10*3/uL (140-440); RBC 3.01 X 10*6/uL (4.40-5.60); RDW 16.5 % (11.5-14.5); WBC 6.31 X 10*3/uL (4.50-10.00)
[2022-09-09 08:48] LABS: ALT 22 U/L (10-49); AST 23 U/L (14-35); African American GFR (CKD) 71.1 (60.0-200.0); Albumin 2.3 g/dL (3.8-4.9); Albumin/Globulin Ratio 0.96 (1.60-3.17); Alkaline Phosphatase 76 U/L (41-126); BUN/Creat Ratio 9.91 Ratio (12.00-20.00); Blood Urea Nitrogen 10.9 mg/dL (9.0-27.0); Calcium 8.2 mg/dL (8.7-10.3); Carbon Dioxide 28.8 mmol/L (20.0-27.5); Chloride 105 mmol/L (96-109); Globulin 2.4 g/dL (1.6-3.3); Glucose 117 mg/dL (70-110); Non-African American GFR(CKD) 61.3 (60.0-200.0); Potassium 4.5 mmol/L (3.5-5.5); Sodium 141 mmol/L (135-145); Total Bilirubin <0.15 mg/dL (0.30-1.20); Total Protein 4.7 g/dL (6.2-8.2)
[2022-09-09] MEDS: RANOLAZINE 500 MG TAB.ER.12H PO SCH (09:11)
[2022-09-09] MEDS: METOPROLOL TARTRATE 12.5 MG TAB PO SCH (09:11)
[2022-09-09] MEDS: ZINC SULFATE 220 MG CAP PO SCH (09:11)
[2022-09-09] MEDS: MULTIVITAMINS, THERA 1 EACH TAB PO SCH (09:11)
[2022-09-09] MEDS: FLUCONAZOLE 100 MG TAB PO SCH (09:11)
[2022-09-09] MEDS: GABAPENTIN 100 MG CAP PO SCH (09:11)
[2022-09-09] MEDS: VANCOMYCIN 125 MG CAPSULE PO SCH ×3 (09:11→17:42)
[2022-09-09] MEDS: FINASTERIDE 5 MG TAB PO SCH (09:12)
[2022-09-09] MEDS: NON FORMULARY DRUG (Azelastine/Fluticasone [Azelastin-Flutic 137-50mcg Spr] 23 GM Each) EA NOSTRIL SCH (09:12)
[2022-09-09] MEDS: ASCORBIC ACID 500 MG TAB PO SCH (09:12)
[2022-09-09] MEDS: MENTHOL-ZINC OXIDE OINT 113 GM TUBE TOPICAL SCH ×2 (09:12→15:50)
[2022-09-09] MEDS: DOXAZOSIN 2 MG TAB PO SCH (09:12)
[2022-09-09 09:51] VITALS: RESP 20
[2022-09-09 11:35] LABS: Glucose,Whole Blood 117 mg/dL (70-110)
--- NOTE | 2022-09-09 12:04 | P.PN ---
Subjective Progress Note Date: 09/09/22 Principal diagnosis: Syncope This is an 86-year-old male with medical history of atrial fibrillation, diabetes, hypertension, hyperlipidemia, sleep apnea, coronary artery disease with open heart and stents in the past, sick sinus syndrome status post permanent pacemaker placed in 2017. Patient is a former smoker. 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 He had PICC Line placed and was discharged on IV antibiotics to [facility]. He was recently diagnosed with covid on 08/18/22. Patient presents to the hospital from the senior living for altered mental status and a possible syncopal episode. Patient was moved out of the Covid unit yesterday at [facility]. Patient's does report that since his last hospital stay he has had confusion and poor verbal response. He is alert 1 but easily arousable in the EC. On examination he is alert x 2 to 3. Patient believes that he may have had an emesis episode after eating yesterday he is incontinent of bowel and bladder. He had brain CT completed showing no acute intracranial process. and non specific white matter change likely secondary to chronic small vessel ischemic disease. Also there is opacity of frontal sinus possible mastoid effusion. Chest xray showing bibasilar acute atelectasis and or linear scarring no acute infiltrate seen. Patient presents with a white count 10.9, hemoglobin 9.7, INR of 2.2, BUN 33, creatinine 1.92, glucose of 124, liver enzymes are normal, troponin 0.025. Urine is showing trace ketones, moderate blood, large leukocyte Estrace. Patient is anticoagulated with coumadin and INR is 2.2 on admission. He received a dose of gentamicin in the EC. He was discharged prevoius admission on IV unasyn managed by Dr. Holland who has been consulted. He was discharged to [facility] with indwelling catheter placed by urology his previous admission and this was discontinued at [facility] he was found to be retaining urine again. Urology was consulted and a Cross catheter was placed. 08/30 The patient is resting in bed. He states his toes are hurting him today. There are no visitors at the bedside. He states his plan has not changed, he would like to go to rehab to get stronger. manager foreign aware that he is interested in outpatient palliative care. 09/04 The patient went to the OR with Dr. Cross and underwent a debridement of his right 5th toe amputation site and right heel pressure ulcer. Wound vac placed to left foot. Objective - Vital Signs Vital signs: Vital Signs Temp 97.3 F L 09/09/22 08:05 Pulse 76 09/09/22 08:05 Resp 20 09/09/22 09:48 BP 123/72 09/09/22 08:05 Pulse Ox 94 L 09/09/22 08:05 FiO2 Intake & Output 09/08/22 09/09/22 09/09/22 18:59 06:59 18:59 Intake Total 200 200 Output Total 476 600 1 Balance -276 -600 199 Intake: Oral 200 200 Output: Urine 475 600 Stool 1 1 Other: Voiding Method Indwelling Catheter Indwelling Catheter Indwelling Catheter - Exam General: Well developed, well nourished. No acute distress. Chronically ill appearing HEENT: Head is atraumatic, normocephalic. Lungs: Respirations even and nonlabored. On RA Abdomen/GI: Soft, round. No abdominal tenderness. : Cross catheter present draining clear yellow urine Skin: Warm and dry, wound vac to left foot, bilateral heel pressure ulcers, and unstageable wound to sacrum per nursing staff Neurologic: Alert and oriented x 3, no focal deficits Psychiatric: Appropriate mood and affect. - Labs CBC & Chem 7: 09/09/22 05:42 09/09/22 05:42 Labs: Abnormal Lab Results - Last 24 Hours (Table) 09/08/22 09/08/22 09/09/22 Range/Units 17:00 21:28 05:42 RBC 3.01 L (4.40-5.60) X 10*6/uL Hgb 8.4 L (13.0-17.0) g/dL Hct 28.8 L (39.6-50.0) % MCHC 29.2 L (32.0-37.0) g/dL RDW 16.5 H (11.5-14.5) % MPV 9.2 L (9.5-12.2) fL PT (9.0-12.0) sec INR (<1.2) Carbon Dioxide (20.0-27.5) mmol/L Anion Gap (10.00-18.00) mmol/L BUN/Creatinine Ratio (12.00-20.00) Ratio Glucose (70-110) mg/dL POC Glucose (mg/dL) 133 H 217 H (70-110) mg/dL Calcium (8.7-10.3) mg/dL Total Bilirubin (0.30-1.20) mg/dL Total Protein (6.2-8.2) g/dL Albumin (3.8-4.9) g/dL Albumin/Globulin Ratio (1.60-3.17) g/dL 09/09/22 09/09/22 09/09/22 Range/Units 05:42 05:42 06:10 RBC (4.40-5.60) X 10*6/uL Hgb (13.0-17.0) g/dL Hct (39.6-50.0) % MCHC (32.0-37.0) g/dL RDW (11.5-14.5) % MPV (9.5-12.2) fL PT 31.3 H (9.0-12.0) sec INR 3.1 H (<1.2) Carbon Dioxide 28.8 H (20.0-27.5) mmol/L Anion Gap 7.20 L (10.00-18.00) mmol/L BUN/Creatinine Ratio 9.91 L (12.00-20.00) Ratio Glucose 117 H (70-110) mg/dL POC Glucose (mg/dL) 122 H (70-110) mg/dL Calcium 8.2 L (8.7-10.3) mg/dL Total Bilirubin <0.15 L (0.30-1.20) mg/dL Total Protein 4.7 L (6.2-8.2) g/dL Albumin 2.3 L (3.8-4.9) g/dL Albumin/Globulin Ratio 0.96 L (1.60-3.17) g/dL 09/09/22 Range/Units 11:34 RBC (4.40-5.60) X 10*6/uL Hgb (13.0-17.0) g/dL Hct (39.6-50.0) % MCHC (32.0-37.0) g/dL RDW (11.5-14.5) % MPV (9.5-12.2) fL PT (9.0-12.0) sec INR (<1.2) Carbon Dioxide (20.0-27.5) mmol/L Anion Gap (10.00-18.00) mmol/L BUN/Creatinine Ratio (12.00-20.00) Ratio Glucose (70-110) mg/dL POC Glucose (mg/dL) 117 H (70-110) mg/dL Calcium (8.7-10.3) mg/dL Total Bilirubin (0.30-1.20) mg/dL Total Protein (6.2-8.2) g/dL Albumin (3.8-4.9) g/dL Albumin/Globulin Ratio (1.60-3.17) g/dL Assessment and Plan Assessment: Symptoms * Pain - 4/10 left calf and sacral pain, continue Higginson, Neurotin, and Tylenol * Fatigue - c/o generalized weakness and fatigue, Continue PT/OT, and Feosol * SOB - No, on RA * Insomnia - No * N/V - No * Anxiety - No * Depression - No * Confusion - Occasionally * Agitation - No * Hallucinations - No * Appetite/weight loss - No recent weight loss or loss of appetite. Continue with consistent carbohydrate diet * Dysphagia - No * Constipation - No, LBM11/28 * Incontinence - Cross for urinary retention, continue Flomax and Proscar * Itch - No * Cough - + dry cough (1) Urinary retention Current Visit: Yes Status: Acute Code(s): R33.9 - RETENTION OF URINE, UNSPECIFIED SNOMED Code(s): 268663684 Plan: Summary/Goals - The patient is resting in bed. There are no visitors present. The patient c/o mild pain to his left calf and sacrum. He states the Higginson helps. He declined repositioning when offered. He is essentially bedbound. He has not been able to get out of bed with PT. He feels as if he is getting weaker and is frustrated. He has a wound vac on his left foot which makes moving even more difficult. He was encouraged to do exercises in the bed as much as he can. He states the plan remains the same, to send him to [facility] the [place] for rehab with palliative care. Concern voiced regarding his debility and the unlikelihood of him getting back to his baseline functional status. He stated he has to keep trying. Will follow up with his tomorrow. Recommendations - CAPRICE with OP palliative care Advanced Directives - No Code Status - DNR Thank you for this consultation Cecelia DIAZ- Palliative Care [facility] [id number] Email: [email or web address]
[2022-09-09] MEDS: FERROUS SULFATE 325 MG TAB PO SCH (12:15)
[2022-09-09] MEDS: ACETAMINOPHEN TAB 325 MG TAB PO PRN ×2 (12:15→17:47)
[2022-09-09] MEDS: SODIUM CHLORIDE 0.9% 1,000 ML IV SCH (13:20)
--- NOTE | 2022-09-09 14:59 | P.DS ---
Providers Date of admission: 08/27/22 16:46 Attending physician: Scott Pablo MD Consults: 08/27/22 16:30 Consult to Palliative Care Routine Consulting Provider: Cecelia Evans Consult Reason/Comments: Informational, goals of care Do you want consulting provider notified?: Yes 08/28/22 12:14 Consult Physician Routine Consulting Provider: Krunal Kasper Consult Reason/Comments: urinary retention, IDC removed at [facility] prior to admission Do you want consulting provider notified?: Yes Consult Physician Routine Consulting Provider: Jennifer Holland Consult Reason/Comments: antibiotic management Do you want consulting provider notified?: Yes Primary care physician: Nayan Castillo Hospital Course: Final Diagnosis -Status post surgical debridement of right fifth toe 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, al so debridement of right heel this admission -Episode of unresponsiveness/syncope mostly likely from dehydration -Altered mental status secondary to acute metabolic encephalopathy from acute renal injury, improved -Acute renal failure mostly likely prerenal and also patient has urinary retention, improved -C.Dif colitis -Recent covid infection with first positive on 08/18/22 requiring room air/2 L nasal cannula -Urinary retention with indwelling catheter following with urology -Acute UTI present on admission, without sepsis with Pseudomonas -Recent hospitalization for gangrene and right foot infection with right fifth toe amputation and surgical debridement of right heel wound -History of paroxysmal atrial fibrillation patient is presently rate controlled anticoagulated with warfarin INR 2.11 -Coronary artery disease prior history of CABG and coronary stenting -Ischemic cardiomyopathy -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 Continue on oral vancomycin QID for 10 day course. Continue with wound vac to right fifth toe amputation site. Continue with local wound care. Hold warfarin today 09/09/22 and resume bridger /09/10/22 at 2 mg. Repeat INR on Fri/Friday. Follow up with wound care, vascular services, infectious disease services. Patient will also need to follow up with urology and cardiology as previously recommended. Continue indwelling catheter. Recommend to repeat BMP and CBC on discharge in 2 to 3 days. Hospital Course This is a pleasant 86 year old male with medical history of diabetes, hypertension, sleep apnea, atrial fibrillation, ischemic cardiomyopathy, permanent pacemaker, with known wounds and also recent hospitalization for right 5th toe amputation secondary to gangrene. Previous hospitalization was complicated by urinary retention and acute kidney injury which patient had a urology placed indwelling catheter which required a dorsal slit. Patient was discharged back to [facility]. Patient was subsequently tested positive for Covid after 2 days of being back at [facility]. He then presents back to the current hospital with an episode of unresponsiveness/syncope. Patient was found to have C. diff and was having multiple episodes of diarrhea. This syncopal episode was most likely from dehydration. Patient is also found to be in acute renal failure and was found to have urinary retention as his urinary indwelling catheter was removed prior to coming to the hospital. He did have indwelling catheter replaced and was found to have an acute UTI with Pseudomonas and also Jessika. He was treated inpatient with IV ceftriaxone and repeat urine culture shows improvement. Patient was started on oral vancomycin for the C. Dif colitis has diarrhea has improved. Infectious disease consultation recommending 10 more days of oral vancomycin on discharge. Patient is anticoagulated with warfarin which will continue on discharge with above mentioned recommendations. Patient was evaluated by vascular services this admission secondary to tissue necrosis at amputation site. An arteriorgram was attempted and unsuccessful for this reason patient underwent CTA with run off secondary to critical limb ischemia and he underwent sharp excisional debridement of the right fifth toe amputation site and also sharp excisional debridement right heel on 09/04/22. Wound VAC has been applied post procedure. Patient to be discharge back to [facility] with wound vac and follow up with infectious disease, wound care services, urology, vascular services. He needs to also follow up with cardiology as recommended prior admission. He has been weaned to room air, 2L nasal cannula as needed. Mentation AOx3 at baseline. 09/09/2022 Patient is evaluated today resting in bed. No acute events overnight. He is now maintained on room air, afebrile, heart rate 76, blood pressure 123/72. He denies shortness of breath, denies chest pain, tolerating diet. He reports pain about 3/10 to surgical amputation site and wound vac is applied without evidence for air leak. He is receiving oral pain medications which will continue on discharge. His lungs are clear, S1 S2 auscultated, he continues in normal sinus rhythm. Abdomen is soft and nontender. Urine in plaza drainage back clear and yellow. He is alert x3, focal neurological exam is negative. Most recent labs showing white count of 6.31, hgb 8.4, sodium 141, potassium 4.5, BUN 10.9, creatinine 1.1. Blood glucose 117. Remains afebrile heart rate 97.3, heart rate 76, blood pressure 123/72, 94% room air. Total time taken in discharge planning greater than 35 minutes. Please see medication reconciliation for a list of current medication. Thank you for allowing us to participate in the care of this patient. The impression and plan of care has been dictated by Chrissie Costa, Nurse Practitioner as directed. Dr. Katina MD I have performed a history and physical examination and medical decision making of this patient, discussed the same with the dictator, and agree with the dictators assessment and plan as written, documented as a scribe. Based on total visit time, I have performed more than 50% of this visit. Patient Condition at Discharge: Stable Plan - Discharge Summary Discharge Rx Participant: Yes New Discharge Prescriptions: New Menthol-Zinc Oxide Oint [Calmoseptine Ointment] 1 applic TOPICAL TID each Tamsulosin [Flomax] 0.4 mg PO PC-SUPPER cap Vancomycin 125 mg PO QID 10 Days #40 cap Continue Multivitamins, Thera [Multivitamin (formulary)] 1 tab PO DAILY glipiZIDE [Glipizide] 5 mg PO DAILY@0600 Doxazosin [Cardura] 2 mg PO DAILY Atorvastatin [Lipitor] 40 mg PO HS #30 tab Nitroglycerin Sl Tabs [Nitrostat] 0.4 mg SUBLINGUAL Q5M PRN #0 tab PRN Reason: Chest Pain Levothyroxine Sodium [Synthroid] 112 mcg PO MOTH@2100 Ferrous Sulfate [Feosol] 325 mg PO Q48H Levothyroxine Sodium [Synthroid] 125 mcg PO SUTUWEFRSA@2100 Acetaminophen Tab [Tylenol] 650 mg PO Q6HR PRN tab PRN Reason: Fever and/ or mild Pain Ascorbic Acid [Vitamin C] 500 mg PO DAILY Collagenase [Santyl Ointment] 1 applic TOPICAL HS Metoprolol Tartrate [Lopressor] 12.5 mg PO BID Finasteride [Proscar] 5 mg PO DAILY Ranolazine [Ranexa] 500 mg PO BID Azelastine/Fluticasone [Azelastin-Flutic 137-50Mcg Spr] 2 spray EA NOSTRIL BID@0900,2100 Aspirin EC [Ecotrin Low Dose] 81 mg PO HS Cholecalciferol [Vitamin D3 (25 Mcg = 1000 Iu)] 50 mcg PO HS Insulin Lispro [humaLOG Kwikpen] See Protocol SQ AC-TID Glucerna Shake 237 ml PO BID@0900,1700 Famotidine [Pepcid] 20 mg PO HS tab Collagenase [Santyl Ointment] 1 applic TOPICAL DAILY PRN PRN Reason: wound care Gabapentin [Neurontin] 100 mg PO BID #6 cap Changed Insulin Glargine-Yfgn [Semglee (Yfgn) Pen] 12 units SQ HS #0 Warfarin [Coumadin] 2 mg PO DAILY@1700 #0 HYDROcodone/APAP 5-325MG [[place] 5-325] 1 tab PO Q6HR PRN #6 tab PRN Reason: Moderate Pain Discontinued Ampicillin-Sulbactam [Unasyn] 3 gm IVPB Q6HR 28 Days #112 each captopriL [Captopril] 6.25 mg PO BID Zinc Gluconate [Zinc] 50 mg PO DAILY Discharge Medication List Doxazosin [Cardura] 2 mg PO DAILY 07/10/16 [History] Multivitamins, Thera [Multivitamin (formulary)] 1 tab PO DAILY 07/10/16 [History] glipiZIDE [Glipizide] 5 mg PO DAILY@0600 07/10/16 [History] Atorvastatin [Lipitor] 40 mg PO HS #30 tab 12/18/16 [Rx] Nitroglycerin Sl Tabs [Nitrostat] 0.4 mg SUBLINGUAL Q5M PRN #0 tab 12/26/16 [Rx] Azelastine/Fluticasone [Azelastin-Flutic 137-50Mcg Spr] 2 spray EA NOSTRIL BID@0900,2100 07/12/22 [History] Ferrous Sulfate [Feosol] 325 mg PO Q48H 07/12/22 [History] Finasteride [Proscar] 5 mg PO DAILY 07/12/22 [History] Levothyroxine Sodium [Synthroid] 112 mcg PO MOTH@2100 07/12/22 [History] Ranolazine [Ranexa] 500 mg PO BID 07/12/22 [History] Aspirin EC [Ecotrin Low Dose] 81 mg PO HS 07/14/22 [History] Cholecalciferol [Vitamin D3 (25 Mcg = 1000 Iu)] 50 mcg PO HS 07/14/22 [History] Glucerna Shake 237 ml PO BID@0900,1700 08/07/22 [History] Insulin Lispro [humaLOG Kwikpen] See Protocol SQ AC-TID 08/07/22 [History] Levothyroxine Sodium [Synthroid] 125 mcg PO SUTUWEFRSA@2100 08/07/22 [History] Acetaminophen Tab [Tylenol] 650 mg PO Q6HR PRN tab 08/16/22 [Rx] Famotidine [Pepcid] 20 mg PO HS tab 08/16/22 [Rx] Ascorbic Acid [Vitamin C] 500 mg PO DAILY 08/27/22 [History] Collagenase [Santyl Ointment] 1 applic TOPICAL DAILY PRN 08/27/22 [History] Collagenase [Santyl Ointment] 1 applic TOPICAL HS 08/27/22 [History] Metoprolol Tartrate [Lopressor] 12.5 mg PO BID 08/27/22 [History] Gabapentin [Neurontin] 100 mg PO BID #6 cap 09/09/22 [Rx] HYDROcodone/APAP 5-325MG [[place] 5-325] 1 tab PO Q6HR PRN #6 tab 09/09/22 [Rx] Insulin Glargine-Yfgn [Semglee (Yfgn) Pen] 12 units SQ HS #0 09/09/22 [Rx] Menthol-Zinc Oxide Oint [Calmoseptine Ointment] 1 applic TOPICAL TID each 09/09/22 [Rx] Tamsulosin [Flomax] 0.4 mg PO PC-SUPPER cap 09/09/22 [Rx] Vancomycin 125 mg PO QID 10 Days #40 cap 09/09/22 [Rx] Warfarin [Coumadin] 2 mg PO DAILY@1700 #0 09/09/22 [Rx] Follow up Appointment(s)/Referral(s): Nayan Castillo MD [Primary Care Provider] - 1-2 days Cal Reyes MD [STAFF PHYSICIAN] - 09/23/22 8:40 am Eben Cole DO [STAFF PHYSICIAN] - 09/17/22 3:00 pm Jennifer Holland MD [STAFF PHYSICIAN] - 09/16/22 2:45 pm Ambulatory/Diagnostic Orders: Basic Metabolic Panel [LAB.AMB] Time Frame: 3 Days, Location: None Selected Complete Blood Count w/diff [LAB.AMB] Time Frame: 3 Days, Location: None Selected Activity/Diet/Wound Care/Special Instructions: Continue with wound VAC to right fifth toe surgical debridement site Continue oral vancomycin QID for 10 day course Continue with local wound care to buttock,left heel. Can continue with santyl cream as previous to left heel Can continue with calmoseptine to buttock. Follow up with Dr. Holland Follow up with Dr. Cole Continue indwelling catheter and follow up with urology Dr. Reyes outpatient. Discontinue only based on urology recommendations. Patient continues with recurrent issues with urinary retention. Hold coumadin today and resume tomorrow at 2 mg PO daily and PT/INR Friday/Friday Discharge Disposition: TRANSFER TO SNF/ECF
[2022-09-09 16:36] LABS: Glucose,Whole Blood 190 mg/dL (70-110)
[2022-09-09] MEDS: TAMSULOSIN 0.4 MG CAP.ER.24H PO SCH (17:42)
[2022-09-09] MEDS ORDERED: WARFARIN 0.5 MG TAB PO ONE (18:00)
--- NOTE | 2022-09-11 07:23 | CDI ---
Documentation Clarification Form Date: 09/11/22 From: Ruthie Sheffield Admit Date: 08/27/2022 04:46:00 PM Patient Name: Jay Elizabeth Visit Number: [id number] Discharge Date: 09/09/2022 06:45:00 PM ATTENTION: The Clinical Documentation Specialists (CDI) and [facility] Coding Staff appreciate your assistance in clarifying documentation. Please respond to the clarification below the line at the bottom and electronically sign. The CDI & [facility] Coding staff will review the response and follow-up if needed. Please note: Queries are made part of the Legal Health Record. If you have any questions, please contact the author of this message via ITS. Dr. Ivis Ambriz, UTI is documented in the H&P and [facility] with a Cross catheter and recently was removed in the penitentiary. Additional clarification regarding the etiology of the UTI is requested. History/Risk Factors: SNEHA, metabolic encephalopathy, Stage 3 sacral decubitus ulcer, C diff colitis, ASPVD w gangrene right leg, T2DM w peripheral angiopathy w gangrene, bilateral heel ulcers, dementia, PAF Clinical Indicators: Patient with urinary retention on previous admission and this admission. Urinalysis showing UTI which developed while taking Unasyn for gangrenous toe infection. Cross re-inserted. Antibiotic changed to Gentamicin. Urinalysis: Protein 1+, Leukocyte Esterace large, WBC >182, Hyaline casts 11 H, Urine culture: Pseudomonas aeruginosa Lab results: WBC 10.9, Neutrophils 9.0 Treatment: Cross re-inserted and antibiotics changed to IV Gentamicin Please clarify the etiology of the UTI, if known: [ ] Cross catheter [x ] UTI not related to catheter [ ] Other condition, please specify [ ] Unable to determine MTDD
--- NOTE | 2022-09-16 23:09 | P.PN ---
Subjective Progress Note Date: 09/09/22 Principal diagnosis: UTI/C. diff colitis and right foot wound Patient is a 86-year-old male with multiple comorbidities with recent right fifth toe amputation for gangrene and debridement of the right foot culture positive for strep and the [facility] now presenting back to the hospital with mental status changes noticed to have significant urinary retention requiring Cross catheter placement and a positive UA. Patient is status post debridement of the right fifth toe amputation site and right heel wound by vascular surgery on 09/04/2022 On today's evaluation that is 09/09/2022 the patient remains to be afebrile, patient is breathing comfortably on room air, the patient denies chest pain shortness of breath or cough, the patient denies having any nausea no vomiting no abdominal pain and no diarrhea, the patient pain to the right foot and ankle area has decreased in intensity Objective - Vital Signs Vital signs: Vital Signs Temp 97.3 F L 09/09/22 08:05 Pulse 76 09/09/22 08:05 Resp 20 09/09/22 09:48 BP 123/72 09/09/22 08:05 Pulse Ox 94 L 09/09/22 08:05 FiO2 Intake & Output 09/08/22 09/09/22 09/09/22 18:59 06:59 18:59 Intake Total 200 200 Output Total 476 600 1 Balance -276 -600 199 Intake: Oral 200 200 Output: Urine 475 600 Stool 1 1 Other: Voiding Method Indwelling Catheter Indwelling Catheter Indwelling Catheter - Exam GENERAL DESCRIPTION: An elderly male lying in bed in no distress RESPIRATORY SYSTEM: Unlabored breathing , decreased breath sounds at bases HEART: S1 S2 regular rate and rhythm , ABDOMEN: Soft , no tenderness EXTREMITIES: Right foot wound is currently covered with a wound VAC - Labs CBC & Chem 7: 09/09/22 05:42 09/09/22 05:42 Labs: Abnormal Lab Results - Last 24 Hours (Table) 09/08/22 09/08/22 09/09/22 Range/Units 17:00 21:28 05:42 RBC 3.01 L (4.40-5.60) X 10*6/uL Hgb 8.4 L (13.0-17.0) g/dL Hct 28.8 L (39.6-50.0) % MCHC 29.2 L (32.0-37.0) g/dL RDW 16.5 H (11.5-14.5) % MPV 9.2 L (9.5-12.2) fL PT (9.0-12.0) sec INR (<1.2) Carbon Dioxide (20.0-27.5) mmol/L Anion Gap (10.00-18.00) mmol/L BUN/Creatinine Ratio (12.00-20.00) Ratio Glucose (70-110) mg/dL POC Glucose (mg/dL) 133 H 217 H (70-110) mg/dL Calcium (8.7-10.3) mg/dL Total Bilirubin (0.30-1.20) mg/dL Total Protein (6.2-8.2) g/dL Albumin (3.8-4.9) g/dL Albumin/Globulin Ratio (1.60-3.17) g/dL 09/09/22 09/09/22 09/09/22 Range/Units 05:42 05:42 06:10 RBC (4.40-5.60) X 10*6/uL Hgb (13.0-17.0) g/dL Hct (39.6-50.0) % MCHC (32.0-37.0) g/dL RDW (11.5-14.5) % MPV (9.5-12.2) fL PT 31.3 H (9.0-12.0) sec INR 3.1 H (<1.2) Carbon Dioxide 28.8 H (20.0-27.5) mmol/L Anion Gap 7.20 L (10.00-18.00) mmol/L BUN/Creatinine Ratio 9.91 L (12.00-20.00) Ratio Glucose 117 H (70-110) mg/dL POC Glucose (mg/dL) 122 H (70-110) mg/dL Calcium 8.2 L (8.7-10.3) mg/dL Total Bilirubin <0.15 L (0.30-1.20) mg/dL Total Protein 4.7 L (6.2-8.2) g/dL Albumin 2.3 L (3.8-4.9) g/dL Albumin/Globulin Ratio 0.96 L (1.60-3.17) g/dL 09/09/22 Range/Units 11:34 RBC (4.40-5.60) X 10*6/uL Hgb (13.0-17.0) g/dL Hct (39.6-50.0) % MCHC (32.0-37.0) g/dL RDW (11.5-14.5) % MPV (9.5-12.2) fL PT (9.0-12.0) sec INR (<1.2) Carbon Dioxide (20.0-27.5) mmol/L Anion Gap (10.00-18.00) mmol/L BUN/Creatinine Ratio (12.00-20.00) Ratio Glucose (70-110) mg/dL POC Glucose (mg/dL) 117 H (70-110) mg/dL Calcium (8.7-10.3) mg/dL Total Bilirubin (0.30-1.20) mg/dL Total Protein (6.2-8.2) g/dL Albumin (3.8-4.9) g/dL Albumin/Globulin Ratio (1.60-3.17) g/dL Assessment and Plan (1) C. difficile colitis Status: Acute Code(s): A04.72 - ENTEROCOLITIS D/T CLOSTRIDIUM DIFFICILE, NOT SPCF RECUR SNOMED Code(s): 051146500 (2) UTI (urinary tract infection) Status: Acute Code(s): N39.0 - URINARY TRACT INFECTION, SITE NOT SPECIFIED SNOMED Code(s): 08640460 Plan: 1patient presented to hospital with weakness confusion which is likely multifactorial in this patient who recently did have a right fifth toe gangrene status post amputation of the right fifth toe and debridement of the right heel wound culture positive for strep and anaerobes were the patient was [facility] patient did have a necrotic changes at the right fifth toe amputation site patient is status post surgical debridement and local care switched to wound VAC to continue, patient to continue follow-up with wound care and his surgeon for further local wound care 2patient with a complaint of UTI likely from urinary retention from enteric gram-negative pathogen patient to have a borderline kidney function high risk of nephrotoxicity initial urinalysis Pseudomonas repeat urine and now showing Jessika albicans patient has completed short course of Diflucan 3 patient with a C. diff colitis, patient has shown Clinical improvement and plan is to finish a total of ten-day course of oral vancomycin, advised to increase his probiotic and yogurt intake Time with Patient: Less than 30
--- NOTE | 2022-09-20 05:47 | CDI ---
Documentation Clarification Form Date: 09/20/22 From: Ruthie Sheffield: Admit Date: 08/27/2022 04:46:00 PM Patient Name: Jay Elizabeth Visit Number: [id number] Discharge Date: 09/09/2022 06:45:00 PM ATTENTION: The Clinical Documentation Specialists (CDI) and [facility] Coding Staff appreciate your assistance in clarifying documentation. Please respond to the clarification below the line at the bottom and electronically sign. The CDI & [facility] Coding staff will review the response and follow-up if needed. Please note: Queries are made part of the Legal Health Record. If you have any questions, please contact the author of this message via ITS. Dr. Chari Cross, A sharp excisional debridement is documented in your operative report. Additional clarification regarding the procedure is requested. History/Risk Factors: SNEHA, metabolic encephalopathy, Stage 3 sacral decubitus ulcer, C diff colitis, ASPVD w gangrene right leg, T2DM w peripheral angiopathy w gangrene, bilateral heel ulcers, dementia, PAF Clinical Indicators: Dry gangrene right lower extremity, bedbound. S/P previous right 5th toe amputation previous admission. Using the scalpel as well as scissors, the areas of necrotic tissue were debrided from the right lateral foot at the amputation site. There was a small area of deep tissue injury at the lateral portion of the fourth digit. This was cleaned but not to a point of healthy appearing tissue as it did extend only to the bone. Treatment: Sharp excisional debridement right fifth toe amputation site 5 x 3.5 x 0.7cm to bone Please clarify the site of the excisional debridement (select all that applies): [ x ] Right 5th metatarsal [ ] Right 5th phalanx [ x [ Right 4th phalanx (include depth) 0.4x 0.2x 0.1cm [ ] Other; please specify [ ] Unable to determine Five elements required for accurate and compliant documentation of a debridement: Technique used (e.g., excisional, excised, cutting, brushing, jet lavage etc.) Instrument(s) used (e.g., scalpel, curette, etc.) Nature of the tissue removed (e.g., necrotic, devitalized tissues, non-viable tissue, etc.) Appearance and size of the wound (e.g., down to fresh bleeding tissue, 7cm x 10cm, etc.) Depth of the debridement* (e.g., skin, subcutaneous tissue, fascia, muscle, bone, etc.) MTDD
== END 2022-09-09 18:45 | DRG 673 ==
LOC: EC 13:48 → 4SSUR 16:46
PROVIDERS: ADMIT Internal Medicine; ATTEND Internal Medicine
PROC: B31J1ZZ Fluoroscopy of Left Upper Extremity Arteries using Low Osmolar Contrast (ICD-10-PCS; 2022-08-31 08:00)
PROC: 0JBQ0ZZ Excision of Right Foot Subcutaneous Tissue and Fascia, Open Approach (ICD-10-PCS; principal; 2022-09-04 14:30)
PROC: 0QBN0ZZ Excision of Right Metatarsal, Open Approach (ICD-10-PCS; principal; 2022-09-04 14:30)
DX: N17.9 Acute kidney failure, unspecified (principal); G93.41 Metabolic encephalopathy; L89.153 Pressure ulcer of sacral region, stage 3; A04.72 Enterocolitis due to Clostridium difficile, not specified as recurrent; I70.261 Atherosclerosis of native arteries of extremities with gangrene, right leg; E11.52 Type 2 diabetes mellitus with diabetic peripheral angiopathy with gangrene; N39.0 Urinary tract infection, site not specified; J98.11 Atelectasis; I49.5 Sick sinus syndrome; E11.42 Type 2 diabetes mellitus with diabetic polyneuropathy; L89.610 Pressure ulcer of right heel, unstageable; L89.620 Pressure ulcer of left heel, unstageable; I44.1 Atrioventricular block, second degree; F03.90 Unspecified dementia, unspecified severity, without behavioral disturbance, psychotic disturbance, mood disturbance, and anxiety; I48.0 Paroxysmal atrial fibrillation; E86.0 Dehydration; Z79.4 Long term (current) use of insulin; Z66 Do not resuscitate; Z51.5 Encounter for palliative care; R33.9 Retention of urine, unspecified; Z86.16 Personal history of COVID-19; B96.5 Pseudomonas (aeruginosa) (mallei) (pseudomallei) as the cause of diseases classified elsewhere; L08.9 Local infection of the skin and subcutaneous tissue, unspecified; D64.9 Anemia, unspecified; I25.10 Atherosclerotic heart disease of native coronary artery without angina pectoris; I25.5 Ischemic cardiomyopathy; E78.5 Hyperlipidemia, unspecified; I10 Essential (primary) hypertension; G47.30 Sleep apnea, unspecified; R32 Unspecified urinary incontinence; M47.816 Spondylosis without myelopathy or radiculopathy, lumbar region; M19.90 Unspecified osteoarthritis, unspecified site; H54.62 Unqualified visual loss, left eye, normal vision right eye; H93.13 Tinnitus, bilateral; I25.2 Old myocardial infarction; Z79.82 Long term (current) use of aspirin; Z79.84 Long term (current) use of oral hypoglycemic drugs; Z79.890 Hormone replacement therapy; Z79.01 Long term (current) use of anticoagulants; Z79.899 Other long term (current) drug therapy; Z95.1 Presence of aortocoronary bypass graft; Z95.5 Presence of coronary angioplasty implant and graft; Z95.0 Presence of cardiac pacemaker; Z87.891 Personal history of nicotine dependence; Z74.01 Bed confinement status
CPT/HCPCS: 36200; 36415; 70450; 71046; 75635; 75710; 76937; 80048; 80053; 80170; 81001; 82607; 82746; 83735; 84484; 85025; 85027; 85610; 85730; 87077; 87086; 87186; 87324; 93005; 94760; 96361; 96365; 96366; 99285